=== PATIENT | male | born 1945 | race Hispanic/Latino ===

== ENCOUNTER 2017-01-27 13:12 | Inpatient (IN) | payer MEDICARE ==
[2017-01-27] MEDS ORDERED: Sodium Chloride 0.9% 1,000 ML IV ONE (14:36)
[2017-01-27 14:50] LABS: BASO # 0.1 K/uL (0.0-0.2); BASO % 0.5 % (0.0-2.0); EOS % 0.4 % (0.0-4.0); HEMOGLOBIN 16.6 g/dL (12.0-18.0); LYMPH # 1.3 K/uL (1.0-4.3); LYMPH % 12.5 % (20.0-40.0); MEAN CELL VOLUME 93.5 fl (80.0-94.0); MEAN CORPUSCULAR HGB CONC 34.3 g/dL (33.0-37.0); MONO # 0.7 K/uL (0.0-0.8); NEUT # 8.2 K/uL (1.8-7.0); NEUT % 79.6 % (50.0-75.0); NRBC % 0.1 % (0.0-0.0); RBC 5.18 Mil/uL (4.40-5.90); RED CELL DISTRIBUTION WIDTH 14.6 % (11.5-14.5); WHITE BLOOD COUNT 10.3 K/uL (4.8-10.8)
[2017-01-27 15:05] LABS: ALB/GLOB RATIO 1.5 (1.0-2.1); ALBUMIN 4.4 g/dL (3.5-5.0); ALT/SGPT 32 U/L (21-72); AMYLASE 69 U/L (30-110); AST/SGOT 31 U/L (17-59); BLOOD UREA NITROGEN 27 mg/dl (9-20); CALCIUM 9.8 mg/dL (8.4-10.2); GFR AFRICAN-AMERICAN > 60; GFR NON-AFRICAN AMERICAN 59; LIPASE 32 U/L (23-300)
--- NOTE | 2017-01-27 15:08 | ED PDOC ---
HPI: Abdomen Time Seen by Provider: 01/27/17 13:43 Chief Complaint (Nursing): GI Problem History Per: Patient History/Exam Limitations: no limitations Onset/Duration Of Symptoms: Gradual (7 days) Current Symptoms Are (Timing): Still Present Severity: Moderate Location Of Pain/Discomfort: Diffuse Quality Of Discomfort: Dull, Cramping Associated Symptoms: Nausea, Vomiting, Constipation. denies: Fever, Chills, Diarrhea, Loss Of Appetite, Back Pain, Chest Pain, Urinary Symptoms Exacerbating Factors: None Alleviating Factors: None Last Bowel Movement: Days Ago (7) Additional History Per: Patient Additional Complaint(s): c/o generalized abd pain and constipation x 1 week. no prev sx Past Medical History Reviewed: Historical Data, Nursing Documentation, Vital Signs Vital Signs: Last Vital Signs Temp 97.8 F 02/02/17 00:18 Pulse 77 02/02/17 00:18 Resp 20 02/02/17 00:18 BP 110/68 02/02/17 00:18 Pulse Ox 99 02/02/17 00:18 - Medical History PMH: No Chronic Diseases, COPD - Family History Family History: States: Unknown Family Hx - Living Arrangements Living Arrangements: With Family - Social History Current smoker - smoking cessation education provided: No - Home Medications Home Medications: Ambulatory Orders Medication Instructions Recorded No Known Home Med 01/27/17 - Allergies Allergies/Adverse Reactions: Allergies Allergy/AdvReac Type Severity Reaction Status Date / Time No Known Allergies Allergy Verified 01/27/17 13:16 Review of Systems ROS Statement: Except As Marked, All Systems Reviewed And Found Negative Constitutional: Negative for: Fever, Chills Cardiovascular: Negative for: Chest Pain, Palpitations Respiratory: Negative for: Cough, Shortness of Breath Gastrointestinal: Positive for: Nausea, Vomiting, Abdominal Pain, Constipation Genitourinary Male: Negative for: Dysuria Musculoskeletal: Negative for: Neck Pain Neurological: Negative for: Weakness, Numbness Physical Exam - Reviewed Nursing Documentation Reviewed: Yes Vital Signs Reviewed: Yes - Physical Exam Appears: Positive for: Well, No Acute Distress Head Exam: Positive for: ATRAUMATIC, NORMAL INSPECTION, NORMOCEPHALIC Eye Exam: Positive for: Normal appearance Neck: Positive for: Normal, Painless ROM, Supple Cardiovascular/Chest: Positive for: Tachycardia. Negative for: Edema, Murmur, Bradycardia Respiratory: Positive for: Normal Breath Sounds. Negative for: Decreased Breath Sounds, Accessory Muscle Use, Crackles Pulses-Radial (L): 2+ Pulses-Radial (R): 2+ Gastrointestinal/Abdominal: Positive for: Bowel Sounds, Soft, Distended (mild). Negative for: Guarding, Rebound, Hernia Male Genital Exam: Positive for: normal genitalia. Negative for: scrotum tenderness (R), scrotum tenderness (L), testicular tenderness (R), testicular tenderness (L) Back: Positive for: Normal Inspection. Negative for: L CVA Tenderness, R CVA Tenderness Extremity: Positive for: Normal ROM. Negative for: Tenderness, Pedal Edema Neurologic/Psych: Positive for: Alert, waste removalist II-XII, Oriented. Negative for: Motor/Sensory Deficits - Laboratory Results Result Diagrams: 02/01/17 07:30 02/01/17 07:30 - ECG O2 Sat by Pulse Oximetry: 99 Pulse Ox Interpretation: Normal - Radiology X-Ray: Interpreted by Me X-Ray Interpretation: No Acute Disease Disposition - Clinical Impression Clinical Impression: Colitis - Patient ED Disposition Is Patient to be Admitted: Transfer of Care Counseled Patient/Family Regarding: Studies Performed, Diagnosis - Disposition Disposition: Transfer of Care Disposition Time: 15:00 Condition: FAIR
[2017-01-27 15:21] LABS: SQUAMOUS EPITHIAL 1 /hpf (0-5); URINE BACTERIA RARE (<OCC); URINE BILIRUBIN SMALL (NEGATIVE); URINE BLOOD NEGATIVE (NEGATIVE); URINE CLARITY CLOUDY (Clear); URINE COLOR AMBER (YELLOW); URINE GLUCOSE (UA) 50 mg/dL (Normal); URINE LEUKOCYTE ESTERASE NEG Leu/uL (Negative); URINE NITRATE NEGATIVE (NEGATIVE); URINE PROTEIN 100 mg/dL (NEGATIVE)
--- NOTE | 2017-01-27 15:32 | RAD ---
PROCEDURE: CHEST RADIOGRAPH, 1 VIEW HISTORY: abd pain COMPARISON: None available. FINDINGS: LUNGS: Clear. PLEURA: No pneumothorax or pleural fluid seen. CARDIOVASCULAR: Normal. OSSEOUS STRUCTURES: No significant abnormalities. VISUALIZED UPPER ABDOMEN: Normal. OTHER FINDINGS: None. IMPRESSION: No active disease.
[2017-01-27] MEDS ORDERED: Iohexol 300 100 ML IJ ONE (15:36)
[2017-01-27] MEDS ORDERED: Sodium Chloride 0.9% 50 ML IV ONE (15:37)
--- NOTE | 2017-01-27 16:51 | CT ---
PROCEDURE: CT Abdomen and Pelvis with contrast HISTORY: diffuse abd pain r/o sbo COMPARISON: None. TECHNIQUE: Contrast dose: 90 mL Omnipaque 300 Radiation dose: Total exam DLP = 501.87 mGy-cm. This CT exam was performed using one or more of the following dose reduction techniques: Automated exposure control, adjustment of the mA and/or kV according to patient size, and/or use of iterative reconstruction technique. FINDINGS: LOWER THORAX: No infiltrate. Nonspecific circumferential mural thickening of the distal esophagus. Consider correlation with endoscopy. Trace right pleural effusion. LIVER: Normal size and contour. No mass. Minimal intrahepatic biliary dilatation in the left hepatic lobe. Nonspecific. Dilated common bile duct up to 11 mm. Correlate with laboratory evaluation. GALLBLADDER AND BILE DUCTS: Gallbladder contracted. No calcified gallstones identified. High attenuation content of gallbladder, nonspecific. Mild thickening of gallbladder wall. Consider correlation with ultrasound examination. PANCREAS: Unremarkable. No gross lesion or ductal dilatation. SPLEEN: Unremarkable. ADRENALS: Unremarkable. No mass. KIDNEYS AND URETERS: Unremarkable. No hydronephrosis. No solid mass. VASCULATURE: Unremarkable. No aortic aneurysm. BOWEL: No evidence of small-bowel obstruction. Dilated colon with extensive liquified fecal content. Mural thickening of the transverse colon suspicious for a nonspecific colitis. APPENDIX: Normal appendix. PERITONEUM: Mild nonspecific ascites in pelvis. LYMPH NODES: Shotty retroperitoneal lymph nodes common nonspecific. BLADDER: Poorly distended REPRODUCTIVE: Unremarkable prostate BONES: No acute fracture. OTHER FINDINGS: None. IMPRESSION: Distended colon filled with liquified fecal content. Circumferential mural thickening of transverse colon consistent with nonspecific colitis. No evidence of small bowel obstruction. Mild ascites in pelvis. Contracted gallbladder with high attenuation content and thickened wall. Consider correlation with ultrasound. Mildly dilated common bile duct as well as minimal intrahepatic biliary dilatation. Please correlate with clinical and laboratory evaluation.
--- NOTE | 2017-01-27 17:48 | ED PDOC ---
- Laboratory Results Result Diagrams: 01/27/17 14:40 01/27/17 14:40 - ECG O2 Sat by Pulse Oximetry: 98 Medical Decision Making Medical Decision Making: Receiving sign out: Patient signed out to me by Dr. Baker at 1710 pending imaging studies, re- evaluation. Scribe Attestation: Documented by Zoraida Amos acting as a scribe for Reza Conti MD. Provider Attestation: All medical record entries made by the Scribe were at my direction and personally dictated by me. I have reviewed the chart and agree that the record accurately reflects my personal performance of the history, physical exam, medical decision making, and the department course for this patient. I have also personally directed, reviewed, and agree with the discharge instructions and disposition. Disposition Discussed With : Ray Danielson - Clinical Impression Clinical Impression: Colitis - POA Present On Arrival: None - Disposition Disposition: Hospitalized as Observation Patient Disposition Time: 19:24 Condition: FAIR Progress Note - Review of Symptoms Events since last encounter: Time: 1800 US Abdomen Impression: Contracted galbladder state precludes adequate evaluation. Negative sonographic Barclay's sign as assessed by the electronic masking system operator.
--- NOTE | 2017-01-27 18:00 | US ---
HISTORY: pain COMPARISON: CT of the abdomen and pelvis with IV contrast performed 01/27/17 TECHNIQUE: Sonographic evaluation of the right upper quadrant of the abdomen. FINDINGS: LIVER: Measures 11.4 cm in length and appears unremarkable No focal hepatic mass identified. The main portal vein appears patent with normal directional flow. No intrahepatic bile duct dilatation. GALLBLADDER: Contracted gallbladder state precludes adequate evaluation. Negative sonographic Barclay's sign as assessed by the heading pinner. COMMON BILE DUCT: Measures 3 mm. PANCREAS: Not well-visualized. RIGHT KIDNEY: Measures 9.6 x 4.2 x 3.9 cm. No obstructing calculus or hydronephrosis identified. AORTA: Limited visualization appears grossly unremarkable. IVC: Limited visualization appears grossly unremarkable. OTHER FINDINGS: None . IMPRESSION: Contracted gallbladder state precludes adequate evaluation. Negative sonographic Barclay's sign as assessed by the heading pinner.
[2017-01-27] MEDS ORDERED: Ciprofloxacin 400mg/200ml D5W 400 MG/200 ML BAG IVPB STA (19:22)
--- NOTE | 2017-01-27 19:41 | CP.PCM.HP ---
History of Present Illness - History of Present Illness History of Present Illness: CC: abd pain, n/v, decreased PO HPI: This is a 71 y/o male with MHx significant for COPD who comes in with 7 days of constipation, n/v, abd pain, and decreased PO intake. States that he has had no BM for 7 days, and along with that has had worsening n/v to the point where he can hardly keep any food or liquid down. Denies any f/c. Denies any diarrhea at any point. Denies any prior bowel issues, denies any narcotics or any antibiotics. Nothing has particularly made symptoms better or worse. Had enema in ER with some defecation, but still having some abdominal discomfort PCP: Erum MHx: COPD SHx: Hernia surgery (R) Allergies: NKDA Medications: per med rec (only an inhaler) Family Hx: No family history of cancer or GI problems Social Hx: Lives with family, 1 ppd generally of tobacco, no significant EtOH Surrogate: , Sandra; info in chart Present on Admission - Present on Admission Any Indicators Present on Admission: No Past Patient History - Past Social History Smoking Status: Heavy Smoker > 10 Cigarettes Daily - PULMONARY Hx Chronic Obstructive Pulmonary Disease (COPD): Yes - PSYCHIATRIC Hx Substance Use: No - ANESTHESIA Hx Anesthesia: No Meds Allergies/Adverse Reactions: Allergies Allergy/AdvReac Type Severity Reaction Status Date / Time No Known Allergies Allergy Verified 01/27/17 13:16 Physical Exam - Constitutional Appears: No Acute Distress - Head Exam Head Exam: ATRAUMATIC, NORMOCEPHALIC - Eye Exam Eye Exam: EOMI, PERRL - ENT Exam ENT Exam: Mucous Membranes Moist - Neck Exam Neck exam: Positive for: Full Rom - Respiratory Exam Respiratory Exam: Rhonchi, Wheezes - Cardiovascular Exam Cardiovascular Exam: REGULAR RHYTHM, +S1, +S2 - GI/Abdominal Exam GI & Abdominal Exam: Normal Bowel Sounds, Soft, Tenderness Additional comments: no rebound or guarding - Extremities Exam Extremities exam: Positive for: full ROM, normal inspection - Neurological Exam Neurological exam: Alert, CN II-XII Intact, Oriented x3 - Psychiatric Exam Psychiatric exam: Normal Affect, Normal Mood - Skin Skin Exam: Dry, Warm Results - Vital Signs Recent Vital Signs: Last Vital Signs Temp 97 F L 01/27/17 13:17 Pulse 80 01/27/17 16:04 Resp 19 01/27/17 16:04 BP 139/63 01/27/17 16:04 Pulse Ox 98 01/27/17 19:24 - Labs Result Diagrams: 01/27/17 14:40 01/27/17 14:40 Labs: Laboratory Results - last 24 hr 01/27/17 01/27/17 01/27/17 14:40 14:40 14:59 WBC 10.3 RBC 5.18 Hgb 16.6 Hct 48.4 MCV 93.5 MCH 32.0 H MCHC 34.3 RDW 14.6 H Plt Count 279 MPV 8.0 Neut % (Auto) 79.6 H Lymph % (Auto) 12.5 L Winston % (Auto) 7.0 Eos % (Auto) 0.4 Baso % (Auto) 0.5 Neut # 8.2 H Lymph # 1.3 Winston # 0.7 Eos # 0.0 Baso # 0.1 Sodium 144 Potassium 3.7 Chloride 101 Carbon Dioxide 26 Anion Gap 20 BUN 27 H Creatinine 1.2 Est GFR ( Amer) > 60 Est GFR (Non-Af Amer) 59 Random Glucose 143 H Calcium 9.8 Total Bilirubin 1.1 AST 31 ALT 32 Alkaline Phosphatase 107 Troponin I < 0.0120 Total Protein 7.4 Albumin 4.4 Globulin 3.0 Albumin/Globulin Ratio 1.5 Amylase 69 Lipase 32 Urine Color Jil Urine Clarity Cloudy Urine pH 5.0 Ur Specific Mcalpin 1.032 H Urine Protein 100 Urine Glucose (UA) 50 Urine Ketones 80 Urine Blood Negative Urine Nitrate Negative Urine Bilirubin Small Urine Urobilinogen 2.0 Ur Leukocyte Esterase Neg Urine RBC (Auto) 3 Urine Microscopic WBC 9 H Ur Squamous Epith Cells 1 Urine Bacteria Rare - Imaging and Cardiology Chest x-ray Status: Image reviewed by me (unremarkable) CT scan - abdomen Status: Image reviewed by me (Per report distal colon with liq feces, transverse with thickening, possible colitis; u/s with no cholecystitis), Report reviewed by me Assessment & Plan (1) Abdominal pain Assessment and Plan: 71 y/o male with constipation and possible colitis and decreased PO. -Continue IV Cipro and Flagyl for now; appears unlikely to necessarily be colitis however -Advance to clear liq and cont IVF -Tylenol for pain, Zofran IV for nausea -Consult GI (Luiz) in AM for possible colonoscopy -SCDs for DVT PPx Status: Acute (2) Colitis Status: Acute (3) DVT prophylaxis Status: Acute
[2017-01-27] MEDS ORDERED: Sodium Chloride 0.9% 1,000 ML IV SCH (19:45)
[2017-01-27 20:09] LABS: VENOUS BLOOD GAS BASE EXCESS -0.2 mmol/L (0.0-2.0); VENOUS BLOOD GAS PCO2 41 mmHg (40-60); VENOUS BLOOD GAS PO2 51 mm/Hg (30-55); VENOUS BLOOD PH 7.39 (7.32-7.43)
[2017-01-27] MEDS ORDERED: Albuterol-Ipratrop 3 mg / 0.5 (3 ml) UD INH PRN (20:28)
[2017-01-27] MEDS ORDERED: Albuterol-Ipratrop 3 mg / 0.5 (3 ml) UD INH STA (20:28)
[2017-01-27] MEDS ORDERED: metroNIDAZOLE 500mg/100ml NS 1,000 MG in Premixed IV 1 EA IVPB SCH (20:30)
[2017-01-28] MEDS: metroNIDAZOLE 500mg/100ml NS 100 ML IVPB SCH ×3 (01:02→17:28)
[2017-01-28 07:46] LABS: HEMOGLOBIN 15.4 g/dL (12.0-18.0); MEAN CORPUSCULAR HEMOGLOBIN 31.7 pg (27.0-31.0); MEAN CORPUSCULAR HGB CONC 33.8 g/dL (33.0-37.0); RBC 4.84 Mil/uL (4.40-5.90); RED CELL DISTRIBUTION WIDTH 14.6 % (11.5-14.5); WHITE BLOOD COUNT 12.8 K/uL (4.8-10.8)
[2017-01-28 08:10] LABS: BLOOD UREA NITROGEN 26 mg/dl (9-20); CALCIUM 9.5 mg/dL (8.4-10.2)
[2017-01-28 09:01] LABS: GFR AFRICAN-AMERICAN > 60; GFR NON-AFRICAN AMERICAN > 60
--- NOTE | 2017-01-28 09:27 | CP.PCM.PN ---
Subjective - Date & Time of Evaluation Date of Evaluation: 01/28/17 Time of Evaluation: 09:19 - Subjective Subjective: pt continues to vomit when eating will give only clears with small sips, which is what he is able to tolerate at this time small BM yesterday after enema encourage ambulation if able HD stable NAD no other complaints at this time Objective - Vital Signs/Intake and Output Vital Signs (last 24 hours): Temp Pulse Resp BP Pulse Ox 97.8 F 76 20 117/67 94 L 01/28/17 08:02 01/28/17 08:02 01/28/17 08:02 01/28/17 08:02 01/28/17 08:02 Intake and Output: 01/28/17 01/28/17 06:59 18:59 Intake Total 1000 Balance 1000 - Medications Medications: Current Medications Acetaminophen (Tylenol 325mg Tab) 650 mg PO Q6 PRN PRN Reason: Pain, Mild (1-3) Acetaminophen (Tylenol 325mg Tab) 650 mg PO Q6 PRN PRN Reason: Fever >100.4 F Albuterol/Ipratropium (Duoneb 3 Mg/0.5 Mg (3 Ml) Ud) 3 ml INH RQ6 PRN PRN Reason: Shortness of Breath Metronidazole 1,000 mg/ (Miscellaneous) 200 mls @ 200 mls/hr IVPB ONCE TORRES Last Admin: 01/27/17 23:07 Dose: 200 mls/hr Ciprofloxacin (Cipro 400mg/200ml Dsw) 400 mg in 200 mls @ 200 mls/hr IVPB Q12 TORRES Metronidazole (Flagyl 500mg/100ml Ns) 100 mls @ 100 mls/hr IVPB Q8 TORRES Last Admin: 01/28/17 01:02 Dose: Not Given Ondansetron HCl (Zofran Inj) 4 mg IVP Q6 PRN PRN Reason: Nausea/Vomiting Last Admin: 01/27/17 20:07 Dose: 4 mg - Labs Labs: 01/28/17 05:15 01/28/17 05:15 - Constitutional Appears: Non-toxic, No Acute Distress - Head Exam Head Exam: ATRAUMATIC, NORMOCEPHALIC - Eye Exam Eye Exam: EOMI, Normal appearance, PERRL Pupil Exam: NORMAL ACCOMODATION - ENT Exam ENT Exam: Mucous Membranes Moist, Normal Oropharynx - Neck Exam Neck Exam: Full ROM, Normal Inspection - Respiratory Exam Respiratory Exam: Clear to Ausculation Bilateral, NORMAL BREATHING PATTERN - Cardiovascular Exam Cardiovascular Exam: RRR, +S1, +S2 - GI/Abdominal Exam GI & Abdominal Exam: Soft, Normal Bowel Sounds. absent: Tenderness - Extremities Exam Extremities Exam: Normal Capillary Refill. absent: Joint Swelling - Back Exam Back Exam: absent: CVA tenderness (L), CVA tenderness (R) - Neurological Exam Neurological Exam: Alert, Oriented x3 - Psychiatric Exam Psychiatric exam: Normal Affect, Normal Mood - Skin Skin Exam: Dry, Normal Color, Warm Assessment and Plan - Assessment and Plan (Free Text) Plan: 71 y/o male with MHx significant for COPD who comes in with 7 days of constipation, n/v, abd pain, and decreased PO intake. States that he has had no BM for 7 days, and along with that has had worsening n/v to the point where he can hardly keep any food or liquid down. Denies any f/c. Denies any diarrhea at any point. Denies any prior bowel issues, denies any narcotics or any antibiotics. Nothing has particularly made symptoms better or worse. Had enema in ER with some defecation, but still having some abdominal discomfort Chest x-ray: unremarkable CT scan - abdomen: distal colon with liq feces, transverse with thickening, possible colitis; u/s with no cholecystitis Abdominal pain 2/2 Colitis? -Continue IV Cipro and Flagyl for now; clinically unlikely colitis -Advance to clear liq and cont IVF -Tylenol for pain, Zofran IV for nausea -Consult GI (Luiz) in AM Azotemia -additional liter of NS @250 one bag today and reassess -repeat chem in AM Hypokalemia -replete K this morning -check Mg -repeat chem and Mg in AM COPD stable DuoNebs as needed DVT prophylaxis -SCDs for DVT PPx
[2017-01-28] MEDS ORDERED: Sodium Chloride 0.9% 1,000 ML IV SCH (09:30)
--- NOTE | 2017-01-28 10:21 | CARD ---
APPROVED REPORT EKG Measurement Heart [id number] <Conclusion> Sinus rhythm with frequent premature atrial contractions Nonspecific ST abnormality Abnormal ECG
[2017-01-28] MEDS: Ciprofloxacin 400mg/200ml D5W 400 MG/200 ML BAG IVPB SCH ×2 (11:17→21:12)
[2017-01-28] MEDS: Potassium CL 10mEq/100ml 100 ML IVPB SCH ×4 (16:08→17:27)
[2017-01-28] MEDS ORDERED: Trimethobenzamide 200 mg/2 mL Inj IM ONE (21:40)
[2017-01-29] MEDS: metroNIDAZOLE 500mg/100ml NS 100 ML IVPB SCH ×3 (00:44→17:56)
[2017-01-29 07:53] LABS: BASO % 0.4 % (0.0-2.0); EOS % 0.1 % (0.0-4.0); HEMOGLOBIN 14.9 g/dL (12.0-18.0); LYMPH # 1.2 K/uL (1.0-4.3); MEAN CELL VOLUME 95.1 fl (80.0-94.0); MEAN CORPUSCULAR HEMOGLOBIN 31.6 pg (27.0-31.0); MEAN CORPUSCULAR HGB CONC 33.2 g/dL (33.0-37.0); MEAN PLATELET VOLUME 8.1 fl (7.2-11.7); MONO # 1.2 K/uL (0.0-0.8); MONO % 9.6 % (0.0-10.0); NEUT # 9.9 K/uL (1.8-7.0); NEUT % 79.9 % (50.0-75.0); RBC 4.72 Mil/uL (4.40-5.90); RED CELL DISTRIBUTION WIDTH 14.8 % (11.5-14.5); WHITE BLOOD COUNT 12.4 K/uL (4.8-10.8)
[2017-01-29 08:14] LABS: BLOOD UREA NITROGEN 22 mg/dl (9-20); CALCIUM 9.2 mg/dL (8.4-10.2); GFR AFRICAN-AMERICAN > 60; GFR NON-AFRICAN AMERICAN > 60
[2017-01-29 08:15] LABS: MAGNESIUM 1.9 MG/DL (1.6-2.3)
--- NOTE | 2017-01-29 10:25 | CP.PCM.PN ---
Subjective - Date & Time of Evaluation Date of Evaluation: 01/29/17 Time of Evaluation: 10:30 - Subjective Subjective: some nauseam but no BM Objective - Vital Signs/Intake and Output Vital Signs (last 24 hours): Temp Pulse Resp BP Pulse Ox 98.1 F 87 20 145/76 96 01/29/17 07:46 01/29/17 07:46 01/29/17 07:46 01/29/17 07:46 01/29/17 07:46 - Medications Medications: Current Medications Acetaminophen (Tylenol 325mg Tab) 650 mg PO Q6 PRN PRN Reason: Pain, Mild (1-3) Acetaminophen (Tylenol 325mg Tab) 650 mg PO Q6 PRN PRN Reason: Fever >100.4 F Albuterol/Ipratropium (Duoneb 3 Mg/0.5 Mg (3 Ml) Ud) 3 ml INH RQ6 PRN PRN Reason: Shortness of Breath Bisacodyl (Dulcolax) 10 mg [place] DAILY PRN PRN Reason: Constipation Metronidazole 1,000 mg/ (Miscellaneous) 200 mls @ 200 mls/hr IVPB ONCE TORRES Last Admin: 01/27/17 23:07 Dose: 200 mls/hr Ciprofloxacin (Cipro 400mg/200ml Dsw) 400 mg in 200 mls @ 200 mls/hr IVPB Q12 TORRES Last Admin: 01/28/17 21:12 Dose: 200 mls/hr Metronidazole (Flagyl 500mg/100ml Ns) 100 mls @ 100 mls/hr IVPB Q8 TORRES Last Admin: 01/29/17 10:04 Dose: 100 mls/hr Ondansetron HCl (Zofran Inj) 4 mg IVP Q4H PRN PRN Reason: Nausea/Vomiting Last Admin: 01/29/17 03:00 Dose: 4 mg Sodium Phosphate (Fleet Enema) 135 ml TX ONCE ONE Stop: 01/29/17 10:00 - GI/Abdominal Exam GI & Abdominal Exam: Soft, Normal Bowel Sounds Assessment and Plan - Assessment and Plan (Free Text) Assessment: 71 yo male with colitis will review films with radiology kub now laxatives H2 tawana
--- NOTE | 2017-01-29 10:49 | CP.PCM.PN ---
Subjective - Date & Time of Evaluation Date of Evaluation: 01/29/17 Time of Evaluation: 10:49 - Subjective Subjective: continues to have nausea improved from yesterday less emesis HD STABLE NAD unable to tolerate PO hold IVF 2/2 heaviness in breathing Objective - Vital Signs/Intake and Output Vital Signs (last 24 hours): Temp Pulse Resp BP Pulse Ox 98.1 F 87 20 145/76 96 01/29/17 07:46 01/29/17 07:46 01/29/17 07:46 01/29/17 07:46 01/29/17 07:46 - Medications Medications: Current Medications Acetaminophen (Tylenol 325mg Tab) 650 mg PO Q6 PRN PRN Reason: Pain, Mild (1-3) Acetaminophen (Tylenol 325mg Tab) 650 mg PO Q6 PRN PRN Reason: Fever >100.4 F Albuterol/Ipratropium (Duoneb 3 Mg/0.5 Mg (3 Ml) Ud) 3 ml INH RQ6 PRN PRN Reason: Shortness of Breath Bisacodyl (Dulcolax) 10 mg MS DAILY PRN PRN Reason: Constipation Famotidine (Pepcid) 20 mg PO BID [facility] Metronidazole 1,000 mg/ (Miscellaneous) 200 mls @ 200 mls/hr IVPB ONCE [facility] Last Admin: 01/27/17 23:07 Dose: 200 mls/hr Ciprofloxacin (Cipro 400mg/200ml Dsw) 400 mg in 200 mls @ 200 mls/hr IVPB Q12 [facility] Last Admin: 01/28/17 21:12 Dose: 200 mls/hr Metronidazole (Flagyl 500mg/100ml Ns) 100 mls @ 100 mls/hr IVPB Q8 [facility] Last Admin: 01/29/17 10:04 Dose: 100 mls/hr Ondansetron HCl (Zofran Inj) 4 mg IVP Q4H PRN PRN Reason: Nausea/Vomiting Last Admin: 01/29/17 03:00 Dose: 4 mg - Constitutional Appears: Non-toxic, No Acute Distress - Head Exam Head Exam: ATRAUMATIC, NORMOCEPHALIC - Eye Exam Eye Exam: EOMI, Normal appearance, PERRL Pupil Exam: NORMAL ACCOMODATION - ENT Exam ENT Exam: Mucous Membranes Moist, Normal Oropharynx - Respiratory Exam Respiratory Exam: Clear to Ausculation Bilateral, NORMAL BREATHING PATTERN - Cardiovascular Exam Cardiovascular Exam: RRR, +S1, +S2 - GI/Abdominal Exam GI & Abdominal Exam: Soft, Normal Bowel Sounds. absent: Tenderness, Mass, Organomegaly - Extremities Exam Extremities Exam: Normal Capillary Refill. absent: Joint Swelling - Back Exam Back Exam: absent: CVA tenderness (L), CVA tenderness (R) - Neurological Exam Neurological Exam: Alert, Awake - Psychiatric Exam Psychiatric exam: Normal Affect, Normal Mood - Skin Skin Exam: Dry, Warm Assessment and Plan - Assessment and Plan (Free Text) Plan: 71 y/o male with MHx significant for COPD who comes in with 7 days of constipation, n/v, abd pain, and decreased PO intake. States that he has had no BM for 7 days, and along with that has had worsening n/v to the point where he can hardly keep any food or liquid down. Denies any f/c. Denies any diarrhea at any point. Denies any prior bowel issues, denies any narcotics or any antibiotics. Nothing has particularly made symptoms better or worse. Had enema in ER with some defecation, but still having some abdominal discomfort Chest x-ray: unremarkable CT scan - abdomen: distal colon with liq feces, transverse with thickening, possible colitis; u/s with no cholecystitis Abdominal pain 2/2 ILEUS . Colitis? Constipation, not tolerating PO -Continue IV Cipro and Flagyl for now; clinically unlikely colitis -pt continues to not tolerate PO, requires IV hydration, however currently holding 2/2 "heaviness of breathing" -NPO for now, KUB completed. +ileus -Tylenol for pain, Zofran IV for nausea -Consult GI (Sotiriadis) in AM - Fleet Enema, Dulcolax suppository added - if worsens, will NGT. likely ileus. Hypokalemia - repleted K - Mg repleted as well - monitor Azotemia -additional liter of ns completed -repeat chem in AM Hypokalemia -replete K this morning -check Mg -repeat chem and Mg in AM COPD stable DuoNebs as needed DVT prophylaxis -SCDs for DVT PPx
[2017-01-29 11:05] LABS: ALB/GLOB RATIO 1.5 (1.0-2.1); ALBUMIN 3.6 g/dL (3.5-5.0); BILIRUBIN,DIRECT 0.4 mg/ml (0.0-0.4)
[2017-01-29] MEDS: Ciprofloxacin 400mg/200ml D5W 400 MG/200 ML BAG IVPB SCH ×2 (11:08→21:39)
[2017-01-29] MEDS ORDERED: Magnesium Sulfate 2 gm/50 ml 2 GM/50 ML BAG IVPB ONE (11:08)
--- NOTE | 2017-01-29 15:12 | RAD ---
HISTORY: abd pain COMPARISON: Comparison made with CT scan abdomen and pelvis dated 01/27/2017 FINDINGS: BOWEL: Re- demonstrated is distended cecum and at ascending colon which was noted to contain a large amount of liquefied content on prior CT scan. . Previously noted wall thickening of the transverse colon consistent with a colitis not appreciated on this study. BONES: Normal. OTHER FINDINGS: None. IMPRESSION: Re- demonstrated is distended cecum and at ascending colon which was noted to contain a large amount of liquefied content on prior CT scan. . Previously noted wall thickening of the transverse colon consistent with a colitis not appreciated on this study.
[2017-01-29] MEDS: Potassium CL 10mEq/100ml 100 ML IVPB SCH ×5 (15:17→20:12)
--- NOTE | 2017-01-29 17:14 | US ---
HISTORY: Intractable n/v, rec from CT COMPARISON: Ultrasound performed 01/29/17 TECHNIQUE: Sonographic evaluation of the abdomen. FINDINGS: LIVER: Measures 12.2 cm in sagittal dimension and appears within normal limits of size, shape, and echotexture. No focal hepatic mass identified. The main portal vein appears patent with normal directional flow. No intrahepatic bile duct dilatation. GALLBLADDER: Contracted state of the gallbladder precludes adequate evaluation. No definite gallstones. Gallbladder wall appears thickened measuring approximately 5 mm. Negative sonographic Barclay's sign as assessed by the sheltered workshop worker. COMMON BILE DUCT: Measures 4 mm. PANCREAS: Not well visualized. RIGHT KIDNEY: Measures 9.9 x 3.3 x 3.4cm. No obstructing calculus or hydronephrosis identified. Trace perinephric fluid. LEFT KIDNEY: Measures 10.6 x 4.2 x 4.5cm. No obstructing calculus or hydronephrosis identified. Trace perinephric fluid. SPLEEN: Measures approximately 7.0 cm. AORTA: Limited views appear unremarkable. IVC: Limited views appear unremarkable. OTHER FINDINGS: Incidental note is made of right-sided pleural effusion. IMPRESSION: Trace bilateral perinephric fluid. Trace right-sided pleural effusion. Contracted gallbladder limits evaluation. Gallbladder wall appears thickened measuring approximately 5 mm. Negative sonographic Barclay's sign as assessed by the sheltered workshop worker.
[2017-01-30] MEDS: metroNIDAZOLE 500mg/100ml NS 100 ML IVPB SCH ×3 (01:42→17:03)
[2017-01-30 05:25] LABS: BASO # 0.1 K/uL (0.0-0.2); BASO % 0.7 % (0.0-2.0); EOS % 0.2 % (0.0-4.0); HEMOGLOBIN 15.6 g/dL (12.0-18.0); LYMPH # 1.4 K/uL (1.0-4.3); LYMPH % 13.2 % (20.0-40.0); MEAN CELL VOLUME 94.9 fl (80.0-94.0); MEAN CORPUSCULAR HEMOGLOBIN 31.8 pg (27.0-31.0); MEAN CORPUSCULAR HGB CONC 33.5 g/dL (33.0-37.0); MEAN PLATELET VOLUME 8.1 fl (7.2-11.7); MONO % 9.4 % (0.0-10.0); NEUT # 8.4 K/uL (1.8-7.0); NEUT % 76.5 % (50.0-75.0); RBC 4.9 Mil/uL (4.40-5.90); RED CELL DISTRIBUTION WIDTH 14.9 % (11.5-14.5)
[2017-01-30 05:26] LABS: ALB/GLOB RATIO 1.5 (1.0-2.1); ALBUMIN 3.5 g/dL (3.5-5.0); ALT/SGPT 31 U/L (21-72); AST/SGOT 43 U/L (17-59); BLOOD UREA NITROGEN 21 mg/dl (9-20); CALCIUM 8.6 mg/dL (8.4-10.2); GFR AFRICAN-AMERICAN > 60; GFR NON-AFRICAN AMERICAN > 60
--- NOTE | 2017-01-30 08:41 | CON ---
DATE: 01/28/2017 REFERRING DOCTOR: Raysa Palmer MD REASON FOR CONSULTATION: Abdominal pain, nausea, and vomiting. HISTORY OF PRESENT ILLNESS: This is a 71-year-old male with history of COPD. He complains for 7 days of nausea, vomiting, and abdominal discomfort. [place] Feels better at this point. He has had some bowel movements, some fevers and no chills, no weight loss, currently lying, in no apparent distress. PAST MEDICAL HISTORY: As above. PAST SURGICAL HISTORY: As above. MEDICATIONS: Reviewed. REVIEW OF SYSTEMS: All other systems have been reviewed, negative apart from the HPI. PHYSICAL EXAMINATION GENERAL: Pleasant elderly appearing male, lying in bed comfortably, in no apparent distress. HEENT: Head is normocephalic and atraumatic. Eyes, pupils equal and reactive to light. No conjunctivae or scleral icterus. NECK: Supple. Normal range of motion. No lymphadenopathy appreciated. LUNGS: Coarse breath sounds bilaterally. HEART: S1, S2, regular rate and rhythm. ABDOMEN: Soft, nontender, bowel sounds present. Some discomfort in the upper quadrant. No rebound. No guarding. RECTAL: Exam deferred. EXTREMITIES: Peripheral pulses felt bilaterally. SKIN: Warm, dry, and intact x3. LABORATORY DATA: WBC went up to 12.8, hemoglobin 15.4, hematocrit stable, platelet count is 302. CAT scan of the abdomen and pelvis demonstrates descending colon with leukocytes, fecal contents, document again of the transverse colon significant with nonspecific colitis. Abdominal ultrasound contracted gallbladder, ASSESSMENT AND PLAN: This is a 71-year-old man with colitis and chronic obstructive pulmonary disease. Antibiotics for now. Administer as tolerated. Outpatient colonoscopy when able. Thank you for the consult. Roel Dee MD/ PhD cc: Raysa Palmer MD MTDD
[2017-01-30] MEDS: Ciprofloxacin 400mg/200ml D5W 400 MG/200 ML BAG IVPB SCH ×2 (09:11→21:48)
--- NOTE | 2017-01-30 13:07 | CP.PCM.PN ---
Subjective - Date & Time of Evaluation Date of Evaluation: 01/30/17 Time of Evaluation: 13:05 - Subjective Subjective: pt continues to feel nauseated and unable to take food by mouth without emesis hd stable no other complaints at this time Objective - Vital Signs/Intake and Output Vital Signs (last 24 hours): Temp Pulse Resp BP Pulse Ox 98.5 F 74 20 161/94 H 95 01/30/17 08:31 01/30/17 08:31 01/30/17 08:31 01/30/17 08:31 01/30/17 08:31 Intake and Output: 01/30/17 01/30/17 06:59 18:59 Intake Total 300 Balance 300 - Medications Medications: Current Medications Acetaminophen (Tylenol 325mg Tab) 650 mg PO Q6 PRN PRN Reason: Pain, Mild (1-3) Acetaminophen (Tylenol 325mg Tab) 650 mg PO Q6 PRN PRN Reason: Fever >100.4 F Albuterol/Ipratropium (Duoneb 3 Mg/0.5 Mg (3 Ml) Ud) 3 ml INH RQ6 PRN PRN Reason: Shortness of Breath Bisacodyl (Dulcolax) 10 mg [place] DAILY PRN PRN Reason: Constipation Last Admin: 01/30/17 10:26 Dose: 10 mg Famotidine (Pepcid) 20 mg PO BID [facility] Last Admin: 01/30/17 09:10 Dose: 20 mg Ciprofloxacin (Cipro 400mg/200ml Dsw) 400 mg in 200 mls @ 200 mls/hr IVPB Q12 [facility] Last Admin: 01/30/17 09:11 Dose: 200 mls/hr Metronidazole (Flagyl 500mg/100ml Ns) 100 mls @ 100 mls/hr IVPB Q8 [facility] Last Admin: 01/30/17 08:57 Dose: 100 mls/hr Potassium Chloride/Dextrose/Sod Cl (Potassium Chl 20 Meq In D5-1/2ns) 1,000 mls @ 100 mls/hr IV .Q10H [facility] Stop: 01/31/17 12:02 Ondansetron HCl (Zofran Inj) 4 mg IVP Q4H PRN PRN Reason: Nausea/Vomiting Last Admin: 01/30/17 01:43 Dose: 4 mg - Labs Labs: 01/30/17 04:20 01/30/17 04:20 - Constitutional Appears: Non-toxic, No Acute Distress - Head Exam Head Exam: ATRAUMATIC, NORMOCEPHALIC - Eye Exam Eye Exam: EOMI, Normal appearance, PERRL Pupil Exam: NORMAL ACCOMODATION - ENT Exam ENT Exam: Mucous Membranes Moist, Normal Oropharynx - Neck Exam Neck Exam: Full ROM, Normal Inspection. absent: Lymphadenopathy - Respiratory Exam Respiratory Exam: Clear to Ausculation Bilateral, NORMAL BREATHING PATTERN - Cardiovascular Exam Cardiovascular Exam: REGULAR RHYTHM, +S1, +S2. absent: Murmur - GI/Abdominal Exam GI & Abdominal Exam: Soft, Hypoactive Bowel Sounds. absent: Tenderness - Extremities Exam Extremities Exam: Full ROM, Normal Capillary Refill, Normal Inspection. absent : Joint Swelling, Pedal Edema - Back Exam Back Exam: absent: CVA tenderness (L), CVA tenderness (R) - Neurological Exam Neurological Exam: Alert, Awake, CN II-XII Intact, Normal Gait, Oriented x3 - Psychiatric Exam Psychiatric exam: Normal Affect, Normal Mood - Skin Skin Exam: Dry, Intact, Normal Color, Warm Assessment and Plan - Assessment and Plan (Free Text) Plan: 71 y/o male with MHx significant for COPD who comes in with 7 days of constipation, n/v, abd pain, and decreased PO intake. States that he has had no BM for 7 days, and along with that has had worsening n/v to the point where he can hardly keep any food or liquid down. Denies any f/c. Denies any diarrhea at any point. Denies any prior bowel issues, denies any narcotics or any antibiotics. Nothing has particularly made symptoms better or worse. Had enema in ER with some defecation, but still having some abdominal discomfort Chest x-ray: unremarkable CT scan - abdomen: distal colon with liq feces, transverse with thickening, possible colitis; u/s with no cholecystitis Abdominal pain 2/2 ILEUS . Colitis? Constipation, not tolerating PO -Continue IV Cipro and Flagyl for now; clinically unlikely colitis -pt continues to not tolerate PO, requires IV hydration, however currently holding 2/2 "heaviness of breathing" -NPO for now, KUB completed. +ileus -Tylenol for pain, Zofran IV for nausea -Consult GI (Luiz) in AM - Fleet Enema, Dulcolax suppository added - if worsens, will NGT. likely ileus. - 01/30/17 pt continues to have nausea, less emesis, however unable to tolerate PO, on maintenance fluids will order tap and suds enema and dulcolax [place] and continue to monitor Hypokalemia - repleted K - Mg repleted as well - monitor Azotemia -additional liter of ns completed -repeat chem in AM Hypokalemia -replete K this morning -check Mg -repeat chem and Mg in AM COPD stable DuoNebs as needed DVT prophylaxis -SCDs for DVT PPx
[2017-01-30] MEDS: Potassium Ch 20mEq in D5-1/2NS 1,000 ML IV SCH ×2 (14:24→21:49)
[2017-01-30] MEDS: Tiotropium 18 mcg Cap For Inhalation INH SCH (18:21)
[2017-01-31] MEDS: metroNIDAZOLE 500mg/100ml NS 100 ML IVPB SCH ×3 (01:24→18:15)
[2017-01-31] MEDS: Tiotropium 18 mcg Cap For Inhalation INH SCH (10:48)
[2017-01-31] MEDS: Ciprofloxacin 400mg/200ml D5W 400 MG/200 ML BAG IVPB SCH ×2 (11:00→22:00)
[2017-01-31] MEDS ORDERED: Albuterol 0.083% Inhal Sol (2.5 mg/3 mL) UD INH PRN (12:13)
--- NOTE | 2017-01-31 12:17 | CP.PCM.PN ---
Subjective - Date & Time of Evaluation Date of Evaluation: 01/31/17 Time of Evaluation: 12:15 - Subjective Subjective: Unusual, but Spiriva can have some effect on the bowel because of it's anticholinergic properties. Have discontinued this for now and substituted QID albuterol nebs. Thanks. Objective - Vital Signs/Intake and Output Vital Signs (last 24 hours): Temp Pulse Resp BP Pulse Ox 98.5 F 86 20 101/65 96 01/31/17 08:45 01/31/17 08:45 01/31/17 08:45 01/31/17 08:45 01/31/17 08:45 Intake and Output: 01/31/17 01/31/17 11:59 23:59 Intake Total 1320 Balance 1320 - Medications Medications: Current Medications Acetaminophen (Tylenol 325mg Tab) 650 mg PO Q6 PRN PRN Reason: Pain, Mild (1-3) Acetaminophen (Tylenol 325mg Tab) 650 mg PO Q6 PRN PRN Reason: Fever >100.4 F Albuterol Sulfate (Albuterol 0.083% Inhal Barbara (2.5 Mg/3 Ml) Ud) 2.5 mg INH RQID [facility] Albuterol Sulfate (Albuterol 0.083% Inhal Barbara (2.5 Mg/3 Ml) Ud) 2.5 mg INH RQ4 PRN PRN Reason: Shortness of Breath Bisacodyl (Dulcolax) 10 mg [place] DAILY PRN PRN Reason: Constipation Last Admin: 01/30/17 10:26 Dose: 10 mg Famotidine (Pepcid) 20 mg PO BID [facility] Last Admin: 01/31/17 08:45 Dose: 20 mg Ciprofloxacin (Cipro 400mg/200ml Dsw) 400 mg in 200 mls @ 200 mls/hr IVPB Q12 [facility] Last Admin: 01/30/17 21:48 Dose: 200 mls/hr Metronidazole (Flagyl 500mg/100ml Ns) 100 mls @ 100 mls/hr IVPB Q8 [facility] Last Admin: 01/31/17 08:45 Dose: 100 mls/hr Ondansetron HCl (Zofran Inj) 4 mg IVP Q4H PRN PRN Reason: Nausea/Vomiting Last Admin: 01/30/17 01:43 Dose: 4 mg - Labs Labs: 01/30/17 04:20 07/27/17 04:20
--- NOTE | 2017-01-31 12:25 | CP.PCM.PN ---
Subjective - Date & Time of Evaluation Date of Evaluation: 01/30/17 Time of Evaluation: 11:00 - Subjective Subjective: asking for food Objective - Vital Signs/Intake and Output Vital Signs (last 24 hours): Temp Pulse Resp BP Pulse Ox 98.5 F 86 20 101/65 96 01/31/17 08:45 01/31/17 08:45 01/31/17 08:45 01/31/17 08:45 01/31/17 08:45 Intake and Output: 01/31/17 01/31/17 06:59 18:59 Intake Total 1320 Balance 1320 - Medications Medications: Current Medications Acetaminophen (Tylenol 325mg Tab) 650 mg PO Q6 PRN PRN Reason: Pain, Mild (1-3) Acetaminophen (Tylenol 325mg Tab) 650 mg PO Q6 PRN PRN Reason: Fever >100.4 F Albuterol Sulfate (Albuterol 0.083% Inhal Barbara (2.5 Mg/3 Ml) Ud) 2.5 mg INH RQID [facility] Albuterol Sulfate (Albuterol 0.083% Inhal Barbara (2.5 Mg/3 Ml) Ud) 2.5 mg INH RQ4 PRN PRN Reason: Shortness of Breath Bisacodyl (Dulcolax) 10 mg [place] DAILY PRN PRN Reason: Constipation Last Admin: 01/30/17 10:26 Dose: 10 mg Famotidine (Pepcid) 20 mg PO BID [facility] Last Admin: 01/31/17 08:45 Dose: 20 mg Ciprofloxacin (Cipro 400mg/200ml Dsw) 400 mg in 200 mls @ 200 mls/hr IVPB Q12 [facility] Last Admin: 01/30/17 21:48 Dose: 200 mls/hr Metronidazole (Flagyl 500mg/100ml Ns) 100 mls @ 100 mls/hr IVPB Q8 [facility] Last Admin: 01/31/17 08:45 Dose: 100 mls/hr Ondansetron HCl (Zofran Inj) 4 mg IVP Q4H PRN PRN Reason: Nausea/Vomiting Last Admin: 01/30/17 01:43 Dose: 4 mg - Labs Labs: 01/30/17 04:20 01/30/17 04:20 - GI/Abdominal Exam GI & Abdominal Exam: Soft, Normal Bowel Sounds Assessment and Plan - Assessment and Plan (Free Text) Assessment: 71 yo male with ileus dose of reglan trial of diet plan for CT chest/abd/pelvis with po and iv contrast if not improving
[2017-01-31] MEDS ORDERED: Iohexol 240 (50 ml) PO ONE (13:00)
--- NOTE | 2017-01-31 14:04 | CP.PCM.PN ---
Subjective - Date & Time of Evaluation Date of Evaluation: 01/31/17 Time of Evaluation: 14:04 - Subjective Subjective: PT CONTINUES TO NOT TOLERATE PO EMESIS AFTER BREAKFAST THIS MORNING NO BM HD STABLE Objective - Vital Signs/Intake and Output Vital Signs (last 24 hours): Temp Pulse Resp BP Pulse Ox 98.5 F 86 20 101/65 96 01/31/17 08:45 01/31/17 08:45 01/31/17 08:45 01/31/17 08:45 01/31/17 08:45 Intake and Output: 01/31/17 01/31/17 06:59 18:59 Intake Total 1320 Balance 1320 - Medications Medications: Current Medications Acetaminophen (Tylenol 325mg Tab) 650 mg PO Q6 PRN PRN Reason: Pain, Mild (1-3) Acetaminophen (Tylenol 325mg Tab) 650 mg PO Q6 PRN PRN Reason: Fever >100.4 F Albuterol Sulfate (Albuterol 0.083% Inhal Barbara (2.5 Mg/3 Ml) Ud) 2.5 mg INH RQID [facility] Albuterol Sulfate (Albuterol 0.083% Inhal Barbara (2.5 Mg/3 Ml) Ud) 2.5 mg INH RQ4 PRN PRN Reason: Shortness of Breath Bisacodyl (Dulcolax) 10 mg [place] DAILY PRN PRN Reason: Constipation Last Admin: 01/30/17 10:26 Dose: 10 mg Famotidine (Pepcid) 20 mg PO BID [facility] Last Admin: 01/31/17 08:45 Dose: 20 mg Ciprofloxacin (Cipro 400mg/200ml Dsw) 400 mg in 200 mls @ 200 mls/hr IVPB Q12 [facility] Last Admin: 01/31/17 11:00 Dose: 200 mls/hr Metronidazole (Flagyl 500mg/100ml Ns) 100 mls @ 100 mls/hr IVPB Q8 [facility] Last Admin: 01/31/17 08:45 Dose: 100 mls/hr Ondansetron HCl (Zofran Inj) 4 mg IVP Q4H PRN PRN Reason: Nausea/Vomiting Last Admin: 01/30/17 01:43 Dose: 4 mg - Labs Labs: 01/30/17 04:20 01/30/17 04:20 - Constitutional Appears: Non-toxic - Head Exam Head Exam: ATRAUMATIC, NORMOCEPHALIC - ENT Exam ENT Exam: Mucous Membranes Moist - Neck Exam Neck Exam: Full ROM, Normal Inspection - Respiratory Exam Respiratory Exam: Clear to Ausculation Bilateral, NORMAL BREATHING PATTERN - Cardiovascular Exam Cardiovascular Exam: REGULAR RHYTHM, +S1, +S2. absent: Murmur - GI/Abdominal Exam GI & Abdominal Exam: Soft, Diminished Bowel Sounds - Extremities Exam Extremities Exam: Calf Tenderness, Normal Capillary Refill - Neurological Exam Neurological Exam: Abnormal Gait - Psychiatric Exam Psychiatric exam: Agitated - Skin Skin Exam: Abrasion Assessment and Plan - Assessment and Plan (Free Text) Plan: Assessment and Plan - Assessment and Plan (Free Text) Plan: 71 y/o male with MHx significant for COPD who comes in with 7 days of constipation, n/v, abd pain, and decreased PO intake. States that he has had no BM for 7 days, and along with that has had worsening n/v to the point where he can hardly keep any food or liquid down. Denies any f/c. Denies any diarrhea at any point. Denies any prior bowel issues, denies any narcotics or any antibiotics. Nothing has particularly made symptoms better or worse. Had enema in ER with some defecation, but still having some abdominal discomfort Chest x-ray: unremarkable CT scan - abdomen: distal colon with liq feces, transverse with thickening, possible colitis; u/s with no cholecystitis Abdominal pain 2/2 ILEUS . Colitis? Constipation, not tolerating PO -Continue IV Cipro and Flagyl for now; clinically unlikely colitis -pt continues to not tolerate PO, requires IV hydration -NPO for now, KUB completed. +ileus -Tylenol for pain, Zofran IV for nausea -Consult GI (Luiz) in AM - Fleet Enema, Dulcolax suppository added - if worsens, will NGT. likely ileus. - 01/30/17 pt continues to have nausea, less emesis, however unable to tolerate PO, on maintenance fluids will order tap and suds enema and dulcolax [place] and continue to monitor -01/31/17 pt not tolerating PO. discussed with GI, will order CT CHEST ABD PEL to evaluate for possible mass/obstruction. Hypokalemia - repleted K - Mg repleted as well - monitor Azotemia -additional liter of ns completed -repeat chem in AM Hypokalemia -replete K this morning -check Mg -repeat chem and Mg in AM COPD stable DuoNebs as needed DVT prophylaxis -SCDs for DVT PPx
[2017-01-31] MEDS: Albuterol 0.083% Inhal Sol (2.5 mg/3 mL) UD INH SCH ×2 (15:22→19:17)
[2017-01-31] MEDS: Potassium Ch 20mEq in D5-1/2NS 1,000 ML IV SCH ×2 (16:02→19:15)
[2017-01-31] MEDS ORDERED: Sodium Chloride 0.9% 50 ML IV ONE (17:11)
[2017-01-31] MEDS ORDERED: Iohexol 300 100 ML IJ ONE (17:11)
--- NOTE | 2017-01-31 18:52 | CT ---
PROCEDURE: CT Chest, Abdomen and Pelvis with intravenous contrast HISTORY: unable to tolerate PO COMPARISON: Comparison is made to the previous CT of the abdomen and pelvis dated 01/27/2017 previous ultrasound of the abdomen dated 01/29/2017 TECHNIQUE: IV dose administered: 90 mL Omnipaque 300 Radiation dose: Total exam DLP = 738.07 mGy-cm. This CT exam was performed using one or more of the following dose reduction techniques: Automated exposure control, adjustment of the mA and/or kV according to patient size, and/or use of iterative reconstruction technique. FINDINGS: CT CHEST WITH CONTRAST: LUNGS: Opacities are seen at both lung apices may represent scar tissue and sequela of prior infection or inflammatory process. The possibility of neoplasm is less likely. Partial atelectasis of the right lower lobe due to pleural effusion. There is also focal opacity at the inferior aspect of the right lower lobe may represent aspiration pneumonia. MEDIASTINUM: Unremarkable. Normal caliber aorta and pulmonary arterial trunk. No aortic dissection. Normal size heart. Mildly dilated esophagus demonstrate mild diffuse wall thickening. Correlate clinically for esophagitis. LYMPH NODES: Unremarkable. PLEURA: Moderate right and small to moderate left pleural effusions are noted. BONES: Unremarkable. OTHER FINDINGS: None. CT ABDOMEN AND PELVIS: LIVER: Unremarkable. No gross lesion or ductal dilatation. GALLBLADDER AND BILE DUCTS: The gallbladder is contracted. No CT evidence of acute cholecystitis. PANCREAS: Unremarkable. No gross lesion or ductal dilatation. SPLEEN: Unremarkable. ADRENALS: Unremarkable. No mass. KIDNEYS AND URETERS: Unremarkable. No hydronephrosis. No solid mass. VASCULATURE: Unremarkable. No aortic aneurysm. BOWEL: Again seen is moderately dilated large bowel up to the mid to proximal rectum. The possibility of rectal mass or focal stricture should be highly considered. Mild diffuse large bowel wall thickening is again noted suggestive of mild colitis. APPENDIX: No evidence of appendicitis. The appendix is not clearly visualized. PERITONEUM: Again seen is trace free fluid in the abdomen and small amount of free fluid in the pelvis. . LYMPH NODES: Unremarkable. No enlarged lymph nodes. BLADDER: Unremarkable. REPRODUCTIVE: The prostate is mildly to moderately enlarged. BONES: No acute fracture. OTHER FINDINGS: None. IMPRESSION: Re- demonstration of moderately dilated large bowel loops up to the proximal rectum. Suspicious for obstructing circumferential rectal mass versus less likely focal stricture at the proximal rectum as underlying etiology for the dilated large bowel. Re- demonstration of diffuse mild large bowel wall thickening consistents with mild colitis. Moderate to large right and small to moderate left pleural effusions. Mildly dilated esophagus contains air-fluid levels and demonstrates diffuse wall thickening suspicious for esophagitis. Focal airspace consolidation at the right lower lobe may represent a pneumonia or aspiration.
[2017-02-01] MEDS: metroNIDAZOLE 500mg/100ml NS 100 ML IVPB SCH ×3 (01:12→16:49)
[2017-02-01] MEDS: Potassium Ch 20mEq in D5-1/2NS 1,000 ML IV SCH ×3 (06:14→16:51)
[2017-02-01] MEDS: Albuterol 0.083% Inhal Sol (2.5 mg/3 mL) UD INH SCH ×4 (07:08→19:34)
[2017-02-01] MEDS: Ciprofloxacin 400mg/200ml D5W 400 MG/200 ML BAG IVPB SCH (08:45)
[2017-02-01 08:48] LABS: HEMOGLOBIN 15.6 g/dL (12.0-18.0); MEAN CELL VOLUME 93.6 fl (80.0-94.0); MEAN CORPUSCULAR HGB CONC 34.1 g/dL (33.0-37.0); RBC 4.89 Mil/uL (4.40-5.90); RED CELL DISTRIBUTION WIDTH 14.5 % (11.5-14.5); WHITE BLOOD COUNT 9.5 K/uL (4.8-10.8)
[2017-02-01 09:09] LABS: BLOOD UREA NITROGEN 24 mg/dl (9-20); GFR AFRICAN-AMERICAN > 60; GFR NON-AFRICAN AMERICAN > 60
--- NOTE | 2017-02-01 10:19 | CP.PCM.PN ---
Subjective - Date & Time of Evaluation Date of Evaluation: 02/01/17 Time of Evaluation: 09:00 - Subjective Subjective: No fever no cough no SOB no CP Abd distention NGT in place with bilious draiange - approx 500 ml in the canister Rectal tube in place - no stool constipated for about 2 wks vomited last night none this am denies weight loss Objective - Vital Signs/Intake and Output Vital Signs (last 24 hours): Temp Pulse Resp BP Pulse Ox 97.8 F 93 H 20 121/87 95 02/01/17 08:06 02/01/17 08:06 02/01/17 08:06 02/01/17 08:06 02/01/17 08:06 Intake and Output: 02/01/17 02/01/17 06:59 18:59 Intake Total 600 Balance 600 - Medications Medications: Current Medications Acetaminophen (Tylenol 325mg Tab) 650 mg PO Q6 PRN PRN Reason: Pain, Mild (1-3) Acetaminophen (Tylenol 325mg Tab) 650 mg PO Q6 PRN PRN Reason: Fever >100.4 F Albuterol Sulfate (Albuterol 0.083% Inhal Barbara (2.5 Mg/3 Ml) Ud) 2.5 mg INH RQID [facility] Last Admin: 02/01/17 07:08 Dose: Not Given Albuterol Sulfate (Albuterol 0.083% Inhal Barbara (2.5 Mg/3 Ml) Ud) 2.5 mg INH RQ4 PRN PRN Reason: Shortness of Breath Last Admin: 01/31/17 14:53 Dose: 2.5 mg Bisacodyl (Dulcolax) 10 mg [place] DAILY PRN PRN Reason: Constipation Last Admin: 01/30/17 10:26 Dose: 10 mg Famotidine (Pepcid) 20 mg PO BID [facility] Last Admin: 02/01/17 08:38 Dose: Not Given Ciprofloxacin (Cipro 400mg/200ml Dsw) 400 mg in 200 mls @ 200 mls/hr IVPB Q12 [facility] Last Admin: 02/01/17 08:45 Dose: 200 mls/hr Metronidazole (Flagyl 500mg/100ml Ns) 100 mls @ 100 mls/hr IVPB Q8 [facility] Last Admin: 02/01/17 08:43 Dose: 100 mls/hr Potassium Chloride/Dextrose/Sod Cl (Potassium Chl 20 Meq In D5-1/2ns) 1,000 mls @ 100 mls/hr IV .Q10H [facility] Stop: 02/01/17 19:04 Last Admin: 02/01/17 08:44 Dose: 100 mls/hr Ondansetron HCl (Zofran Inj) 4 mg IVP Q4H PRN PRN Reason: Nausea/Vomiting Last Admin: 02/01/17 08:44 Dose: 4 mg - Labs Labs: 02/01/17 07:30 02/01/17 07:30 - Constitutional Appears: No Acute Distress - Head Exam Head Exam: NORMAL INSPECTION, NORMOCEPHALIC - Eye Exam Eye Exam: EOMI, Normal appearance Pupil Exam: NORMAL ACCOMODATION - ENT Exam ENT Exam: Mucous Membranes Dry, Normal External Ear Exam - Neck Exam Neck Exam: Full ROM. absent: Meningismus - Respiratory Exam Respiratory Exam: Rales, NORMAL BREATHING PATTERN. absent: Wheezes, Respiratory Distress - Cardiovascular Exam Cardiovascular Exam: REGULAR RHYTHM, +S1, +S2 - GI/Abdominal Exam GI & Abdominal Exam: Distended, Tenderness, Hyperactive Bowel Sounds - Extremities Exam Extremities Exam: Full ROM, Normal Capillary Refill. absent: Calf Tenderness - Back Exam Back Exam: Full ROM. absent: CVA tenderness (L), CVA tenderness (R) - Neurological Exam Neurological Exam: Alert, Awake, CN II-XII Intact, Oriented x3 Neuro motor strength exam: Left Upper Extremity: 5, Right Upper Extremity: 5, Left Lower Extremity: 5, Right Lower Extremity: 5 - Psychiatric Exam Psychiatric exam: Normal Affect, Normal Mood - Skin Skin Exam: Dry, Normal Color, Warm Assessment and Plan (1) SBO (small bowel obstruction) Status: Acute (2) Rectal mass Status: Acute (3) COPD (chronic obstructive pulmonary disease) Status: Chronic (4) Aspiration pneumonia Status: Acute (5) DVT prophylaxis Status: Acute - Assessment and Plan (Free Text) Assessment: 71 y/o gent with Hx of COPD, came in bec of 1-2 wk hx of constipation, abdominal discomfort and vomiting. CT of chest and Abd: Re- demonstration of moderately dilated large bowel loops up to the proximal rectum. Suspicious for obstructing circumferential rectal mass versus less likely focal stricture at the proximal rectum as underlying etiology for the dilated large bowel. Re- demonstration of diffuse mild large bowel wall thickening consistent with mild colitis. Moderate to large right and small to moderate left pleural effusions. Mildly dilated esophagus contains air-fluid levels and demonstrates diffuse wall thickening suspicious for esophagitis. Focal airspace consolidation at the right lower lobe may represent a pneumonia or aspiration. GI consulted. NGT and rectal tune inserted. (1) SBO (small bowel obstruction) Status: Acute Pt has been constipated ofr the past 1-2 wks, + vomiting, + abdominal distention , no flatus + bowel sound CT of abd : showed air fluid levels, distended bowel and esophagus NGT inserted - more than 500ml of bilious drainage noted Rectal tube inserted - no drainage GI consulted change abx to IV zosyn, cont Flagyl m (2) Rectal mass Status: Acute Plan for EGD and Colonoscopy on Friday Rectal mass obstructing (3) COPD (chronic obstructive pulmonary disease) Status: Chronic stable Duoneb prn (4) Aspiration pneumonia Status: Acute RLL focal airspace consolidation noted seen on CT of chest start IV zosyn (5) DVT prophylaxis Status: Acute start Lovenox
--- NOTE | 2017-02-01 13:11 | RAD ---
HISTORY: NGT placement COMPARISON: 01/29/2017 FINDINGS: BOWEL: Improvement in bowel distention. NG tube in place below the diaphragm. BONES: Normal. OTHER FINDINGS: None. IMPRESSION: Improvement in bowel distention. NG tube in place below the diaphragm.
--- NOTE | 2017-02-01 13:21 | CP.PCM.PN ---
Subjective - Date & Time of Evaluation Date of Evaluation: 02/01/17 Time of Evaluation: 13:18 - Subjective Subjective: less distended and more confortable with NGT insertion to suction 650cc of bilious material over the last 17 hours or so rectal tube in place without drainage PE: vss afebrile abd - less distended and softer NT paucity of BS labs - noted CT - noted and now states possible rectal lesion as opposed to transverse colon stated on CT a few days ago imp/plan: d/c rectal tube continue with NGT for now repeat x-ray in am colonoscopy when able to prep or perhaps flex-sig to r/o rectal lesion Objective - Vital Signs/Intake and Output Vital Signs (last 24 hours): Temp Pulse Resp BP Pulse Ox 97.8 F 93 H 20 121/87 95 02/01/17 08:06 02/01/17 08:06 02/01/17 08:06 02/01/17 08:06 02/01/17 08:06 Intake and Output: 02/01/17 02/01/17 06:59 18:59 Intake Total 600 Balance 600 - Medications Medications: Current Medications Acetaminophen (Tylenol 325mg Tab) 650 mg PO Q6 PRN PRN Reason: Pain, Mild (1-3) Acetaminophen (Tylenol 325mg Tab) 650 mg PO Q6 PRN PRN Reason: Fever >100.4 F Albuterol Sulfate (Albuterol 0.083% Inhal Barbara (2.5 Mg/3 Ml) Ud) 2.5 mg INH RQID [facility] Last Admin: 02/01/17 11:05 Dose: Not Given Albuterol Sulfate (Albuterol 0.083% Inhal Barbara (2.5 Mg/3 Ml) Ud) 2.5 mg INH RQ4 PRN PRN Reason: Shortness of Breath Last Admin: 01/31/17 14:53 Dose: 2.5 mg Bisacodyl (Dulcolax) 10 mg [place] DAILY PRN PRN Reason: Constipation Last Admin: 01/30/17 10:26 Dose: 10 mg Famotidine (Pepcid) 20 mg PO BID [facility] Last Admin: 02/01/17 08:38 Dose: Not Given Ciprofloxacin (Cipro 400mg/200ml Dsw) 400 mg in 200 mls @ 200 mls/hr IVPB Q12 [facility] Last Admin: 02/01/17 08:45 Dose: 200 mls/hr Metronidazole (Flagyl 500mg/100ml Ns) 100 mls @ 100 mls/hr IVPB Q8 [facility] Last Admin: 02/01/17 08:43 Dose: 100 mls/hr Potassium Chloride/Dextrose/Sod Cl (Potassium Chl 20 Meq In D5-1/2ns) 1,000 mls @ 100 mls/hr IV .Q10H [facility] Stop: 02/01/17 19:04 Last Admin: 02/01/17 08:44 Dose: 100 mls/hr Ondansetron HCl (Zofran Inj) 4 mg IVP Q4H PRN PRN Reason: Nausea/Vomiting Last Admin: 02/01/17 08:44 Dose: 4 mg - Labs Labs: 02/01/17 07:30 02/01/17 07:30
[2017-02-01] MEDS: Piperacillin/Tazobact 3.375 GM in Sodium Chloride 0.9% 100 ML IVPB SCH ×2 (16:45→21:12)
[2017-02-02] MEDS: metroNIDAZOLE 500mg/100ml NS 100 ML IVPB SCH ×3 (00:05→18:11)
[2017-02-02] MEDS: Piperacillin/Tazobact 3.375 GM in Sodium Chloride 0.9% 100 ML IVPB SCH ×4 (03:57→21:37)
[2017-02-02] MEDS ORDERED: Dextrose 5%/0.45% NS 1,000 ML IV SCH (04:00)
[2017-02-02] MEDS: Albuterol 0.083% Inhal Sol (2.5 mg/3 mL) UD INH SCH ×4 (07:18→19:33)
[2017-02-02] MEDS: Enoxaparin 40 mg Syringe SC SCH (09:11)
--- NOTE | 2017-02-02 09:51 | RAD ---
HISTORY: abd distention COMPARISON: 01/31/2017 FINDINGS: BOWEL: NG tube in place. Persistent small and large bowel distension. BONES: Normal. OTHER FINDINGS: None. IMPRESSION: NG tube in place. Persistent small and large bowel distension.
--- NOTE | 2017-02-02 11:12 | CP.PCM.PN ---
Subjective - Date & Time of Evaluation Date of Evaluation: 02/02/17 Time of Evaluation: 11:00 - Subjective Subjective: no fever Feels weak abd distended some abd discomfort + hiccups Bilious Drainage from NGT =850 yesterday, 750 ml overnight no CP no SOB Objective - Vital Signs/Intake and Output Vital Signs (last 24 hours): Temp Pulse Resp BP Pulse Ox 97.6 F 112 H 20 130/88 94 L 02/02/17 09:20 02/02/17 09:20 02/02/17 09:20 02/02/17 09:20 02/02/17 09:20 Intake and Output: 02/02/17 02/02/17 06:59 18:59 Intake Total 600 Output Total 100 Balance 500 - Medications Medications: Current Medications Acetaminophen (Tylenol 325mg Tab) 650 mg PO Q6 PRN PRN Reason: Pain, Mild (1-3) Acetaminophen (Tylenol 325mg Tab) 650 mg PO Q6 PRN PRN Reason: Fever >100.4 F Albuterol Sulfate (Albuterol 0.083% Inhal Barbara (2.5 Mg/3 Ml) Ud) 2.5 mg INH RQID [facility] Last Admin: 02/02/17 11:05 Dose: Not Given Albuterol Sulfate (Albuterol 0.083% Inhal Barbara (2.5 Mg/3 Ml) Ud) 2.5 mg INH RQ4 PRN PRN Reason: Shortness of Breath Last Admin: 01/31/17 14:53 Dose: 2.5 mg Bisacodyl (Dulcolax) 10 mg [place] DAILY PRN PRN Reason: Constipation Last Admin: 01/30/17 10:26 Dose: 10 mg Enoxaparin Sodium (Lovenox) 40 mg SC DAILY [facility] PRN Reason: Protocol Last Admin: 02/02/17 09:11 Dose: 40 mg Famotidine (Pepcid) 20 mg PO BID [facility] Last Admin: 02/02/17 09:13 Dose: Not Given Metronidazole (Flagyl 500mg/100ml Ns) 100 mls @ 100 mls/hr IVPB Q8 [facility] Last Admin: 02/02/17 09:10 Dose: 100 mls/hr Piperacillin Sod/Tazobactam (Sod 3.375 gm/ Sodium Chloride) 100 mls @ 100 mls/ hr IVPB Q6 [facility] Last Admin: 02/02/17 10:32 Dose: 100 mls/hr Dextrose/Sodium Chloride (Dextrose 5%/0.45% Ns 1000 Ml) 1,000 mls @ 100 mls/hr IV .Q10H [facility] Stop: 02/03/17 03:49 Last Admin: 02/02/17 03:58 Dose: 100 mls/hr Ondansetron HCl (Zofran Inj) 4 mg IVP Q4H PRN PRN Reason: Nausea/Vomiting Last Admin: 02/01/17 14:21 Dose: 4 mg - Labs Labs: 02/01/17 07:30 02/01/17 07:30 - Constitutional Appears: No Acute Distress - Head Exam Head Exam: NORMAL INSPECTION, NORMOCEPHALIC - Eye Exam Eye Exam: EOMI, Normal appearance Pupil Exam: NORMAL ACCOMODATION - ENT Exam ENT Exam: Mucous Membranes Dry, Normal External Ear Exam - Neck Exam Neck Exam: Full ROM. absent: Meningismus - Respiratory Exam Respiratory Exam: Rales, NORMAL BREATHING PATTERN. absent: Wheezes, Respiratory Distress - Cardiovascular Exam Cardiovascular Exam: REGULAR RHYTHM, +S1, +S2 - GI/Abdominal Exam GI & Abdominal Exam: Distended, Tenderness, Hypoactive Bowel Sounds - Extremities Exam Extremities Exam: Full ROM, Normal Capillary Refill. absent: Calf Tenderness - Back Exam Back Exam: Full ROM. absent: CVA tenderness (L), CVA tenderness (R) - Neurological Exam Neurological Exam: Alert, Awake, CN II-XII Intact, Oriented x3 Neuro motor strength exam: Left Upper Extremity: 5, Right Upper Extremity: 5, Left Lower Extremity: 5, Right Lower Extremity: 5 - Psychiatric Exam Psychiatric exam: Normal Affect, Normal Mood - Skin Skin Exam: Dry, Normal Color, Warm Assessment and Plan (1) SBO (small bowel obstruction) Status: Acute (2) Rectal mass Status: Acute (3) COPD (chronic obstructive pulmonary disease) Status: Chronic (4) Aspiration pneumonia Status: Acute (5) DVT prophylaxis Status: Acute - Assessment and Plan (Free Text) Assessment: 71 y/o gent with Hx of COPD, came in bec of 1-2 wk hx of constipation, abdominal discomfort and vomiting. CT of chest and Abd: Re- demonstration of moderately dilated large bowel loops up to the proximal rectum. Suspicious for obstructing circumferential rectal mass versus less likely focal stricture at the proximal rectum as underlying etiology for the dilated large bowel. Re- demonstration of diffuse mild large bowel wall thickening consistent with mild colitis. Moderate to large right and small to moderate left pleural effusions. Mildly dilated esophagus contains air-fluid levels and demonstrates diffuse wall thickening suspicious for esophagitis. Focal airspace consolidation at the right lower lobe may represent a pneumonia or aspiration. GI consulted. NGT in place inserted. (1) SBO (small bowel obstruction) Status: Acute Pt has been constipated for the past 1-2 wks, + vomiting, + abdominal distention , no flatus hypoactive bowel sound CT of abd : showed air fluid levels, distended bowel and esophagus NGT inserted - 850 yesterday and 750 ml overnight of bilious drainage obtained Rectal tube inserted - no drainage- was d/c GI consulted- Dr Au- plan fo EGD and DFlex Sig in am changed abx to IV zosyn, cont Flagyl IVF hydration with KCl Surgery consulted- Dr Erwin Gross (2) Rectal mass Status: Acute Plan for EGD and Colonoscopyin am Rectal mass obstructing (3) COPD (chronic obstructive pulmonary disease) Status: Chronic stable Duoneb prn (4) Aspiration pneumonia Status: Acute RLL focal airspace consolidation noted seen on CT of chest started IV zosyn (5) DVT prophylaxis Status: Acute Lovenox
[2017-02-02] MEDS ORDERED: Potassium Ch 20mEq in D5-1/2NS 1,000 ML IV SCH (11:38)
--- NOTE | 2017-02-02 15:01 | CP.PCM.PN ---
Subjective - Date & Time of Evaluation Date of Evaluation: 02/02/17 Time of Evaluation: 15:00 - Subjective Subjective: resting comfortably but still without flatus or BM's NGT output overnight reported at 750cc but much less thus far today PE; vss afebrile abd - distended with little if any BS NT x-ray - persistent dilatation of SB and colon imp/plan: persistent dilation of bowel of ? etiology clinical condition improved with NGT drainage will discuss possibility of Egd and at least flex-sig to further evaluate repeat labs in am Objective - Vital Signs/Intake and Output Vital Signs (last 24 hours): Temp Pulse Resp BP Pulse Ox 97.6 F 112 H 20 130/88 94 L 02/02/17 09:20 02/02/17 09:20 02/02/17 09:20 02/02/17 09:20 02/02/17 09:20 Intake and Output: 02/02/17 02/02/17 06:59 18:59 Intake Total 600 Output Total 100 Balance 500 - Medications Medications: Current Medications Acetaminophen (Tylenol 325mg Tab) 650 mg PO Q6 PRN PRN Reason: Pain, Mild (1-3) Acetaminophen (Tylenol 325mg Tab) 650 mg PO Q6 PRN PRN Reason: Fever >100.4 F Albuterol Sulfate (Albuterol 0.083% Inhal Barbara (2.5 Mg/3 Ml) Ud) 2.5 mg INH RQID [facility] Last Admin: 02/02/17 11:05 Dose: Not Given Albuterol Sulfate (Albuterol 0.083% Inhal Barbara (2.5 Mg/3 Ml) Ud) 2.5 mg INH RQ4 PRN PRN Reason: Shortness of Breath Last Admin: 01/31/17 14:53 Dose: 2.5 mg Bisacodyl (Dulcolax) 10 mg PA DAILY PRN PRN Reason: Constipation Last Admin: 01/30/17 10:26 Dose: 10 mg Enoxaparin Sodium (Lovenox) 40 mg SC DAILY [facility] PRN Reason: Protocol Last Admin: 02/02/17 09:11 Dose: 40 mg Famotidine (Pepcid) 20 mg PO BID [facility] Last Admin: 02/02/17 09:13 Dose: Not Given Metronidazole (Flagyl 500mg/100ml Ns) 100 mls @ 100 mls/hr IVPB Q8 [facility] Last Admin: 02/02/17 09:10 Dose: 100 mls/hr Piperacillin Sod/Tazobactam (Sod 3.375 gm/ Sodium Chloride) 100 mls @ 100 mls/ hr IVPB Q6 [facility] Last Admin: 02/02/17 10:32 Dose: 100 mls/hr Potassium Chloride/Dextrose/Sod Cl (Potassium Chl 20 Meq In D5-1/2ns) 1,000 mls @ 100 mls/hr IV .Q10H [facility] Last Admin: 02/02/17 12:51 Dose: 100 mls/hr Ondansetron HCl (Zofran Inj) 4 mg IVP Q4H PRN PRN Reason: Nausea/Vomiting Last Admin: 02/01/17 14:21 Dose: 4 mg Pantoprazole Sodium (Protonix Inj) 40 mg IVP DAILY [facility] - Labs Labs: 02/01/17 07:30 02/01/17 07:30
[2017-02-02 15:20] LABS: SPERM URINE OCC /hpf; URINE BACTERIA RARE (<OCC); URINE BILIRUBIN NEGATIVE (NEGATIVE); URINE BLOOD NEGATIVE (NEGATIVE); URINE CLARITY TURBID (Clear); URINE COLOR AMBER (YELLOW); URINE GLUCOSE (UA) 50 mg/dL (Normal); URINE LEUKOCYTE ESTERASE TRACE Leu/uL (Negative); URINE NITRATE NEGATIVE (NEGATIVE); URINE PROTEIN 30 mg/dL (NEGATIVE); URINE UROBILINOGEN 0.2-1.0 mg/dL (0.2-1.0)
[2017-02-02] MEDS ORDERED: Sodium Chloride 0.9% 1,000 ML IV SCH (15:45)
[2017-02-02 16:12] LABS: HEMOGLOBIN 15.5 g/dL (12.0-18.0); MEAN CELL VOLUME 95.6 fl (80.0-94.0); MEAN CORPUSCULAR HEMOGLOBIN 31.1 pg (27.0-31.0); MEAN CORPUSCULAR HGB CONC 32.6 g/dL (33.0-37.0); RBC 4.99 Mil/uL (4.40-5.90); RED CELL DISTRIBUTION WIDTH 14.8 % (11.5-14.5); WHITE BLOOD COUNT 8.6 K/uL (4.8-10.8)
[2017-02-02 16:18] LABS: BLOOD UREA NITROGEN 27 mg/dl (9-20); CALCIUM 8.6 mg/dL (8.4-10.2); GFR AFRICAN-AMERICAN > 60; GFR NON-AFRICAN AMERICAN > 60
[2017-02-02] MEDS: Potassium Ch 20mEq in D5-1/2NS 1,000 ML IV SCH (16:58)
--- NOTE | 2017-02-02 19:52 | CP.PCM.CON ---
History of Present Illness - History of Present Illness History of Present Illness: 71M w/ Pmhx of COPD initially reported to ED on 01/27/17 with complaints of abdominal pain. [place] and had multiples bouts of vomiting, non-bloody. Patient reports following these events he stayed at home with the hopes of improving but he kept having bouts of emesis as well as worsening lower abdominal pain and couldn't tolerate PO intake. Patient states he has not had a bowel movement for about two weeks. During this admission a rectal tube was placed which had no output and since removed. General surgery consulted for possible rectal mass. Currently patient has NGT placed which is putting out ~500cc/24hr of bilious content. As per patient his abdominal distension has improved drastically since admission . Currently patient denies passing any flatus or BM and at the time rates his abdominal pain as a 3/10. PMHx: as stated above All:NKDA PSurgHx: Right inguinal hernia repair Review of Systems - Review of Systems Review of Systems: 12 pt ROS carried out, unremarkable, except as statedin HPI Past Patient History - Past Medical History & Family History Past Medical History?: Yes - Past Social History Smoking Status: Heavy Smoker > 10 Cigarettes Daily - CARDIAC Hx Cardiac Disorders: No - PULMONARY Hx Chronic Obstructive Pulmonary Disease (COPD): Yes - NEUROLOGICAL Hx Neurological Disorder: No - HEENT Hx HEENT Problems: No - RENAL Hx Chronic Kidney Disease: No - ENDOCRINE/METABOLIC Hx Endocrine Disorders: No - HEMATOLOGICAL/ONCOLOGICAL Hx Blood Disorders: No Hx AIDS: No Hx Human Immunodeficiency Virus (HIV): No - INTEGUMENTARY Hx Dermatological Problems: No - MUSCULOSKELETAL/RHEUMATOLOGICAL Hx Musculoskeletal Disorders: No Hx Falls: No - GASTROINTESTINAL Hx Gastrointestinal Disorders: No - GENITOURINARY/GYNECOLOGICAL Hx Genitourinary Disorders: No - PSYCHIATRIC Hx Psychophysiologic Disorder: No Hx Substance Use: No - SURGICAL HISTORY Other/Comment: rt hernia repair 20 yrs ago - ANESTHESIA Hx Anesthesia: Yes Hx Anesthesia Reactions: No Hx Malignant Hyperthermia: No Has any member of the family had a problem w/ anesthesia?: No Meds Allergies/Adverse Reactions: Allergies Allergy/AdvReac Type Severity Reaction Status Date / Time No Known Allergies Allergy Verified 01/27/17 13:16 - Medications Medications: Current Medications Acetaminophen (Tylenol 325mg Tab) 650 mg PO Q6 PRN PRN Reason: Pain, Mild (1-3) Acetaminophen (Tylenol 325mg Tab) 650 mg PO Q6 PRN PRN Reason: Fever >100.4 F Albuterol Sulfate (Albuterol 0.083% Inhal Barbara (2.5 Mg/3 Ml) Ud) 2.5 mg INH RQID [facility] Last Admin: 02/02/17 19:33 Dose: Not Given Albuterol Sulfate (Albuterol 0.083% Inhal Barbara (2.5 Mg/3 Ml) Ud) 2.5 mg INH RQ4 PRN PRN Reason: Shortness of Breath Last Admin: 01/31/17 14:53 Dose: 2.5 mg Bisacodyl (Dulcolax) 10 mg [place] DAILY PRN PRN Reason: Constipation Last Admin: 01/30/17 10:26 Dose: 10 mg Enoxaparin Sodium (Lovenox) 40 mg SC DAILY [facility] PRN Reason: Protocol Last Admin: 02/02/17 09:11 Dose: 40 mg Famotidine (Pepcid) 20 mg PO BID [facility] Last Admin: 02/02/17 18:57 Dose: Not Given Metronidazole (Flagyl 500mg/100ml Ns) 100 mls @ 100 mls/hr IVPB Q8 [facility] Last Admin: 02/02/17 18:11 Dose: 100 mls/hr Piperacillin Sod/Tazobactam (Sod 3.375 gm/ Sodium Chloride) 100 mls @ 100 mls/ hr IVPB Q6 [facility] Last Admin: 02/02/17 16:55 Dose: 100 mls/hr Sodium Chloride (Sodium Chloride 0.9%) 1,000 mls @ 1,000 mls/hr IV .Q1H [facility] Stop: 02/03/17 15:40 Last Admin: 02/02/17 15:30 Dose: 1,000 mls/hr Potassium Chloride/Dextrose/Sod Cl (Potassium Chl 20 Meq In D5-1/2ns) 1,000 mls @ 125 mls/hr IV .Q8H [facility] Last Admin: 02/02/17 16:58 Dose: 125 mls/hr Ondansetron HCl (Zofran Inj) 4 mg IVP Q4H PRN PRN Reason: Nausea/Vomiting Last Admin: 02/01/17 14:21 Dose: 4 mg Pantoprazole Sodium (Protonix Inj) 40 mg IVP DAILY [facility] Physical Exam - Constitutional Appears: No Acute Distress - Head Exam Head Exam: NORMOCEPHALIC - Eye Exam Eye Exam: Normal appearance - ENT Exam ENT Exam: Mucous Membranes Moist - Respiratory Exam Respiratory Exam: NORMAL BREATHING PATTERN - Cardiovascular Exam Cardiovascular Exam: +S1, +S2 - GI/Abdominal Exam GI & Abdominal Exam: Distended, Soft, Tenderness. absent: Firm, Guarding, Rigid - Neurological Exam Neurological exam: Alert, Oriented x3 - Psychiatric Exam Psychiatric exam: Normal Mood - Skin Skin Exam: Dry, Warm Results - Vital Signs Recent Vital Signs: Last Vital Signs Temp 97.2 F L 02/02/17 17:00 Pulse 123 H 02/02/17 17:00 Resp 20 02/02/17 17:00 BP 92/70 L 02/02/17 17:00 Pulse Ox 97 02/02/17 17:00 - Labs Result Diagrams: 02/02/17 15:55 02/02/17 15:55 Labs: Laboratory Results - last 24 hr 02/02/17 02/02/17 02/02/17 14:55 15:55 15:55 WBC 8.6 RBC 4.99 Hgb 15.5 Hct 47.7 MCV 95.6 H D MCH 31.1 H MCHC 32.6 L RDW 14.8 H Plt Count 270 Sodium 141 Potassium 4.5 Chloride 104 Carbon Dioxide 32 H Anion Gap 10 BUN 27 H Creatinine 1.1 Est GFR ( Amer) > 60 Est GFR (Non-Af Amer) > 60 Random Glucose 170 H Calcium 8.6 Phosphorus 3.1 Magnesium 2.0 Urine Color Jil Urine Clarity Turbid Urine pH 5.[address] 1.050 H Urine Protein 30 Urine Glucose (UA) 50 Urine Ketones Negative Urine Blood Negative Urine Nitrate Negative Urine Bilirubin Negative Urine Urobilinogen 0.2-1.0 Ur Leukocyte Esterase Trace Urine RBC (Auto) 3 Urine Microscopic WBC 2 Urine Bacteria Rare Urine Sperm (Auto) Occ Assessment & Plan - Assessment and Plan (Free Text) Assessment: 71M w/ complaints of lower abdominal pain with abdominal CT findings of moderately dilated large bowel up to the mid proximal rectum, s/p insertion of rectal tube with failure to decompress patient, raising concerns for possible rectal mass. -NPO -IVF -C/w abx -F/u colonoscopy results -GI recs appreciated -Further recommendations following results of colonoscopy -Further recs per Dr. Gross
[2017-02-03] MEDS: metroNIDAZOLE 500mg/100ml NS 100 ML IVPB SCH ×3 (01:31→16:51)
[2017-02-03] MEDS: Potassium Ch 20mEq in D5-1/2NS 1,000 ML IV SCH ×3 (01:31→17:12)
[2017-02-03] MEDS: Piperacillin/Tazobact 3.375 GM in Sodium Chloride 0.9% 100 ML IVPB SCH ×4 (05:07→21:52)
[2017-02-03 07:14] LABS: BASO % 0.3 % (0.0-2.0); EOS # 0.3 K/uL (0.0-0.7); EOS % 3.2 % (0.0-4.0); HEMOGLOBIN 15.4 g/dL (12.0-18.0); LYMPH # 1.4 K/uL (1.0-4.3); LYMPH % 15.7 % (20.0-40.0); MEAN CELL VOLUME 94.3 fl (80.0-94.0); MEAN CORPUSCULAR HEMOGLOBIN 31.6 pg (27.0-31.0); MEAN CORPUSCULAR HGB CONC 33.5 g/dL (33.0-37.0); MEAN PLATELET VOLUME 8.1 fl (7.2-11.7); MONO # 0.9 K/uL (0.0-0.8); MONO % 10.5 % (0.0-10.0); NEUT # 6.3 K/uL (1.8-7.0); NEUT % 70.3 % (50.0-75.0); NRBC % 0.1 % (0.0-0.0); RBC 4.86 Mil/uL (4.40-5.90); RED CELL DISTRIBUTION WIDTH 14.5 % (11.5-14.5); WHITE BLOOD COUNT 8.9 K/uL (4.8-10.8)
[2017-02-03 07:19] LABS: ALB/GLOB RATIO 1.3 (1.0-2.1); ALBUMIN 2.8 g/dL (3.5-5.0); ALT/SGPT 44 U/L (21-72); AMYLASE 44 U/L (30-110); AST/SGOT 41 U/L (17-59); BLOOD UREA NITROGEN 24 mg/dl (9-20); CALCIUM 8.4 mg/dL (8.4-10.2); GFR AFRICAN-AMERICAN > 60; GFR NON-AFRICAN AMERICAN > 60; LIPASE 47 U/L (23-300)
--- NOTE | 2017-02-03 07:39 | CP.PCM.PN ---
Subjective - Date & Time of Evaluation Date of Evaluation: 02/03/17 Time of Evaluation: 11:00 - Subjective Subjective: Patient was seen and examined bedside. Still with abdominal distention and discomfort . NGT in place with bilious output 400 ml last 12 hours. Unable to pass any flatus.Complains of pain to upper part of abdomen For Flex sigmoidoscopy and upper EGD today Bp 127/72 HR ranging from 95---123 WBC 8.9 Hgb 15 Objective - Vital Signs/Intake and Output Vital Signs (last 24 hours): Temp Pulse Resp BP Pulse Ox 98.4 F 95 H 20 127/72 98 02/03/17 00:46 02/03/17 00:46 02/03/17 00:46 02/03/17 00:46 02/03/17 00:46 Intake and Output: 02/03/17 02/03/17 06:59 18:59 Output Total 1000 Balance -1000 - Medications Medications: Current Medications Acetaminophen (Tylenol 325mg Tab) 650 mg PO Q6 PRN PRN Reason: Pain, Mild (1-3) Acetaminophen (Tylenol 325mg Tab) 650 mg PO Q6 PRN PRN Reason: Fever >100.4 F Albuterol Sulfate (Albuterol 0.083% Inhal Barbara (2.5 Mg/3 Ml) Ud) 2.5 mg INH RQID [facility] Last Admin: 02/02/17 19:33 Dose: Not Given Albuterol Sulfate (Albuterol 0.083% Inhal Barbara (2.5 Mg/3 Ml) Ud) 2.5 mg INH RQ4 PRN PRN Reason: Shortness of Breath Last Admin: 01/31/17 14:53 Dose: 2.5 mg Bisacodyl (Dulcolax) 10 mg [place] DAILY PRN PRN Reason: Constipation Last Admin: 01/30/17 10:26 Dose: 10 mg Enoxaparin Sodium (Lovenox) 40 mg SC DAILY [facility] PRN Reason: Protocol Last Admin: 02/02/17 09:11 Dose: 40 mg Famotidine (Pepcid) 20 mg PO BID [facility] Last Admin: 02/02/17 18:57 Dose: Not Given Metronidazole (Flagyl 500mg/100ml Ns) 100 mls @ 100 mls/hr IVPB Q8 [facility] Last Admin: 02/03/17 01:31 Dose: 100 mls/hr Piperacillin Sod/Tazobactam (Sod 3.375 gm/ Sodium Chloride) 100 mls @ 100 mls/ hr IVPB Q6 [facility] Last Admin: 02/03/17 05:07 Dose: 100 mls/hr Sodium Chloride (Sodium Chloride 0.9%) 1,000 mls @ 1,000 mls/hr IV .Q1H [facility] Stop: 02/03/17 15:40 Last Admin: 02/02/17 15:30 Dose: 1,000 mls/hr Potassium Chloride/Dextrose/Sod Cl (Potassium Chl 20 Meq In D5-1/2ns) 1,000 mls @ 125 mls/hr IV .Q8H [facility] Last Admin: 02/03/17 01:31 Dose: 125 mls/hr Ondansetron HCl (Zofran Inj) 4 mg IVP Q4H PRN PRN Reason: Nausea/Vomiting Last Admin: 02/01/17 14:21 Dose: 4 mg Pantoprazole Sodium (Protonix Inj) 40 mg IVP DAILY [facility] - Labs Labs: 02/03/17 06:10 02/03/17 06:10 - Constitutional Appears: Other (with NGT in place with bilious output and abdominal distention ) - Head Exam Head Exam: ATRAUMATIC, NORMAL INSPECTION, NORMOCEPHALIC - Eye Exam Eye Exam: EOMI, Normal appearance, PERRL Pupil Exam: NORMAL ACCOMODATION - ENT Exam ENT Exam: Mucous Membranes Dry, Normal Exam - Neck Exam Neck Exam: Full ROM, Normal Inspection - Respiratory Exam Respiratory Exam: Clear to Ausculation Bilateral, NORMAL BREATHING PATTERN. absent: Rales, Rhonchi, Wheezes - Cardiovascular Exam Cardiovascular Exam: Tachycardia, REGULAR RHYTHM, RRR, +S1, +S2. absent: JVD - GI/Abdominal Exam GI & Abdominal Exam: Distended, Rigid, Tenderness. absent: Guarding, Mass, Rebound - Rectal Exam Rectal Exam: Deferred - Extremities Exam Extremities Exam: Full ROM, Normal Capillary Refill, Normal Inspection. absent : Pedal Edema - Back Exam Back Exam: NORMAL INSPECTION - Neurological Exam Neurological Exam: Alert, Awake, CN II-XII Intact, Oriented x3 - Psychiatric Exam Psychiatric exam: Normal Affect - Skin Skin Exam: Dry, Intact, Warm Assessment and Plan - Assessment and Plan (Free Text) Assessment: 71 y/o gent with Hx of COPD, came in bec of 2 weeks of constipation with no bowel movement ,abdominal discomfort and vomiting. CT of chest and Abd showed dilated large bowel loops up to the proximal rectum. Suspicious for obstructing circumferential rectal mass versus less likely focal stricture at the proximal rectum as underlying etiology for the dilated large bowel. Re- demonstration of diffuse mild large bowel wall thickening consistent with mild colitis. Moderate to large right and small to moderate left pleural effusions. Mildly dilated esophagus contains air-fluid levels and demonstrates diffuse wall thickening suspicious for esophagitis. Focal airspace consolidation at the right lower lobe may represent a pneumonia or aspiration. GI consulted. Patient kept NPO , started IVF ,NGT placed. patient still with abdominal distention,abdominal discomfort, bilious poutput and unable to pass flatus. 1. 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 Biopsy sent EGD showed esophagitis Continue Zosyn and Flagyl IV Will place PICC line and start TPN 2. Suspected Rectal mass vs stricture s/p flex sigmoidoscopy follow up biopsy Surgery on consult 3. COPD (chronic obstructive pulmonary disease) Chronic stable Duoneb prn 4. Aspiration pneumonia Acute RLL focal airspace consolidation noted seen on CT of chest started IV zosyn 5 DVT prophylaxis Acute Lovenox
[2017-02-03] MEDS: Albuterol 0.083% Inhal Sol (2.5 mg/3 mL) UD INH SCH ×4 (07:41→19:21)
--- NOTE | 2017-02-03 07:42 | CP.PCM.PN ---
Subjective - Date & Time of Evaluation Date of Evaluation: 02/03/17 Time of Evaluation: 07:40 - Subjective Subjective: Surgery for. Dr. Gross Pt s&e. Pt has nausea. -flatus, -BM for 10 days. c/o low abd pain. NPO for c- scope. Objective - Vital Signs/Intake and Output Vital Signs (last 24 hours): Temp Pulse Resp BP Pulse Ox 98.4 F 95 H 20 127/72 98 02/03/17 00:46 02/03/17 00:46 02/03/17 00:46 02/03/17 00:46 02/03/17 00:46 Intake and Output: 02/03/17 02/03/17 06:59 18:59 Output Total 1000 Balance -1000 - Medications Medications: Current Medications Acetaminophen (Tylenol 325mg Tab) 650 mg PO Q6 PRN PRN Reason: Pain, Mild (1-3) Acetaminophen (Tylenol 325mg Tab) 650 mg PO Q6 PRN PRN Reason: Fever >100.4 F Albuterol Sulfate (Albuterol 0.083% Inhal Barbara (2.5 Mg/3 Ml) Ud) 2.5 mg INH RQID [facility] Last Admin: 02/02/17 19:33 Dose: Not Given Albuterol Sulfate (Albuterol 0.083% Inhal Barbara (2.5 Mg/3 Ml) Ud) 2.5 mg INH RQ4 PRN PRN Reason: Shortness of Breath Last Admin: 01/31/17 14:53 Dose: 2.5 mg Bisacodyl (Dulcolax) 10 mg PA DAILY PRN PRN Reason: Constipation Last Admin: 01/30/17 10:26 Dose: 10 mg Enoxaparin Sodium (Lovenox) 40 mg SC DAILY [facility]ORRES PRN Reason: Protocol Last Admin: 02/02/17 09:11 Dose: 40 mg Famotidine (Pepcid) 20 mg PO BID [facility] Last Admin: 02/02/17 18:57 Dose: Not Given Metronidazole (Flagyl 500mg/100ml Ns) 100 mls @ 100 mls/hr IVPB Q8 [facility] Last Admin: 02/03/17 01:31 Dose: 100 mls/hr Piperacillin Sod/Tazobactam (Sod 3.375 gm/ Sodium Chloride) 100 mls @ 100 mls/ hr IVPB Q6 [facility] Last Admin: 02/03/17 05:07 Dose: 100 mls/hr Sodium Chloride (Sodium Chloride 0.9%) 1,000 mls @ 1,000 mls/hr IV .Q1H [facility] Stop: 02/03/17 15:40 Last Admin: 02/02/17 15:30 Dose: 1,000 mls/hr Potassium Chloride/Dextrose/Sod Cl (Potassium Chl 20 Meq In D5-1/2ns) 1,000 mls @ 125 mls/hr IV .Q8H [facility] Last Admin: 02/03/17 01:31 Dose: 125 mls/hr Ondansetron HCl (Zofran Inj) 4 mg IVP Q4H PRN PRN Reason: Nausea/Vomiting Last Admin: 02/01/17 14:21 Dose: 4 mg Pantoprazole Sodium (Protonix Inj) 40 mg IVP DAILY [facility] - Labs Labs: 02/03/17 06:10 02/03/17 06:10 - Constitutional Appears: No Acute Distress - Head Exam Head Exam: ATRAUMATIC, NORMAL INSPECTION, NORMOCEPHALIC - Eye Exam Eye Exam: EOMI, Normal appearance, PERRL Pupil Exam: NORMAL ACCOMODATION, PERRL - ENT Exam ENT Exam: Mucous Membranes Moist, Normal Exam - Neck Exam Neck Exam: Full ROM - Respiratory Exam Respiratory Exam: Clear to Ausculation Bilateral, NORMAL BREATHING PATTERN - Cardiovascular Exam Cardiovascular Exam: REGULAR RHYTHM - GI/Abdominal Exam GI & Abdominal Exam: Distended, Firm, Soft, Tenderness, Normal Bowel Sounds. absent: Guarding, Rigid, Rebound Additional comments: Low bad TTP. - Extremities Exam Extremities Exam: Full ROM, Normal Capillary Refill, Normal Inspection. absent : Joint Swelling, Pedal Edema - Back Exam Back Exam: NORMAL INSPECTION - Neurological Exam Neurological Exam: Alert, Awake, CN II-XII Intact, Normal Gait, Oriented x3 - Psychiatric Exam Psychiatric exam: Normal Affect, Normal Mood - Skin Skin Exam: Dry, Intact, Normal Color, Warm Assessment and Plan - Assessment and Plan (Free Text) Assessment: 71M w/ complaints of lower abdominal pain with abdominal CT findings of moderately dilated large bowel up to the mid proximal rectum, s/p insertion of rectal tube with failure to decompress patient, raising concerns for possible rectal mass. -NPO -IVF -C/w abx -F/u colonoscopy results -GI recs appreciated -Further recommendations following results of colonoscopy -Further recs per Dr. Gross
[2017-02-03] MEDS ORDERED: Propofol 10 mg/ml Inj (20 ML) ONE (13:27)
[2017-02-03] MEDS ORDERED: Lactated Ringer's 500 ML IV ONE (13:40)
--- NOTE | 2017-02-03 20:00 | CARD ---
APPROVED REPORT EXAM: Two-dimensional and M-mode echocardiogram with Doppler and color Doppler. Other Information Quality : GoodRhythm : Tachycardia INDICATION Pre-Op 2D DIMENSIONS IVSd0.98 (0.7-1.1cm)LVDd3.53 (3.9-5.9cm) LVOT Diameter2.28 (1.8-2.4cm)PWd0.96 (0.7-1.1cm) IVSs1.61 (0.8-1.2cm)LVDs1.90 (2.5-4.0cm) FS (%) 46.3 %PWs1.45 (0.8-1.2cm) M-Mode DIMENSIONS Left Atrium (MM)3.47 (2.5-4.0cm)IVSd1.10 (0.7-1.1cm) Aortic Root3.42 (2.2-3.7cm)LVDd3.97 (4.0-5.6cm) Aortic Cusp Exc.1.99 (1.5-2.0cm)PWd1.16 (0.7-1.1cm) IVSs1.54 cmFS (%) 41 % LVDs2.34 (2.0-3.8cm)PWs1.71 cm Mitral Valve E/A ratio0.0 TDI E/Lateral E'0.0E/Medial E'0.0 Tricuspid Valve TR Peak [id number] [id number] Peak Gr.27mmHg [id number] LEFT VENTRICLE The left ventricle is normal size. There is normal left ventricular wall thickness. The left ventricular function is normal. The left ventricular ejection fraction is 65% There is normal LV segmental wall motion. The left ventricular diastolic function is normal. No left ventricle thrombus noted on this study. There is no ventricular septal defect visualized. There is no left ventricular aneurysm. There is no mass noted in the left ventricle. RIGHT VENTRICLE The right ventricle is normal size. There is normal right ventricular wall thickness. The right ventricular systolic function is normal. ATRIA The left atrium size is normal. The right atrium size is normal. The interatrial septum is intact with no evidence for an atrial septal defect. AORTIC VALVE The aortic valve is mildly to moderately sclerotic. No aortic regurgitation is present. There is no aortic valvular stenosis. There is no aortic valvular vegetation. MITRAL VALVE The mitral valve is normal in structure and function. There is no evidence of mitral valve prolapse. There is no mitral valve stenosis. There is no mitral valve regurgitation noted. TRICUSPID VALVE The tricuspid valve is normal in structure and function. There is no tricuspid valve regurgitation noted. There is no tricuspid valve prolapse or vegetation. There is no tricuspid valve stenosis. PULMONIC VALVE The pulmonary valve is normal in structure and function. There is no pulmonic valvular regurgitation. There is no pulmonic valvular stenosis. GREAT VESSELS The aortic root is normal in size. The ascending aorta is normal in size. The IVC is normal in size and collapses >50% with inspiration. PERICARDIAL EFFUSION The pericardium appears normal. There is no pleural effusion. <Conclusion> Normal LV systolic function Aortic Valve Sclerosis
[2017-02-04] MEDS: metroNIDAZOLE 500mg/100ml NS 100 ML IVPB SCH ×3 (00:51→16:44)
[2017-02-04] MEDS: Piperacillin/Tazobact 3.375 GM in Sodium Chloride 0.9% 100 ML IVPB SCH ×4 (04:16→21:06)
[2017-02-04] MEDS ORDERED: Potassium Ch 20mEq in D5-1/2NS 1,000 ML IV SCH (07:00)
[2017-02-04 07:10] LABS: HEMOGLOBIN 15.3 g/dL (12.0-18.0); MEAN CELL VOLUME 95.8 fl (80.0-94.0); MEAN CORPUSCULAR HEMOGLOBIN 31.3 pg (27.0-31.0); MEAN CORPUSCULAR HGB CONC 32.7 g/dL (33.0-37.0); RBC 4.88 Mil/uL (4.40-5.90); RED CELL DISTRIBUTION WIDTH 15.1 % (11.5-14.5); WHITE BLOOD COUNT 11.3 K/uL (4.8-10.8)
[2017-02-04 07:13] LABS: BLOOD UREA NITROGEN 23 mg/dl (9-20); CALCIUM 8.7 mg/dL (8.4-10.2); GFR AFRICAN-AMERICAN > 60; GFR NON-AFRICAN AMERICAN 59
[2017-02-04 07:27] LABS: INR 1.2 (0.9-1.2); PROTHROMBIN TIME 13.9 Seconds (9.8-13.1)
[2017-02-04] MEDS: Albuterol 0.083% Inhal Sol (2.5 mg/3 mL) UD INH SCH (07:36)
[2017-02-04] MEDS ORDERED: Midazolam 2 MG/2 ML VIAL ONE (09:56)
[2017-02-04] MEDS ORDERED: Rocuronium 10 mg/ml (5 ml) ONE (09:56)
[2017-02-04] MEDS ORDERED: Propofol 10 mg/ml Inj (20 ML) ONE (09:56)
[2017-02-04] MEDS ORDERED: Etomidate 20 mg/10ml Inj IV ONE ×2 (10:10→13:51)
[2017-02-04] MEDS ORDERED: Dextrose 5%/0.45% NS 1,000 ML IV ONE (10:35)
[2017-02-04] MEDS ORDERED: Lactated Ringer's 1,000 ML IV ONE ×4 (10:40→12:54)
[2017-02-04] MEDS ORDERED: metroNIDAZOLE 500mg/100ml NS IVPB ONE (10:50)
[2017-02-04] MEDS ORDERED: Lidocaine 4% (Laryng-O-Jet) Kit MM ONE (10:50)
[2017-02-04] MEDS ORDERED: Piperacillin/Tazobact 3.375 gm Inj IVPB ONE (11:00)
[2017-02-04] MEDS ORDERED: Sodium Chloride 0.9% 1,000 ML IV ONE (11:20)
[2017-02-04] MEDS: Albuterol-Ipratrop 3 mg / 0.5 (3 ml) UD INH SCH ×3 (11:47→20:34)
[2017-02-04] MEDS ORDERED: Neostigmine Methylsulfate 3mg/3ml Syringe IV ONE (12:14)
[2017-02-04] MEDS ORDERED: Neostigmine Methylsulfate 2 MG/2 ML ML IV ONE (12:14)
[2017-02-04] MEDS ORDERED: Liquid Adhesive TOP ONE (12:25)
[2017-02-04] MEDS ORDERED: Esmolol 100 mg/10ml Inj IV ONE (12:38)
--- NOTE | 2017-02-04 12:45 | PCM.SURG1 ---
Surgeon's Initial Post Op Note - Surgeon's Notes Surgeon: Renato Digital Media Director: George PGY3, Anthony PGY2 Type of Anesthesia: General Endo Pre-Operative Diagnosis: Rectal stricture Operative Findings: rectal stricture, carcinomatosis Post-Operative Diagnosis: same Operation Performed: Hartmans w. decompressive enterotomy Specimen/Specimens Removed: sigmoid Estimated Blood Loss: EBL {In ML}: 25 Blood Products Given: N/A Drains Used: Ostomy Device Post-Op Condition: Good Date of Surgery/Procedure: 02/04/17 Time of Surgery/Procedure: 12:52
[2017-02-04] MEDS ORDERED: Succinylcholine 200 mg/10 ml Inj IV ONE (12:51)
[2017-02-04] MEDS ORDERED: Lactated Ringer's 1,000 ML IV SCH ×2 (13:00→17:00)
[2017-02-04] MEDS ORDERED: Propofol 10 mg/ml 1,000 MG/100 ML VIAL IV ONE (13:50)
[2017-02-04] MEDS ORDERED: Lactated Ringer's 500 ML IV SCH ×2 (14:00→15:00)
--- NOTE | 2017-02-04 15:22 | CP.CCUPN ---
CCU Subjective - Physician Review Subjective (Free Text): Consultation for Post op ICU admission and mgmt.: Case discussed with Anesthesiologist and Surgeon. 71 M admitted 8 days ago for abdominal pain and constipation, found to have obstructing colonic lesion and underwent EX-Lap and sigmoid resection. EBL was minimal and pronounced dehydration noted during intra-period. Approx. 2 liters of free peritoneal fluid noted, recd approx. 3.5 L crystalloid.. Presently orally intubated, failed wean and extubation attempts by Anesthesiologist, breathing 16 on AC 12, TV 500ml, 50 % and PEEP 5, SPo2 100%, HR 137, BP 110 systolic, urine output 50 ml in PAR, had 300ml output intra-op. PAR nurses noted mottling of the extremities and 500ml NSS ordered. Small dose of morphine given for analgesia. HR tachycardic up to 150s, PAR nurses gave Diltiazem 5mg IVP and slowed HR to 130s, remaining in AFib now. Allergies: NKDA Home Meds: None Inpatient Meds: Albuterol inh, Dulcolax, Lovenox, Pepcid, Zosyn, Flagyl. ROS: as above, no other pertinent negs or positives on 10+ system review obtainable. Other PMSFH: All recent nursing and physician documentation reviewed and no new information noted relevant to current problems. CXR: (my interp) MAJOR IMPRESSIONS: 1. s/p EXLAP, with Sigmoid CA and resection 2. 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 Azotemia / Dehydration 4. Acute resp insuff post-op 5. Bilateral Effusions, RLL pneumonitis and now bilateral involvement. 6. COPD PLAN: 1. Await full emergence from Anesthesia, but has been sedated now on Propofol. Check ABG, wean fiO2 further down of tolerated. Will discuss with Anesthesia and Pulm regarding keeping MV support overnight till AM re- assessment for readiness to wean and extubate, as attempts to stabilize hemodynamics are ongoing. 2. Serial Lactates, check VBG. Also, rep[eat all bloodwork now post-op. 3. More IVFs, give colloids now with 5% albumin. May need vasopressors soon, but trans-abdominal shifts of fluid expected. No reported fecal contamination reported. 4. BP may jenna too low for further Cardizem IV boluses/drip nor betablocker therapy. Will control HR with Digoxin and or Amiodarone. 5. Cautious sedation, and narcotic analgesics preferred over just Propofol. 6. Duoneb Q6H Nebs 7. Echo from 02/03/17 shows normal LV EF. 8. Sputum C&S while intubated in order to obtain a better sputum sample. 9. Empiric abx coverage with Zosyn and Flagyl. Would consider broadening coverage further and stop Zosyn and switch to Maxipime, add Vanco. Or consider ID eval. 10. Await Pathology results. CCU Objective - Vital Signs / Intake & Output Vital Signs (Last 4 hours): Afebrile, HR 130 in A Fib, RR 16 on AC 12, TV 500ml, 50% and PEEP 5, SPO2 100% Intake and Output (Last 8hrs): Intake & Output 02/04/17 02/04/17 02/04/17 06:59 14:59 22:59 Intake Total 3200 Balance 3200 Intake: IV 3200 - Physical Exam Head: Positive for: Normocephalic Pupils: Positive for: PERRL Extroacular Muscles: Positive for: EOMI Mouth: Positive for: Moist Mucous Membranes Neck: Positive for: Normal Range of Motion. Negative for: JVD, Lymphadenopathy Respiratory/Chest: Positive for: Decreased Breath Sounds. Negative for: Accessory Muscle Use, Wheezes Cardiovascular: Positive for: Irregular Rhythm, Tachycardic. Negative for: Murmurs, Rub Abdomen: Positive for: Distention, Ostomy Tubes Lower Extremity: Positive for: NORMAL PULSES, Other (diffuse mottling bilaterally, extending from thighs and distally.). Negative for: Edema, CALF TENDERNESS Neurological: Positive for: Motor Func Grossly Intact, Norm Deep Tendon Reflexes Skin: Positive for: Warm. Negative for: Rashes - Medications Active Medications: Active Medications Generic Name Dose Route Start Last Admin Trade Name Freq PRN Reason Stop Dose Admin Acetaminophen 650 mg 01/27/17 19:38 Tylenol 325mg Tab PO Q6 PRN Pain, Mild (1-3) Acetaminophen 650 mg 01/27/17 19:38 Tylenol 325mg Tab PO Q6 PRN Fever >100.4 F Albumin Human 25 gm 02/04/17 15:12 Albumin Human 5% (12.5 Gm/250 Ml) IV 02/04/17 15:13 ONCE ONE Albuterol Sulfate 2.5 mg 01/31/17 12:13 01/31/17 14:53 Albuterol 0.083% Inhal Barbara (2.5 Mg/3 Ml) Ud INH 2.5 mg RQ4 PRN Administration Shortness of Breath Albuterol/Ipratropium 3 ml 02/04/17 12:00 02/04/17 11:47 Duoneb 3 Mg/0.5 Mg (3 Ml) Ud INH Not Given RQID TORRES Bisacodyl 10 mg 01/29/17 10:00 01/30/17 10:26 Dulcolax VA 10 mg DAILY PRN Administration Constipation Enoxaparin Sodium 40 mg 02/02/17 09:00 02/02/17 09:11 Lovenox SC 40 mg DAILY TORRES Administration Protocol Famotidine 20 mg 01/29/17 10:30 02/04/17 09:20 Pepcid PO Not Given BID TORRES Hydromorphone HCl 0.5 mg 02/04/17 13:02 Dilaudid IVP 02/06/17 13:02 Q4 PRN Pain, moderate (4-7) Metronidazole 100 mls @ 100 mls/hr 01/28/17 01:00 02/04/17 09:18 Flagyl 500mg/100ml Ns IVPB 100 mls/hr Q8 TORRES Administration Piperacillin Sod/Tazobactam 100 mls @ 100 mls/hr 02/01/17 16:00 02/04/17 09: 19 Sod 3.375 gm/ Sodium Chloride IVPB 100 mls/hr Q6 [facility]ORRES Administration Potassium Chloride/Dextrose/Sod Cl 1,000 mls @ 123.762 mls/hr 02/04/17 07:00 Potassium Chl 20 Meq In D5-1/2ns IV 02/05/17 06:53 .Q8H5M TORRES Lactated Ringer's 1,000 mls @ 150 mls/hr 02/04/17 13:00 Lactated Ringer's IV .Q6H40M TORRES Propofol 1,000 mg in 100 mls @ 7.62 mls/hr 02/04/17 13:50 Diprivan IV 02/05/17 02:57 .Q13H8M ONE Protocol 20 MCG/KG/MIN Lactated Ringer's 500 mls @ 999 mls/hr 02/04/17 15:00 Lactated Ringer's IV 02/04/17 15:30 .Q31M TORRES Morphine Sulfate 1 mg 02/04/17 13:47 Morphine IVP 02/04/17 15:48 Q10M PRN Pain, severe (8-10) Ondansetron HCl 4 mg 01/28/17 21:01 02/03/17 18:11 Zofran Inj IVP 4 mg Q4H PRN Administration Nausea/Vomiting Pantoprazole Sodium 40 mg 02/03/17 09:00 02/04/17 09:20 Protonix Inj IVP 40 mg DAILY TORRES Administration - Patient Studies Lab Studies: Lab Studies 02/04/17 02/04/17 02/04/17 Range/Units 11:54 10:15 06:30 WBC (4.8-10.8) K/uL RBC (4.40-5.90) Mil/uL Hgb (12.0-18.0) g/dL Hct (35.0-51.0) % MCV (80.0-94.0) fl MCH (27.0-31.0) pg MCHC (33.0-37.0) g/dL RDW (11.5-14.5) % Plt Count (130-400) K/uL PT (9.8-13.1) Seconds INR (0.9-1.2) Sodium 145 (132-148) mmol/l Potassium 4.6 (3.6-5.0) MMOL/L Chloride 106 (98-107) mmol/L Carbon Dioxide 31 H (22-30) mmol/L Anion Gap 13 (10-20) BUN 23 H (9-20) mg/dl Creatinine 1.2 (0.8-1.5) mg/dL Est GFR ( Amer) > 60 Est GFR (Non-Af Amer) 59 Random Glucose 133 H (75-110) mg/dL Calcium 8.7 (8.4-10.2) mg/dL Blood Type O NEGATIVE Blood Type Confirm O NEGATIVE Antibody Screen Negative BBK History Checked No verified bt 02/04/17 02/04/17 Range/Units 06:30 06:30 WBC 11.3 H (4.8-10.8) K/uL RBC 4.88 (4.40-5.90) Mil/uL Hgb 15.3 (12.0-18.0) g/dL Hct 46.7 (35.0-51.0) % MCV 95.8 H (80.0-94.0) fl MCH 31.3 H (27.0-31.0) pg MCHC 32.7 L (33.0-37.0) g/dL RDW 15.1 H (11.5-14.5) % Plt Count 321 (130-400) K/uL PT 13.9 H (9.8-13.1) Seconds INR 1.2 (0.9-1.2) Sodium (132-148) mmol/l Potassium (3.6-5.0) MMOL/L Chloride (98-107) mmol/L Carbon Dioxide (22-30) mmol/L Anion Gap (10-20) BUN (9-20) mg/dl Creatinine (0.8-1.5) mg/dL Est GFR ( Amer) Est GFR (Non-Af Amer) Random Glucose (75-110) mg/dL Calcium (8.4-10.2) mg/dL Blood Type Blood Type Confirm Antibody Screen BBK History Checked Laboratory Results - last 24 hr 02/04/17 02/04/17 02/04/17 06:30 06:30 06:30 WBC 11.3 H RBC 4.88 Hgb 15.3 Hct 46.7 MCV 95.8 H MCH 31.3 H MCHC 32.7 L RDW 15.1 H Plt Count 321 PT 13.9 H INR 1.2 Sodium 145 Potassium 4.6 Chloride 106 Carbon Dioxide 31 H Anion Gap 13 BUN 23 H Creatinine 1.2 Est GFR ( Amer) > 60 Est GFR (Non-Af Amer) 59 Random Glucose 133 H Calcium 8.7 Blood Type Blood Type Confirm Antibody Screen BBK History Checked 02/04/17 02/04/17 10:15 11:54 WBC RBC Hgb Hct MCV MCH MCHC RDW Plt Count PT INR Sodium Potassium Chloride Carbon Dioxide Anion Gap BUN Creatinine Est GFR ( Amer) Est GFR (Non-Af Amer) Random Glucose Calcium Blood Type O NEGATIVE Blood Type Confirm O NEGATIVE Antibody Screen Negative BBK History Checked No verified bt Radiology Interpretations (Free Text): (my interp) ETT position high up from prince, bilateral effusions and probable underlying consolidation. Critical Care Progress Note - Ventilator Checklist Head of Bed 30 Degrees: Yes Daily Sedation Vacation: No Daily Assessment of Readiness to Wean: No Daily Spontaneous Breathing Trial: No PUD Prophalyxis: Yes DVT Prophylaxis: Yes Oral Care with Chlorhexidine Gluconate {CHG}: Yes - Vent Settings MODE:: ASSIST CONTROL TIDAL VOLUME:: 500 RESP RATE:: 12 FIO2:: 50 PEEP:: 5 - Extremities/Vascular Does the Patient have a Central Venous Catheter?: Yes (if vasopressors required. ) Does the Patient need a Central Venous Catheter?: No Does the Patient have a Villanueva Catheter?: Yes Does the Patient need a Villanueva Catheter?: Yes Catheter Insertion Criteria: Need for accurate measurement of output in critically ill patient - Restraints Justification for Restraints: High risk for self extubation, High risk for removing IV access, High risk for harming self - Prophylaxis GI Prophylaxis GI: PPI - Prophylaxis DVT Prophylaxis DVT: SCDs - Nutrition Nutrition: Nutrition Category Date Time Status NPO Diet [DIET] Diets 02/01/17 Breakfast Active
[2017-02-04] MEDS: HYDROmorphone 0.5 mg/0.5 ml ISec IVP PRN ×2 (15:54→23:00)
--- NOTE | 2017-02-04 15:56 | RAD ---
HISTORY: s/p hartmans procedure COMPARISON: On 01/27/2017 FINDINGS: LUNGS: Opacity at both lung bases most likely due to pleural effusion. PLEURA: Bilateral small pleural effusion. No pneumothorax. CARDIOVASCULAR: Normal heart size. ET tube appropriately positioned 4.9 cm above tracheal prince. Nasogastric tube extends to left upper quadrant of abdomen. OSSEOUS STRUCTURES: No significant abnormalities. VISUALIZED UPPER ABDOMEN: Normal. OTHER FINDINGS: None. IMPRESSION: Bilateral pleural effusion. ET tube and NG tube noted. No pulmonary infiltrate.
[2017-02-04] MEDS ORDERED: Digoxin 500 mcg/2ml (0.5 mg/2ml) Inj IVP ONE (16:00)
[2017-02-04 16:32] LABS: ABG ALLEN TEST YES; ARTERIAL BLOOD GAS HCO3 24.2 mmol/L (21-28); ARTERIAL BLOOD GAS O2 SAT 47.6 % (95-98); ARTERIAL BLOOD GAS PCO2 55 mm/Hg (35-45); ARTERIAL BLOOD GAS PH 7.32 (7.35-7.45); ARTERIAL BLOOD GAS PO2 25 mm/Hg (80-100)
[2017-02-04] MEDS: Albumin Human 5% (12.5 gm/250 ml) IV ONE ×2 (16:32→17:06)
--- NOTE | 2017-02-04 16:52 | PCM.PROC ---
Procedures Attestation:: I certify that I have explained the specified Operation(s) or Procedure(s), risks, benefits and reasonable alternatives to the Patient and/or other person responsible. The opportunity was given to ask questions and all questions answered - Central Line Placement Right Femoral Aseptic technique was employed throughout the procedure: Full sterile barriers ( mask, hair cover, sterile gown, sterile gloves), Full body sterile drape, Chloraprep Antiseptic: 2 minute prep for Femoral CVP Time Out Performed: Yes Pt. Placed on Pulse Ox Monitor: Yes Central Line Prep: Chlorhexidine-Alcohol Combination Local Anesthesia Used: Lidocaine 1% Amount of Anesthesia Used (mls): 5 Ultrasound Used for Placement: No Central Line Lumen Inserted: triple Central Line Length: 20 cm Post Procedure: Sutured in Place, Good Blood Return, All Ports Aspirated, Flushed, Capped, Sterile Dressing Applied Secured by: Suture Post procedure dressing: Chlorhexidine disc (Biopatch) Post Procedure X-Ray: No Patient Tolerated Procedure: Well Immediate Complications: None (Femoral site chosen due to coagulopathy post-op.)
[2017-02-04 18:54] LABS: ALB/GLOB RATIO 1.4 (1.0-2.1); ALBUMIN 2.4 g/dL (3.5-5.0); ALT/SGPT 40 U/L (21-72); AST/SGOT 24 U/L (17-59); BLOOD UREA NITROGEN 18 mg/dl (9-20); CALCIUM 7.5 mg/dL (8.4-10.2); GFR AFRICAN-AMERICAN > 60; GFR NON-AFRICAN AMERICAN 59
--- NOTE | 2017-02-04 19:05 | CP.PCM.PN ---
Subjective - Date & Time of Evaluation Date of Evaluation: 02/04/17 Time of Evaluation: 17:00 - Subjective Subjective: Patient seen and evaluated bedside. s/p exploratory laparatomy with sigmoid resection and colostomy to [facility]. Patient currently intubated on MV PRVC Ac mode 12/450/5/50 % failing extubation post op , transferred to ICU for monitoring On diprivan drip for sedation but responds to name calling , awake, follows commands , complains of abdominal pain . Afib on monitor HR 110 , afebrile , BP on the lower side Will 2 l free peritoneal fluid removal during the surgery and minimal bleed Episode of afib with RVR noted on PACU requiring cardizem IV and IVF Mottling of lower extremities noted in PACU but present pulses Minimal urine output noticed post op Objective - Vital Signs/Intake and Output Vital Signs (last 24 hours): Temp Pulse Resp BP Pulse Ox 97.6 F 104 H 19 104/61 99 02/04/17 16:16 02/04/17 16:16 02/04/17 16:16 02/04/17 16:16 02/04/17 16:16 Intake and Output: 02/04/17 02/05/17 18:59 06:59 Intake Total 5350 Output Total 1625 Balance 3725 - Medications Medications: Current Medications Acetaminophen (Tylenol 325mg Tab) 650 mg PO Q6 PRN PRN Reason: Pain, Mild (1-3) Acetaminophen (Tylenol 325mg Tab) 650 mg PO Q6 PRN PRN Reason: Fever >100.4 F Albuterol Sulfate (Albuterol 0.083% Inhal Barbara (2.5 Mg/3 Ml) Ud) 2.5 mg INH RQ4 PRN PRN Reason: Shortness of Breath Last Admin: 01/31/17 14:53 Dose: 2.5 mg Albuterol/Ipratropium (Duoneb 3 Mg/0.5 Mg (3 Ml) Ud) 3 ml INH RQID TORRES Last Admin: 02/04/17 11:47 Dose: Not Given Bisacodyl (Dulcolax) 10 mg LA DAILY PRN PRN Reason: Constipation Last Admin: 01/30/17 10:26 Dose: 10 mg Enoxaparin Sodium (Lovenox) 40 mg SC DAILY TORRES PRN Reason: Protocol Last Admin: 02/02/17 09:11 Dose: 40 mg Famotidine (Pepcid) 20 mg PO BID [facility] Last Admin: 02/04/17 09:20 Dose: Not Given Hydromorphone HCl (Dilaudid) 0.5 mg IVP Q4 PRN PRN Reason: Pain, moderate (4-7) Stop: 02/06/17 13:02 Last Admin: 02/04/17 15:54 Dose: 0.5 mg Metronidazole (Flagyl 500mg/100ml Ns) 100 mls @ 100 mls/hr IVPB Q8 [facility] Last Admin: 02/04/17 16:44 Dose: 100 mls/hr Piperacillin Sod/Tazobactam (Sod 3.375 gm/ Sodium Chloride) 100 mls @ 100 mls/ hr IVPB Q6 [facility] Last Admin: 02/04/17 16:47 Dose: 100 mls/hr Propofol (Diprivan) 1,000 mg in 100 mls @ 7.62 mls/hr IV .Q13H8M ONE; 20 MCG/KG /MIN PRN Reason: Protocol Stop: 02/05/17 02:57 Lactated Ringer's (Lactated Ringer's) 1,000 mls @ 200 mls/hr IV .Q5H TORRES Norepinephrine Bitartrate 4 mg (/ Dextrose) 254 mls @ 9.52 mls/hr IV .Q24H TORRES ; 2.5 MCG/MIN PRN Reason: Protocol Ondansetron HCl (Zofran Inj) 4 mg IVP Q4H PRN PRN Reason: Nausea/Vomiting Last Admin: 02/03/17 18:11 Dose: 4 mg Pantoprazole Sodium (Protonix Inj) 40 mg IVP DAILY [facility] Last Admin: 02/04/17 09:20 Dose: 40 mg - Labs Labs: 02/04/17 06:30 02/04/17 18:30 PT 13.9 Seconds (9.8-13.1) H 02/04/17 06:30 INR 1.2 (0.9-1.2) 02/04/17 06:30 - Constitutional Appears: Chronically Ill, Other (intubated on MV , sedated on diprivan drip ) - Head Exam Head Exam: ATRAUMATIC, NORMOCEPHALIC - Eye Exam Eye Exam: EOMI, PERRL - ENT Exam ENT Exam: Mucous Membranes Dry, Normal Exam - Neck Exam Neck Exam: Full ROM, Normal Inspection - Respiratory Exam Respiratory Exam: Decreased Breath Sounds (bibasilar ). absent: Rhonchi, Wheezes Additional comments: intubated - Cardiovascular Exam Cardiovascular Exam: Irregular Rhythm. absent: JVD - GI/Abdominal Exam GI & Abdominal Exam: Distended, Tenderness, Hypoactive Bowel Sounds Additional comments: midlin esurgical incision with dressing in place clean LLQ colostomy output with brownish stool output - Extremities Exam Extremities Exam: absent: Pedal Edema Additional comments: mottling to lower extremities noted pulses present - Neurological Exam Additional comments: responds to name calling, wake, follows commands - Psychiatric Exam Psychiatric exam: Normal Affect - Skin Skin Exam: Dry, Pallor (mottling to lower extremities), Warm Assessment and Plan - Assessment and Plan (Free Text) Assessment: 71 y/o gent with Hx of COPD, came in bec of 2 weeks of constipation with no bowel movement ,abdominal discomfort and vomiting. CT of chest and Abd showed dilated large bowel loops up to the proximal rectum. Suspicious for obstructing circumferential rectal mass versus less likely focal stricture at the proximal rectum as underlying etiology for the dilated large bowel. Re- demonstration of diffuse mild large bowel wall thickening consistent with mild colitis. Moderate to large right and small to moderate left pleural effusions. Mildly dilated esophagus contains air-fluid levels and demonstrates diffuse wall thickening suspicious for esophagitis. Focal airspace consolidation at the right lower lobe may represent a pneumonia or aspiration. GI and surgery consulted. Patient kept NPO , started IVF ,NGT placed unable to have any bowel movements after multiple laxatives . S/p flex sigmoidoscopy showing rectal stricture Today underwent s/p exploratory laparatomy with sigmoid resection and colostomy to LLQ. P Will 2 l free peritoneal fluid removal during the surgery and minimal bleed Episode of afib with RVR noted on PACU requiring cardizem IV and IVF Mottling of lower extremities noted in PACU but present pulses Minimal urine output noticed post op 1. Intestinal obstruction most likely secondary to rectal stricture s/p exp laparatomy with rectal resection and colostomy Acute No BM for 1-2 wks, + vomiting, + abdominal distention, no flatus CT of abd : showed air fluid levels, distended large bowel loops up to the proximal rectum with suspicious obstructing rectal mass or stricture Surgery and GI consulted Given stool softeners, laxatives with no success Rectal tube placed but no BM or flatus observed , NGT placed s/p flex sigmoidoscopy showing long stricture. Biopsy sent EGD showed esophagitis on Zosyn and Flagyl empirically s/p exp laparatoymy today with sigmoid resection and LLQ colostomy with 2 L free peritoneal fluid removal Continue monitoring in ICU Continue IVF resuscitation since patient is volume depleted with low BP and almost no urine output post op Will place PICC line and start TPN 2. Acute respiratory failure currently intubated on MV 12/450/5 50 % failing extubation post op Continue vent management and weaning as per protocol 3.Afib with RVR given cardizem IV with HR 110 on monitor Continue IVF Hold cardizem for now since Bp is in th elow side 4. Suspected Rectal mass vs stricture follow up biopsy 5. COPD (chronic obstructive pulmonary disease) Chronic stable Duoneb prn 6. Aspiration pneumonia Acute RLL focal airspace consolidation noted seen on CT of chest CXR today showed bilateral infiltrates on IV zosyn and Flagyl Consider ID eval 7 DVT prophylaxis Acute Lovenox on hold
[2017-02-04] MEDS: Lactated Ringer's 1,000 ML IV SCH (21:05)
[2017-02-04] MEDS ORDERED: Chlorhexidine Gluconate 1 APPL/PKT TP ONE (23:37)
[2017-02-05] MEDS: Lactated Ringer's 1,000 ML IV SCH ×5 (00:01→21:49)
[2017-02-05 00:21] LABS: ABG ALLEN TEST YES; ARTERIAL BLOOD GAS HCO3 24.2 mmol/L (21-28); ARTERIAL BLOOD GAS HEMOGLOBIN 15.3 g/dL (11.7-17.4); ARTERIAL BLOOD GAS O2 CAPACITY 20.9 mL/dL (16-24); ARTERIAL BLOOD GAS O2 CONTENT 20.3 ML/dL (15-23); ARTERIAL BLOOD GAS O2 SAT 96.9 % (95-98); ARTERIAL BLOOD GAS PCO2 37 mm/Hg (35-45); ARTERIAL BLOOD GAS PH 7.41 (7.35-7.45); ARTERIAL BLOOD GAS PO2 76 mm/Hg (80-100); ARTERIAL BLOOD GAS TCO2 24.6 mmol/L (22-28)
[2017-02-05] MEDS: Piperacillin/Tazobact 3.375 GM in Sodium Chloride 0.9% 100 ML IVPB SCH (03:20)
[2017-02-05 05:04] LABS: ABG ALLEN TEST YES; ARTERIAL BLOOD GAS HCO3 24.2 mmol/L (21-28); ARTERIAL BLOOD GAS O2 SAT 96.3 % (95-98); ARTERIAL BLOOD GAS PCO2 37 mm/Hg (35-45); ARTERIAL BLOOD GAS PH 7.41 (7.35-7.45); ARTERIAL BLOOD GAS PO2 72 mm/Hg (80-100); ARTERIAL BLOOD GAS TCO2 24.6 mmol/L (22-28)
[2017-02-05 05:07] LABS: VENOUS BLOOD GAS BASE EXCESS -0.2 mmol/L (0.0-2.0); VENOUS BLOOD GAS PCO2 44 mmHg (40-60); VENOUS BLOOD GAS PO2 31 mm/Hg (30-55); VENOUS BLOOD PH 7.37 (7.32-7.43)
[2017-02-05 05:30] LABS: BASO % 0.1 % (0.0-2.0); EOS % 0.3 % (0.0-4.0); HEMOGLOBIN 14.7 g/dL (12.0-18.0); LYMPH # 1.2 K/uL (1.0-4.3); LYMPH % 9.9 % (20.0-40.0); MEAN CELL VOLUME 96.4 fl (80.0-94.0); MEAN CORPUSCULAR HEMOGLOBIN 31.2 pg (27.0-31.0); MEAN CORPUSCULAR HGB CONC 32.4 g/dL (33.0-37.0); MEAN PLATELET VOLUME 8.2 fl (7.2-11.7); MONO # 1.2 K/uL (0.0-0.8); MONO % 9.4 % (0.0-10.0); NEUT # 9.9 K/uL (1.8-7.0); NEUT % 80.3 % (50.0-75.0); PLATELET COUNT 265 K/uL (130-400); RED CELL DISTRIBUTION WIDTH 15.6 % (11.5-14.5); WHITE BLOOD COUNT 12.3 K/uL (4.8-10.8)
[2017-02-05 05:38] LABS: ALB/GLOB RATIO 1.3 (1.0-2.1); ALBUMIN 2.3 g/dL (3.5-5.0); CALCIUM 7.8 mg/dL (8.4-10.2)
--- NOTE | 2017-02-05 06:50 | CP.CCUPN ---
CCU Subjective - Physician Review Subjective (Free Text): Awake and calm on low dose Propofol ( 5 mcg), breathing 23 on AC 12, 450 ml TV, 50% oxygen and PEEP 5, SPO2 down to 95%, was 100% yesterday, now over 6 L + fluid balance last 12hours, started on Levophed overnight, now at 5 mcg/min, oliguric with U/O = 285 ml last 12H. Overall, extremities no longer mottled, latest Lactate = 2.1 (serum value). Temp spike to 101F overnight, now 99.4F. Still in A Fib at 111/min. ROS: as above, no other pertinent negs or positives on system review obtainable. Other PMSFH: All recent nursing and physician documentation reviewed and no new information noted relevant to current problems. CXR: (my interp) bilateral basilar haziness, ETT tip near R mainstem bronchus. MAJOR IMPRESSIONS: 1. s/p EXLAP, with Sigmoid CA and resection 2. 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 Azotemia / Dehydration with Hypotension Post -op 4. Acute resp insuff post-op 5. Bilateral Effusions, RLL pneumonitis and now bilateral involvement. 6. COPD PLAN: 1. Try decreasing FiO2 to 40% and initiate weans / SBT. Propofol stopped now. 2. Slight increase in BUN with marked + fluid balance, but still on low dose vasopressors. Mild ATN may be manifest, check spot lytes, if urine Na above 20, trial Lasix prn. Remains on LR at 200ml/hr, lactates near normal, SVo2 low at 60 %. Consider Dobutamine, aware the Echo done several days ago showed normal LVEF. However, overall perfusion has improved from yesterday. 3. Febrile on current abx coverage, would consider broadening coverage to Maxipime and stop Zosyn. 4. Tachycardia may be partially related to hypovolemia, fevers, and post op status/events. More digoxin prn if HR above 120 in A Fib. 5[address] Chest CT on 01/31/17 did already show bilat effusions R>L; will assess for ability to wean from MV. May need to mobilize effusion fluid, trial Lasix, if not effective, will get IR eval for thoracentesis. CCU Objective - Vital Signs / Intake & Output Vital Signs (Last 4 hours): Vital Signs Temp Pulse Resp BP Pulse Ox 02/05/17 05:00 108 H 95 H 123/79 95 02/05/17 04:00 99.4 F 107 H 21 91/52 L 97 02/05/17 03:00 118 H 19 88/56 L 95 Intake and Output (Last 8hrs): Intake & Output 02/04/17 02/04/17 02/05/17 14:59 22:59 06:59 Intake Total 3400 4171 943 Output Total 135 1955 205 Balance 3265 2216 738 Intake: IV 3400 3621 743 Intake, Piggyback 550 200 Output: Gastric Drainage 75 Gastric Amount 1500 Left Nares 100 Right 1400 Urine 60 205 80 Urethral (Villanue[place]) 205 80 Stool 250 125 - Physical Exam Head: Positive for: Normocephalic Pupils: Positive for: PERRL Extroacular Muscles: Positive for: EOMI Mouth: Positive for: Moist Mucous Membranes Neck: Positive for: Normal Range of Motion. Negative for: JVD, Lymphadenopathy Respiratory/Chest: Positive for: Decreased Breath Sounds. Negative for: Accessory Muscle Use, Wheezes Cardiovascular: Positive for: Irregular Rhythm, Tachycardic. Negative for: Murmurs, Rub Abdomen: Positive for: Distention, Ostomy Tubes Lower Extremity: Positive for: NORMAL PULSES, Other (diffuse mottling bilaterally, extending from thighs and distally has resolved from yesterday.). Negative for: Edema, CALF TENDERNESS Neurological: Positive for: Motor Func Grossly Intact, Norm Deep Tendon Reflexes Skin: Positive for: Warm. Negative for: Rashes - Medications Active Medications: Active Medications Generic Name Dose Route Start Last Admin Trade Name Freq PRN Reason Stop Dose Admin Acetaminophen 650 mg 01/27/17 19:38 Tylenol 325mg Tab PO Q6 PRN Pain, Mild (1-3) Acetaminophen 650 mg 01/27/17 19:38 Tylenol 325mg Tab PO Q6 PRN Fever >100.4 F Acetaminophen 650 mg 02/04/17 23:35 02/04/17 23:58 Tylenol 650 Mg Supp AL 650 mg Q4 PRN Administration Fever >100.4 F Albuterol Sulfate 2.5 mg 01/31/17 12:13 01/31/17 14:53 Albuterol 0.083% Inhal Barbara (2.5 Mg/3 Ml) Ud INH 2.5 mg RQ4 PRN Administration Shortness of Breath Albuterol/Ipratropium 3 ml 02/04/17 12:00 02/04/17 20:34 Duoneb 3 Mg/0.5 Mg (3 Ml) Ud INH 3 ml RQID TORRES Administration Bisacodyl 10 mg 01/29/17 10:00 01/30/17 10:26 Dulcolax AL 10 mg DAILY PRN Administration Constipation Enoxaparin Sodium 40 mg 02/02/17 09:00 02/02/17 09:11 Lovenox SC 40 mg DAILY TORRES Administration Protocol Famotidine 20 mg 01/29/17 10:30 02/04/17 09:20 Pepcid PO Not Given BID TORRES Hydromorphone HCl 0.5 mg 02/04/17 13:02 02/04/17 23:00 Dilaudid IVP 02/06/17 13:02 0.5 mg Q4 PRN Administration Pain, moderate (4-7) Metronidazole 100 mls @ 100 mls/hr 01/28/17 01:00 02/05/17 00:00 Flagyl 500mg/100ml Ns IVPB 100 mls/hr Q8 TORRES Administration Piperacillin Sod/Tazobactam 100 mls @ 100 mls/hr 02/01/17 16:00 02/05/17 03: 20 Sod 3.375 gm/ Sodium Chloride IVPB 100 mls/hr Q6 TORRES Administration Lactated Ringer's 1,000 mls @ 200 mls/hr 02/04/17 19:01 02/05/17 00:01 Lactated Ringer's IV 200 mls/hr .Q5H TORRES Administration Norepinephrine Bitartrate 4 mg 254 mls @ 9.52 mls/hr 02/04/17 19:15 02/04/17 23:15 / Dextrose IV 5 mcg/min .Q24H TORRES 19.05 mls/hr Protocol Titration 2.5 MCG/MIN Ondansetron HCl 4 mg 01/28/17 21:01 02/03/17 18:11 Zofran Inj IVP 4 mg Q4H PRN Administration Nausea/Vomiting Pantoprazole Sodium 40 mg 02/03/17 09:00 02/04/17 09:20 Protonix Inj IVP 40 mg DAILY TORRES Administration - Patient Studies Lab Studies: Lab Studies 02/05/17 02/05/17 02/05/17 Range/Units 05:02 05:00 04:54 WBC (4.8-10.8) K/uL RBC (4.40-5.90) Mil/uL Hgb (12.0-18.0) g/dL Hct (35.0-51.0) % MCV (80.0-94.0) fl MCH (27.0-31.0) pg MCHC (33.0-37.0) g/dL RDW (11.5-14.5) % Plt Count (130-400) K/uL MPV (7.2-11.7) fl Neut % (Auto) (50.0-75.0) % Lymph % (Auto) (20.0-40.0) % [place] % (Auto) (0.0-10.0) % Eos % (Auto) (0.0-4.0) % Baso % (Auto) (0.0-2.0) % Neut # (1.8-7.0) K/uL Lymph # (1.0-4.3) K/uL [place] # (0.0-0.8) K/uL Eos # (0.0-0.7) K/uL Baso # (0.0-0.2) K/uL PT (9.8-13.1) Seconds INR (0.9-1.2) pCO2 37 (35-45) mm/Hg pO2 31 72 L (80-100) mm/Hg HCO3 24.2 (21-28) mmol/L ABG pH 7.41 (7.35-7.45) ABG Total CO2 24.6 (22-28) mmol/L ABG O2 Saturation 96.3 (95-98) % ABG O2 Content (15-23) ML/dL ABG Base Excess -0.8 (-2.0-3.0) mmol/L ABG Hemoglobin (11.7-17.4) g/dL ABG Carboxyhemoglobin (0.5-1.5) % POC ABG HHb (Measured) (0.0-5.0) % ABG Methemoglobin (0.0-3.0) % ABG O2 Capacity (16-24) mL/dL Rhett Test Yes ABG Potassium 4.0 (3.6-5.2) mmol/L VBG pH 7.37 (7.32-7.43) VBG pCO2 44 (40-60) mmHg VBG HCO3 23.7 mmol/L VBG Total CO2 26.8 (22-28) mmol/L VBG O2 Sat (Calc) 60.1 (40-65) % VBG Base Excess -0.2 L (0.0-2.0) mmol/L VBG Potassium 4.2 (3.6-5.2) mmol/L A-a O2 Difference 238.0 mm/Hg Hgb O2 Saturation (95.0-98.0) % Glucose 111 H 119 H (75-110) mg/dL Lactate 2.7 H 1.7 (0.7-2.1) mmol/L Vent Mode A/c Mechanical Rate 12 FiO2 50.0 50.0 % Tidal Volume 450 PEEP 5 5 Pressure Support Blood Gas Comments Crit Value Called To Crit Value Called By Crit Value Read Back Blood Gas Notified Time Sodium 138.0 135.0 (132-148) mmol/l Potassium (3.6-5.0) MMOL/L Chloride 106.0 108.0 H (98-107) mmol/L Carbon Dioxide (22-30) mmol/L Anion Gap (10-20) BUN (9-20) mg/dl Creatinine (0.8-1.5) mg/dL Est GFR ( Amer) Est GFR (Non-Af Amer) Random Glucose (75-110) mg/dL Lactic Acid 2.1 (0.7-2.1) MMOL/L Calcium (8.4-10.2) mg/dL Total Bilirubin (0.2-1.3) mg/dl AST (17-59) U/L ALT (21-72) U/L Alkaline Phosphatase (38-126) U/L Total Protein (6.3-8.2) G/DL Albumin (3.5-5.0) g/dL Globulin (2.2-3.9) gm/dL Albumin/Globulin Ratio (1.0-2.1) Arterial Blood Potassium 4.0 (3.6-5.2) mmol/L Venous Blood Potassium 4.2 (3.6-5.2) mmol/L Blood Type Blood Type Confirm Antibody Screen BBK History Checked 02/05/17 02/05/17 02/04/17 Range/Units 04:20 04:20 23:50 WBC 12.3 H (4.8-10.8) K/uL RBC 4.70 (4.40-5.90) Mil/uL Hgb 14.7 (12.0-18.0) g/dL Hct 45.3 (35.0-51.0) % MCV 96.4 H (80.0-94.0) fl MCH 31.2 H (27.0-31.0) pg MCHC 32.4 L (33.0-37.0) g/dL RDW 15.6 H (11.5-14.5) % Plt Count 265 (130-400) K/uL MPV 8.2 (7.2-11.7) fl Neut % (Auto) 80.3 H (50.0-75.0) % Lymph % (Auto) 9.9 L (20.0-40.0) % [place] % (Auto) 9.4 (0.0-10.0) % Eos % (Auto) 0.3 (0.0-4.0) % Baso % (Auto) 0.1 (0.0-2.0) % Neut # 9.9 H (1.8-7.0) K/uL Lymph # 1.2 (1.0-4.3) K/uL [place] # 1.2 H (0.0-0.8) K/uL Eos # 0.0 (0.0-0.7) K/uL Baso # 0.0 (0.0-0.2) K/uL PT (9.8-13.1) Seconds INR (0.9-1.2) pCO2 37 (35-45) mm/Hg pO2 76 L (80-100) mm/Hg HCO3 24.2 (21-28) mmol/L ABG pH 7.41 (7.35-7.45) ABG Total CO2 24.6 (22-28) mmol/L ABG O2 Saturation 96.9 (95-98) % ABG O2 Content 20.3 (15-23) ML/dL ABG Base Excess -0.8 (-2.0-3.0) mmol/L ABG Hemoglobin 15.3 (11.7-17.4) g/dL ABG Carboxyhemoglobin 1.3 (0.5-1.5) % POC ABG HHb (Measured) 3.0 (0.0-5.0) % ABG Methemoglobin 1.5 (0.0-3.0) % ABG O2 Capacity 20.9 (16-24) mL/dL Rhett Test Yes ABG Potassium (3.6-5.2) mmol/L VBG pH (7.32-7.43) VBG pCO2 (40-60) mmHg VBG HCO3 mmol/L VBG Total CO2 (22-28) mmol/L VBG O2 Sat (Calc) (40-65) % VBG Base Excess (0.0-2.0) mmol/L VBG Potassium (3.6-5.2) mmol/L A-a O2 Difference 234.0 mm/Hg Hgb O2 Saturation 94.3 L (95.0-98.0) % Glucose (75-110) mg/dL Lactate (0.7-2.1) mmol/L Vent Mode A/c Mechanical Rate 12 FiO2 50.0 % Tidal Volume 450 PEEP 5 Pressure Support Blood Gas Comments Crit Value Called To Crit Value Called By Crit Value Read Back Blood Gas Notified Time Sodium 141 (132-148) mmol/l Potassium 4.0 (3.6-5.0) MMOL/L Chloride 108 H (98-107) mmol/L Carbon Dioxide 24 (22-30) mmol/L Anion Gap 13 (10-20) BUN 21 H (9-20) mg/dl Creatinine 1.5 (0.8-1.5) mg/dL Est GFR ( Amer) 56 Est GFR (Non-Af Amer) 46 Random Glucose 109 (75-110) mg/dL Lactic Acid (0.7-2.1) MMOL/L Calcium 7.8 L (8.4-10.2) mg/dL Total Bilirubin 1.2 (0.2-1.3) mg/dl AST 40 (17-59) U/L ALT 41 (21-72) U/L Alkaline Phosphatase 29 L (38-126) U/L Total Protein 4.1 L (6.3-8.2) G/DL Albumin 2.3 L (3.5-5.0) g/dL Globulin 1.8 L (2.2-3.9) gm/dL Albumin/Globulin Ratio 1.3 (1.0-2.1) Arterial Blood Potassium (3.6-5.2) mmol/L Venous Blood Potassium (3.6-5.2) mmol/L Blood Type Blood Type Confirm Antibody Screen BBK History Checked 02/04/17 02/04/17 02/04/17 Range/Units 18:30 16:27 11:54 WBC (4.8-10.8) K/uL RBC (4.40-5.90) Mil/uL Hgb (12.0-18.0) g/dL Hct (35.0-51.0) % MCV (80.0-94.0) fl MCH (27.0-31.0) pg MCHC (33.0-37.0) g/dL RDW (11.5-14.5) % Plt Count (130-400) K/uL MPV (7.2-11.7) fl Neut % (Auto) (50.0-75.0) % Lymph % (Auto) (20.0-40.0) % [place] % (Auto) (0.0-10.0) % Eos % (Auto) (0.0-4.0) % Baso % (Auto) (0.0-2.0) % Neut # (1.8-7.0) K/uL Lymph # (1.0-4.3) K/uL [place] # (0.0-0.8) K/uL Eos # (0.0-0.7) K/uL Baso # (0.0-0.2) K/uL PT (9.8-13.1) Seconds INR (0.9-1.2) pCO2 55 H (35-45) mm/Hg pO2 25 L* (80-100) mm/Hg HCO3 24.2 (21-28) mmol/L ABG pH 7.32 L (7.35-7.45) ABG Total CO2 30.0 H (22-28) mmol/L ABG O2 Saturation 47.6 L (95-98) % ABG O2 Content (15-23) ML/dL ABG Base Excess 1.1 (-2.0-3.0) mmol/L ABG Hemoglobin (11.7-17.4) g/dL ABG Carboxyhemoglobin (0.5-1.5) % POC ABG HHb (Measured) (0.0-5.0) % ABG Methemoglobin (0.0-3.0) % ABG O2 Capacity (16-24) mL/dL Rhett Test Yes ABG Potassium 4.6 (3.6-5.2) mmol/L VBG pH (7.32-7.43) VBG pCO2 (40-60) mmHg VBG HCO3 mmol/L VBG Total CO2 (22-28) mmol/L VBG O2 Sat (Calc) (40-65) % VBG Base Excess (0.0-2.0) mmol/L VBG Potassium (3.6-5.2) mmol/L A-a O2 Difference 263.0 mm/Hg Hgb O2 Saturation (95.0-98.0) % Glucose 137 H (75-110) mg/dL Lactate 2.0 (0.7-2.1) mmol/L Vent Mode Prvc/ac Mechanical Rate FiO2 50.0 % Tidal Volume 450 PEEP 5 Pressure Support 0 Blood Gas Comments Vt 450 prvc ac 12 fio2 50% peep 5 Crit Value Called To Dr miles howard Crit Value Called By 162 Crit Value Read Back Y Blood Gas Notified Time 1631 Sodium 141 139.0 (132-148) mmol/l Potassium 4.1 (3.6-5.0) MMOL/L Chloride 109 H 104.0 (98-107) mmol/L Carbon Dioxide 26 (22-30) mmol/L Anion Gap 10 (10-20) BUN 18 (9-20) mg/dl Creatinine 1.2 (0.8-1.5) mg/dL Est GFR ( Amer) > 60 Est GFR (Non-Af Amer) 59 Random Glucose 114 H (75-110) mg/dL Lactic Acid (0.7-2.1) MMOL/L Calcium 7.5 L (8.4-10.2) mg/dL Total Bilirubin 1.3 (0.2-1.3) mg/dl AST 24 (17-59) U/L ALT 40 (21-72) U/L Alkaline Phosphatase 29 L D (38-126) U/L Total Protein 4.1 L (6.3-8.2) G/DL Albumin 2.4 L (3.5-5.0) g/dL Globulin 1.7 L (2.2-3.9) gm/dL Albumin/Globulin Ratio 1.4 (1.0-2.1) Arterial Blood Potassium 4.6 (3.6-5.2) mmol/L Venous Blood Potassium (3.6-5.2) mmol/L Blood Type Blood Type Confirm O NEGATIVE Antibody Screen BBK History Checked 02/04/17 02/04/17 02/04/17 Range/Units 10:15 06:30 06:30 WBC (4.8-10.8) K/uL RBC (4.40-5.90) Mil/uL Hgb (12.0-18.0) g/dL Hct (35.0-51.0) % MCV (80.0-94.0) fl MCH (27.0-31.0) pg MCHC (33.0-37.0) g/dL RDW (11.5-14.5) % Plt Count (130-400) K/uL MPV (7.2-11.7) fl Neut % (Auto) (50.0-75.0) % Lymph % (Auto) (20.0-40.0) % [place] % (Auto) (0.0-10.0) % Eos % (Auto) (0.0-4.0) % Baso % (Auto) (0.0-2.0) % Neut # (1.8-7.0) K/uL Lymph # (1.0-4.3) K/uL [place] # (0.0-0.8) K/uL Eos # (0.0-0.7) K/uL Baso # (0.0-0.2) K/uL PT 13.9 H (9.8-13.1) Seconds INR 1.2 (0.9-1.2) pCO2 (35-45) mm/Hg pO2 (80-100) mm/Hg HCO3 (21-28) mmol/L ABG pH (7.35-7.45) ABG Total CO2 (22-28) mmol/L ABG O2 Saturation (95-98) % ABG O2 Content (15-23) ML/dL ABG Base Excess (-2.0-3.0) mmol/L ABG Hemoglobin (11.7-17.4) g/dL ABG Carboxyhemoglobin (0.5-1.5) % POC ABG HHb (Measured) (0.0-5.0) % ABG Methemoglobin (0.0-3.0) % ABG O2 Capacity (16-24) mL/dL Rhett Test ABG Potassium (3.6-5.2) mmol/L VBG pH (7.32-7.43) VBG pCO2 (40-60) mmHg VBG HCO3 mmol/L VBG Total CO2 (22-28) mmol/L VBG O2 Sat (Calc) (40-65) % VBG Base Excess (0.0-2.0) mmol/L VBG Potassium (3.6-5.2) mmol/L A-a O2 Difference mm/Hg Hgb O2 Saturation (95.0-98.0) % Glucose (75-110) mg/dL Lactate (0.7-2.1) mmol/L Vent Mode Mechanical Rate FiO2 % Tidal Volume PEEP Pressure Support Blood Gas Comments Crit Value Called To Crit Value Called By Crit Value Read Back Blood Gas Notified Time Sodium 145 (132-148) mmol/l Potassium 4.6 (3.6-5.0) MMOL/L Chloride 106 (98-107) mmol/L Carbon Dioxide 31 H (22-30) mmol/L Anion Gap 13 (10-20) BUN 23 H (9-20) mg/dl Creatinine 1.2 (0.8-1.5) mg/dL Est GFR ( Amer) > 60 Est GFR (Non-Af Amer) 59 Random Glucose 133 H (75-110) mg/dL Lactic Acid (0.7-2.1) MMOL/L Calcium 8.7 (8.4-10.2) mg/dL Total Bilirubin (0.2-1.3) mg/dl AST (17-59) U/L ALT (21-72) U/L Alkaline Phosphatase (38-126) U/L Total Protein (6.3-8.2) G/DL Albumin (3.5-5.0) g/dL Globulin (2.2-3.9) gm/dL Albumin/Globulin Ratio (1.0-2.1) Arterial Blood Potassium (3.6-5.2) mmol/L Venous Blood Potassium (3.6-5.2) mmol/L Blood Type O NEGATIVE Blood Type Confirm Antibody Screen Negative BBK History Checked No verified bt 02/04/17 Range/Units 06:30 WBC 11.3 H (4.8-10.8) K/uL RBC 4.88 (4.40-5.90) Mil/uL Hgb 15.3 (12.0-18.0) g/dL Hct 46.7 (35.0-51.0) % MCV 95.8 H (80.0-94.0) fl MCH 31.3 H (27.0-31.0) pg MCHC 32.7 L (33.0-37.0) g/dL RDW 15.1 H (11.5-14.5) % Plt Count 321 (130-400) K/uL MPV (7.2-11.7) fl Neut % (Auto) (50.0-75.0) % Lymph % (Auto) (20.0-40.0) % [place] % (Auto) (0.0-10.0) % Eos % (Auto) (0.0-4.0) % Baso % (Auto) (0.0-2.0) % Neut # (1.8-7.0) K/uL Lymph # (1.0-4.3) K/uL [place] # (0.0-0.8) K/uL Eos # (0.0-0.7) K/uL Baso # (0.0-0.2) K/uL PT (9.8-13.1) Seconds INR (0.9-1.2) pCO2 (35-45) mm/Hg pO2 (80-100) mm/Hg HCO3 (21-28) mmol/L ABG pH (7.35-7.45) ABG Total CO2 (22-28) mmol/L ABG O2 Saturation (95-98) % ABG O2 Content (15-23) ML/dL ABG Base Excess (-2.0-3.0) mmol/L ABG Hemoglobin (11.7-17.4) g/dL ABG Carboxyhemoglobin (0.5-1.5) % POC ABG HHb (Measured) (0.0-5.0) % ABG Methemoglobin (0.0-3.0) % ABG O2 Capacity (16-24) mL/dL Rhett Test ABG Potassium (3.6-5.2) mmol/L VBG pH (7.32-7.43) VBG pCO2 (40-60) mmHg VBG HCO3 mmol/L VBG Total CO2 (22-28) mmol/L VBG O2 Sat (Calc) (40-65) % VBG Base Excess (0.0-2.0) mmol/L VBG Potassium (3.6-5.2) mmol/L A-a O2 Difference mm/Hg Hgb O2 Saturation (95.0-98.0) % Glucose (75-110) mg/dL Lactate (0.7-2.1) mmol/L Vent Mode Mechanical Rate FiO2 % Tidal Volume PEEP Pressure Support Blood Gas Comments Crit Value Called To Crit Value Called By Crit Value Read Back Blood Gas Notified Time Sodium (132-148) mmol/l Potassium (3.6-5.0) MMOL/L Chloride (98-107) mmol/L Carbon Dioxide (22-30) mmol/L Anion Gap (10-20) BUN (9-20) mg/dl Creatinine (0.8-1.5) mg/dL Est GFR ( Amer) Est GFR (Non-Af Amer) Random Glucose (75-110) mg/dL Lactic Acid (0.7-2.1) MMOL/L Calcium (8.4-10.2) mg/dL Total Bilirubin (0.2-1.3) mg/dl AST (17-59) U/L ALT (21-72) U/L Alkaline Phosphatase (38-126) U/L Total Protein (6.3-8.2) G/DL Albumin (3.5-5.0) g/dL Globulin (2.2-3.9) gm/dL Albumin/Globulin Ratio (1.0-2.1) Arterial Blood Potassium (3.6-5.2) mmol/L Venous Blood Potassium (3.6-5.2) mmol/L Blood Type Blood Type Confirm Antibody Screen BBK History Checked Laboratory Results - last 24 hr 02/04/17 02/04/17 02/04/17 06:30 06:30 06:30 WBC 11.3 H RBC 4.88 Hgb 15.3 Hct 46.7 MCV 95.8 H MCH 31.3 H MCHC 32.7 L RDW 15.1 H Plt Count 321 MPV Neut % (Auto) Lymph % (Auto) [place] % (Auto) Eos % (Auto) Baso % (Auto) Neut # Lymph # [place] # Eos # Baso # PT 13.9 H INR 1.2 pCO2 pO2 HCO3 ABG pH ABG Total CO2 ABG O2 Saturation ABG O2 Content ABG Base Excess ABG Hemoglobin ABG Carboxyhemoglobin POC ABG HHb (Measured) ABG Methemoglobin ABG O2 Capacity Rhett Test ABG Potassium VBG pH VBG pCO2 VBG HCO3 VBG Total CO2 VBG O2 Sat (Calc) VBG Base Excess VBG Potassium A-a O2 Difference Hgb O2 Saturation Glucose Lactate Vent Mode Mechanical Rate FiO2 Tidal Volume PEEP Pressure Support Blood Gas Comments Crit Value Called To Crit Value Called By Crit Value Read Back Blood Gas Notified Time Sodium 145 Potassium 4.6 Chloride 106 Carbon Dioxide 31 H Anion Gap 13 BUN 23 H Creatinine 1.2 Est GFR ( Amer) > 60 Est GFR (Non-Af Amer) 59 Random Glucose 133 H Lactic Acid Calcium 8.7 Total Bilirubin AST ALT Alkaline Phosphatase Total Protein Albumin Globulin Albumin/Globulin Ratio Arterial Blood Potassium Venous Blood Potassium Blood Type Blood Type Confirm Antibody Screen BBK History Checked 02/04/17 02/04/17 02/04/17 10:15 11:54 16:27 WBC RBC Hgb Hct MCV MCH MCHC RDW Plt Count MPV Neut % (Auto) Lymph % (Auto) [place] % (Auto) Eos % (Auto) Baso % (Auto) Neut # Lymph # [place] # Eos # Baso # PT INR pCO2 55 H pO2 25 L* HCO3 24.2 ABG pH 7.32 L ABG Total CO2 30.0 H ABG O2 Saturation 47.6 L ABG O2 Content ABG Base Excess 1.1 ABG Hemoglobin ABG Carboxyhemoglobin POC ABG HHb (Measured) ABG Methemoglobin ABG O2 Capacity Rhett Test Yes ABG Potassium 4.6 VBG pH VBG pCO2 VBG HCO3 VBG Total CO2 VBG O2 Sat (Calc) VBG Base Excess VBG Potassium A-a O2 Difference 263.0 Hgb O2 Saturation Glucose 137 H Lactate 2.0 Vent Mode Prvc/ac Mechanical Rate FiO2 50.0 Tidal Volume 450 PEEP 5 Pressure Support 0 Blood Gas Comments Vt 450 prvc ac 12 fio2 50% peep 5 Crit Value Called To Dr miles howard Crit Value Called By 162 Crit Value Read Back Y Blood Gas Notified Time 1631 Sodium 139.0 Potassium Chloride 104.0 Carbon Dioxide Anion Gap BUN Creatinine Est GFR ( Amer) Est GFR (Non-Af Amer) Random Glucose Lactic Acid Calcium Total Bilirubin AST ALT Alkaline Phosphatase Total Protein Albumin Globulin Albumin/Globulin Ratio Arterial Blood Potassium 4.6 Venous Blood Potassium Blood Type O NEGATIVE Blood Type Confirm O NEGATIVE Antibody Screen Negative BBK History Checked No verified bt 02/04/17 02/04/17 02/05/17 18:30 23:50 04:20 WBC 12.3 H RBC 4.70 Hgb 14.7 Hct 45.3 MCV 96.4 H MCH 31.2 H MCHC 32.4 L RDW 15.6 H Plt Count 265 MPV 8.2 Neut % (Auto) 80.3 H Lymph % (Auto) 9.9 L [place] % (Auto) 9.4 Eos % (Auto) 0.3 Baso % (Auto) 0.1 Neut # 9.9 H Lymph # 1.2 [place] # 1.2 H Eos # 0.0 Baso # 0.0 PT INR pCO2 37 pO2 76 L HCO3 24.2 ABG pH 7.41 ABG Total CO2 24.6 ABG O2 Saturation 96.9 ABG O2 Content 20.3 ABG Base Excess -0.8 ABG Hemoglobin 15.3 ABG Carboxyhemoglobin 1.3 POC ABG HHb (Measured) 3.0 ABG Methemoglobin 1.5 ABG O2 Capacity 20.9 Rhett Test Yes ABG Potassium VBG pH VBG pCO2 VBG HCO3 VBG Total CO2 VBG O2 Sat (Calc) VBG Base Excess VBG Potassium A-a O2 Difference 234.0 Hgb O2 Saturation 94.3 L Glucose Lactate Vent Mode A/c Mechanical Rate 12 FiO2 50.0 Tidal Volume 450 PEEP 5 Pressure Support Blood Gas Comments Crit Value Called To Crit Value Called By Crit Value Read Back Blood Gas Notified Time Sodium 141 Potassium 4.1 Chloride 109 H Carbon Dioxide 26 Anion Gap 10 BUN 18 Creatinine 1.2 Est GFR ( Amer) > 60 Est GFR (Non-Af Amer) 59 Random Glucose 114 H Lactic Acid Calcium 7.5 L Total Bilirubin 1.3 AST 24 ALT 40 Alkaline Phosphatase 29 L D Total Protein 4.1 L Albumin 2.4 L Globulin 1.7 L Albumin/Globulin Ratio 1.4 Arterial Blood Potassium Venous Blood Potassium Blood Type Blood Type Confirm Antibody Screen BBK History Checked 02/05/17 02/05/17 02/05/17 04:20 04:54 05:00 WBC RBC Hgb Hct MCV MCH MCHC RDW Plt Count MPV Neut % (Auto) Lymph % (Auto) [place] % (Auto) Eos % (Auto) Baso % (Auto) Neut # Lymph # [place] # Eos # Baso # PT INR pCO2 37 pO2 72 L HCO3 24.2 ABG pH 7.41 ABG Total CO2 24.6 ABG O2 Saturation 96.3 ABG O2 Content ABG Base Excess -0.8 ABG Hemoglobin ABG Carboxyhemoglobin POC ABG HHb (Measured) ABG Methemoglobin ABG O2 Capacity Rhett Test Yes ABG Potassium 4.0 VBG pH VBG pCO2 VBG HCO3 VBG Total CO2 VBG O2 Sat (Calc) VBG Base Excess VBG Potassium A-a O2 Difference 238.0 Hgb O2 Saturation Glucose 119 H Lactate 1.7 Vent Mode A/c Mechanical Rate 12 FiO2 50.0 Tidal Volume 450 PEEP 5 Pressure Support Blood Gas Comments Crit Value Called To Crit Value Called By Crit Value Read Back Blood Gas Notified Time Sodium 141 135.0 Potassium 4.0 Chloride 108 H 108.0 H Carbon Dioxide 24 Anion Gap 13 BUN 21 H Creatinine 1.5 Est GFR ( Amer) 56 Est GFR (Non-Af Amer) 46 Random Glucose 109 Lactic Acid 2.1 Calcium 7.8 L Total Bilirubin 1.2 AST 40 ALT 41 Alkaline Phosphatase 29 L Total Protein 4.1 L Albumin 2.3 L Globulin 1.8 L Albumin/Globulin Ratio 1.3 Arterial Blood Potassium 4.0 Venous Blood Potassium Blood Type Blood Type Confirm Antibody Screen BBK History Checked 02/05/17 05:02 WBC RBC Hgb Hct MCV MCH MCHC RDW Plt Count MPV Neut % (Auto) Lymph % (Auto) [place] % (Auto) Eos % (Auto) Baso % (Auto) Neut # Lymph # [place] # Eos # Baso # PT INR pCO2 pO2 31 HCO3 ABG pH ABG Total CO2 ABG O2 Saturation ABG O2 Content ABG Base Excess ABG Hemoglobin ABG Carboxyhemoglobin POC ABG HHb (Measured) ABG Methemoglobin ABG O2 Capacity Rhett Test ABG Potassium VBG pH 7.37 VBG pCO2 44 VBG HCO3 23.7 VBG Total CO2 26.8 VBG O2 Sat (Calc) 60.1 VBG Base Excess -0.2 L VBG Potassium 4.2 A-a O2 Difference Hgb O2 Saturation Glucose 111 H Lactate 2.7 H Vent Mode Mechanical Rate FiO2 50.0 Tidal Volume PEEP 5 Pressure Support Blood Gas Comments Crit Value Called To Crit Value Called By Crit Value Read Back Blood Gas Notified Time Sodium 138.0 Potassium Chloride 106.0 Carbon Dioxide Anion Gap BUN Creatinine Est GFR ( Amer) Est GFR (Non-Af Amer) Random Glucose Lactic Acid Calcium Total Bilirubin AST ALT Alkaline Phosphatase Total Protein Albumin Globulin Albumin/Globulin Ratio Arterial Blood Potassium Venous Blood Potassium 4.2 Blood Type Blood Type Confirm Antibody Screen BBK History Checked EKG/Cardiology Studies: Cardiology / EKG Studies 02/05/17 09:00 EKG [ELECTROCARDIOGRAM] DAILY Comment: Mode Of Transportation: Reason For Exam: r/o PSVT Critical Care Progress Note - Ventilator Checklist Head of Bed 30 Degrees: Yes Daily Sedation Vacation: Yes Daily Assessment of Readiness to Wean: Yes Daily Spontaneous Breathing Trial: Yes PUD Prophalyxis: Yes DVT Prophylaxis: Yes Oral Care with Chlorhexidine Gluconate {CHG}: Yes - Vent Settings MODE:: ASSIST CONTROL TIDAL VOLUME:: 450 RESP RATE:: 12 FIO2:: 50 PEEP:: 5 - Extremities/Vascular Does the Patient have a Central Venous Catheter?: Yes Insertion Site: Femoral Vein Does the Patient need a Central Venous Catheter?: Yes Does the Patient have a Villanueva Catheter?: Yes Does the Patient need a Villanueva Catheter?: Yes Catheter Insertion Criteria: Need for accurate measurement of output in critically ill patient - Restraints Justification for Restraints: High risk for self extubation, High risk for removing IV access, High risk for harming self - Prophylaxis GI Prophylaxis GI: Pepsid - Prophylaxis DVT Prophylaxis DVT: SCDs - Nutrition Nutrition: Nutrition Category Date Time Status NPO Diet [DIET] Diets 02/01/17 Breakfast Active
[2017-02-05] MEDS ORDERED: Digoxin 500 mcg/2ml (0.5 mg/2ml) Inj IVP ONE ×2 (06:52→19:30)
[2017-02-05 07:30] LABS: BANDS 2 % (0-2); LYMPHOCYTE 5 % (20-50); MONOCYTE 5 % (0-10); NEUTROPHIL 88 % (42-75); PLATELET ESTIMATE NORMAL (NORMAL); TOTAL CELLS COUNTED 100
[2017-02-05 07:31] LABS: ANISOCYTOSIS SLIGHT
[2017-02-05] MEDS: HYDROmorphone 0.5 mg/0.5 ml ISec IVP PRN ×3 (07:57→18:31)
--- NOTE | 2017-02-05 08:02 | CP.PCM.PN ---
Subjective - Date & Time of Evaluation Date of Evaluation: 02/05/17 Time of Evaluation: 08:00 - Subjective Subjective: Surgery: Dr. Gross Pt seen and examined. Remains intubated, on pressors x 1. Pt is alert, follows commands. Does not appear to be in any distress. Objective - Vital Signs/Intake and Output Vital Signs (last 24 hours): Temp Pulse Resp BP Pulse Ox 99.4 F 118 H 23 110/68 96 02/05/17 04:00 02/05/17 06:00 02/05/17 06:00 02/05/17 06:00 02/05/17 06:00 Intake and Output: 02/05/17 02/05/17 06:59 18:59 Intake Total 2106 Output Total 970 Balance 1136 - Medications Medications: Current Medications Acetaminophen (Tylenol 650 Mg Supp) 650 mg SD Q4 PRN PRN Reason: Fever >100.4 F Last Admin: 02/04/17 23:58 Dose: 650 mg Albuterol Sulfate (Albuterol 0.083% Inhal Barbara (2.5 Mg/3 Ml) Ud) 2.5 mg INH RQ4 PRN PRN Reason: Shortness of Breath Last Admin: 01/31/17 14:53 Dose: 2.5 mg Albuterol/Ipratropium (Duoneb 3 Mg/0.5 Mg (3 Ml) Ud) 3 ml INH RQID [facility]ORRES Last Admin: 02/04/17 20:34 Dose: 3 ml Enoxaparin Sodium (Lovenox) 40 mg SC DAILY TORRES PRN Reason: Protocol Last Admin: 02/02/17 09:11 Dose: 40 mg Hydromorphone HCl (Dilaudid) 0.5 mg IVP Q4 PRN PRN Reason: Pain, moderate (4-7) Stop: 02/06/17 13:02 Last Admin: 02/05/17 07:57 Dose: 0.5 mg Metronidazole (Flagyl 500mg/100ml Ns) 100 mls @ 100 mls/hr IVPB Q8 [facility] Last Admin: 02/05/17 00:00 Dose: 100 mls/hr Lactated Ringer's (Lactated Ringer's) 1,000 mls @ 200 mls/hr IV .Q5H [facility] Last Admin: 02/05/17 00:01 Dose: 200 mls/hr Norepinephrine Bitartrate 4 mg (/ Dextrose) 254 mls @ 9.52 mls/hr IV .Q24H TORRES ; 2.5 MCG/MIN PRN Reason: Protocol Last Titration: 02/04/17 23:15 Dose: 5 mcg/min, 19.05 mls/hr Cefepime HCl 2 gm/ Sodium (Chloride) 100 mls @ 100 mls/hr IVPB Q12 [facility] Ondansetron HCl (Zofran Inj) 4 mg IVP Q4H PRN PRN Reason: Nausea/Vomiting Last Admin: 02/03/17 18:11 Dose: 4 mg Pantoprazole Sodium (Protonix Inj) 40 mg IVP DAILY [facility] Last Admin: 02/04/17 09:20 Dose: 40 mg - Labs Labs: 02/05/17 04:20 02/05/17 04:20 PT 13.9 Seconds (9.8-13.1) H 02/04/17 06:30 INR 1.2 (0.9-1.2) 02/04/17 06:30 - Constitutional Appears: Non-toxic, No Acute Distress - Head Exam Head Exam: ATRAUMATIC, NORMOCEPHALIC - Eye Exam Eye Exam: EOMI. absent: Scleral icterus - Neck Exam Neck Exam: Full ROM - Respiratory Exam Additional comments: intubated - GI/Abdominal Exam GI & Abdominal Exam: Distended, Firm, Tenderness. absent: Guarding, Rigid, Soft , Rebound Additional comments: stoma patent w. stool output - Extremities Exam Extremities Exam: absent: Calf Tenderness, Pedal Edema Additional comments: LE mottling resolved - Neurological Exam Neurological Exam: Alert, Awake Assessment and Plan - Assessment and Plan (Free Text) Assessment: 71M w. rectal stricture, s/p Champion's and decompressive enterotomy, POD#1 -attempt to wean off vent -monitor urine output, continue w. IVF -Stoma: 725cc/24 hr loose brown stool, continue to monitor -resume lovenox this afternoon -will d/w attending George PGY3
[2017-02-05] MEDS: Albuterol-Ipratrop 3 mg / 0.5 (3 ml) UD INH SCH ×4 (08:21→19:32)
[2017-02-05] MEDS: metroNIDAZOLE 500mg/100ml NS 100 ML IVPB SCH ×3 (08:40→16:38)
--- NOTE | 2017-02-05 08:41 | RAD ---
HISTORY: ETT adjustment COMPARISON: February 05, 2017. 04:42 FINDINGS: LUNGS: Stable lower lobe consolidative changes/ compressive atelectasis. PLEURA: Stable bilateral pleural effusions. CARDIOVASCULAR: Normal. OSSEOUS STRUCTURES: No significant abnormalities. VISUALIZED UPPER ABDOMEN: Normal. OTHER FINDINGS: Endotracheal tube reposition. The tip now 3 cm above the prince. IMPRESSION: Satisfactory position of recently repositioned endotracheal tube. Otherwise no interval change compared to prior studies.
--- NOTE | 2017-02-05 08:46 | RAD ---
HISTORY: intubated COMPARISON: February 04, 2017. 13:32. FINDINGS: LUNGS: Stable compressive atelectasis both lung bases PLEURA: Stable large bilateral pleural effusions. CARDIOVASCULAR: No radiographic findings to suggest acute or significant cardiovascular disease. OSSEOUS STRUCTURES: No significant abnormalities. VISUALIZED UPPER ABDOMEN: Normal. OTHER FINDINGS: Nasogastric tube in satisfactory position. Repositioned endotracheal tube tip now within the proximal right mainstem bronchus. IMPRESSION: Low lying endotracheal tube (subsequently repositioned). Otherwise no interval change.
[2017-02-05] MEDS ORDERED: Cefepime 2 GM in Sodium Chloride 0.9% 100 ML IVPB SCH (09:00)
[2017-02-05] MEDS ORDERED: Lactated Ringer's 1,000 ML IV SCH (09:15)
--- NOTE | 2017-02-05 09:15 | CP.PCM.CON ---
History of Present Illness - History of Present Illness History of Present Illness: This 71-year-old male who is known to me from the outpatient setting presented to Hospital approximately one week ago with constipation and vomiting and did not respond to conservative therapy. He was found to have a rectal stricture and underwent exploratory laparotomy yesterday revealed rectal carcinoma with peritoneal seeding. He remains intubated overnight in the intensive care unit and is mildly hypotensive. He has also developed new onset of atrial fibrillation postoperatively. He has remained intubated and mechanically ventilated overnight in intensive care unit. He did receive an initial dose of Cardizem postoperatively because of his rapid atrial fibrillation but has been given Lanoxin subsequently because of his hypotension. There has been an initial increase in his BUN/creatinine indicating acute kidney injury and his urine out but has remained at an oliguric level. He is a current cigarette smoker with a diagnosis of chronic obstructive pulmonary disease. He has no prior history of pneumonia although preoperatively his CT scan did show bilateral pleural effusions, right greater than left with right lower lobe atelectasis/pneumonitis. There is no prior history of asthma or tuberculosis. There is no prior history of coronary artery disease, PR, congestive cardiac failure, peptic ulcer disease, prior renal disease or liver disease or bleeding disorder. There is no history of hypertension, diabetes or seizure disorder. His past surgical history includes a right inguinal hernia repair. He has no known drug or seasonal allergies. Review of Systems - Review of Systems Systems not reviewed;Unavailable: Acuity of Condition Past Patient History - Past Medical History & Family History Past Medical History?: Yes Pertinent Family History: His maternal grandmother did have cancer, site unknown and he has a sister who had skin cancer. His mother passed from natural causes at an old age. - Past Social History Smoking Status: Heavy Smoker > 10 Cigarettes Daily Chewing Tobacco Use: No Cigar Use: No Alcohol: Social Drugs: Denies Home Situation {Lives}: With Family - CARDIAC Hx Cardiac Disorders: No - PULMONARY Hx Chronic Obstructive Pulmonary Disease (COPD): Yes - NEUROLOGICAL Hx Neurological Disorder: No - HEENT Hx HEENT Problems: No - RENAL Hx Chronic Kidney Disease: No - ENDOCRINE/METABOLIC Hx Endocrine Disorders: No - HEMATOLOGICAL/ONCOLOGICAL Hx Blood Disorders: No Hx Human Immunodeficiency Virus (HIV): No - INTEGUMENTARY Hx Dermatological Problems: No - MUSCULOSKELETAL/RHEUMATOLOGICAL Hx Musculoskeletal Disorders: No Hx Falls: No - GASTROINTESTINAL Hx Gastrointestinal Disorders: No - GENITOURINARY/GYNECOLOGICAL Hx Genitourinary Disorders: No - PSYCHIATRIC Hx Psychophysiologic Disorder: No Hx Substance Use: No - SURGICAL HISTORY Other/Comment: right inguinal hernia repair 20 yrs ago - ANESTHESIA Hx Anesthesia: Yes Hx Anesthesia Reactions: No Hx Malignant Hyperthermia: No Has any member of the family had a problem w/ anesthesia?: No Meds Allergies/Adverse Reactions: Allergies Allergy/AdvReac Type Severity Reaction Status Date / Time No Known Allergies Allergy Verified 01/27/17 13:16 - Medications Medications: Current Medications Acetaminophen (Tylenol 650 Mg Supp) 650 mg IN Q4 PRN PRN Reason: Fever >100.4 F Last Admin: 02/04/17 23:58 Dose: 650 mg Albuterol Sulfate (Albuterol 0.083% Inhal Barbara (2.5 Mg/3 Ml) Ud) 2.5 mg INH RQ4 PRN PRN Reason: Shortness of Breath Last Admin: 01/31/17 14:53 Dose: 2.5 mg Albuterol/Ipratropium (Duoneb 3 Mg/0.5 Mg (3 Ml) Ud) 3 ml INH RQID TORRES Last Admin: 02/05/17 08:21 Dose: 3 ml Enoxaparin Sodium (Lovenox) 40 mg SC DAILY TORRES PRN Reason: Protocol Last Admin: 02/02/17 09:11 Dose: 40 mg Hydromorphone HCl (Dilaudid) 0.5 mg IVP Q4 PRN PRN Reason: Pain, moderate (4-7) Stop: 02/06/17 13:02 Last Admin: 02/05/17 07:57 Dose: 0.5 mg Metronidazole (Flagyl 500mg/100ml Ns) 100 mls @ 100 mls/hr IVPB Q8 [facility] Last Admin: 02/05/17 08:40 Dose: 100 mls/hr Lactated Ringer's (Lactated Ringer's) 1,000 mls @ 200 mls/hr IV .Q5H [facility] Last Admin: 02/05/17 00:01 Dose: 200 mls/hr Norepinephrine Bitartrate 4 mg (/ Dextrose) 254 mls @ 9.52 mls/hr IV .Q24H [facility] ; 2.5 MCG/MIN PRN Reason: Protocol Last Titration: 02/04/17 23:15 Dose: 5 mcg/min, 19.05 mls/hr Cefepime HCl 2 gm/ Sodium (Chloride) 100 mls @ 100 mls/hr IVPB Q12 [facility] Ondansetron HCl (Zofran Inj) 4 mg IVP Q4H PRN PRN Reason: Nausea/Vomiting Last Admin: 02/03/17 18:11 Dose: 4 mg Pantoprazole Sodium (Protonix Inj) 40 mg IVP DAILY [facility] Last Admin: 02/05/17 08:41 Dose: 40 mg Physical Exam - Additional Findings Additional findings: Orally intubated and mechanically ventilated. Awake and follows simple commands. Cooperative with the examination. No dependent edema is noted, no cyanosis or mottling of the extremities. Both lower extremities are warm to touch. The neck is supple and trachea is midline. No neck vein distention is noted. No carotid bruit. Conjunctivae are pink and there is no scleral icterus. No palpable lymphadenopathy. No dullness on chest percussion anteriorly. No subcutaneous emphysema palpated. Breath sounds are present bilaterally on anterior exam. Posteriorly breath sounds are diminished in transmitted bronchial character as noted in the lower lobes. Normal wheezing is heard. Scattered rhonchi are heard more so right than left. Heart sounds are distant and the rhythm is irregular. No murmur appreciated. Abdomen has a surgical dressing which is dry and intact and a functioning colostomy in the left flank. Bowel sounds are present but hypoactive. Results - Vital Signs Recent Vital Signs: Last Vital Signs Temp 99.4 F 02/05/17 04:00 Pulse 118 H 02/05/17 06:00 Resp 23 02/05/17 06:00 BP 110/68 02/05/17 06:00 Pulse Ox 96 02/05/17 06:00 - Labs Result Diagrams: 02/05/17 04:20 02/05/17 04:20 Labs: Laboratory Results - last 24 hr 02/04/17 02/04/17 02/04/17 10:15 11:54 16:27 WBC RBC Hgb Hct MCV MCH MCHC RDW Plt Count MPV Neut % (Auto) Lymph % (Auto) [place] % (Auto) Eos % (Auto) Baso % (Auto) Neut # Lymph # [place] # Eos # Baso # Neutrophils % (Manual) Band Neutrophils % Lymphocytes % (Manual) Monocytes % (Manual) Platelet Estimate Anisocytosis (manual) pCO2 55 H pO2 25 L* HCO3 24.2 ABG pH 7.32 L ABG Total CO2 30.0 H ABG O2 Saturation 47.6 L ABG O2 Content ABG Base Excess 1.1 ABG Hemoglobin ABG Carboxyhemoglobin POC ABG HHb (Measured) ABG Methemoglobin ABG O2 Capacity Rhett Test Yes ABG Potassium 4.6 VBG pH VBG pCO2 VBG HCO3 VBG Total CO2 VBG O2 Sat (Calc) VBG Base Excess VBG Potassium A-a O2 Difference 263.0 Hgb O2 Saturation Sodium 139.0 Chloride 104.0 Glucose 137 H Lactate 2.0 Vent Mode Prvc/ac Mechanical Rate FiO2 50.0 Tidal Volume 450 PEEP 5 Pressure Support 0 Blood Gas Comments Vt 450 prvc ac 12 fio2 50% peep 5 Crit Value Called To Dr miles howard Crit Value Called By 162 Crit Value Read Back Y Blood Gas Notified Time 1631 Potassium Carbon Dioxide Anion Gap BUN Creatinine Est GFR ( Amer) Est GFR (Non-Af Amer) Random Glucose Lactic Acid Calcium Total Bilirubin AST ALT Alkaline Phosphatase Total Protein Albumin Globulin Albumin/Globulin Ratio Arterial Blood Potassium 4.6 Venous Blood Potassium Blood Type O NEGATIVE Blood Type Confirm O NEGATIVE Antibody Screen Negative BBK History Checked No verified bt 02/04/17 02/04/17 02/05/17 18:30 23:50 04:20 WBC 12.3 H RBC 4.70 Hgb 14.7 Hct 45.3 MCV 96.4 H MCH 31.2 H MCHC 32.4 L RDW 15.6 H Plt Count 265 MPV 8.2 Neut % (Auto) 80.3 H Lymph % (Auto) 9.9 L [place] % (Auto) 9.4 Eos % (Auto) 0.3 Baso % (Auto) 0.1 Neut # 9.9 H Lymph # 1.2 [place] # 1.2 H Eos # 0.0 Baso # 0.0 Neutrophils % (Manual) 88 H Band Neutrophils % 2 Lymphocytes % (Manual) 5 L Monocytes % (Manual) 5 Platelet Estimate Normal Anisocytosis (manual) Slight pCO2 37 pO2 76 L HCO3 24.2 ABG pH 7.41 ABG Total CO2 24.6 ABG O2 Saturation 96.9 ABG O2 Content 20.3 ABG Base Excess -0.8 ABG Hemoglobin 15.3 ABG Carboxyhemoglobin 1.3 POC ABG HHb (Measured) 3.0 ABG Methemoglobin 1.5 ABG O2 Capacity 20.9 Rhett Test Yes ABG Potassium VBG pH VBG pCO2 VBG HCO3 VBG Total CO2 VBG O2 Sat (Calc) VBG Base Excess VBG Potassium A-a O2 Difference 234.0 Hgb O2 Saturation 94.3 L Sodium 141 Chloride 109 H Glucose Lactate Vent Mode A/c Mechanical Rate 12 FiO2 50.0 Tidal Volume 450 PEEP 5 Pressure Support Blood Gas Comments Crit Value Called To Crit Value Called By Crit Value Read Back Blood Gas Notified Time Potassium 4.1 Carbon Dioxide 26 Anion Gap 10 BUN 18 Creatinine 1.2 Est GFR ( Amer) > 60 Est GFR (Non-Af Amer) 59 Random Glucose 114 H Lactic Acid Calcium 7.5 L Total Bilirubin 1.3 AST 24 ALT 40 Alkaline Phosphatase 29 L D Total Protein 4.1 L Albumin 2.4 L Globulin 1.7 L Albumin/Globulin Ratio 1.4 Arterial Blood Potassium Venous Blood Potassium Blood Type Blood Type Confirm Antibody Screen BBK History Checked 02/05/17 02/05/17 02/05/17 04:20 04:54 05:00 WBC RBC Hgb Hct MCV MCH MCHC RDW Plt Count MPV Neut % (Auto) Lymph % (Auto) [place] % (Auto) Eos % (Auto) Baso % (Auto) Neut # Lymph # [place] # Eos # Baso # Neutrophils % (Manual) Band Neutrophils % Lymphocytes % (Manual) Monocytes % (Manual) Platelet Estimate Anisocytosis (manual) pCO2 37 pO2 72 L HCO3 24.2 ABG pH 7.41 ABG Total CO2 24.6 ABG O2 Saturation 96.3 ABG O2 Content ABG Base Excess -0.8 ABG Hemoglobin ABG Carboxyhemoglobin POC ABG HHb (Measured) ABG Methemoglobin ABG O2 Capacity Hrett Test Yes ABG Potassium 4.0 VBG pH VBG pCO2 VBG HCO3 VBG Total CO2 VBG O2 Sat (Calc) VBG Base Excess VBG Potassium A-a O2 Difference 238.0 Hgb O2 Saturation Sodium 141 135.0 Chloride 108 H 108.0 H Glucose 119 H Lactate 1.7 Vent Mode A/c Mechanical Rate 12 FiO2 50.0 Tidal Volume 450 PEEP 5 Pressure Support Blood Gas Comments Crit Value Called To Crit Value Called By Crit Value Read Back Blood Gas Notified Time Potassium 4.0 Carbon Dioxide 24 Anion Gap 13 BUN 21 H Creatinine 1.5 Est GFR ( Amer) 56 Est GFR (Non-Af Amer) 46 Random Glucose 109 Lactic Acid 2.1 Calcium 7.8 L Total Bilirubin 1.2 AST 40 ALT 41 Alkaline Phosphatase 29 L Total Protein 4.1 L Albumin 2.3 L Globulin 1.8 L Albumin/Globulin Ratio 1.3 Arterial Blood Potassium 4.0 Venous Blood Potassium Blood Type Blood Type Confirm Antibody Screen BBK History Checked 02/05/17 05:02 WBC RBC Hgb Hct MCV MCH MCHC RDW Plt Count MPV Neut % (Auto) Lymph % (Auto) [place] % (Auto) Eos % (Auto) Baso % (Auto) Neut # Lymph # [place] # Eos # Baso # Neutrophils % (Manual) Band Neutrophils % Lymphocytes % (Manual) Monocytes % (Manual) Platelet Estimate Anisocytosis (manual) pCO2 pO2 31 HCO3 ABG pH ABG Total CO2 ABG O2 Saturation ABG O2 Content ABG Base Excess ABG Hemoglobin ABG Carboxyhemoglobin POC ABG HHb (Measured) ABG Methemoglobin ABG O2 Capacity Rhett Test ABG Potassium VBG pH 7.37 VBG pCO2 44 VBG HCO3 23.7 VBG Total CO2 26.8 VBG O2 Sat (Calc) 60.1 VBG Base Excess -0.2 L VBG Potassium 4.2 A-a O2 Difference Hgb O2 Saturation Sodium 138.0 Chloride 106.0 Glucose 111 H Lactate 2.7 H Vent Mode Mechanical Rate FiO2 50.0 Tidal Volume PEEP 5 Pressure Support Blood Gas Comments Crit Value Called To Crit Value Called By Crit Value Read Back Blood Gas Notified Time Potassium Carbon Dioxide Anion Gap BUN Creatinine Est GFR ( Amer) Est GFR (Non-Af Amer) Random Glucose Lactic Acid Calcium Total Bilirubin AST ALT Alkaline Phosphatase Total Protein Albumin Globulin Albumin/Globulin Ratio Arterial Blood Potassium Venous Blood Potassium 4.2 Blood Type Blood Type Confirm Antibody Screen BBK History Checked Assessment & Plan (1) Colon carcinoma Assessment and Plan: Status post Champion's procedure and colostomy. Awaiting pathology reports. Operative report of likely peritoneal seeding. Status: Acute Priority: High (2) Large bowel obstruction Assessment and Plan: Decompressing colostomy. Status: Acute Priority: High (3) Pleural effusion Assessment and Plan: Etiology to be determined; question possibility of aspiration in light of history of vomiting and subsequent pneumonia with parapneumonic effusion. Presence of bilateral fluid in the pleural spaces makes this etiologies seem less likely. No prior history of cardiomyopathy with recent echocardiogram showing good LVEF. Presence of abdominal distention with intra-abdominal fluid and unlikely cause of bilateral pleural effusion. Hypoalbuminemia may have been a contributing factor. Status: Acute Priority: High (4) Atelectasis Assessment and Plan: Mechanical ventilatory support and airway suctioning/hygiene. Sputum for culture has been obtained and sent to the lab. Status: Acute Priority: High (5) COPD (chronic obstructive pulmonary disease) Assessment and Plan: Maintain aerosol therapy and mechanical ventilatory support. Initiate weaning protocol when appropriate. Status: Chronic Priority: High (6) Acute kidney injury Assessment and Plan: Secondary to relative dehydration and fluid volume loss. Volume replacement with crystalloids and colloids as needed. May require Baldwin-Briana catheter placement. Status: Acute Priority: High (7) Hypoalbuminemia Assessment and Plan: Secondary to bowel obstruction and malnutrition. Status: Acute Priority: High
--- NOTE | 2017-02-05 09:23 | CP.PCM.PN ---
Subjective - Date & Time of Evaluation Date of Evaluation: 02/05/17 Time of Evaluation: 08:00 - Subjective Subjective: Patient was seen and examined bedside. On MV PRVC Ac mode 12/450/5/50 %, awake and alert following commands , complaining of abdominal pain. On diprivan drip @ 5 mcg, and levophed drip started overnight due to hypotension BP 110/68 afib on monitor with HR 118 , with Tmax 101.7 last 12 hours Received cardizem and Digopxin Iv for HR control and Albumin Iv was given ABG 37/72/24/7.4 on current vent settings Received total 8956 ml fluid last 24 hours with output 2725, 50 ml bilious output from NGT last 12 hours 1900 ml brownish stool output from colostomy last 12 hours oliguric with total urine output 325 ml post op with 20 ml/hr with BUN/ Cr 21/ 1.5 Mottling to lower extremities seen post op has resolved TLC to right groin Midline surgical incision with dressing , clean and intact CXr this Am showed increased bilateral pleural effusion Objective - Vital Signs/Intake and Output Vital Signs (last 24 hours): Temp Pulse Resp BP Pulse Ox 99.4 F 118 H 23 110/68 96 02/05/17 04:00 02/05/17 06:00 02/05/17 06:00 02/05/17 06:00 02/05/17 06:00 Intake and Output: 02/05/17 02/05/17 06:59 18:59 Intake Total 2106 Output Total 970 Balance 1136 - Medications Medications: Current Medications Acetaminophen (Tylenol 650 Mg Supp) 650 mg OK Q4 PRN PRN Reason: Fever >100.4 F Last Admin: 02/04/17 23:58 Dose: 650 mg Albuterol Sulfate (Albuterol 0.083% Inhal Barbara (2.5 Mg/3 Ml) Ud) 2.5 mg INH RQ4 PRN PRN Reason: Shortness of Breath Last Admin: 01/31/17 14:53 Dose: 2.5 mg Albuterol/Ipratropium (Duoneb 3 Mg/0.5 Mg (3 Ml) Ud) 3 ml INH RQID TORRES Last Admin: 02/05/17 08:21 Dose: 3 ml Enoxaparin Sodium (Lovenox) 40 mg SC DAILY TORRES PRN Reason: Protocol Last Admin: 02/02/17 09:11 Dose: 40 mg Hydromorphone HCl (Dilaudid) 0.5 mg IVP Q4 PRN PRN Reason: Pain, moderate (4-7) Stop: 02/06/17 13:02 Last Admin: 02/05/17 07:57 Dose: 0.5 mg Metronidazole (Flagyl 500mg/100ml Ns) 100 mls @ 100 mls/hr IVPB Q8 TORRES Last Admin: 02/05/17 08:40 Dose: 100 mls/hr Lactated Ringer's (Lactated Ringer's) 1,000 mls @ 200 mls/hr IV .Q5H TORRES Last Admin: 02/05/17 00:01 Dose: 200 mls/hr Norepinephrine Bitartrate 4 mg (/ Dextrose) 254 mls @ 9.52 mls/hr IV .Q24H TORRES ; 2.5 MCG/MIN PRN Reason: Protocol Last Titration: 02/04/17 23:15 Dose: 5 mcg/min, 19.05 mls/hr Cefepime HCl 2 gm/ Sodium (Chloride) 100 mls @ 100 mls/hr IVPB Q12 TORRES Lactated Ringer's (Lactated Ringer's) 1,000 mls @ 999 mls/hr IV .Q1H1M TORRES Stop: 02/05/17 10:15 Ondansetron HCl (Zofran Inj) 4 mg IVP Q4H PRN PRN Reason: Nausea/Vomiting Last Admin: 02/03/17 18:11 Dose: 4 mg Pantoprazole Sodium (Protonix Inj) 40 mg IVP DAILY TORRES Last Admin: 02/05/17 08:41 Dose: 40 mg - Labs Labs: 02/05/17 04:20 02/05/17 04:20 PT 13.9 Seconds (9.8-13.1) H 02/04/17 06:30 INR 1.2 (0.9-1.2) 02/04/17 06:30 - Constitutional Appears: Other (intubated on MV , alert and awake with abdominal pain) - Head Exam Head Exam: ATRAUMATIC, NORMOCEPHALIC - Eye Exam Eye Exam: EOMI, Normal appearance, PERRL Pupil Exam: NORMAL ACCOMODATION - ENT Exam ENT Exam: Mucous Membranes Moist, Normal Exam - Neck Exam Neck Exam: Full ROM, Normal Inspection - Respiratory Exam Respiratory Exam: Decreased Breath Sounds (bibasilar ), Clear to Ausculation Bilateral. absent: Rhonchi, Wheezes Additional comments: intubated - Cardiovascular Exam Cardiovascular Exam: Tachycardia, Irregular Rhythm. absent: JVD - GI/Abdominal Exam GI & Abdominal Exam: Distended, Tenderness, Normal Bowel Sounds. absent: Guarding, Rebound Additional comments: midline surgical incision with dressing clean and intact colostomy to [facility] - Rectal Exam Rectal Exam: Deferred - Exam Exam: NORMAL INSPECTION - Extremities Exam Extremities Exam: Normal Capillary Refill, Normal Inspection. absent: Calf Tenderness, Pedal Edema - Neurological Exam Neurological Exam: Alert, Awake Additional comments: intubated ,complains of abdominal pain - Psychiatric Exam Psychiatric exam: Normal Mood - Skin Skin Exam: Dry, Pallor, Warm Assessment and Plan - Assessment and Plan (Free Text) Assessment: 71 y/o gent with Hx of COPD, came in bec of 2 weeks of constipation with no bowel movement ,abdominal discomfort and vomiting. CT of chest and Abd showed dilated large bowel loops up to the proximal rectum and suspicious for obstructing circumferential rectal mass versus focal stricture GI and surgery consulted. Patient admitted to med/surg kept NPO , started on IVF ,NGT placed and stool softeners and laxatives given with no improvement He underwent flex sigmoidoscopy that showed rectal stricture Taken to OR 02/04 and underwent exploratory laparatomy with sigmoid resection and colostomy to [facility] Transferred to ICU post op for monitoring. He developed hypovolemixc shock, Afib with RVR and mottling of lower extremities postop.Failed extubation At present in ICU ,intubated on MV ,levophed and diprivan drip 1. Hypovolemic shock received 8 L fluid post op with minimal urinary output 20 ml/hr on levophed drip at present . Will try to job off now that BP is better controlled lactic acid trending down 2.1 and BP better controlled 110/68 . mottling to lower extremities resolved showing improved tissue perfusion continue LR @ 200 ml/hr and monitor renal function closely d/c diprivan drip and control pain with dilaudid or morphine received albumin IV Digoxin Iv given for better HR control CXR showed increased bilateral pleural effusion. Will continue vent management will repeat Echo this AM to evaluate IVC compression to better understand volume status 2. Acute Hypoxemic respiratory failure currently intubated on MV 12/450/5 50 % failing extubation post op Continue vent management Pulmonary on cosnult with Dr. Danielson following CXR today showing increased bilateral pleural effusion ABG showed PO2 72 on FIO2 50 % 3. Afib with RVR still afib on monitor with HR 110 received cardizem and digoxin yesterday extra dose on Digoxin given this AM Continue IVF Hold cardizem for now since BP is in the low side repeat echo today 4.Acute renal failure oliguric with 20 ml/hr output continue IVF Bun/cr 21/1.5 Close monitoring 5. Intestinal obstruction most likely secondary to rectal CA No BM for 1-2 wks, + vomiting, + abdominal distention, no flatus CT of abd showed air fluid levels, distended large bowel loops up to the proximal rectum with suspicious obstructing rectal mass or stricture Surgery and GI consulted stool softener, laxatives given ,Rectal tube and NGT placed with no improvement s/p flex sigmoidoscopy showing long stricture. Biopsy sent EGD showed esophagitis s/p exp laparatomy with sigmoid resection and colostomy to LLQ post op #1 As per surgery patient large rectal CA with intra abdominal seeding . waiting pathology report ( family and patient still not informed ) Good output from colostomy noted post op ,1900 ml brownish stool , bowel sounds present Surgical incision clean and intact, abdomen tender and slightly distended Continue pain management surgery following changed Zosyn to maxipime. Continue Flagyl empirically Continue IVF resuscitation since patient is volume depleted with low BP and almost no urine output post op ID consult with Dr. 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 COPD (chronic obstructive pulmonary disease) chronic , stable Duoneb prn 8.Bilateral pneumonia / suspected Aspiration pneumonia Acute RLL focal airspace consolidation noted seen on CT of chest CXR today showed increased bilateral infiltrates and pleural effusion Was on IV zosyn and Flagyl. Changed Zosyn to maxipime today ID consult 9 DVT prophylaxis Acute Start Lovenox
[2017-02-05] MEDS ORDERED: HYDROmorphone 0.5 mg/0.5 ml ISec IVP ONE (10:05)
--- NOTE | 2017-02-05 10:34 | PCM.PROC ---
Procedures Attestation:: I certify that I have explained the specified Operation(s) or Procedure(s), risks, benefits and reasonable alternatives to the Patient and/or other person responsible. The opportunity was given to ask questions and all questions answered - Arterial Line Right Femoral Aseptic technique was employed throughout the procedure: Hand Hygiene done prior to procedure, Full sterile barriers (mask, hair cover, sterile gown, sterile gloves), Full body sterile drape, Chloraprep Antiseptic: 2 minute prep for Femoral Time Out Performed: Yes Pt. placed on Pulse Ox Monitor: Yes Central Line Prep: Chlorhexidine-Alcohol Combination Local Anesthesia Used: Lidocaine 1% Amount of Anesthesia Used (mls): 3 Ultrasound Used for Placement: No Technique Used: Guide Wire Technique Secured by: Suture Post procedure dressing: Chlorhexidine disc (Biopatch) Patient Tolerated Procedure: well Immediate Complications: none Additional Comments: 20 gauge 6 inch angiocath inserted into R femoral artery.
[2017-02-05 12:00] LABS: ABG ALLEN TEST YES; ARTERIAL BLOOD GAS HCO3 24.1 mmol/L (21-28); ARTERIAL BLOOD GAS HEMOGLOBIN 13.5 g/dL (11.7-17.4); ARTERIAL BLOOD GAS O2 CAPACITY 18.7 mL/dL (16-24); ARTERIAL BLOOD GAS O2 CONTENT 18.5 ML/dL (15-23); ARTERIAL BLOOD GAS O2 SAT 98.8 % (95-98); ARTERIAL BLOOD GAS PCO2 42 mm/Hg (35-45); ARTERIAL BLOOD GAS PH 7.37 (7.35-7.45); ARTERIAL BLOOD GAS PO2 125 mm/Hg (80-100); ARTERIAL BLOOD GAS TCO2 25.6 mmol/L (22-28)
[2017-02-05 12:04] LABS: VENOUS BLOOD GAS BASE EXCESS -0.7 mmol/L (0.0-2.0); VENOUS BLOOD GAS PCO2 49 mmHg (40-60); VENOUS BLOOD GAS PO2 42 mm/Hg (30-55); VENOUS BLOOD PH 7.33 (7.32-7.43)
--- NOTE | 2017-02-05 17:42 | CARD ---
APPROVED REPORT EKG Measurement Heart [id number] <Conclusion> Atrial fibrillation with rapid ventricular response Low voltage QRS Nonspecific T wave abnormality Abnormal ECG
--- NOTE | 2017-02-05 18:01 | CARD ---
APPROVED REPORT EKG Measurement Heart [id number] <Conclusion> Atrial fibrillation with rapid ventricular response Low voltage QRS Nonspecific ST and T wave abnormality Abnormal ECG
[2017-02-05 19:59] VITALS: PULSE 130
[2017-02-06] MEDS: HYDROmorphone 0.5 mg/0.5 ml ISec IVP PRN ×2 (00:15→06:15)
[2017-02-06] MEDS: metroNIDAZOLE 500mg/100ml NS 100 ML IVPB SCH ×3 (00:30→17:12)
--- NOTE | 2017-02-06 03:07 | CON ---
INFECTIOUS DISEASE CONSULT DATE: 02/05/2017 HISTORY OF PRESENT ILLNESS: The patient is a 71-year-old male who had a history of COPD. He presented to the emergency room about a week ago, was unable to have a bowel movement, i.e., constipation, nausea and vomiting. He was admitted via emergency room and he did not improve and finally was found to have a rectal stricture and underwent an exploratory laparotomy, where he was found to have a rectal carcinoma with peritoneal seeding. He is presently in the ICU where he remains intubated and is presently mildly hypertensive. He responds to verbal stimuli, and obviously, he is uncomfortable on the ventilator. He has a history of cigarette smoking and has bilateral pleural effusion. Socially, no history of drug use. PHYSICAL EXAMINATION: GENERAL: The patient is intubated. HEENT: Has oral intubation. NECK: Basically supple. LUNGS: Breath sounds are noted on the respirator and had some scattered rhonchi. ABDOMEN: Has surgical dressing and functioning colostomy in the flank. He had a Marion's procedure done. PLAN: The patient is being seen by infectious disease postop for antibiotic coverage and possible aspiration pneumonia. For the present time, continue the Flagyl and discontinue Maxipime and added Zosyn for additional gram-positive coverage including enterococcus and also for the possibility of aspiration. Lenny Mahmood MD [facility]
[2017-02-06] MEDS: Lactated Ringer's 1,000 ML IV SCH ×4 (05:02→20:00)
[2017-02-06 05:14] LABS: ABG ALLEN TEST YES; ARTERIAL BLOOD GAS HCO3 25.1 mmol/L (21-28); ARTERIAL BLOOD GAS HEMOGLOBIN 13.2 g/dL (11.7-17.4); ARTERIAL BLOOD GAS O2 CAPACITY 19.1 mL/dL (16-24); ARTERIAL BLOOD GAS O2 CONTENT 18.9 ML/dL (15-23); ARTERIAL BLOOD GAS PCO2 33 mm/Hg (35-45); ARTERIAL BLOOD GAS PH 7.46 (7.35-7.45); ARTERIAL BLOOD GAS PO2 333 mm/Hg (80-100); ARTERIAL BLOOD GAS TCO2 24.5 mmol/L (22-28)
[2017-02-06 05:17] LABS: VENOUS BLOOD GAS BASE EXCESS -0.2 mmol/L (0.0-2.0); VENOUS BLOOD GAS PCO2 44 mmHg (40-60); VENOUS BLOOD GAS PO2 41 mm/Hg (30-55); VENOUS BLOOD PH 7.37 (7.32-7.43)
[2017-02-06 05:28] LABS: BASO % 0.2 % (0.0-2.0); EOS # 0.2 K/uL (0.0-0.7); EOS % 1.3 % (0.0-4.0); HEMOGLOBIN 13.1 g/dL (12.0-18.0); LYMPH # 0.8 K/uL (1.0-4.3); LYMPH % 6.7 % (20.0-40.0); MEAN CELL VOLUME 95.5 fl (80.0-94.0); MEAN CORPUSCULAR HEMOGLOBIN 31.8 pg (27.0-31.0); MEAN CORPUSCULAR HGB CONC 33.3 g/dL (33.0-37.0); MEAN PLATELET VOLUME 8.1 fl (7.2-11.7); MONO # 1.3 K/uL (0.0-0.8); MONO % 10.8 % (0.0-10.0); RBC 4.12 Mil/uL (4.40-5.90); WHITE BLOOD COUNT 12.4 K/uL (4.8-10.8)
[2017-02-06 05:39] LABS: ALB/GLOB RATIO 1.1 (1.0-2.1); ALBUMIN 2.2 g/dL (3.5-5.0); ALT/SGPT 44 U/L (21-72); AST/SGOT 33 U/L (17-59); BLOOD UREA NITROGEN 19 mg/dl (9-20); CALCIUM 7.9 mg/dL (8.4-10.2); GFR AFRICAN-AMERICAN > 60; GFR NON-AFRICAN AMERICAN 59
[2017-02-06 06:14] LABS: INR 1.7 (0.9-1.2); PARTIAL THROMBOPLASTIN TIME 35.4 Seconds (25.6-37.1); PROTHROMBIN TIME 18.1 Seconds (9.8-13.1)
--- NOTE | 2017-02-06 06:30 | CP.CCUPN ---
CCU Subjective - Physician Review Subjective (Free Text): Awake and appropriately responsive off Propofol sedation, weaned off Levophed since 3 AM, fiO2 decreased to 60% after episode of mucous plugging prompting saline lavage, increasing to 100% and changing HME to heated water cascade, now breathing 15 on AC 12, 500 ml TV, PEEP 5, SPO2 96% at best, now in mild neg fluid balance last 24hours, due to increased stool losses, improved U/O noted with 800 ml last 24H. Off Vigileo monitoring with consistent CO's averaging 5.5-6.0 and SV maintained at approx 60 ml and improved SvO2 up to 78% yesterday and maintained at this level throughout the night as seen on today's AM labs. No new Temp spikes overnight. Still in A Fib at 91/min. ROS: as above, no other pertinent negs or positives on system review obtainable. Other PMSFH: All recent nursing and physician documentation reviewed and no new information noted relevant to current problems. CXR: (my interp) improved bilateral basilar haziness,improved aeration R base , ETT tip OK above prince. MAJOR IMPRESSIONS: 1. s/p EXLAP, with Sigmoid CA and resection 2. 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 Azotemia / Dehydration with Hypotension Post -op 4. Acute resp insuff post-op 5. Bibasilar pneumonitis PLAN: 1. MV weans today as FiO2 is decreased as tolerated. Hopefully, try to extubate today as hemodynamics have improved. CXR shows improved changes especially R base, persistent L basal haziness, effusion. 2. Maintain IVF hydration, and fluid challenegs prn, accounting for increased stool losses and intra-abdominal sequestration. 3. No further need for Vigileo monotring. 4. Consider starting anticoagulation for DVT prx and A Fib, unless contraindicated by Surg team. 5. Abx changes noted as per ID. 6. Discuss nutritional support with Surg team. CCU Objective - Vital Signs / Intake & Output Vital Signs (Last 4 hours): Vital Signs Temp Pulse Resp BP Pulse Ox 02/06/17 06:00 89 18 118/63 99 02/06/17 05:00 85 22 103/52 L 99 02/06/17 04:00 98.7 F 85 17 110/54 L 99 02/06/17 03:00 87 14 112/50 L 99 Intake and Output (Last 8hrs): Intake & Output 02/05/17 02/05/17 02/06/17 14:59 22:59 06:59 Intake Total 490 1400 Output Total 1250 950 Balance -760 450 Intake: IV 490 1200 Intake, Piggyback 200 Output: Gastric Amount 100 Right 100 Urine 200 600 Urethral (Villanueva) 200 600 Stool 950 350 - Physical Exam Head: Positive for: Normocephalic Pupils: Positive for: PERRL Extroacular Muscles: Positive for: EOMI Mouth: Positive for: Moist Mucous Membranes Neck: Positive for: Normal Range of Motion. Negative for: JVD, Lymphadenopathy Respiratory/Chest: Positive for: Decreased Breath Sounds. Negative for: Accessory Muscle Use, Wheezes Cardiovascular: Positive for: Irregular Rhythm, Tachycardic. Negative for: Murmurs, Rub Abdomen: Positive for: Distention, Ostomy Tubes Lower Extremity: Positive for: NORMAL PULSES, Other (No further or recurrent mottling). Negative for: Edema, CALF TENDERNESS Neurological: Positive for: Motor Func Grossly Intact, Norm Deep Tendon Reflexes Skin: Positive for: Warm. Negative for: Rashes - Medications Active Medications: Active Medications Generic Name Dose Route Start Last Admin Trade Name Freq PRN Reason Stop Dose Admin Acetaminophen 650 mg 02/04/17 23:35 02/04/17 23:58 Tylenol 650 Mg Supp [place] 650 mg Q4 PRN Administration Fever >100.4 F Albuterol Sulfate 2.5 mg 01/31/17 12:13 01/31/17 14:53 Albuterol 0.083% Inhal Barbara (2.5 Mg/3 Ml) Ud INH 2.5 mg RQ4 PRN Administration Shortness of Breath Albuterol/Ipratropium 3 ml 02/04/17 12:00 02/05/17 19:32 Duoneb 3 Mg/0.5 Mg (3 Ml) Ud INH 3 ml RQID TORRES Administration Digoxin 0.25 mg 02/06/17 23:30 Lanoxin IVP 02/06/17 23:31 ONCE ONE Enoxaparin Sodium 40 mg 02/02/17 09:00 02/02/17 09:11 Lovenox SC 40 mg DAILY TORRES Administration Protocol Hydromorphone HCl 0.5 mg 02/04/17 13:02 02/06/17 06:15 Dilaudid IVP 02/06/17 13:02 0.5 mg Q4 PRN Administration Pain, moderate (4-7) Metronidazole 100 mls @ 100 mls/hr 01/28/17 01:00 02/06/17 00:30 Flagyl 500mg/100ml Ns IVPB 100 mls/hr Q8 TORRES Administration Lactated Ringer's 1,000 mls @ 200 mls/hr 02/04/17 19:01 02/06/17 05:02 Lactated Ringer's IV 200 mls/hr .Q5H TORRES Administration Norepinephrine Bitartrate 4 mg 254 mls @ 9.52 mls/hr 02/04/17 19:15 02/05/17 20:47 / Dextrose IV 2.5 mcg/min .Q24H TORRES 9.52 mls/hr Protocol Titration 2.5 MCG/MIN Piperacillin Sod/Tazobactam 100 mls @ 100 mls/hr 02/06/17 01:00 02/06/17 00: 44 Sod 2.25 gm/ Sodium Chloride IVPB 100 mls/hr Q8 TORRES Administration Ondansetron HCl 4 mg 01/28/17 21:01 02/03/17 18:11 Zofran Inj IVP 4 mg Q4H PRN Administration Nausea/Vomiting Pantoprazole Sodium 40 mg 02/03/17 09:00 02/05/17 08:41 Protonix Inj IVP 40 mg DAILY TORRES Administration - Patient Studies Lab Studies: Microbiology Studies 02/04/17 18:41 MRSA Culture (Admit) - Final Naris MRSA NOT DETECTED 02/05/17 08:21 Gram Stain - Preliminary Trachasp Lab Studies 02/06/17 02/06/17 02/06/17 Range/Units 05:11 05:11 04:30 WBC (4.8-10.8) K/uL RBC (4.40-5.90) Mil/uL Hgb (12.0-18.0) g/dL Hct (35.0-51.0) % MCV (80.0-94.0) fl MCH (27.0-31.0) pg MCHC (33.0-37.0) g/dL RDW (11.5-14.5) % Plt Count (130-400) K/uL MPV (7.2-11.7) fl Neut % (Auto) (50.0-75.0) % Lymph % (Auto) (20.0-40.0) % Saline % (Auto) (0.0-10.0) % Eos % (Auto) (0.0-4.0) % Baso % (Auto) (0.0-2.0) % Neut # (1.8-7.0) K/uL Lymph # (1.0-4.3) K/uL Saline # (0.0-0.8) K/uL Eos # (0.0-0.7) K/uL Baso # (0.0-0.2) K/uL Neutrophils % (Manual) (42-75) % Band Neutrophils % (0-2) % Lymphocytes % (Manual) (20-50) % Monocytes % (Manual) (0-10) % Platelet Estimate (NORMAL) Anisocytosis (manual) PT (9.8-13.1) Seconds INR (0.9-1.2) APTT (25.6-37.1) Seconds pCO2 33 L (35-45) mm/Hg pO2 41 333 H (80-100) mm/Hg HCO3 25.1 (21-28) mmol/L ABG pH 7.46 H (7.35-7.45) ABG Total CO2 24.5 (22-28) mmol/L ABG O2 Saturation 99.0 H (95-98) % ABG O2 Content 18.9 (15-23) ML/dL ABG Base Excess 0.2 (-2.0-3.0) mmol/L ABG Hemoglobin 13.2 (11.7-17.4) g/dL ABG Carboxyhemoglobin 0.5 (0.5-1.5) % POC ABG HHb (Measured) 1.0 (0.0-5.0) % ABG Methemoglobin 1.4 (0.0-3.0) % ABG O2 Capacity 19.1 (16-24) mL/dL Rhett Test Yes VBG pH 7.37 (7.32-7.43) VBG pCO2 44 (40-60) mmHg VBG HCO3 24.2 mmol/L VBG Total CO2 (22-28) mmol/L VBG O2 Sat (Calc) 78.1 H (40-65) % VBG Base Excess -0.2 L (0.0-2.0) mmol/L VBG Potassium (3.6-5.2) mmol/L A-a O2 Difference 339.0 mm/Hg Hgb O2 Saturation 97.1 (95.0-98.0) % Glucose (75-110) mg/dL Lactate (0.7-2.1) mmol/L Vent Mode Prvc ac Mechanical Rate 12 FiO2 100.0 % Tidal Volume 500 PEEP 5 Pressure Support Blood Gas Comments Crit Value Called To Crit Value Called By Crit Value Read Back Blood Gas Notified Time Sodium 140 (132-148) mmol/l Potassium 3.4 L (3.6-5.0) MMOL/L Chloride 109 H (98-107) mmol/L Carbon Dioxide 23 (22-30) mmol/L Anion Gap 11 (10-20) BUN 19 (9-20) mg/dl Creatinine 1.2 (0.8-1.5) mg/dL Est GFR ( Amer) > 60 Est GFR (Non-Af Amer) 59 Random Glucose 114 H (75-110) mg/dL Calcium 7.9 L (8.4-10.2) mg/dL Total Bilirubin 0.6 (0.2-1.3) mg/dl AST 33 (17-59) U/L ALT 44 (21-72) U/L Alkaline Phosphatase 35 L D (38-126) U/L Total Protein 4.2 L (6.3-8.2) G/DL Albumin 2.2 L (3.5-5.0) g/dL Globulin 2.0 L (2.2-3.9) gm/dL Albumin/Globulin Ratio 1.1 (1.0-2.1) Venous Blood Potassium (3.6-5.2) mmol/L Ur Random Sodium meq/L Ur Random Potassium mmol/L 02/06/17 02/06/17 02/05/17 Range/Units 04:30 04:30 17:06 WBC 12.4 H (4.8-10.8) K/uL RBC 4.12 L (4.40-5.90) Mil/uL Hgb 13.1 (12.0-18.0) g/dL Hct 39.4 (35.0-51.0) % MCV 95.5 H (80.0-94.0) fl MCH 31.8 H (27.0-31.0) pg MCHC 33.3 (33.0-37.0) g/dL RDW 15.0 H (11.5-14.5) % Plt Count 217 (130-400) K/uL MPV 8.1 (7.2-11.7) fl Neut % (Auto) 81.0 H (50.0-75.0) % Lymph % (Auto) 6.7 L (20.0-40.0) % Saline % (Auto) 10.8 H (0.0-10.0) % Eos % (Auto) 1.3 (0.0-4.0) % Baso % (Auto) 0.2 (0.0-2.0) % Neut # 10.0 H (1.8-7.0) K/uL Lymph # 0.8 L (1.0-4.3) K/uL Saline # 1.3 H (0.0-0.8) K/uL Eos # 0.2 (0.0-0.7) K/uL Baso # 0.0 (0.0-0.2) K/uL Neutrophils % (Manual) (42-75) % Band Neutrophils % (0-2) % Lymphocytes % (Manual) (20-50) % Monocytes % (Manual) (0-10) % Platelet Estimate (NORMAL) Anisocytosis (manual) PT 18.1 H (9.8-13.1) Seconds INR 1.7 H D (0.9-1.2) APTT 35.4 (25.6-37.1) Seconds pCO2 (35-45) mm/Hg pO2 (80-100) mm/Hg HCO3 (21-28) mmol/L ABG pH (7.35-7.45) ABG Total CO2 (22-28) mmol/L ABG O2 Saturation (95-98) % ABG O2 Content (15-23) ML/dL ABG Base Excess (-2.0-3.0) mmol/L ABG Hemoglobin (11.7-17.4) g/dL ABG Carboxyhemoglobin (0.5-1.5) % POC ABG HHb (Measured) (0.0-5.0) % ABG Methemoglobin (0.0-3.0) % ABG O2 Capacity (16-24) mL/dL Rhett Test VBG pH (7.32-7.43) VBG pCO2 (40-60) mmHg VBG HCO3 mmol/L VBG Total CO2 (22-28) mmol/L VBG O2 Sat (Calc) (40-65) % VBG Base Excess (0.0-2.0) mmol/L VBG Potassium (3.6-5.2) mmol/L A-a O2 Difference mm/Hg Hgb O2 Saturation (95.0-98.0) % Glucose (75-110) mg/dL Lactate (0.7-2.1) mmol/L Vent Mode Mechanical Rate FiO2 % Tidal Volume PEEP Pressure Support Blood Gas Comments Crit Value Called To Crit Value Called By Crit Value Read Back Blood Gas Notified Time Sodium (132-148) mmol/l Potassium (3.6-5.0) MMOL/L Chloride (98-107) mmol/L Carbon Dioxide (22-30) mmol/L Anion Gap (10-20) BUN (9-20) mg/dl Creatinine (0.8-1.5) mg/dL Est GFR ( Amer) Est GFR (Non-Af Amer) Random Glucose (75-110) mg/dL Calcium (8.4-10.2) mg/dL Total Bilirubin (0.2-1.3) mg/dl AST (17-59) U/L ALT (21-72) U/L Alkaline Phosphatase (38-126) U/L Total Protein (6.3-8.2) G/DL Albumin (3.5-5.0) g/dL Globulin (2.2-3.9) gm/dL Albumin/Globulin Ratio (1.0-2.1) Venous Blood Potassium (3.6-5.2) mmol/L Ur Random Sodium 57 meq/L Ur Random Potassium 77.6 mmol/L 02/05/17 02/05/17 02/05/17 Range/Units 11:53 11:38 04:20 WBC (4.8-10.8) K/uL RBC (4.40-5.90) Mil/uL Hgb (12.0-18.0) g/dL Hct (35.0-51.0) % MCV (80.0-94.0) fl MCH (27.0-31.0) pg MCHC (33.0-37.0) g/dL RDW (11.5-14.5) % Plt Count (130-400) K/uL MPV (7.2-11.7) fl Neut % (Auto) (50.0-75.0) % Lymph % (Auto) (20.0-40.0) % Saline % (Auto) (0.0-10.0) % Eos % (Auto) (0.0-4.0) % Baso % (Auto) (0.0-2.0) % Neut # (1.8-7.0) K/uL Lymph # (1.0-4.3) K/uL Saline # (0.0-0.8) K/uL Eos # (0.0-0.7) K/uL Baso # (0.0-0.2) K/uL Neutrophils % (Manual) (42-75) % Band Neutrophils % (0-2) % Lymphocytes % (Manual) (20-50) % Monocytes % (Manual) (0-10) % Platelet Estimate (NORMAL) Anisocytosis (manual) PT (9.8-13.1) Seconds INR (0.9-1.2) APTT (25.6-37.1) Seconds pCO2 42 (35-45) mm/Hg pO2 42 125 H (80-100) mm/Hg HCO3 24.1 (21-28) mmol/L ABG pH 7.37 (7.35-7.45) ABG Total CO2 25.6 (22-28) mmol/L ABG O2 Saturation 98.8 H (95-98) % ABG O2 Content 18.5 (15-23) ML/dL ABG Base Excess -1.1 (-2.0-3.0) mmol/L ABG Hemoglobin 13.5 (11.7-17.4) g/dL ABG Carboxyhemoglobin 1.0 (0.5-1.5) % POC ABG HHb (Measured) 1.2 (0.0-5.0) % ABG Methemoglobin 1.1 (0.0-3.0) % ABG O2 Capacity 18.7 (16-24) mL/dL Rhett Test Yes VBG pH 7.33 (7.32-7.43) VBG pCO2 49 (40-60) mmHg VBG HCO3 23.8 mmol/L VBG Total CO2 27.3 (22-28) mmol/L VBG O2 Sat (Calc) 78.7 H (40-65) % VBG Base Excess -0.7 L (0.0-2.0) mmol/L VBG Potassium 3.7 (3.6-5.2) mmol/L A-a O2 Difference 253.0 179.0 mm/Hg Hgb O2 Saturation 96.7 (95.0-98.0) % Glucose 112 H (75-110) mg/dL Lactate 1.7 (0.7-2.1) mmol/L Vent Mode Prvc/sim Mechanical Rate FiO2 50.0 50.0 % Tidal Volume 450 PEEP 5 Pressure Support 15 Blood Gas Comments Vbg Crit Value Called To Leatha romo Crit Value Called By 15 Crit Value Read Back Y Blood Gas Notified Time 1203 Sodium 138.0 141 (132-148) mmol/l Potassium 4.0 (3.6-5.0) MMOL/L Chloride 106.0 108 H (98-107) mmol/L Carbon Dioxide 24 (22-30) mmol/L Anion Gap 13 (10-20) BUN 21 H (9-20) mg/dl Creatinine 1.5 (0.8-1.5) mg/dL Est GFR ( Amer) 56 Est GFR (Non-Af Amer) 46 Random Glucose 109 (75-110) mg/dL Calcium 7.8 L (8.4-10.2) mg/dL Total Bilirubin 1.2 (0.2-1.3) mg/dl AST 40 (17-59) U/L ALT 41 (21-72) U/L Alkaline Phosphatase 29 L (38-126) U/L Total Protein 4.1 L (6.3-8.2) G/DL Albumin 2.3 L (3.5-5.0) g/dL Globulin 1.8 L (2.2-3.9) gm/dL Albumin/Globulin Ratio 1.3 (1.0-2.1) Venous Blood Potassium 3.7 (3.6-5.2) mmol/L Ur Random Sodium meq/L Ur Random Potassium mmol/L 02/05/17 Range/Units 04:20 WBC (4.8-10.8) K/uL RBC (4.40-5.90) Mil/uL Hgb (12.0-18.0) g/dL Hct (35.0-51.0) % MCV (80.0-94.0) fl MCH (27.0-31.0) pg MCHC (33.0-37.0) g/dL RDW (11.5-14.5) % Plt Count (130-400) K/uL MPV (7.2-11.7) fl Neut % (Auto) (50.0-75.0) % Lymph % (Auto) (20.0-40.0) % Saline % (Auto) (0.0-10.0) % Eos % (Auto) (0.0-4.0) % Baso % (Auto) (0.0-2.0) % Neut # (1.8-7.0) K/uL Lymph # (1.0-4.3) K/uL Saline # (0.0-0.8) K/uL Eos # (0.0-0.7) K/uL Baso # (0.0-0.2) K/uL Neutrophils % (Manual) 88 H (42-75) % Band Neutrophils % 2 (0-2) % Lymphocytes % (Manual) 5 L (20-50) % Monocytes % (Manual) 5 (0-10) % Platelet Estimate Normal (NORMAL) Anisocytosis (manual) Slight PT (9.8-13.1) Seconds INR (0.9-1.2) APTT (25.6-37.1) Seconds pCO2 (35-45) mm/Hg pO2 (80-100) mm/Hg HCO3 (21-28) mmol/L ABG pH (7.35-7.45) ABG Total CO2 (22-28) mmol/L ABG O2 Saturation (95-98) % ABG O2 Content (15-23) ML/dL ABG Base Excess (-2.0-3.0) mmol/L ABG Hemoglobin (11.7-17.4) g/dL ABG Carboxyhemoglobin (0.5-1.5) % POC ABG HHb (Measured) (0.0-5.0) % ABG Methemoglobin (0.0-3.0) % ABG O2 Capacity (16-24) mL/dL Rhett Test VBG pH (7.32-7.43) VBG pCO2 (40-60) mmHg VBG HCO3 mmol/L VBG Total CO2 (22-28) mmol/L VBG O2 Sat (Calc) (40-65) % VBG Base Excess (0.0-2.0) mmol/L VBG Potassium (3.6-5.2) mmol/L A-a O2 Difference mm/Hg Hgb O2 Saturation (95.0-98.0) % Glucose (75-110) mg/dL Lactate (0.7-2.1) mmol/L Vent Mode Mechanical Rate FiO2 % Tidal Volume PEEP Pressure Support Blood Gas Comments Crit Value Called To Crit Value Called By Crit Value Read Back Blood Gas Notified Time Sodium (132-148) mmol/l Potassium (3.6-5.0) MMOL/L Chloride (98-107) mmol/L Carbon Dioxide (22-30) mmol/L Anion Gap (10-20) BUN (9-20) mg/dl Creatinine (0.8-1.5) mg/dL Est GFR ( Amer) Est GFR (Non-Af Amer) Random Glucose (75-110) mg/dL Calcium (8.4-10.2) mg/dL Total Bilirubin (0.2-1.3) mg/dl AST (17-59) U/L ALT (21-72) U/L Alkaline Phosphatase (38-126) U/L Total Protein (6.3-8.2) G/DL Albumin (3.5-5.0) g/dL Globulin (2.2-3.9) gm/dL Albumin/Globulin Ratio (1.0-2.1) Venous Blood Potassium (3.6-5.2) mmol/L Ur Random Sodium meq/L Ur Random Potassium mmol/L Laboratory Results - last 24 hr 02/05/17 02/05/17 02/05/17 04:20 04:20 11:38 WBC RBC Hgb Hct MCV MCH MCHC RDW Plt Count MPV Neut % (Auto) Lymph % (Auto) Saline % (Auto) Eos % (Auto) Baso % (Auto) Neut # Lymph # Saline # Eos # Baso # Neutrophils % (Manual) 88 H Band Neutrophils % 2 Lymphocytes % (Manual) 5 L Monocytes % (Manual) 5 Platelet Estimate Normal Anisocytosis (manual) Slight PT INR APTT pCO2 42 pO2 125 H HCO3 24.1 ABG pH 7.37 ABG Total CO2 25.6 ABG O2 Saturation 98.8 H ABG O2 Content 18.5 ABG Base Excess -1.1 ABG Hemoglobin 13.5 ABG Carboxyhemoglobin 1.0 POC ABG HHb (Measured) 1.2 ABG Methemoglobin 1.1 ABG O2 Capacity 18.7 Rhett Test Yes VBG pH VBG pCO2 VBG HCO3 VBG Total CO2 VBG O2 Sat (Calc) VBG Base Excess VBG Potassium A-a O2 Difference 179.0 Hgb O2 Saturation 96.7 Glucose Lactate Vent Mode Prvc/sim Mechanical Rate FiO2 50.0 Tidal Volume 450 PEEP 5 Pressure Support 15 Blood Gas Comments Crit Value Called To Crit Value Called By Crit Value Read Back Blood Gas Notified Time Sodium 141 Potassium 4.0 Chloride 108 H Carbon Dioxide 24 Anion Gap 13 BUN 21 H Creatinine 1.5 Est GFR ( Amer) 56 Est GFR (Non-Af Amer) 46 Random Glucose 109 Calcium 7.8 L Total Bilirubin 1.2 AST 40 ALT 41 Alkaline Phosphatase 29 L Total Protein 4.1 L Albumin 2.3 L Globulin 1.8 L Albumin/Globulin Ratio 1.3 Venous Blood Potassium Ur Random Sodium Ur Random Potassium 02/05/17 02/05/17 02/06/17 11:53 17:06 04:30 WBC 12.4 H RBC 4.12 L Hgb 13.1 Hct 39.4 MCV 95.5 H MCH 31.8 H MCHC 33.3 RDW 15.0 H Plt Count 217 MPV 8.1 Neut % (Auto) 81.0 H Lymph % (Auto) 6.7 L Saline % (Auto) 10.8 H Eos % (Auto) 1.3 Baso % (Auto) 0.2 Neut # 10.0 H Lymph # 0.8 L Saline # 1.3 H Eos # 0.2 Baso # 0.0 Neutrophils % (Manual) Band Neutrophils % Lymphocytes % (Manual) Monocytes % (Manual) Platelet Estimate Anisocytosis (manual) PT INR APTT pCO2 pO2 42 HCO3 ABG pH ABG Total CO2 ABG O2 Saturation ABG O2 Content ABG Base Excess ABG Hemoglobin ABG Carboxyhemoglobin POC ABG HHb (Measured) ABG Methemoglobin ABG O2 Capacity Rhett Test VBG pH 7.33 VBG pCO2 49 VBG HCO3 23.8 VBG Total CO2 27.3 VBG O2 Sat (Calc) 78.7 H VBG Base Excess -0.7 L VBG Potassium 3.7 A-a O2 Difference 253.0 Hgb O2 Saturation Glucose 112 H Lactate 1.7 Vent Mode Mechanical Rate FiO2 50.0 Tidal Volume PEEP Pressure Support Blood Gas Comments Vbg Crit Value Called To Leatha romo Crit Value Called By 15 Crit Value Read Back Y Blood Gas Notified Time 1203 Sodium 138.0 Potassium Chloride 106.0 Carbon Dioxide Anion Gap BUN Creatinine Est GFR ( Amer) Est GFR (Non-Af Amer) Random Glucose Calcium Total Bilirubin AST ALT Alkaline Phosphatase Total Protein Albumin Globulin Albumin/Globulin Ratio Venous Blood Potassium 3.7 Ur Random Sodium 57 Ur Random Potassium 77.6 02/06/17 02/06/17 02/06/17 04:30 04:30 05:11 WBC RBC Hgb Hct MCV MCH MCHC RDW Plt Count MPV Neut % (Auto) Lymph % (Auto) Saline % (Auto) Eos % (Auto) Baso % (Auto) Neut # Lymph # Saline # Eos # Baso # Neutrophils % (Manual) Band Neutrophils % Lymphocytes % (Manual) Monocytes % (Manual) Platelet Estimate Anisocytosis (manual) PT 18.1 H INR 1.7 H D APTT 35.4 pCO2 33 L pO2 333 H HCO3 25.1 ABG pH 7.46 H ABG Total CO2 24.5 ABG O2 Saturation 99.0 H ABG O2 Content 18.9 ABG Base Excess 0.2 ABG Hemoglobin 13.2 ABG Carboxyhemoglobin 0.5 POC ABG HHb (Measured) 1.0 ABG Methemoglobin 1.4 ABG O2 Capacity 19.1 Rhett Test Yes VBG pH VBG pCO2 VBG HCO3 VBG Total CO2 VBG O2 Sat (Calc) VBG Base Excess VBG Potassium A-a O2 Difference 339.0 Hgb O2 Saturation 97.1 Glucose Lactate Vent Mode Prvc ac Mechanical Rate 12 FiO2 100.0 Tidal Volume 500 PEEP 5 Pressure Support Blood Gas Comments Crit Value Called To Crit Value Called By Crit Value Read Back Blood Gas Notified Time Sodium 140 Potassium 3.4 L Chloride 109 H Carbon Dioxide 23 Anion Gap 11 BUN 19 Creatinine 1.2 Est GFR ( Amer) > 60 Est GFR (Non-Af Amer) 59 Random Glucose 114 H Calcium 7.9 L Total Bilirubin 0.6 AST 33 ALT 44 Alkaline Phosphatase 35 L D Total Protein 4.2 L Albumin 2.2 L Globulin 2.0 L Albumin/Globulin Ratio 1.1 Venous Blood Potassium Ur Random Sodium Ur Random Potassium 02/06/17 05:11 WBC RBC Hgb Hct MCV MCH MCHC RDW Plt Count MPV Neut % (Auto) Lymph % (Auto) Saline % (Auto) Eos % (Auto) Baso % (Auto) Neut # Lymph # Saline # Eos # Baso # Neutrophils % (Manual) Band Neutrophils % Lymphocytes % (Manual) Monocytes % (Manual) Platelet Estimate Anisocytosis (manual) PT INR APTT pCO2 pO2 41 HCO3 ABG pH ABG Total CO2 ABG O2 Saturation ABG O2 Content ABG Base Excess ABG Hemoglobin ABG Carboxyhemoglobin POC ABG HHb (Measured) ABG Methemoglobin ABG O2 Capacity Rhett Test VBG pH 7.37 VBG pCO2 44 VBG HCO3 24.2 VBG Total CO2 VBG O2 Sat (Calc) 78.1 H VBG Base Excess -0.2 L VBG Potassium A-a O2 Difference Hgb O2 Saturation Glucose Lactate Vent Mode Mechanical Rate FiO2 Tidal Volume PEEP Pressure Support Blood Gas Comments Crit Value Called To Crit Value Called By Crit Value Read Back Blood Gas Notified Time Sodium Potassium Chloride Carbon Dioxide Anion Gap BUN Creatinine Est GFR ( Amer) Est GFR (Non-Af Amer) Random Glucose Calcium Total Bilirubin AST ALT Alkaline Phosphatase Total Protein Albumin Globulin Albumin/Globulin Ratio Venous Blood Potassium Ur Random Sodium Ur Random Potassium EKG/Cardiology Studies: Cardiology / EKG Studies 02/05/17 09:00 EKG [ELECTROCARDIOGRAM] DAILY Comment: Mode Of Transportation: Reason For Exam: r/o PSVT Critical Care Progress Note - Nutrition Nutrition: Nutrition Category Date Time Status NPO Diet [DIET] Diets 02/01/17 Breakfast Active
[2017-02-06] MEDS: Albuterol-Ipratrop 3 mg / 0.5 (3 ml) UD INH SCH ×4 (08:25→20:05)
[2017-02-06 08:47] LABS: ABG ALLEN TEST YES; ARTERIAL BLOOD GAS HCO3 24.8 mmol/L (21-28); ARTERIAL BLOOD GAS O2 SAT 98.2 % (95-98); ARTERIAL BLOOD GAS PCO2 36 mm/Hg (35-45); ARTERIAL BLOOD GAS PH 7.43 (7.35-7.45); ARTERIAL BLOOD GAS PO2 93 mm/Hg (80-100)
[2017-02-06] MEDS ORDERED: Potassium CL 10mEq/100ml 100 ML IVPB SCH (09:00)
--- NOTE | 2017-02-06 09:00 | CP.PCM.PN ---
Subjective - Date & Time of Evaluation Date of Evaluation: 02/06/17 Time of Evaluation: 08:58 - Subjective Subjective: Case discussed with [employer]. EMR entries reviewed. Has done quite well over the last 24hrs. Remains on mechanical ventilation at this time, but changed to CPAP/PS. BP has responded to volume replacement and all pressors are off. His urine output has improved from yesterday as well. CBC has remained stable, K is low, but other chemistries are good. ABG shows good oxygenation, normal pH, normal lactic acid level. Awake and cooperative with exam. Breathing comfortably w/o any recruitment or retractions. Neck is supple and trachea midline. No visible JVD. No cyanosis or jaundice. + dependant edema. A line and central venous access sites are clean. No dullness on percussion of the anterior chest wall. No subcut emphysema. Breath sounds are well heard anteriorly, diminished posteriorly in LL regions, but better than yesterday. No audible wheezes or bronchial breath sounds. Heart sounds well heard, not tachy, still in a fib on monitor. Abdomen is firm, functioning colostomy in place. 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 Colonoscopy results show hyperplastic polyp. Surgical path results are still pending. Today's CXR shows improvement in amount of pleural effusions bilaterally. Decision for extubation made. Follow ID input on antibiotic choices of Zosyn/Flagyl. Continue aerosol therapies. Resume prophylactic anticoagulation today if OK with surgery. 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 Fluid and electrolyte balance/replacement. Await final pathology reports. Objective - Vital Signs/Intake and Output Vital Signs (last 24 hours): Temp Pulse Resp BP Pulse Ox 98.9 F 89 29 H 116/52 L 98 02/06/17 08:22 02/06/17 08:22 02/06/17 08:22 02/06/17 08:22 02/06/17 08:22 Intake and Output: 02/05/17 02/06/17 23:59 11:59 Intake Total 490 1400 Output Total 1250 950 Balance -760 450 - Medications Medications: Current Medications Acetaminophen (Tylenol 650 Mg Supp) 650 mg AL Q4 PRN PRN Reason: Fever >100.4 F Last Admin: 02/04/17 23:58 Dose: 650 mg Albuterol Sulfate (Albuterol 0.083% Inhal Barbara (2.5 Mg/3 Ml) Ud) 2.5 mg INH RQ4 PRN PRN Reason: Shortness of Breath Last Admin: 01/31/17 14:53 Dose: 2.5 mg Albuterol/Ipratropium (Duoneb 3 Mg/0.5 Mg (3 Ml) Ud) 3 ml INH RQID [facility] Last Admin: 02/06/17 08:25 Dose: 3 ml Digoxin (Lanoxin) 0.25 mg IVP ONCE ONE Stop: 02/06/17 23:31 Enoxaparin Sodium (Lovenox) 40 mg SC DAILY [facility] PRN Reason: Protocol Last Admin: 02/02/17 09:11 Dose: 40 mg Hydromorphone HCl (Dilaudid) 0.5 mg IVP Q4 PRN PRN Reason: Pain, moderate (4-7) Stop: 02/06/17 13:02 Last Admin: 02/06/17 06:15 Dose: 0.5 mg Metronidazole (Flagyl 500mg/100ml Ns) 100 mls @ 100 mls/hr IVPB Q8 [facility] Last Admin: 02/06/17 00:30 Dose: 100 mls/hr Lactated Ringer's (Lactated Ringer's) 1,000 mls @ 200 mls/hr IV .Q5H [facility] Last Admin: 02/06/17 05:02 Dose: 200 mls/hr Piperacillin Sod/Tazobactam (Sod 2.25 gm/ Sodium Chloride) 100 mls @ 100 mls/ hr IVPB Q8 [facility] Last Admin: 02/06/17 00:44 Dose: 100 mls/hr Potassium Chloride (Potassium Cl 10meq/50ml Sterile Water) 50 mls @ 50 mls/hr IVPB Q1 [facility] Stop: 02/06/17 12:59 Ondansetron HCl (Zofran Inj) 4 mg IVP Q4H PRN PRN Reason: Nausea/Vomiting Last Admin: 02/03/17 18:11 Dose: 4 mg Pantoprazole Sodium (Protonix Inj) 40 mg IVP DAILY [facility] Last Admin: 02/05/17 08:41 Dose: 40 mg - Labs Labs: 02/06/17 04:30 02/06/17 04:30 PT 18.1 Seconds (9.8-13.1) H 02/06/17 04:30 INR 1.7 (0.9-1.2) H D 02/06/17 04:30 APTT 35.4 Seconds (25.6-37.1) 02/06/17 04:30 Assessment and Plan (1) Colon carcinoma Status: Acute (2) Large bowel obstruction Status: Resolved (3) Pleural effusion Status: Acute (4) Atelectasis Status: Acute (5) COPD (chronic obstructive pulmonary disease) Status: Chronic (6) Acute kidney injury Status: Resolved (7) Hypoalbuminemia Status: Acute
[2017-02-06] MEDS: Enoxaparin 40 mg Syringe SC SCH (09:20)
[2017-02-06] MEDS: Potassium CL 10 MEQ/50 ML 50 ML IVPB SCH ×4 (09:22→13:30)
--- NOTE | 2017-02-06 09:47 | CP.PCM.PN ---
Subjective - Date & Time of Evaluation Date of Evaluation: 02/06/17 Time of Evaluation: 09:30 - Subjective Subjective: Pt just got extubated Off pressors No fever Output from Colostomy : 600+700 =1300ml Urine output better today abd pain controlled denies CP Objective - Vital Signs/Intake and Output Vital Signs (last 24 hours): Temp Pulse Resp BP Pulse Ox 98.9 F 89 29 H 116/52 L 98 02/06/17 08:22 02/06/17 08:22 02/06/17 08:22 02/06/17 08:22 02/06/17 08:22 Intake and Output: 02/06/17 02/06/17 06:59 18:59 Intake Total 1890 Output Total 1200 Balance 690 - Medications Medications: Current Medications Acetaminophen (Tylenol 650 Mg Supp) 650 mg [place] Q4 PRN PRN Reason: Fever >100.4 F Last Admin: 02/04/17 23:58 Dose: 650 mg Albuterol Sulfate (Albuterol 0.083% Inhal Barbara (2.5 Mg/3 Ml) Ud) 2.5 mg INH RQ4 PRN PRN Reason: Shortness of Breath Last Admin: 01/31/17 14:53 Dose: 2.5 mg Albuterol/Ipratropium (Duoneb 3 Mg/0.5 Mg (3 Ml) Ud) 3 ml INH RQID [facility] Last Admin: 02/06/17 08:25 Dose: 3 ml Digoxin (Lanoxin) 0.25 mg IVP ONCE ONE Stop: 02/06/17 23:31 Enoxaparin Sodium (Lovenox) 40 mg SC DAILY [facility] PRN Reason: Protocol Last Admin: 02/06/17 09:20 Dose: 40 mg Hydromorphone HCl (Dilaudid) 0.5 mg IVP Q4 PRN PRN Reason: Pain, moderate (4-7) Stop: 02/06/17 13:02 Last Admin: 02/06/17 06:15 Dose: 0.5 mg Metronidazole (Flagyl 500mg/100ml Ns) 100 mls @ 100 mls/hr IVPB Q8 [facility] Last Admin: 02/06/17 09:17 Dose: 100 mls/hr Lactated Ringer's (Lactated Ringer's) 1,000 mls @ 200 mls/hr IV .Q5H [facility] Last Admin: 02/06/17 05:02 Dose: 200 mls/hr Piperacillin Sod/Tazobactam (Sod 2.25 gm/ Sodium Chloride) 100 mls @ 100 mls/ hr IVPB Q8 [facility] Last Admin: 02/06/17 09:23 Dose: 100 mls/hr Potassium Chloride (Potassium Cl 10meq/50ml Sterile Water) 50 mls @ 50 mls/hr IVPB Q1 [facility] Stop: 02/06/17 12:59 Last Admin: 02/06/17 09:22 Dose: 50 mls/hr Ondansetron HCl (Zofran Inj) 4 mg IVP Q4H PRN PRN Reason: Nausea/Vomiting Last Admin: 02/03/17 18:11 Dose: 4 mg Pantoprazole Sodium (Protonix Inj) 40 mg IVP DAILY [facility] Last Admin: 02/06/17 09:22 Dose: 40 mg - Labs Labs: 02/06/17 04:30 02/06/17 04:30 PT 18.1 Seconds (9.8-13.1) H 02/06/17 04:30 INR 1.7 (0.9-1.2) H D 02/06/17 04:30 APTT 35.4 Seconds (25.6-37.1) 02/06/17 04:30 - Constitutional Appears: No Acute Distress - Head Exam Head Exam: NORMAL INSPECTION, NORMOCEPHALIC - Eye Exam Eye Exam: EOMI, Normal appearance Pupil Exam: NORMAL ACCOMODATION - ENT Exam ENT Exam: Mucous Membranes Dry, Normal External Ear Exam - Neck Exam Neck Exam: Full ROM. absent: Meningismus - Respiratory Exam Respiratory Exam: Rales, Rhonchi Additional comments: on ventimask - GI/Abdominal Exam GI & Abdominal Exam: Soft, Tenderness, Normal Bowel Sounds Additional comments: Colostomy vida intact , wound looks clean - Extremities Exam Extremities Exam: Full ROM, Normal Capillary Refill, Pedal Edema. absent: Calf Tenderness Additional comments: hand edema right groin central line - Back Exam Back Exam: absent: CVA tenderness (L) - Neurological Exam Neurological Exam: Alert, Awake, CN II-XII Intact, Oriented x3 Neuro motor strength exam: Left Upper Extremity: 5, Right Upper Extremity: 5, Left Lower Extremity: 5, Right Lower Extremity: 5 - Psychiatric Exam Psychiatric exam: Normal Affect, Normal Mood - Skin Skin Exam: Dry, Normal Color, Warm Assessment and Plan (1) Rectal mass Status: Acute (2) SBO (small bowel obstruction) Status: Acute (3) COPD (chronic obstructive pulmonary disease) Status: Chronic (4) Aspiration pneumonia Status: Acute (5) DVT prophylaxis Status: Acute (6) Pleural effusion Status: Acute - Assessment and Plan (Free Text) Assessment: 71 y/o gent with Hx of COPD, came in bec of 2 weeks of constipation with no bowel movement ,abdominal discomfort and vomiting. CT of chest and Abd showed dilated large bowel loops up to the proximal rectum and suspicious for obstructing circumferential rectal mass versus focal stricture GI and surgery consulted. Patient admitted to med/surg kept NPO , started on IVF ,NGT placed and stool softeners and laxatives given with no improvement He underwent flex sigmoidoscopy that showed rectal stricture. Taken to OR 02/04 and underwent exploratory laparatomy with sigmoid resection and colostomy to [facility] Transferred to ICU post op for monitoring. He developed hypovolemixc shock, Afib with RVR and mottling of lower extremities postop. Failed extubation At present, extubated this am, off pressors. 1. Hypovolemic shock, resolved received 8 L fluid post op with minimal urinary output 20 ml/hr Pt was started on levophed drip- now off lactic acid trended down and BP improved. Mottling to lower extremities resolved showing improved tissue perfusion received albumin IV 2. Acute Hypoxemic respiratory failure Pt remained intubated post op - extubated thids am Pulmonary on consult with Dr. Danielson following 3. Afib with RVR episode received cardizem and digoxin 4.Acute renal failure, improving oliguric with 20 ml/hr output continue IVF Close monitoring 5. Intestinal obstruction most likely secondary to Sigmoid CA No BM for 1-2 wks, + vomiting, + abdominal distention, no flatus CT of abd showed air fluid levels, distended large bowel loops up to the proximal rectum with suspicious obstructing rectal mass or stricture Surgery and GI consulted stool softener, laxatives given ,Rectal tube and NGT placed with no improvement s/p flex sigmoidoscopy showing long stricture. 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 waiting pathology report Good output from colostomy noted , bowel sounds present Surgical incision clean and intact, abdomen tender and slightly distended Continue pain management surgery following On Zosyn and Flagyl empirically Continue IVF resuscitation since patient is volume depleted with low BP ID consult with Dr. 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 COPD (chronic obstructive pulmonary disease) chronic , stable Duoneb prn 8.Bilateral pneumonia / suspected Aspiration pneumonia Acute RLL focal airspace consolidation noted seen on CT of chest CXR today showed increased bilateral infiltrates and pleural effusion on IV zosyn and Flagyl. ID consult 9 DVT prophylaxis Acute Lovenox
--- NOTE | 2017-02-06 10:33 | CP.PCM.PN ---
Subjective - Date & Time of Evaluation Date of Evaluation: 02/06/17 Time of Evaluation: 10:30 - Subjective Subjective: recently extubated Objective - Vital Signs/Intake and Output Vital Signs (last 24 hours): Temp Pulse Resp BP Pulse Ox 98.9 F 89 29 H 116/52 L 98 02/06/17 08:22 02/06/17 08:22 02/06/17 08:22 02/06/17 08:22 02/06/17 08:22 Intake and Output: 02/06/17 02/06/17 06:59 18:59 Intake Total 1890 Output Total 1200 Balance 690 - Medications Medications: Current Medications Acetaminophen (Tylenol 650 Mg Supp) 650 mg [place] Q4 PRN PRN Reason: Fever >100.4 F Last Admin: 02/04/17 23:58 Dose: 650 mg Albuterol Sulfate (Albuterol 0.083% Inhal Barbara (2.5 Mg/3 Ml) Ud) 2.5 mg INH RQ4 PRN PRN Reason: Shortness of Breath Last Admin: 01/31/17 14:53 Dose: 2.5 mg Albuterol/Ipratropium (Duoneb 3 Mg/0.5 Mg (3 Ml) Ud) 3 ml INH RQID [facility] Last Admin: 02/06/17 08:25 Dose: 3 ml Digoxin (Lanoxin) 0.25 mg IVP ONCE ONE Stop: 02/06/17 23:31 Enoxaparin Sodium (Lovenox) 40 mg SC DAILY [facility] PRN Reason: Protocol Last Admin: 02/06/17 09:20 Dose: 40 mg Hydromorphone HCl (Dilaudid) 0.5 mg IVP Q4 PRN PRN Reason: Pain, moderate (4-7) Stop: 02/06/17 13:02 Last Admin: 02/06/17 06:15 Dose: 0.5 mg Metronidazole (Flagyl 500mg/100ml Ns) 100 mls @ 100 mls/hr IVPB Q8 [facility] Last Admin: 02/06/17 09:17 Dose: 100 mls/hr Lactated Ringer's (Lactated Ringer's) 1,000 mls @ 200 mls/hr IV .Q5H [facility] Last Admin: 02/06/17 05:02 Dose: 200 mls/hr Piperacillin Sod/Tazobactam (Sod 2.25 gm/ Sodium Chloride) 100 mls @ 100 mls/ hr IVPB Q8 [facility] Last Admin: 02/06/17 09:23 Dose: 100 mls/hr Potassium Chloride (Potassium Cl 10meq/50ml Sterile Water) 50 mls @ 50 mls/hr IVPB Q1 [facility] Stop: 02/06/17 12:59 Last Admin: 02/06/17 09:22 Dose: 50 mls/hr Ondansetron HCl (Zofran Inj) 4 mg IVP Q4H PRN PRN Reason: Nausea/Vomiting Last Admin: 02/03/17 18:11 Dose: 4 mg Pantoprazole Sodium (Protonix Inj) 40 mg IVP DAILY [facility] Last Admin: 02/06/17 09:22 Dose: 40 mg - Labs Labs: 02/06/17 04:30 02/06/17 04:30 PT 18.1 Seconds (9.8-13.1) H 02/06/17 04:30 INR 1.7 (0.9-1.2) H D 02/06/17 04:30 APTT 35.4 Seconds (25.6-37.1) 02/06/17 04:30 - GI/Abdominal Exam GI & Abdominal Exam: Soft, Tenderness, Diminished Bowel Sounds Assessment and Plan - Assessment and Plan (Free Text) Assessment: 71 yo male with colon resection path pending post op management needs full colonoscopy in 6 months
--- NOTE | 2017-02-06 12:22 | CP.PCM.PN ---
<Jarvis Vazquez - Last Filed: 02/06/17 12:17> Subjective - Date & Time of Evaluation Date of Evaluation: 02/06/17 Time of Evaluation: 12:18 - Subjective Subjective: Surgery: Dr. Castillo Pt seen and examined. Resting comfortably in bed. Was extubated this morning. Alert, following commands. Has abd pain. Objective - Vital Signs/Intake and Output Vital Signs (last 24 hours): Temp Pulse Resp BP Pulse Ox 99.2 F 106 H 29 H 126/58 L 94 L 02/06/17 12:11 02/06/17 12:11 02/06/17 08:22 02/06/17 12:11 02/06/17 12:11 Intake and Output: 02/06/17 02/06/17 06:59 18:59 Intake Total 1890 Output Total 1200 Balance 690 - Medications Medications: Current Medications Acetaminophen (Tylenol 650 Mg Supp) 650 mg ND Q4 PRN PRN Reason: Fever >100.4 F Last Admin: 02/04/17 23:58 Dose: 650 mg Albuterol Sulfate (Albuterol 0.083% Inhal Barbara (2.5 Mg/3 Ml) Ud) 2.5 mg INH RQ4 PRN PRN Reason: Shortness of Breath Last Admin: 01/31/17 14:53 Dose: 2.5 mg Albuterol/Ipratropium (Duoneb 3 Mg/0.5 Mg (3 Ml) Ud) 3 ml INH RQID [facility] Last Admin: 02/06/17 11:13 Dose: 3 ml Digoxin (Lanoxin) 0.25 mg IVP ONCE ONE Stop: 02/06/17 23:31 Enoxaparin Sodium (Lovenox) 40 mg SC DAILY [facility] PRN Reason: Protocol Last Admin: 02/06/17 09:20 Dose: 40 mg Hydromorphone HCl (Dilaudid) 0.5 mg IVP Q4 PRN PRN Reason: Pain, moderate (4-7) Stop: 02/06/17 13:02 Last Admin: 02/06/17 06:15 Dose: 0.5 mg Metronidazole (Flagyl 500mg/100ml Ns) 100 mls @ 100 mls/hr IVPB Q8 [facility] Last Admin: 02/06/17 09:17 Dose: 100 mls/hr Lactated Ringer's (Lactated Ringer's) 1,000 mls @ 200 mls/hr IV .Q5H [facility] Last Admin: 02/06/17 05:02 Dose: 200 mls/hr Piperacillin Sod/Tazobactam (Sod 2.25 gm/ Sodium Chloride) 100 mls @ 100 mls/ hr IVPB Q8 [facility] Last Admin: 02/06/17 09:23 Dose: 100 mls/hr Potassium Chloride (Potassium Cl 10meq/50ml Sterile Water) 50 mls @ 50 mls/hr IVPB Q1 [facility] Stop: 02/06/17 12:59 Last Admin: 02/06/17 10:34 Dose: 50 mls/hr Ondansetron HCl (Zofran Inj) 4 mg IVP Q4H PRN PRN Reason: Nausea/Vomiting Last Admin: 02/03/17 18:11 Dose: 4 mg Pantoprazole Sodium (Protonix Inj) 40 mg IVP DAILY [facility] Last Admin: 02/06/17 09:22 Dose: 40 mg - Labs Labs: 02/06/17 04:30 02/06/17 04:30 PT 18.1 Seconds (9.8-13.1) H 02/06/17 04:30 INR 1.7 (0.9-1.2) H D 02/06/17 04:30 APTT 35.4 Seconds (25.6-37.1) 02/06/17 04:30 - Constitutional Appears: Non-toxic, No Acute Distress - Head Exam Head Exam: ATRAUMATIC, NORMOCEPHALIC - Eye Exam Eye Exam: EOMI. absent: Scleral icterus - ENT Exam ENT Exam: Mucous Membranes Moist, Normal External Ear Exam - Neck Exam Neck Exam: Full ROM - Respiratory Exam Respiratory Exam: NORMAL BREATHING PATTERN. absent: Accessory Muscle Use, Respiratory Distress - GI/Abdominal Exam GI & Abdominal Exam: Distended (mild), Soft, Tenderness. absent: Firm, Guarding , Rigid, Rebound Additional comments: midline incision, C/D/I w. vida in place L side stoma pink and patent - Extremities Exam Extremities Exam: absent: Calf Tenderness, Pedal Edema - Neurological Exam Neurological Exam: Alert, Awake Assessment and Plan - Assessment and Plan (Free Text) Assessment: 71M w. recto/sigmoid mass, s/p Hartmans, POD#2 -Stoma: 1300cc/24 hr liquid brown stool, continue to monitor -Villanueva: 600cc/12 hr, continue to monitor, c/w IVF -NGT:100cc/24hr -Afib: ok to start therapeutic anticoagulation from surgical standpoint <Scot Castillo - Last Filed: 02/06/17 13:21> Subjective - Date & Time of Evaluation Time of Evaluation: 13:00 - Subjective Subjective: Patient was seen and examined at the bedside. Agree with resident's note above. Objective - Vital Signs/Intake and Output Vital Signs (last 24 hours): Temp Pulse Resp BP Pulse Ox 99.2 F 106 H 29 H 126/58 L 94 L 02/06/17 12:11 02/06/17 12:11 02/06/17 08:22 02/06/17 12:11 02/06/17 12:11 Intake and Output: 02/06/17 02/06/17 06:59 18:59 Intake Total 1890 Output Total 1200 Balance 690 - Medications Medications: Current Medications Acetaminophen (Tylenol 650 Mg Supp) 650 mg ND Q4 PRN PRN Reason: Fever >100.4 F Last Admin: 02/04/17 23:58 Dose: 650 mg Albuterol Sulfate (Albuterol 0.083% Inhal Barbara (2.5 Mg/3 Ml) Ud) 2.5 mg INH RQ4 PRN PRN Reason: Shortness of Breath Last Admin: 01/31/17 14:53 Dose: 2.5 mg Albuterol/Ipratropium (Duoneb 3 Mg/0.5 Mg (3 Ml) Ud) 3 ml INH RQID [facility] Last Admin: 02/06/17 11:13 Dose: 3 ml Digoxin (Lanoxin) 0.25 mg IVP ONCE ONE Stop: 02/06/17 23:31 Enoxaparin Sodium (Lovenox) 40 mg SC DAILY [facility] PRN Reason: Protocol Last Admin: 02/06/17 09:20 Dose: 40 mg Metronidazole (Flagyl 500mg/100ml Ns) 100 mls @ 100 mls/hr IVPB Q8 [facility] Last Admin: 02/06/17 09:17 Dose: 100 mls/hr Lactated Ringer's (Lactated Ringer's) 1,000 mls @ 200 mls/hr IV .Q5H [facility] Last Admin: 02/06/17 05:02 Dose: 200 mls/hr Piperacillin Sod/Tazobactam (Sod 2.25 gm/ Sodium Chloride) 100 mls @ 100 mls/ hr IVPB Q8 [facility] Last Admin: 02/06/17 09:23 Dose: 100 mls/hr Ondansetron HCl (Zofran Inj) 4 mg IVP Q4H PRN PRN Reason: Nausea/Vomiting Last Admin: 02/03/17 18:11 Dose: 4 mg Pantoprazole Sodium (Protonix Inj) 40 mg IVP DAILY [facility] Last Admin: 02/06/17 09:22 Dose: 40 mg - Labs Labs: 02/06/17 04:30 02/06/17 04:30 PT 18.1 Seconds (9.8-13.1) H 02/06/17 04:30 INR 1.7 (0.9-1.2) H D 02/06/17 04:30 APTT 35.4 Seconds (25.6-37.1) 02/06/17 04:30 Assessment and Plan - Assessment and Plan (Free Text) Plan: - Swallow evaluation - pain control - Insentive spirometry - Continue care as per ICU and medical teams - Will follow
--- NOTE | 2017-02-06 13:34 | RAD ---
HISTORY: Sudden Hypoxemia COMPARISON: February 05, 2017. FINDINGS: LUNGS: Improved aeration of the lungs. PLEURA: Decrease in bilateral pleural effusions. CARDIOVASCULAR: Normal. OSSEOUS STRUCTURES: No significant abnormalities. VISUALIZED UPPER ABDOMEN: Normal. OTHER FINDINGS: Stable and satisfactory position of endotracheal tube. IMPRESSION: Decreased effusions, improved aeration of the lungs.
--- NOTE | 2017-02-06 13:52 | RAD ---
HISTORY: Intubated. COMPARISON: February 05, 2017. 19:35. FINDINGS: LUNGS: Lower lobe infiltrates are stable PLEURA: Decrease in pleural effusions. CARDIOVASCULAR: Normal. OSSEOUS STRUCTURES: No significant abnormalities. VISUALIZED UPPER ABDOMEN: Normal. OTHER FINDINGS: Stable position of support apparatus including endotracheal tube and nasogastric tube. IMPRESSION: Persistent infiltrates, decrease in bilateral pleural effusions. Stable position of support apparatus.
[2017-02-06] MEDS: Enoxaparin 60 mg Syringe SC SCH (21:47)
[2017-02-06] MEDS ORDERED: Digoxin 500 mcg/2ml (0.5 mg/2ml) Inj IVP ONE (23:30)
[2017-02-06] MEDS ORDERED: Chlorhexidine Gluconate 1 APPL/PKT TP ONE (23:33)
[2017-02-07] MEDS: metroNIDAZOLE 500mg/100ml NS 100 ML IVPB SCH ×3 (00:42→16:21)
[2017-02-07 05:28] LABS: BASO % 0.2 % (0.0-2.0); EOS # 0.1 K/uL (0.0-0.7); EOS % 0.6 % (0.0-4.0); HEMOGLOBIN 12.6 g/dL (12.0-18.0); LYMPH # 0.7 K/uL (1.0-4.3); LYMPH % 5.4 % (20.0-40.0); MEAN CELL VOLUME 95.4 fl (80.0-94.0); MEAN CORPUSCULAR HEMOGLOBIN 31.1 pg (27.0-31.0); MEAN CORPUSCULAR HGB CONC 32.6 g/dL (33.0-37.0); MEAN PLATELET VOLUME 7.9 fl (7.2-11.7); MONO # 1.2 K/uL (0.0-0.8); MONO % 8.8 % (0.0-10.0); NEUT # 11.6 K/uL (1.8-7.0); RBC 4.06 Mil/uL (4.40-5.90); RED CELL DISTRIBUTION WIDTH 14.9 % (11.5-14.5); WHITE BLOOD COUNT 13.7 K/uL (4.8-10.8)
[2017-02-07 05:49] LABS: ALBUMIN 2.3 g/dL (3.5-5.0); ALT/SGPT 42 U/L (21-72); AST/SGOT 35 U/L (17-59); BLOOD UREA NITROGEN 16 mg/dl (9-20); CALCIUM 8.2 mg/dL (8.4-10.2); GFR AFRICAN-AMERICAN > 60; GFR NON-AFRICAN AMERICAN > 60
--- NOTE | 2017-02-07 06:34 | CP.CCUPN ---
CCU Subjective - Physician Review Subjective (Free Text): Sleeping but easily arousable and non-distressed, still has some abdominal discomfort, afebrile without any further fever spikes, +nausea and vomited twice , NGT removed during extubation yesterday AM and re-inserted overnight, drained 500ml bilious fluid. Still in A Fib at 101/min. ROS: as above, no other pertinent negs or positives on 10+ system review obtainable. Other PMSFH: All recent nursing and physician documentation reviewed and no new information noted relevant to current problems. MAJOR IMPRESSIONS: 1. s/p EXLAP, with Sigmoid CA and resection 2. 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 Azotemia / Dehydration with Hypotension Post -op 4. Acute resp insuff post-op 5. Bibasilar pneumonitis PLAN: 1. NGT for gastric decompression. 2. BP improved, Lovenox started for persistent A fib and stroke prevention, rate control with prn Digoxin, will consider cardioselective Beta tawana therapy. 3. IVF hydration, I/Os reflect only 0.8L positive balance, remains on LR 200ml/hr. 4. Will need more K supplementation, check Mag/Phos. 5. Discuss with Surg team: type and timing of nutritional support. 6. Abx coverage as per ID. CCU Objective - Vital Signs / Intake & Output Vital Signs (Last 4 hours): Vital Signs Temp Pulse Resp BP Pulse Ox 02/07/17 06:00 97 H 32 H 113/70 97 02/07/17 04:00 99.0 F 98 H 28 H 121/65 91 L Intake and Output (Last 8hrs): Intake & Output 02/06/17 02/06/17 02/07/17 14:59 22:59 06:59 Intake Total 800 1800 Output Total 1000 800 Balance -200 1000 Intake: IV 800 1600 Intake, Piggyback 200 Output: Gastric Amount 150 500 Left Nares 500 Right 150 Urine 300 Urethral (Villanueva) 300 Stool 550 300 - Physical Exam Head: Positive for: Normocephalic Pupils: Positive for: PERRL Extroacular Muscles: Positive for: EOMI Mouth: Positive for: Moist Mucous Membranes Neck: Positive for: Normal Range of Motion. Negative for: JVD, Lymphadenopathy Respiratory/Chest: Positive for: Decreased Breath Sounds. Negative for: Accessory Muscle Use, Wheezes Cardiovascular: Positive for: Irregular Rhythm, Tachycardic. Negative for: Murmurs, Rub Abdomen: Positive for: Distention, Ostomy Tubes Lower Extremity: Positive for: NORMAL PULSES, Other (No further or recurrent mottling). Negative for: Edema, CALF TENDERNESS Neurological: Positive for: Motor Func Grossly Intact, Norm Deep Tendon Reflexes Skin: Positive for: Warm. Negative for: Rashes - Medications Active Medications: Active Medications Generic Name Dose Route Start Last Admin Trade Name Freq PRN Reason Stop Dose Admin Acetaminophen 650 mg 02/04/17 23:35 02/04/17 23:58 Tylenol 650 Mg Supp SD 650 mg Q4 PRN Administration Fever >100.4 F Albuterol Sulfate 2.5 mg 01/31/17 12:13 01/31/17 14:53 Albuterol 0.083% Inhal Barbara (2.5 Mg/3 Ml) Ud INH 2.5 mg RQ4 PRN Administration Shortness of Breath Albuterol/Ipratropium 3 ml 02/04/17 12:00 02/06/17 20:05 Duoneb 3 Mg/0.5 Mg (3 Ml) Ud INH 3 ml RQID TORRES Administration Enoxaparin Sodium 60 mg 02/06/17 21:00 02/06/17 21:47 Lovenox SC 60 mg Q12 TORRES Administration Protocol Metronidazole 100 mls @ 100 mls/hr 01/28/17 01:00 02/07/17 00:42 Flagyl 500mg/100ml Ns IVPB 100 mls/hr Q8 TORRES Administration Lactated Ringer's 1,000 mls @ 200 mls/hr 02/04/17 19:01 02/06/17 20:00 Lactated Ringer's IV 200 mls/hr .Q5H TORRES Administration Piperacillin Sod/Tazobactam 100 mls @ 100 mls/hr 02/06/17 01:00 02/07/17 00: 42 Sod 2.25 gm/ Sodium Chloride IVPB 100 mls/hr Q8 TORRES Administration Potassium Chloride 50 mls @ 50 mls/hr 02/07/17 07:00 Potassium Cl 10meq/50ml Sterile Water IVPB 02/07/17 10:59 Q1 TORRES Metoclopramide HCl 10 mg 02/06/17 21:00 02/07/17 00:49 Reglan IVP Not Given Q8 TORRES Ondansetron HCl 4 mg 01/28/17 21:01 02/06/17 17:09 Zofran Inj IVP 4 mg Q4H PRN Administration Nausea/Vomiting Pantoprazole Sodium 40 mg 02/03/17 09:00 02/06/17 09:22 Protonix Inj IVP 40 mg DAILY TORRES Administration - Patient Studies Lab Studies: Microbiology Studies 02/05/17 08:21 Gram Stain - Preliminary Trachasp Sputum Culture - Preliminary Gram Negative Tho Lab Studies 02/07/17 02/07/17 02/06/17 Range/Units 04:20 04:20 08:45 WBC 13.7 H (4.8-10.8) K/uL RBC 4.06 L (4.40-5.90) Mil/uL Hgb 12.6 (12.0-18.0) g/dL Hct 38.7 (35.0-51.0) % MCV 95.4 H (80.0-94.0) fl MCH 31.1 H (27.0-31.0) pg MCHC 32.6 L (33.0-37.0) g/dL RDW 14.9 H (11.5-14.5) % Plt Count 250 (130-400) K/uL MPV 7.9 (7.2-11.7) fl Neut % (Auto) 85.0 H (50.0-75.0) % Lymph % (Auto) 5.4 L (20.0-40.0) % Trinity % (Auto) 8.8 (0.0-10.0) % Eos % (Auto) 0.6 (0.0-4.0) % Baso % (Auto) 0.2 (0.0-2.0) % Neut # 11.6 H (1.8-7.0) K/uL Lymph # 0.7 L (1.0-4.3) K/uL Trinity # 1.2 H (0.0-0.8) K/uL Eos # 0.1 (0.0-0.7) K/uL Baso # 0.0 (0.0-0.2) K/uL pCO2 36 (35-45) mm/Hg pO2 93 (80-100) mm/Hg HCO3 24.8 (21-28) mmol/L ABG pH 7.43 (7.35-7.45) ABG Total CO2 25.0 (22-28) mmol/L ABG O2 Saturation 98.2 H (95-98) % ABG Base Excess -0.1 (-2.0-3.0) mmol/L Rhett Test Yes ABG Potassium 3.0 L (3.6-5.2) mmol/L A-a O2 Difference 219.0 mm/Hg Sodium 141 139.0 (132-148) mmol/L Chloride 110 H 107.0 (98-107) mmol/L Glucose 119 H (75-110) mg/dL Lactate 1.4 (0.7-2.1) mmol/L Vent Mode Cpap FiO2 50.0 % Pressure Support 8 CPAP 5 Potassium 2.8 L (3.6-5.0) MMOL/L Carbon Dioxide 22 (22-30) mmol/L Anion Gap 12 (10-20) BUN 16 (9-20) mg/dl Creatinine 1.0 (0.8-1.5) mg/dL Est GFR ( Amer) > 60 Est GFR (Non-Af Amer) > 60 Random Glucose 104 (75-110) mg/dL Lactic Acid (0.7-2.1) MMOL/L Calcium 8.2 L (8.4-10.2) mg/dL Total Bilirubin 0.7 (0.2-1.3) mg/dl AST 35 (17-59) U/L ALT 42 (21-72) U/L Alkaline Phosphatase 40 (38-126) U/L Total Protein 4.6 L (6.3-8.2) G/DL Albumin 2.3 L (3.5-5.0) g/dL Globulin 2.2 (2.2-3.9) gm/dL Albumin/Globulin Ratio 1.0 (1.0-2.1) Arterial Blood Potassium 3.0 L (3.6-5.2) mmol/L 02/06/17 Range/Units 05:30 WBC (4.8-10.8) K/uL RBC (4.40-5.90) Mil/uL Hgb (12.0-18.0) g/dL Hct (35.0-51.0) % MCV (80.0-94.0) fl MCH (27.0-31.0) pg MCHC (33.0-37.0) g/dL RDW (11.5-14.5) % Plt Count (130-400) K/uL MPV (7.2-11.7) fl Neut % (Auto) (50.0-75.0) % Lymph % (Auto) (20.0-40.0) % Trinity % (Auto) (0.0-10.0) % Eos % (Auto) (0.0-4.0) % Baso % (Auto) (0.0-2.0) % Neut # (1.8-7.0) K/uL Lymph # (1.0-4.3) K/uL Trinity # (0.0-0.8) K/uL Eos # (0.0-0.7) K/uL Baso # (0.0-0.2) K/uL pCO2 (35-45) mm/Hg pO2 (80-100) mm/Hg HCO3 (21-28) mmol/L ABG pH (7.35-7.45) ABG Total CO2 (22-28) mmol/L ABG O2 Saturation (95-98) % ABG Base Excess (-2.0-3.0) mmol/L Rhett Test ABG Potassium (3.6-5.2) mmol/L A-a O2 Difference mm/Hg Sodium (132-148) mmol/L Chloride (98-107) mmol/L Glucose (75-110) mg/dL Lactate (0.7-2.1) mmol/L Vent Mode FiO2 % Pressure Support CPAP Potassium (3.6-5.0) MMOL/L Carbon Dioxide (22-30) mmol/L Anion Gap (10-20) BUN (9-20) mg/dl Creatinine (0.8-1.5) mg/dL Est GFR ( Amer) Est GFR (Non-Af Amer) Random Glucose (75-110) mg/dL Lactic Acid 1.9 (0.7-2.1) MMOL/L Calcium (8.4-10.2) mg/dL Total Bilirubin (0.2-1.3) mg/dl AST (17-59) U/L ALT (21-72) U/L Alkaline Phosphatase (38-126) U/L Total Protein (6.3-8.2) G/DL Albumin (3.5-5.0) g/dL Globulin (2.2-3.9) gm/dL Albumin/Globulin Ratio (1.0-2.1) Arterial Blood Potassium (3.6-5.2) mmol/L Laboratory Results - last 24 hr 02/06/17 02/06/17 02/07/17 05:30 08:45 04:20 WBC 13.7 H RBC 4.06 L Hgb 12.6 Hct 38.7 MCV 95.4 H MCH 31.1 H MCHC 32.6 L RDW 14.9 H Plt Count 250 MPV 7.9 Neut % (Auto) 85.0 H Lymph % (Auto) 5.4 L Trinity % (Auto) 8.8 Eos % (Auto) 0.6 Baso % (Auto) 0.2 Neut # 11.6 H Lymph # 0.7 L Trinity # 1.2 H Eos # 0.1 Baso # 0.0 pCO2 36 pO2 93 HCO3 24.8 ABG pH 7.43 ABG Total CO2 25.0 ABG O2 Saturation 98.2 H ABG Base Excess -0.1 Rhett Test Yes ABG Potassium 3.0 L A-a O2 Difference 219.0 Sodium 139.0 Chloride 107.0 Glucose 119 H Lactate 1.4 Vent Mode Cpap FiO2 50.0 Pressure Support 8 CPAP 5 Potassium Carbon Dioxide Anion Gap BUN Creatinine Est GFR ( Amer) Est GFR (Non-Af Amer) Random Glucose Lactic Acid 1.9 Calcium Total Bilirubin AST ALT Alkaline Phosphatase Total Protein Albumin Globulin Albumin/Globulin Ratio Arterial Blood Potassium 3.0 L 02/07/17 04:20 WBC RBC Hgb Hct MCV MCH MCHC RDW Plt Count MPV Neut % (Auto) Lymph % (Auto) Trinity % (Auto) Eos % (Auto) Baso % (Auto) Neut # Lymph # Trinity # Eos # Baso # pCO2 pO2 HCO3 ABG pH ABG Total CO2 ABG O2 Saturation ABG Base Excess Rhett Test ABG Potassium A-a O2 Difference Sodium 141 Chloride 110 H Glucose Lactate Vent Mode FiO2 Pressure Support CPAP Potassium 2.8 L Carbon Dioxide 22 Anion Gap 12 BUN 16 Creatinine 1.0 Est GFR ( Amer) > 60 Est GFR (Non-Af Amer) > 60 Random Glucose 104 Lactic Acid Calcium 8.2 L Total Bilirubin 0.7 AST 35 ALT 42 Alkaline Phosphatase 40 Total Protein 4.6 L Albumin 2.3 L Globulin 2.2 Albumin/Globulin Ratio 1.0 Arterial Blood Potassium Review of Systems - Review of Systems Review of Systems: As above. Critical Care Progress Note - Nutrition Nutrition: Nutrition Category Date Time Status NPO Diet [DIET] Diets 02/01/17 Breakfast Active
[2017-02-07] MEDS: Albuterol-Ipratrop 3 mg / 0.5 (3 ml) UD INH SCH ×4 (07:09→19:27)
--- NOTE | 2017-02-07 07:30 | CP.PCM.PN ---
<Jarvis Vazquez - Last Filed: 02/07/17 10:35> Subjective - Date & Time of Evaluation Date of Evaluation: 02/07/17 Time of Evaluation: 07:27 - Subjective Subjective: Surgery: Dr. Castillo Pt seen and examined. Overnight pt became nauseous w. bilious emesis. NGT was placed. This morning pt is resting comfortably in bed. He states that he is thirsty and would like to drink. Pain at incision site is controlled. Objective - Vital Signs/Intake and Output Vital Signs (last 24 hours): Temp Pulse Resp BP Pulse Ox 99.0 F 97 H 32 H 113/70 97 02/07/17 04:00 02/07/17 06:00 02/07/17 06:00 02/07/17 06:00 02/07/17 06:00 Intake and Output: 02/07/17 02/07/17 06:59 18:59 Intake Total 2600 Output Total 850 Balance 1750 - Medications Medications: Current Medications Acetaminophen (Tylenol 650 Mg Supp) 650 mg AR Q4 PRN PRN Reason: Fever >100.4 F Last Admin: 02/04/17 23:58 Dose: 650 mg Albuterol Sulfate (Albuterol 0.083% Inhal Barbara (2.5 Mg/3 Ml) Ud) 2.5 mg INH RQ4 PRN PRN Reason: Shortness of Breath Last Admin: 01/31/17 14:53 Dose: 2.5 mg Albuterol/Ipratropium (Duoneb 3 Mg/0.5 Mg (3 Ml) Ud) 3 ml INH RQID TORRES Last Admin: 02/07/17 07:09 Dose: 3 ml Enoxaparin Sodium (Lovenox) 60 mg SC Q12 TORRES PRN Reason: Protocol Last Admin: 02/06/17 21:47 Dose: 60 mg Metronidazole (Flagyl 500mg/100ml Ns) 100 mls @ 100 mls/hr IVPB Q8 [facility] Last Admin: 02/07/17 00:42 Dose: 100 mls/hr Lactated Ringer's (Lactated Ringer's) 1,000 mls @ 200 mls/hr IV .Q5H [facility] Last Admin: 02/06/17 20:00 Dose: 200 mls/hr Piperacillin Sod/Tazobactam (Sod 2.25 gm/ Sodium Chloride) 100 mls @ 100 mls/ hr IVPB Q8 [facility] Last Admin: 02/07/17 00:42 Dose: 100 mls/hr Potassium Chloride (Potassium Cl 10meq/50ml Sterile Water) 50 mls @ 50 mls/hr IVPB Q1 [facility] Stop: 02/07/17 10:59 Metoclopramide HCl (Reglan) 10 mg IVP Q8 [facility] Last Admin: 02/07/17 00:49 Dose: Not Given Ondansetron HCl (Zofran Inj) 4 mg IVP Q4H PRN PRN Reason: Nausea/Vomiting Last Admin: 02/06/17 17:09 Dose: 4 mg Pantoprazole Sodium (Protonix Inj) 40 mg IVP DAILY [facility] Last Admin: 02/06/17 09:22 Dose: 40 mg - Labs Labs: 02/07/17 04:20 02/07/17 04:20 PT 18.1 Seconds (9.8-13.1) H 02/06/17 04:30 INR 1.7 (0.9-1.2) H D 02/06/17 04:30 APTT 35.4 Seconds (25.6-37.1) 02/06/17 04:30 - Constitutional Appears: Non-toxic, No Acute Distress - Head Exam Head Exam: ATRAUMATIC, NORMOCEPHALIC - Eye Exam Eye Exam: EOMI. absent: Scleral icterus - ENT Exam ENT Exam: Mucous Membranes Moist - Neck Exam Neck Exam: Full ROM - Respiratory Exam Respiratory Exam: NORMAL BREATHING PATTERN. absent: Accessory Muscle Use, Respiratory Distress - GI/Abdominal Exam GI & Abdominal Exam: Soft, Tenderness (Sue-incisional ). absent: Distended, Firm, Guarding, Rigid, Rebound Additional comments: Stoma R side: pink and patent - Extremities Exam Extremities Exam: absent: Calf Tenderness, Pedal Edema - Neurological Exam Neurological Exam: Alert, Awake, Oriented x3 Assessment and Plan - Assessment and Plan (Free Text) Assessment: 71M w. recto-sigmoid mass, s/p Champion's, POD#3 -If pt passes swallow eval, will consider starting CLD if nausea is resolved, keep NGT in place in meantime -Stoma: 400cc/12hr, loose brown stool, continue to monitor -hypokalemia: replete PRN -pain management -OOB to chair w. assistance -PT -encourage IS use -will d/w attending George PGY3 <Scot Castillo - Last Filed: 02/07/17 10:40> Subjective - Date & Time of Evaluation Time of Evaluation: 09:35 - Subjective Subjective: Patient was seen and examined at the bedside. Agree with resident's note above. Objective - Vital Signs/Intake and Output Vital Signs (last 24 hours): Temp Pulse Resp BP Pulse Ox 98.3 F 96 H 32 H 111/54 L 99 02/07/17 08:00 02/07/17 08:00 02/07/17 06:00 02/07/17 08:00 02/07/17 08:00 Intake and Output: 02/07/17 02/07/17 06:59 18:59 Intake Total 2600 Output Total 850 Balance 1750 - Medications Medications: Current Medications Acetaminophen (Tylenol 650 Mg Supp) 650 mg AR Q4 PRN PRN Reason: Fever >100.4 F Last Admin: 02/04/17 23:58 Dose: 650 mg Albuterol Sulfate (Albuterol 0.083% Inhal Barbara (2.5 Mg/3 Ml) Ud) 2.5 mg INH RQ4 PRN PRN Reason: Shortness of Breath Last Admin: 01/31/17 14:53 Dose: 2.5 mg Albuterol/Ipratropium (Duoneb 3 Mg/0.5 Mg (3 Ml) Ud) 3 ml INH RQID TORRES Last Admin: 02/07/17 07:09 Dose: 3 ml Enoxaparin Sodium (Lovenox) 60 mg SC Q12 [facility]ORRES PRN Reason: Protocol Last Admin: 02/07/17 08:27 Dose: 60 mg Metronidazole (Flagyl 500mg/100ml Ns) 100 mls @ 100 mls/hr IVPB Q8 [facility] Last Admin: 02/07/17 10:09 Dose: 100 mls/hr Lactated Ringer's (Lactated Ringer's) 1,000 mls @ 200 mls/hr IV .Q5H [facility] Last Admin: 02/06/17 20:00 Dose: 200 mls/hr Piperacillin Sod/Tazobactam (Sod 2.25 gm/ Sodium Chloride) 100 mls @ 100 mls/ hr IVPB Q8 [facility] Last Admin: 02/07/17 00:42 Dose: 100 mls/hr Potassium Chloride (Potassium Cl 10meq/50ml Sterile Water) 50 mls @ 50 mls/hr IVPB Q1 [facility] Stop: 02/07/17 10:59 Last Admin: 02/07/17 09:26 Dose: 50 mls/hr Potassium Chloride (Potassium Cl 10meq/50ml Sterile Water) 50 mls @ 50 mls/hr IVPB Q1 [facility] Stop: 02/07/17 11:59 Metoclopramide HCl (Reglan) 10 mg IVP Q8 [facility] Last Admin: 02/07/17 08:37 Dose: 10 mg Ondansetron HCl (Zofran Inj) 4 mg IVP Q4H PRN PRN Reason: Nausea/Vomiting Last Admin: 02/06/17 17:09 Dose: 4 mg Pantoprazole Sodium (Protonix Inj) 40 mg IVP DAILY [facility] Last Admin: 02/07/17 08:25 Dose: 40 mg - Labs Labs: 02/07/17 04:20 02/07/17 04:20 PT 18.1 Seconds (9.8-13.1) H 02/06/17 04:30 INR 1.7 (0.9-1.2) H D 02/06/17 04:30 APTT 35.4 Seconds (25.6-37.1) 02/06/17 04:30 Assessment and Plan - Assessment and Plan (Free Text) Plan: - IV fluids - pain control - DVT ppx - Repeat labs in am - Will follow
[2017-02-07] MEDS ORDERED: Magnesium Sulfate 1 gm in D5W 1 GM/100 ML BAG IVPB ONE (07:57)
[2017-02-07] MEDS: Potassium CL 10 MEQ/50 ML 50 ML IVPB SCH ×8 (08:24→17:01)
[2017-02-07 08:26] LABS: MAGNESIUM 1.9 MG/DL (1.6-2.3)
[2017-02-07] MEDS: Enoxaparin 60 mg Syringe SC SCH ×2 (08:27→21:55)
[2017-02-07] MEDS ORDERED: Sodium Chloride 3% for Inhalation 4 ML VIAL.NEB IH PRN ×2 (08:48→19:50)
--- NOTE | 2017-02-07 08:59 | CP.PCM.PN ---
Subjective - Date & Time of Evaluation Date of Evaluation: 02/07/17 Time of Evaluation: 08:56 - Subjective Subjective: Seen on morning rounds in ICU. Interim entries in EMR reviewed. Awake and alert, in no acute distress. Vital signs have been stable, remains afebrile. Had NGT re-inserted overnight because of vomiting. Loose, watery dark stool in colostomy bag. Hypokalemic, supplements ordered. No CXR yet this morning. Talkative, follows commands. Purulent sputum present in bedside basin. Gram stain of initial specimen has heavy growth of Gm negative rods. No dullness on percussion of the anterior chest wall. Dependant edema ++, no cyanosis. ++ rhonchi in LLL, no audibel wheeze or bronchial breathing. Abdomen is sl tense, krystal-incisional tenderness +, hypo BS. A line presently being removed; BP stable w/o need for pressors. PCXR awaited this AM. Follow up on sputum culture. A repeat has been requested. WBC has increased; will discuss with ID. K supplements ongoing. Incentive spirometry. Maybe we can start low volume feedings through the NGT initially? Objective - Vital Signs/Intake and Output Vital Signs (last 24 hours): Temp Pulse Resp BP Pulse Ox 98.3 F 96 H 32 H 111/54 L 99 02/07/17 08:00 02/07/17 08:00 02/07/17 06:00 02/07/17 08:00 02/07/17 08:00 Intake and Output: 02/06/17 02/07/17 23:59 11:59 Intake Total 800 1800 Output Total 1000 800 Balance -200 1000 - Medications Medications: Current Medications Acetaminophen (Tylenol 650 Mg Supp) 650 mg CA Q4 PRN PRN Reason: Fever >100.4 F Last Admin: 02/04/17 23:58 Dose: 650 mg Albuterol Sulfate (Albuterol 0.083% Inhal Barbara (2.5 Mg/3 Ml) Ud) 2.5 mg INH RQ4 PRN PRN Reason: Shortness of Breath Last Admin: 01/31/17 14:53 Dose: 2.5 mg Albuterol/Ipratropium (Duoneb 3 Mg/0.5 Mg (3 Ml) Ud) 3 ml INH RQID TORRES Last Admin: 02/07/17 07:09 Dose: 3 ml Enoxaparin Sodium (Lovenox) 60 mg SC Q12 TORRES PRN Reason: Protocol Last Admin: 02/07/17 08:27 Dose: 60 mg Metronidazole (Flagyl 500mg/100ml Ns) 100 mls @ 100 mls/hr IVPB Q8 [facility] Last Admin: 02/07/17 00:42 Dose: 100 mls/hr Lactated Ringer's (Lactated Ringer's) 1,000 mls @ 200 mls/hr IV .Q5H [facility] Last Admin: 02/06/17 20:00 Dose: 200 mls/hr Piperacillin Sod/Tazobactam (Sod 2.25 gm/ Sodium Chloride) 100 mls @ 100 mls/ hr IVPB Q8 [facility] Last Admin: 02/07/17 00:42 Dose: 100 mls/hr Potassium Chloride (Potassium Cl 10meq/50ml Sterile Water) 50 mls @ 50 mls/hr IVPB Q1 [facility] Stop: 02/07/17 10:59 Last Admin: 02/07/17 08:24 Dose: 50 mls/hr Potassium Chloride (Potassium Cl 10meq/50ml Sterile Water) 50 mls @ 50 mls/hr IVPB Q1 [facility] Stop: 02/07/17 11:59 Metoclopramide HCl (Reglan) 10 mg IVP Q8 [facility] Last Admin: 02/07/17 08:37 Dose: 10 mg Ondansetron HCl (Zofran Inj) 4 mg IVP Q4H PRN PRN Reason: Nausea/Vomiting Last Admin: 02/06/17 17:09 Dose: 4 mg Pantoprazole Sodium (Protonix Inj) 40 mg IVP DAILY [facility] Last Admin: 02/07/17 08:25 Dose: 40 mg - Labs Labs: 02/07/17 04:20 02/07/17 04:20 PT 18.1 Seconds (9.8-13.1) H 02/06/17 04:30 INR 1.7 (0.9-1.2) H D 02/06/17 04:30 APTT 35.4 Seconds (25.6-37.1) 02/06/17 04:30 Assessment and Plan (1) Colon carcinoma Status: Acute (2) Large bowel obstruction Status: Resolved (3) Pleural effusion Status: Acute (4) Atelectasis Status: Acute (5) COPD (chronic obstructive pulmonary disease) Status: Chronic (6) Acute kidney injury Status: Resolved (7) Hypoalbuminemia Status: Acute
[2017-02-07] MEDS ORDERED: Potassium Chl 40 mEq in D5-1/2 1,000 ML IV SCH ×2 (11:15→19:50)
--- NOTE | 2017-02-07 11:41 | CP.PCM.PN ---
Subjective - Date & Time of Evaluation Date of Evaluation: 02/07/17 Time of Evaluation: 10:30 - Subjective Subjective: No fever + NGT with bilious drainage Colostomy bag with dark green liquid output abd pain controlled no CP no SOB Objective - Vital Signs/Intake and Output Vital Signs (last 24 hours): Temp Pulse Resp BP Pulse Ox 98.3 F 96 H 32 H 111/54 L 99 02/07/17 08:00 02/07/17 08:00 02/07/17 06:00 02/07/17 08:00 02/07/17 08:00 Intake and Output: 02/07/17 02/07/17 06:59 18:59 Intake Total 2600 Output Total 850 Balance 1750 - Medications Medications: Current Medications Acetaminophen (Tylenol 650 Mg Supp) 650 mg TN Q4 PRN PRN Reason: Fever >100.4 F Last Admin: 02/04/17 23:58 Dose: 650 mg Albuterol Sulfate (Albuterol 0.083% Inhal Barbara (2.5 Mg/3 Ml) Ud) 2.5 mg INH RQ4 PRN PRN Reason: Shortness of Breath Last Admin: 01/31/17 14:53 Dose: 2.5 mg Albuterol/Ipratropium (Duoneb 3 Mg/0.5 Mg (3 Ml) Ud) 3 ml INH RQID [facility] Last Admin: 02/07/17 11:11 Dose: 3 ml Enoxaparin Sodium (Lovenox) 60 mg SC Q12 [facility] PRN Reason: Protocol Last Admin: 02/07/17 08:27 Dose: 60 mg Metronidazole (Flagyl 500mg/100ml Ns) 100 mls @ 100 mls/hr IVPB Q8 [facility] Last Admin: 02/07/17 10:09 Dose: 100 mls/hr Piperacillin Sod/Tazobactam (Sod 2.25 gm/ Sodium Chloride) 100 mls @ 100 mls/ hr IVPB Q8 [facility] Last Admin: 02/07/17 11:07 Dose: 100 mls/hr Potassium Chloride (Potassium Cl 10meq/50ml Sterile Water) 50 mls @ 50 mls/hr IVPB Q1 [facility] Stop: 02/07/17 11:59 Potassium Chloride/Dextrose/Sod Cl (Potassium Chl 40 Meq In D5-1/2ns) 1,000 mls @ 50 mls/hr IV .Q20H [facility] Stop: 02/08/17 11:15 Levofloxacin/Dextrose (Levaquin 750mg) 750 mg in 150 mls @ 150 mls/hr IVPB DAILY [facility] Metoclopramide HCl (Reglan) 10 mg IVP Q8 [facility] Last Admin: 02/07/17 08:37 Dose: 10 mg Ondansetron HCl (Zofran Inj) 4 mg IVP Q4H PRN PRN Reason: Nausea/Vomiting Last Admin: 02/06/17 17:09 Dose: 4 mg Pantoprazole Sodium (Protonix Inj) 40 mg IVP DAILY [facility] Last Admin: 02/07/17 08:25 Dose: 40 mg - Labs Labs: 02/07/17 04:20 02/07/17 04:20 PT 18.1 Seconds (9.8-13.1) H 02/06/17 04:30 INR 1.7 (0.9-1.2) H D 02/06/17 04:30 APTT 35.4 Seconds (25.6-37.1) 02/06/17 04:30 - Constitutional Appears: No Acute Distress - Head Exam Head Exam: NORMAL INSPECTION, NORMOCEPHALIC - Eye Exam Eye Exam: EOMI, Normal appearance Pupil Exam: NORMAL ACCOMODATION - ENT Exam ENT Exam: Mucous Membranes Dry, Normal External Ear Exam - Neck Exam Neck Exam: Full ROM. absent: Meningismus - Respiratory Exam Respiratory Exam: Rales, Rhonchi Additional comments: on ventimask - GI/Abdominal Exam GI & Abdominal Exam: Soft, Tenderness, Normal Bowel Sounds Additional comments: Colostomy vida intact , wound looks clean greenish , liquid drainage + NGT - Extremities Exam Extremities Exam: Full ROM, Normal Capillary Refill, Pedal Edema. absent: Calf Tenderness Additional comments: hand edema right groin central line - Back Exam Back Exam: absent: CVA tenderness (L) - Neurological Exam Neurological Exam: Alert, Awake, CN II-XII Intact, Oriented x3 Neuro motor strength exam: Left Upper Extremity: 5, Right Upper Extremity: 5, Left Lower Extremity: 5, Right Lower Extremity: 5 - Psychiatric Exam Psychiatric exam: Normal Affect, Normal Mood - Skin Skin Exam: Dry, Normal Color, Warm Assessment and Plan (1) Rectal mass Status: Acute (2) SBO (small bowel obstruction) Status: Acute (3) COPD (chronic obstructive pulmonary disease) Status: Chronic (4) Aspiration pneumonia Status: Acute (5) DVT prophylaxis Status: Acute (6) Pleural effusion Status: Acute - Assessment and Plan (Free Text) Assessment: 71 y/o gent with Hx of COPD, came in bec of 2 weeks of constipation with no bowel movement ,abdominal discomfort and vomiting. CT of chest and Abd showed dilated large bowel loops up to the proximal rectum and suspicious for obstructing circumferential rectal mass versus focal stricture GI and surgery consulted. Patient admitted to med/surg kept NPO , started on IVF ,NGT placed and stool softeners and laxatives given with no improvement He underwent flex sigmoidoscopy that showed rectal stricture. Taken to OR 02/04 and underwent exploratory laparatomy with sigmoid resection and colostomy to [facility] Transferred to ICU post op for monitoring. He developed hypovolemixc shock, Afib with RVR and mottling of lower extremities postop. At present, extubated this am, off pressors. 1. Hypovolemic shock, resolved received 8 L fluid post op with minimal urinary output 20 ml/hr Pt was started on levophed drip- now off lactic acid trended down and BP improved. Mottling to lower extremities resolved showing improved tissue perfusion received albumin IV 2. Acute Hypoxemic respiratory failure, resolved Pt remained intubated post op - extubated 02/06 Pulmonary on consult with Dr. Danielson following 3. Afib with RVR episode received cardizem and digoxin 4.Acute renal failure, improving oliguric with 20 ml/hr output continue IVF Close monitoring 5. Intestinal obstruction most likely secondary to Sigmoid CA Presented with No BM for 1-2 wks, + vomiting, + abdominal distention, no flatus CT of abd showed air fluid levels, distended large bowel loops up to the proximal rectum with suspicious obstructing rectal mass or stricture Surgery and GI consulted stool softener, laxatives given ,Rectal tube and NGT placed with no improvement s/p flex sigmoidoscopy showing long stricture. 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 waiting pathology report Good output from colostomy noted , bowel sounds present Surgical incision clean and intact, abdomen tender and slightly distended Continue pain management surgery following On Zosyn and Flagyl empirically Continue IVF 6. Hypokalemia sec to NPO status and loss from drainage of large amount of liquid into Colostomy replace with KCl runs and Kphos, Magnesium IV also given 7. COPD (chronic obstructive pulmonary disease) chronic , stable Duoneb prn 8.Bilateral pneumonia / suspected Aspiration pneumonia Acute RLL focal airspace consolidation noted seen on CT of chest CXR today showed increased bilateral infiltrates and pleural effusion on IV zosyn and Flagyl. Sputum c/s Stenophomonas maltophila - IV Levaquin added ID consulted [id number] DVT prophylaxis Acute Lovenox
[2017-02-07] MEDS ORDERED: levoFLOXacin 750 mg in D5W 150 ML BAG IVPB SCH (11:45)
[2017-02-07] MEDS ORDERED: levoFLOXacin 750 mg in D5W 750 MG/150 ML BAG IVPB SCH (11:45)
--- NOTE | 2017-02-07 12:07 | RAD ---
HISTORY: Follow-up pleural effusions COMPARISON: Multiple serial examinations preceding the most recent study: February 06, 2017. FINDINGS: LUNGS: Worsening bilateral infiltrates. PLEURA: Increasing bilateral pleural effusions CARDIOVASCULAR: Normal. OSSEOUS STRUCTURES: No significant abnormalities. VISUALIZED UPPER ABDOMEN: Normal. OTHER FINDINGS: Removal of support apparatus since the prior study: The patient has been extubated. Stable position of nasogastric tube. IMPRESSION: Perception of increasing infiltrates and pleural effusions. In part, this may be positional. Otherwise no interval change.
--- NOTE | 2017-02-07 13:09 | CP.PCM.PN ---
Subjective - Date & Time of Evaluation Date of Evaluation: 02/07/17 Time of Evaluation: 13:10 - Subjective Subjective: no overnight events Objective - Vital Signs/Intake and Output Vital Signs (last 24 hours): Temp Pulse Resp BP Pulse Ox 98.3 F 103 H 32 H 133/62 99 02/07/17 12:00 02/07/17 12:00 02/07/17 06:00 02/07/17 12:00 02/07/17 12:00 Intake and Output: 02/07/17 02/07/17 06:59 18:59 Intake Total 2600 350 Output Total 850 Balance 1750 350 - Medications Medications: Current Medications Acetaminophen (Tylenol 650 Mg Supp) 650 mg NE Q4 PRN PRN Reason: Fever >100.4 F Last Admin: 02/04/17 23:58 Dose: 650 mg Albuterol Sulfate (Albuterol 0.083% Inhal Barbara (2.5 Mg/3 Ml) Ud) 2.5 mg INH RQ4 PRN PRN Reason: Shortness of Breath Last Admin: 01/31/17 14:53 Dose: 2.5 mg Albuterol/Ipratropium (Duoneb 3 Mg/0.5 Mg (3 Ml) Ud) 3 ml INH RQID [facility] Last Admin: 02/07/17 11:11 Dose: 3 ml Enoxaparin Sodium (Lovenox) 60 mg SC Q12 [facility] PRN Reason: Protocol Last Admin: 02/07/17 08:27 Dose: 60 mg Metronidazole (Flagyl 500mg/100ml Ns) 100 mls @ 100 mls/hr IVPB Q8 [facility] Last Admin: 02/07/17 10:09 Dose: 100 mls/hr Piperacillin Sod/Tazobactam (Sod 2.25 gm/ Sodium Chloride) 100 mls @ 100 mls/ hr IVPB Q8 [facility] Last Admin: 02/07/17 11:07 Dose: 100 mls/hr Potassium Chloride/Dextrose/Sod Cl (Potassium Chl 40 Meq In D5-1/2ns) 1,000 mls @ 50 mls/hr IV .Q20H [facility] Stop: 02/08/17 11:15 Levofloxacin/Dextrose (Levaquin 750mg) 750 mg in 150 mls @ 150 mls/hr IVPB DAILY [facility] Metoclopramide HCl (Reglan) 10 mg IVP Q8 [facility] Last Admin: 02/07/17 08:37 Dose: 10 mg Ondansetron HCl (Zofran Inj) 4 mg IVP Q4H PRN PRN Reason: Nausea/Vomiting Last Admin: 02/06/17 17:09 Dose: 4 mg Pantoprazole Sodium (Protonix Inj) 40 mg IVP DAILY [facility] Last Admin: 02/07/17 08:25 Dose: 40 mg - Labs Labs: 02/07/17 04:20 02/07/17 04:20 PT 18.1 Seconds (9.8-13.1) H 02/06/17 04:30 INR 1.7 (0.9-1.2) H D 02/06/17 04:30 APTT 35.4 Seconds (25.6-37.1) 02/06/17 04:30 - GI/Abdominal Exam GI & Abdominal Exam: Soft, Normal Bowel Sounds Assessment and Plan - Assessment and Plan (Free Text) Assessment: 71 yo male with colon mass await path post op care
[2017-02-07 14:59] LABS: BLOOD UREA NITROGEN 17 mg/dl (9-20); GFR AFRICAN-AMERICAN > 60; GFR NON-AFRICAN AMERICAN > 60
[2017-02-07] MEDS ORDERED: Potassium Phosphate 15 MMOLE in Dextrose 5% In Water 250 ML IV ONE (16:07)
[2017-02-07] MEDS ORDERED: Albuterol 0.083% Inhal Sol (2.5 mg/3 mL) UD INH PRN (19:50)
[2017-02-07] MEDS ORDERED: Digoxin 500 mcg/2ml (0.5 mg/2ml) Inj IVP ONE (19:50)
[2017-02-08] MEDS: metroNIDAZOLE 500mg/100ml NS 100 ML IVPB SCH ×3 (00:02→17:00)
[2017-02-08 06:28] LABS: BASO % 0.4 % (0.0-2.0); EOS # 0.2 K/uL (0.0-0.7); HEMOGLOBIN 11.9 g/dL (12.0-18.0); LYMPH # 0.8 K/uL (1.0-4.3); LYMPH % 8.1 % (20.0-40.0); MEAN CELL VOLUME 95.1 fl (80.0-94.0); MEAN CORPUSCULAR HEMOGLOBIN 30.8 pg (27.0-31.0); MEAN CORPUSCULAR HGB CONC 32.4 g/dL (33.0-37.0); MEAN PLATELET VOLUME 7.6 fl (7.2-11.7); MONO # 1.1 K/uL (0.0-0.8); MONO % 10.9 % (0.0-10.0); NEUT # 8.1 K/uL (1.8-7.0); NEUT % 78.6 % (50.0-75.0); NRBC % 0.1 % (0.0-0.0); PLATELET COUNT 256 K/uL (130-400); RBC 3.87 Mil/uL (4.40-5.90); RED CELL DISTRIBUTION WIDTH 14.6 % (11.5-14.5); WHITE BLOOD COUNT 10.4 K/uL (4.8-10.8)
[2017-02-08 06:33] LABS: ALBUMIN 2.3 g/dL (3.5-5.0); ALT/SGPT 36 U/L (21-72); AST/SGOT 25 U/L (17-59); BLOOD UREA NITROGEN 15 mg/dl (9-20); CALCIUM 7.8 mg/dL (8.4-10.2); GFR AFRICAN-AMERICAN > 60; GFR NON-AFRICAN AMERICAN > 60; MAGNESIUM 1.9 MG/DL (1.6-2.3)
[2017-02-08] MEDS: Albuterol-Ipratrop 3 mg / 0.5 (3 ml) UD INH SCH ×4 (08:30→19:20)
[2017-02-08] MEDS ORDERED: levoFLOXacin 750 mg in D5W 750 MG/150 ML BAG IVPB SCH (09:00)
[2017-02-08] MEDS: Enoxaparin 60 mg Syringe SC SCH ×2 (10:02→20:42)
[2017-02-08] MEDS: Potassium CL 10 MEQ/50 ML 50 ML IVPB SCH ×12 (10:05→16:30)
--- NOTE | 2017-02-08 10:34 | CP.CCUPN ---
CCU Subjective - Physician Review Subjective (Free Text): Sleeping, easily arousable, remains non-distressed, still states he feels hungry , afebrile without any further fever spikes, NGT drained 750ml bilious fluid. Still in A Fib at 103/min. Feels weak, but no focal motor deficits. Liquid brown stool output from ostomy decreasing. ROS: as above, no other pertinent negs or positives on 10+ system review obtainable. Other PMSFH: All recent nursing and physician documentation reviewed and no new information noted relevant to current problems. MAJOR IMPRESSIONS: 1. s/p EXLAP, with Sigmoid CA and resection 2. 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 Azotemia / Dehydration with Hypotension Post -op 4. Acute resp insuff post-op 5. Bibasilar pneumonitis PLAN: 1. NGT for ongoing gastric decompression. 2. Lovenox started for persistent A fib and stroke prevention, rate control with prn Digoxin, will consider cardioselective Beta tawana therapy. 3. Generalized anasarca noted, IF rate decrease and prn Lasix ( so far only 1 dose given yesterday) if he does not start mobilizing 3rd space fluids himself. 4. Will need more K supplementation, as well as Mag/Phos. Total K to be given today will amount to at least 120 MEQ. 5. Discuss with Surg team: type and timing of nutritional support. 6. Abx coverage as per ID. CCU Objective - Vital Signs / Intake & Output Vital Signs (Last 4 hours): Vital Signs Temp Pulse Resp BP Pulse Ox 02/08/17 08:00 98.8 F 97 H 19 111/64 95 Intake and Output (Last 8hrs): Intake & Output 02/07/17 02/08/17 02/08/17 22:59 06:59 14:59 Intake Total 1436 550 Output Total 4075 1275 Balance -2639 -725 Intake: IV 616 350 Intake, Piggyback 820 200 Output: Gastric Amount 600 450 Left Nares 300 450 Right 300 Urine 2800 425 Urethral (Villanueva) 2800 425 Stool 675 400 - Physical Exam Head: Positive for: Normocephalic Pupils: Positive for: PERRL Extroacular Muscles: Positive for: EOMI Mouth: Positive for: Moist Mucous Membranes Neck: Positive for: Normal Range of Motion. Negative for: JVD, Lymphadenopathy Respiratory/Chest: Positive for: Decreased Breath Sounds. Negative for: Accessory Muscle Use, Wheezes Cardiovascular: Positive for: Irregular Rhythm, Tachycardic. Negative for: Murmurs, Rub Abdomen: Positive for: Distention, Ostomy Tubes Lower Extremity: Positive for: NORMAL PULSES, Other (No further or recurrent mottling). Negative for: Edema, CALF TENDERNESS Neurological: Positive for: Motor Func Grossly Intact, Norm Deep Tendon Reflexes Skin: Positive for: Warm. Negative for: Rashes - Medications Active Medications: Active Medications Generic Name Dose Route Start Last Admin Trade Name Freq PRN Reason Stop Dose Admin Acetaminophen 650 mg 02/07/17 19:50 Tylenol 650 Mg Supp OK Q4 PRN Fever >100.4 F Albuterol Sulfate 2.5 mg 02/07/17 19:50 Albuterol 0.083% Inhal Barbara (2.5 Mg/3 Ml) Ud INH RQ4 PRN Shortness of Breath Albuterol/Ipratropium 3 ml 02/07/17 20:00 02/08/17 08:30 Duoneb 3 Mg/0.5 Mg (3 Ml) Ud INH 3 ml RQID [facility] Administration Enoxaparin Sodium 60 mg 02/07/17 21:00 02/08/17 10:02 Lovenox SC 60 mg Q12 [facility] Administration Protocol Metronidazole 100 mls @ 100 mls/hr 02/08/17 01:00 02/08/17 10:01 Flagyl 500mg/100ml Ns IVPB 100 mls/hr Q8 [facility] Administration Potassium Chloride/Dextrose/Sod Cl 1,000 mls @ 50 mls/hr 02/07/17 19:50 02/07 21:39 Potassium Chl 40 Meq In D5-1/2ns IV 02/08/17 11:15 Not Given .Q20H [facility] Levofloxacin/Dextrose 750 mg in 150 mls @ 150 mls/hr 02/08/17 09:00 Levaquin 750mg IVPB DAILY [facility] Piperacillin Sod/Tazobactam 100 mls @ 100 mls/hr 02/08/17 01:00 02/08/17 10: 01 Sod 2.25 gm/ Sodium Chloride IVPB 100 mls/hr Q8 [facility] Administration Potassium Chloride 50 mls @ 50 mls/hr 02/08/17 08:00 02/08/17 10:05 Potassium Cl 10meq/50ml Sterile Water IVPB 02/08/17 11:59 50 mls/hr Q1 [facility] Administration Metoclopramide HCl 10 mg 02/08/17 01:00 02/08/17 10:06 Reglan IVP 10 mg Q8 [facility] Administration Ondansetron HCl 4 mg 02/07/17 19:50 02/08/17 01:00 Zofran Inj IVP 4 mg Q4H PRN Administration Nausea/Vomiting Pantoprazole Sodium 40 mg 02/08/17 09:00 02/08/17 10:05 Protonix Inj IVP 40 mg DAILY [facility] Administration - Patient Studies Lab Studies: Microbiology Studies 02/05/17 08:21 Gram Stain - Final Trachasp Sputum Culture - Preliminary Stenotrophomonas Maltophilia 02/07/17 11:00 Gram Stain - Final Sputum Induced Sputum Culture - Preliminary Gram Negative Tho Lab Studies 02/08/17 02/08/17 02/07/17 Range/Units 05:30 05:30 14:37 WBC 10.4 (4.8-10.8) K/uL RBC 3.87 L (4.40-5.90) Mil/uL Hgb 11.9 L (12.0-18.0) g/dL Hct 36.9 (35.0-51.0) % MCV 95.1 H (80.0-94.0) fl MCH 30.8 (27.0-31.0) pg MCHC 32.4 L (33.0-37.0) g/dL RDW 14.6 H (11.5-14.5) % Plt Count 256 (130-400) K/uL MPV 7.6 (7.2-11.7) fl Neut % (Auto) 78.6 H (50.0-75.0) % Lymph % (Auto) 8.1 L (20.0-40.0) % Geary % (Auto) 10.9 H (0.0-10.0) % Eos % (Auto) 2.0 (0.0-4.0) % Baso % (Auto) 0.4 (0.0-2.0) % Neut # 8.1 H (1.8-7.0) K/uL Lymph # 0.8 L (1.0-4.3) K/uL Geary # 1.1 H (0.0-0.8) K/uL Eos # 0.2 (0.0-0.7) K/uL Baso # 0.0 (0.0-0.2) K/uL Sodium 143 141 (132-148) mmol/l Potassium 2.6 L 3.2 L (3.6-5.0) MMOL/L Chloride 110 H 111 H (98-107) mmol/L Carbon Dioxide 29 25 (22-30) mmol/L Anion Gap 7 L 8 L (10-20) BUN 15 17 (9-20) mg/dl Creatinine 1.0 0.9 (0.8-1.5) mg/dL Est GFR ( Amer) > 60 > 60 Est GFR (Non-Af Amer) > 60 > 60 Random Glucose 122 H 105 (75-110) mg/dL Calcium 7.8 L 8.0 L (8.4-10.2) mg/dL Phosphorus 1.7 L (2.5-4.5) mg/dl Magnesium 1.9 (1.6-2.3) MG/DL Total Bilirubin 0.8 (0.2-1.3) mg/dl AST 25 (17-59) U/L ALT 36 (21-72) U/L Alkaline Phosphatase 40 (38-126) U/L Total Protein 4.6 L (6.3-8.2) G/DL Albumin 2.3 L (3.5-5.0) g/dL Globulin 2.2 (2.2-3.9) gm/dL Albumin/Globulin Ratio 1.0 (1.0-2.1) Laboratory Results - last 24 hr 02/07/17 02/08/17 02/08/17 14:37 05:30 05:30 WBC 10.4 RBC 3.87 L Hgb 11.9 L Hct 36.9 MCV 95.1 H MCH 30.8 MCHC 32.4 L RDW 14.6 H Plt Count 256 MPV 7.6 Neut % (Auto) 78.6 H Lymph % (Auto) 8.1 L Geary % (Auto) 10.9 H Eos % (Auto) 2.0 Baso % (Auto) 0.4 Neut # 8.1 H Lymph # 0.8 L Geary # 1.1 H Eos # 0.2 Baso # 0.0 Sodium 141 143 Potassium 3.2 L 2.6 L Chloride 111 H 110 H Carbon Dioxide 25 29 Anion Gap 8 L 7 L BUN 17 15 Creatinine 0.9 1.0 Est GFR ( Amer) > 60 > 60 Est GFR (Non-Af Amer) > 60 > 60 Random Glucose 105 122 H Calcium 8.0 L 7.8 L Phosphorus 1.7 L Magnesium 1.9 Total Bilirubin 0.8 AST 25 ALT 36 Alkaline Phosphatase 40 Total Protein 4.6 L Albumin 2.3 L Globulin 2.2 Albumin/Globulin Ratio 1.0 Critical Care Progress Note - Nutrition Nutrition: Nutrition Category Date Time Status NPO Diet [DIET] Diets 02/01/17 Breakfast Active
[2017-02-08] MEDS ORDERED: Magnesium Sulfate 2 gm/50 ml 2 GM/50 ML BAG IVPB ONE (10:36)
[2017-02-08] MEDS ORDERED: DEXTROSE IV ONE (10:37)
[2017-02-08] MEDS ORDERED: WATER IV ONE (10:37)
[2017-02-08] MEDS ORDERED: POTASSIUM PHOSPHATE IV ONE (10:37)
[2017-02-08 10:44] LABS: BASOPHIL 1 % (0-2); LYMPHOCYTE 5 % (20-50); MONOCYTE 10 % (0-10); NEUTROPHIL 84 % (42-75); PLATELET ESTIMATE NORMAL (NORMAL); TOTAL CELLS COUNTED 100
[2017-02-08 10:45] LABS: ANISOCYTOSIS SLIGHT; HYPOCHROMIC SLIGHT
[2017-02-08 10:46] LABS: BURR CELLS MODERATE; PLATELET CLUMPS PRESENT
--- NOTE | 2017-02-08 10:55 | CP.PCM.PN ---
Subjective - Date & Time of Evaluation Date of Evaluation: 02/08/17 Time of Evaluation: 10:30 - Subjective Subjective: Feels weak no fever denies CP no SOB sl abd pain noted more NGT drainage overnight than previous days ( 1050ml) Colostomy drainage 1075ml Good urine output Potassium and Phosphate levels lower today despite replacement yesterday Objective - Vital Signs/Intake and Output Vital Signs (last 24 hours): Temp Pulse Resp BP Pulse Ox 98.8 F 97 H 19 111/64 95 02/08/17 08:00 02/08/17 08:00 02/08/17 08:00 02/08/17 08:00 02/08/17 08:00 Intake and Output: 02/08/17 02/08/17 06:59 18:59 Intake Total 1066 Output Total 3200 Balance -2134 - Medications Medications: Current Medications Acetaminophen (Tylenol 650 Mg Supp) 650 mg GA Q4 PRN PRN Reason: Fever >100.4 F Albuterol Sulfate (Albuterol 0.083% Inhal Barbraa (2.5 Mg/3 Ml) Ud) 2.5 mg INH RQ4 PRN PRN Reason: Shortness of Breath Albuterol/Ipratropium (Duoneb 3 Mg/0.5 Mg (3 Ml) Ud) 3 ml INH RQID [facility] Last Admin: 02/08/17 08:30 Dose: 3 ml Enoxaparin Sodium (Lovenox) 60 mg SC Q12 [facility] PRN Reason: Protocol Last Admin: 02/08/17 10:02 Dose: 60 mg Metronidazole (Flagyl 500mg/100ml Ns) 100 mls @ 100 mls/hr IVPB Q8 [facility] Last Admin: 02/08/17 10:01 Dose: 100 mls/hr Potassium Chloride/Dextrose/Sod Cl (Potassium Chl 40 Meq In D5-1/2ns) 1,000 mls @ 50 mls/hr IV .Q20H [facility] Stop: 02/08/17 11:15 Last Admin: 02/07/17 21:39 Dose: Not Given Levofloxacin/Dextrose (Levaquin 750mg) 750 mg in 150 mls @ 150 mls/hr IVPB DAILY [facility] Piperacillin Sod/Tazobactam (Sod 2.25 gm/ Sodium Chloride) 100 mls @ 100 mls/ hr IVPB Q8 [facility] Last Admin: 02/08/17 10:01 Dose: 100 mls/hr Potassium Chloride (Potassium Cl 10meq/50ml Sterile Water) 50 mls @ 50 mls/hr IVPB Q1 [facility] Stop: 02/08/17 11:59 Last Admin: 02/08/17 10:05 Dose: 50 mls/hr Potassium Chloride (Potassium Cl 10meq/50ml Sterile Water) 50 mls @ 50 mls/hr IVPB Q1 [facility] Stop: 02/08/17 18:59 Magnesium Sulfate (Magnesium Sulfate 2 Gm/50 Ml Water) 2 gm in 50 mls @ 50 mls/ hr IVPB ONCE ONE PRN Reason: 2 GM/HR Stop: 02/08/17 11:35 Potassium Phosphate 36 mmole/ (Dextrose) 262 mls @ 84 mls/hr IV .Q3H8M ONE Stop: 02/08/17 13:44 Metoclopramide HCl (Reglan) 10 mg IVP Q8 [facility] Last Admin: 02/08/17 10:06 Dose: 10 mg Ondansetron HCl (Zofran Inj) 4 mg IVP Q4H PRN PRN Reason: Nausea/Vomiting Last Admin: 02/08/17 01:00 Dose: 4 mg Pantoprazole Sodium (Protonix Inj) 40 mg IVP DAILY [facility] Last Admin: 02/08/17 10:05 Dose: 40 mg - Labs Labs: 02/08/17 05:30 02/08/17 05:30 PT 18.1 Seconds (9.8-13.1) H 02/06/17 04:30 INR 1.7 (0.9-1.2) H D 02/06/17 04:30 APTT 35.4 Seconds (25.6-37.1) 02/06/17 04:30 - Constitutional Appears: No Acute Distress - Head Exam Head Exam: NORMAL INSPECTION, NORMOCEPHALIC - Eye Exam Eye Exam: EOMI, Normal appearance Pupil Exam: normal accommodation - ENT Exam ENT Exam: Mucous Membranes Dry, Normal External Ear Exam - Neck Exam Neck Exam: Full ROM. absent: Meningismus - Respiratory Exam Respiratory Exam: Rales, Rhonchi Additional comments: on ventimask - GI/Abdominal Exam GI & Abdominal Exam: Soft, Tenderness, Normal Bowel Sounds Additional comments: Colostomy vida intact , wound looks clean greenish , liquid drainage + NGT - Extremities Exam Extremities Exam: Full ROM, Normal Capillary Refill, Pedal Edema. absent: Calf Tenderness Additional comments: hand edema right groin central line - Back Exam Back Exam: absent: CVA tenderness (L) - Neurological Exam Neurological Exam: Alert, Awake, CN II-XII Intact, Oriented x3 Neuro motor strength exam: Left Upper Extremity: 5, Right Upper Extremity: 5, Left Lower Extremity: 5, Right Lower Extremity: 5 - Psychiatric Exam Psychiatric exam: Normal Affect, Normal Mood - Skin Skin Exam: Dry, Normal Color, Warm Assessment and Plan (1) Rectal mass Status: Acute (2) SBO (small bowel obstruction) Status: Acute (3) COPD (chronic obstructive pulmonary disease) Status: Chronic (4) Aspiration pneumonia Status: Acute (5) DVT prophylaxis Status: Acute (6) Pleural effusion Status: Acute - Assessment and Plan (Free Text) Assessment: 71 y/o gent with Hx of COPD, came in bec of 2 weeks of constipation , abdominal discomfort and vomiting. CT of chest and Abd showed dilated large bowel loops up to the proximal rectum and suspicious for obstructing circumferential rectal mass versus focal stricture GI and surgery consulted. Patient admitted to med/surg kept NPO , started on IVF ,NGT placed and stool softeners and laxatives given with no improvement He underwent flex sigmoidoscopy that showed rectal stricture. Taken to OR 02/04 and underwent exploratory laparatomy with sigmoid resection and colostomy to [facility] Transferred to ICU post op for monitoring. He developed hypovolemixc shock, Afib with RVR and mottling of lower extremities postop. Was not extubated post op . Now extubated , off pressors. 1. Hypovolemic shock, resolved received 8 L fluid post op with minimal urinary output 20 ml/hr Pt was started on levophed drip- now off lactic acid trended down and BP improved. Mottling to lower extremities resolved showing improved tissue perfusion received albumin IV 2. Acute Hypoxemic respiratory failure, resolved Pt remained intubated post op - extubated 02/06 Pulmonary on consult with Dr. Danielson following 3. Afib with RVR episode received cardizem and digoxin now rate controlled on Lovenox 60mg q 12 4.Acute renal failure, improved oliguric with 20 ml/hr output, now with good urine output continue IVF Close monitoring 5. Intestinal obstruction most likely secondary to Sigmoid CA Presented with No BM for 1-2 wks, + vomiting, + abdominal distention, no flatus CT of abd showed air fluid levels, distended large bowel loops up to the proximal rectum with suspicious obstructing rectal mass or stricture Surgery and GI consulted stool softener, laxatives given ,Rectal tube and NGT placed with no improvement s/p flex sigmoidoscopy showing long stricture. 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 waiting pathology report Good output from colostomy noted , bowel sounds present Surgical incision clean and intact, abdomen tender and slightly distended Continue pain management surgery following On Zosyn and Flagyl empirically Continue IVF 6. Hypokalemia K=2.6 sec to NPO status and loss from drainage of large amount of liquid into Colostomy replaced with KCl runs and Kphos, Magnesium IV also given 7. COPD (chronic obstructive pulmonary disease) chronic , stable Duoneb prn 8.Bilateral pneumonia / suspected Aspiration pneumonia Acute RLL focal airspace consolidation noted seen on CT of chest CXR showed increased bilateral infiltrates and pleural effusion on IV zosyn and Flagyl. Sputum c/s Stenophomonas maltophila - IV Levaquin added ID consulted 9 DVT prophylaxis Acute Lovenox
[2017-02-08] MEDS ORDERED: Potassium CL 10 MEQ/50 ML 50 ML IVPB SCH (11:00)
[2017-02-08 18:29] LABS: BLOOD UREA NITROGEN 15 mg/dl (9-20); CALCIUM 7.7 mg/dL (8.4-10.2); GFR AFRICAN-AMERICAN > 60; GFR NON-AFRICAN AMERICAN > 60
--- NOTE | 2017-02-08 18:49 | CP.PCM.PN ---
Subjective - Date & Time of Evaluation Date of Evaluation: 02/08/17 Time of Evaluation: 18:47 - Subjective Subjective: ID NOTE HAVE REVIEWED CULTURES QUINOLONE DISCONTINUED FORTAZ STARTED Objective - Vital Signs/Intake and Output Vital Signs (last 24 hours): Temp Pulse Resp BP Pulse Ox 98.8 F 97 H 19 111/64 95 02/08/17 08:00 02/08/17 08:00 02/08/17 08:00 02/08/17 08:00 02/08/17 08:00 Intake and Output: 02/08/17 02/08/17 06:59 18:59 Intake Total 1066 Output Total 3200 Balance -2134 - Medications Medications: Current Medications Acetaminophen (Tylenol 650 Mg Supp) 650 mg OR Q4 PRN PRN Reason: Fever >100.4 F Albuterol Sulfate (Albuterol 0.083% Inhal Barbara (2.5 Mg/3 Ml) Ud) 2.5 mg INH RQ4 PRN PRN Reason: Shortness of Breath Albuterol/Ipratropium (Duoneb 3 Mg/0.5 Mg (3 Ml) Ud) 3 ml INH RQID [facility] Last Admin: 02/08/17 15:36 Dose: 3 ml Enoxaparin Sodium (Lovenox) 60 mg SC Q12 [facility] PRN Reason: Protocol Last Admin: 02/08/17 10:02 Dose: 60 mg Hydromorphone HCl (Dilaudid) 0.5 mg IVP Q6 PRN PRN Reason: Pain, moderate (4-7) Last Admin: 02/08/17 17:35 Dose: 0.5 mg Metronidazole (Flagyl 500mg/100ml Ns) 100 mls @ 100 mls/hr IVPB Q8 [facility] Last Admin: 02/08/17 17:00 Dose: 100 mls/hr Piperacillin Sod/Tazobactam (Sod 2.25 gm/ Sodium Chloride) 100 mls @ 100 mls/ hr IVPB Q8 [facility] Last Admin: 02/08/17 17:00 Dose: 100 mls/hr Ceftazidime 2 gm/ Sodium (Chloride) 100 mls @ 100 mls/hr IVPB Q12 [facility] Metoclopramide HCl (Reglan) 10 mg IVP Q8 [facility] Last Admin: 02/08/17 17:00 Dose: 10 mg Ondansetron HCl (Zofran Inj) 4 mg IVP Q4H PRN PRN Reason: Nausea/Vomiting Last Admin: 02/08/17 01:00 Dose: 4 mg Pantoprazole Sodium (Protonix Inj) 40 mg IVP DAILY [facility] Last Admin: 02/08/17 10:05 Dose: 40 mg - Labs Labs: 02/08/17 05:30 02/08/17 18:13 PT 18.1 Seconds (9.8-13.1) H 02/06/17 04:30 INR 1.7 (0.9-1.2) H D 02/06/17 04:30 APTT 35.4 Seconds (25.6-37.1) 02/06/17 04:30
[2017-02-08] MEDS ORDERED: Potassium Phosphate 15 MMOLE in Dextrose 5% In Water 250 ML IV ONE (18:51)
[2017-02-08] MEDS ORDERED: [UNRECOGNIZED DRUG - OTHER] IV SCH (21:45)
[2017-02-08] MEDS ORDERED: POTASSIUM CHLORIDE IV SCH (21:45)
[2017-02-08] MEDS ORDERED: DEXTROSE IV SCH (21:45)
--- NOTE | 2017-02-08 22:35 | CP.PCM.PN ---
Subjective - Date & Time of Evaluation Date of Evaluation: 02/08/17 Time of Evaluation: 07:00 - Subjective Subjective: GENERAL SURGERY PROGRESS NOTE FOR DR. BLACKMON Patient seen and examined today at bedside in the ICU. He reports nausea but no vomiting. NG tube in place with 650cc output over 7p-7a shift. He states that he is very thirsty and wants something to drink. He denies abdominal pain. Villanueva in place with 1750cc overnight. Objective - Vital Signs/Intake and Output Vital Signs (last 24 hours): Temp Pulse Resp BP Pulse Ox 98.5 F 96 H 17 112/68 97 02/08/17 20:00 02/08/17 21:56 02/08/17 21:56 02/08/17 21:56 02/08/17 21:56 Intake and Output: 02/08/17 02/09/17 18:59 06:59 Intake Total 1400 420 Output Total 1520 325 Balance -120 95 - Medications Medications: Current Medications Acetaminophen (Tylenol 650 Mg Supp) 650 mg [place] Q4 PRN PRN Reason: Fever >100.4 F Albuterol Sulfate (Albuterol 0.083% Inhal Barbara (2.5 Mg/3 Ml) Ud) 2.5 mg INH RQ4 PRN PRN Reason: Shortness of Breath Albuterol/Ipratropium (Duoneb 3 Mg/0.5 Mg (3 Ml) Ud) 3 ml INH RQID [facility] Last Admin: 02/08/17 19:20 Dose: 3 ml Enoxaparin Sodium (Lovenox) 60 mg SC Q12 [facility] PRN Reason: Protocol Last Admin: 02/08/17 20:42 Dose: 60 mg Hydromorphone HCl (Dilaudid) 0.5 mg IVP Q6 PRN PRN Reason: Pain, moderate (4-7) Last Admin: 02/08/17 17:35 Dose: 0.5 mg Metronidazole (Flagyl 500mg/100ml Ns) 100 mls @ 100 mls/hr IVPB Q8 [facility] Last Admin: 02/08/17 17:00 Dose: 100 mls/hr Piperacillin Sod/Tazobactam (Sod 2.25 gm/ Sodium Chloride) 100 mls @ 100 mls/ hr IVPB Q8 [facility] Last Admin: 02/08/17 17:00 Dose: 100 mls/hr Ceftazidime 2 gm/ Sodium (Chloride) 100 mls @ 100 mls/hr IVPB Q12 [facility] Last Admin: 02/08/17 20:02 Dose: 100 mls/hr Potassium Phosphate 15 mmole/ (Dextrose) 255 mls @ 63.75 mls/hr IV .Q4H [facility] Stop: 02/08/17 22:50 Last Admin: 02/08/17 19:50 Dose: 63.75 mls/hr Potassium Chloride 50 meq/ (Dextrose/Sodium Chloride) 1,025 mls @ 50 mls/hr IV .[id number] [facility] Stop: 02/09/17 21:36 Metoclopramide HCl (Reglan) 10 mg IVP Q8 [facility] Last Admin: 02/08/17 17:00 Dose: 10 mg Ondansetron HCl (Zofran Inj) 4 mg IVP Q4H PRN PRN Reason: Nausea/Vomiting Last Admin: 02/08/17 01:00 Dose: 4 mg Pantoprazole Sodium (Protonix Inj) 40 mg IVP DAILY [facility] Last Admin: 02/08/17 10:05 Dose: 40 mg - Labs Labs: 02/08/17 05:30 02/08/17 18:13 PT 18.1 Seconds (9.8-13.1) H 02/06/17 04:30 INR 1.7 (0.9-1.2) H D 02/06/17 04:30 APTT 35.4 Seconds (25.6-37.1) 02/06/17 04:30 - Constitutional Appears: Non-toxic, No Acute Distress - Respiratory Exam Respiratory Exam: NORMAL BREATHING PATTERN. absent: Respiratory Distress - Cardiovascular Exam Cardiovascular Exam: Tachycardia, +S1, +S2 - GI/Abdominal Exam GI & Abdominal Exam: absent: Distended, Firm, Guarding, Rigid, Soft, Tenderness , Rebound Additional comments: vida in place over midline incision Colostomy in place with dark green liquid stool - Neurological Exam Neurological Exam: Alert, Awake, Oriented x3 - Psychiatric Exam Psychiatric exam: Normal Affect, Normal Mood - Skin Skin Exam: Dry, Normal Color, Warm Assessment and Plan - Assessment and Plan (Free Text) Assessment: 71yo M with recto-sigmoid mass, s/p Marion's POD#4 - Afebrile, A fib - No leukocytosis - Hypokalemia, being replaced - Good urine output, will keep Villanueva for now - High NG tube output (650cc overnight) - Will keep NG tube until output decreases - Colostomy functioning well - Discussed plan with Dr. Jean Marie Kendall PGY-3
[2017-02-09] MEDS: metroNIDAZOLE 500mg/100ml NS 100 ML IVPB SCH ×3 (00:08→16:15)
[2017-02-09] MEDS: Potassium Chl 40 mEq in D5-1/2 1,000 ML IV SCH ×2 (00:19→20:55)
--- NOTE | 2017-02-09 07:39 | RAD ---
HISTORY: f/u effusions COMPARISON: 02/07/2017 FINDINGS: LUNGS: No significant interval change in bilateral interstitial infiltrates and effusions consistent with CHF. PLEURA: As above. CARDIOVASCULAR: Normal. OSSEOUS STRUCTURES: No significant abnormalities. VISUALIZED UPPER ABDOMEN: Normal. OTHER FINDINGS: None. IMPRESSION: No significant interval change in bilateral interstitial infiltrates and effusions consistent with CHF.
[2017-02-09 07:43] LABS: BASO % 0.4 % (0.0-2.0); EOS # 0.3 K/uL (0.0-0.7); EOS % 3.7 % (0.0-4.0); LYMPH # 0.8 K/uL (1.0-4.3); LYMPH % 9.2 % (20.0-40.0); MEAN CELL VOLUME 95.3 fl (80.0-94.0); MEAN CORPUSCULAR HGB CONC 32.6 g/dL (33.0-37.0); MEAN PLATELET VOLUME 7.8 fl (7.2-11.7); MONO # 1.1 K/uL (0.0-0.8); MONO % 12.1 % (0.0-10.0); NEUT # 6.6 K/uL (1.8-7.0); NEUT % 74.6 % (50.0-75.0); RBC 3.87 Mil/uL (4.40-5.90); RED CELL DISTRIBUTION WIDTH 15.2 % (11.5-14.5); WHITE BLOOD COUNT 8.9 K/uL (4.8-10.8)
[2017-02-09 07:46] LABS: ALBUMIN 2.3 g/dL (3.5-5.0); ALT/SGPT 35 U/L (21-72); AST/SGOT 24 U/L (17-59); BLOOD UREA NITROGEN 15 mg/dl (9-20); CALCIUM 7.8 mg/dL (8.4-10.2); GFR AFRICAN-AMERICAN > 60; GFR NON-AFRICAN AMERICAN > 60; MAGNESIUM 2.2 MG/DL (1.6-2.3)
[2017-02-09] MEDS: Albuterol-Ipratrop 3 mg / 0.5 (3 ml) UD INH SCH ×4 (07:49→19:26)
--- NOTE | 2017-02-09 07:56 | CP.PCM.PN ---
Subjective - Date & Time of Evaluation Date of Evaluation: 02/09/17 Time of Evaluation: 07:53 - Subjective Subjective: General Surgery - Dr. Aj pt S&E. JAIRO. Pt states he had some pain overnight but it was well controlled after receiving the pain medication. He complains of thirst. Pt remains with NGT in place to LIS w/ bilious drainage, 350cc/past 12hrs, 1050cc/past 24hrs. Villanueva in place with dark yellow urine, 350cc/12hrs. He has been OOB to chair. Colostomy functioning well with brown stool output. No N/V, F/C, SOb/Cp. Objective - Vital Signs/Intake and Output Vital Signs (last 24 hours): Temp Pulse Resp BP Pulse Ox 98.0 F 97 H 24 108/65 98 02/09/17 04:00 02/09/17 06:00 02/09/17 06:00 02/09/17 06:00 02/09/17 06:00 Intake and Output: 02/09/17 02/09/17 06:59 18:59 Intake Total 1110 Output Total 1300 Balance -190 - Medications Medications: Current Medications Acetaminophen (Tylenol 650 Mg Supp) 650 mg [place] Q4 PRN PRN Reason: Fever >100.4 F Albuterol Sulfate (Albuterol 0.083% Inhal Barbara (2.5 Mg/3 Ml) Ud) 2.5 mg INH RQ4 PRN PRN Reason: Shortness of Breath Albuterol/Ipratropium (Duoneb 3 Mg/0.5 Mg (3 Ml) Ud) 3 ml INH RQID [facility] Last Admin: 02/09/17 07:49 Dose: 3 ml Enoxaparin Sodium (Lovenox) 60 mg SC Q12 [facility] PRN Reason: Protocol Last Admin: 02/08/17 20:42 Dose: 60 mg Hydromorphone HCl (Dilaudid) 0.5 mg IVP Q6 PRN PRN Reason: Pain, moderate (4-7) Last Admin: 02/09/17 03:13 Dose: 0.5 mg Metronidazole (Flagyl 500mg/100ml Ns) 100 mls @ 100 mls/hr IVPB Q8 [facility] Last Admin: 02/09/17 00:08 Dose: 100 mls/hr Piperacillin Sod/Tazobactam (Sod 2.25 gm/ Sodium Chloride) 100 mls @ 100 mls/ hr IVPB Q8 [facility] Last Admin: 02/09/17 00:09 Dose: 100 mls/hr Ceftazidime 2 gm/ Sodium (Chloride) 100 mls @ 100 mls/hr IVPB Q12 [facility] Last Admin: 02/08/17 20:02 Dose: 100 mls/hr Potassium Chloride/Dextrose/Sod Cl (Potassium Chl 40 Meq In D5-1/2ns) 1,000 mls @ 50 mls/hr IV .Q20H [facility] Stop: 02/10/17 00:07 Last Admin: 02/09/17 00:19 Dose: 50 mls/hr Metoclopramide HCl (Reglan) 10 mg IVP Q8 [facility] Last Admin: 02/09/17 00:21 Dose: 10 mg Ondansetron HCl (Zofran Inj) 4 mg IVP Q4H PRN PRN Reason: Nausea/Vomiting Last Admin: 02/08/17 01:00 Dose: 4 mg Pantoprazole Sodium (Protonix Inj) 40 mg IVP DAILY [facility] Last Admin: 02/08/17 10:05 Dose: 40 mg - Labs Labs: 02/09/17 05:30 02/08/17 18:13 PT 18.1 Seconds (9.8-13.1) H 02/06/17 04:30 INR 1.7 (0.9-1.2) H D 02/06/17 04:30 APTT 35.4 Seconds (25.6-37.1) 02/06/17 04:30 - Constitutional Appears: No Acute Distress - Head Exam Head Exam: ATRAUMATIC, NORMAL INSPECTION, NORMOCEPHALIC - Eye Exam Eye Exam: Normal appearance - Respiratory Exam Respiratory Exam: NORMAL BREATHING PATTERN. absent: Respiratory Distress - GI/Abdominal Exam GI & Abdominal Exam: Soft. absent: Distended, Guarding, Rigid, Tenderness, Rebound Additional comments: colostomy in place w/ soft stool in bag, midline incison C/D/i - Neurological Exam Neurological Exam: Alert, Oriented x3 - Psychiatric Exam Psychiatric exam: Normal Affect, Normal Mood - Skin Skin Exam: Dry, Intact Assessment and Plan - Assessment and Plan (Free Text) Assessment: 71yo M with recto-sigmoid mass, s/p Marion's POD#5 - Continue IVF, Villanueva, I/O - NGT to remain in place until output is less - Pt may have sips of liquids, record intake - Cont care as per ICU/Medical teams - OOB to chair and incentive spirometer Will DW DR Jean Marie Cancino PGY3
[2017-02-09] MEDS: Enoxaparin 60 mg Syringe SC SCH ×2 (08:14→20:37)
--- NOTE | 2017-02-09 08:19 | CP.CCUPN ---
CCU Subjective - Physician Review Subjective (Free Text): Eyes closed, easily arousable, remains non-distressed after being medicated for abdominal pain. Still states he feels hungry. Afebrile without any further fever spikes, NGT drained approx. 1000ml bilious fluid. Still in A Fib at 103/ min. also approx. 1000ml Liquid brown stool output from ostomy. He is still in A Fib albeit at a slower rate in 90s. ROS: as above, no other pertinent negs or positives on 10+ system review obtainable. Other PMSFH: All recent nursing and physician documentation reviewed and no new information noted relevant to current problems. MAJOR IMPRESSIONS: 1. s/p Ex-Lap, for Sigmoid CA and resection 2. PSVT with A Fib, was in RVR, less tachy today. 3. s/p Azotemia / Dehydration with Hypotension Post -op 4. Acute resp insuff post-op: extubated 02/05/17. 5. Bibasilar pneumonitis / effusion PLAN: 1. NGT for ongoing gastric decompression. On Reglan ATC. 2. Lovenox started for persistent AFib, rate control with prn Digoxin, consider cardioselective Beta tawana therapy. Consider repeat ECHO to check for thrombus. 3. Generalized anasarca noted, IVF rate decreased, prn Lasix if he does not start mobilizing 3rd space fluids himself. 4. Will need more K supplementation ( given 120 meq yesterday), as well as Phos. 5. Discuss with Surg team: type and timing of nutritional support. 6. Abx coverage as per ID. 7. If pleural effusions not effectively mobilized with Lasix, consider CT Chest and IR eval for thoracentesis. CCU Objective - Vital Signs / Intake & Output Vital Signs (Last 4 hours): Vital Signs Temp Pulse Resp BP Pulse Ox 02/09/17 08:00 98.1 F 106 H 23 116/71 98 02/09/17 06:00 97 H 24 108/65 98 Intake and Output (Last 8hrs): Intake & Output 02/08/17 02/09/17 02/09/17 22:59 06:59 14:59 Intake Total 1820 690 Output Total 1970 850 Balance -150 -160 Intake: IV 200 350 Intake, Piggyback 1620 320 Oral 20 Output: Gastric Amount 800 250 Left Nares 800 250 Urine 420 250 Urethral (Villanueva) 420 250 Stool 750 350 - Physical Exam Head: Positive for: Normocephalic Pupils: Positive for: PERRL Extroacular Muscles: Positive for: EOMI Mouth: Positive for: Moist Mucous Membranes Neck: Positive for: Normal Range of Motion. Negative for: JVD, Lymphadenopathy Respiratory/Chest: Positive for: Decreased Breath Sounds. Negative for: Accessory Muscle Use, Wheezes Cardiovascular: Positive for: Irregular Rhythm, Tachycardic. Negative for: Murmurs, Rub Abdomen: Positive for: Distention, Ostomy Tubes Lower Extremity: Positive for: Edema, NORMAL PULSES, Other (No further or recurrent mottling). Negative for: CALF TENDERNESS, Cyanosis Neurological: Positive for: Motor Func Grossly Intact, Norm Deep Tendon Reflexes Skin: Positive for: Warm. Negative for: Rashes - Medications Active Medications: Active Medications Generic Name Dose Route Start Last Admin Trade Name Freq PRN Reason Stop Dose Admin Acetaminophen 650 mg 02/07/17 19:50 Tylenol 650 Mg Supp [place] Q4 PRN Fever >100.4 F Albuterol Sulfate 2.5 mg 02/07/17 19:50 Albuterol 0.083% Inhal Barbara (2.5 Mg/3 Ml) Ud INH RQ4 PRN Shortness of Breath Albuterol/Ipratropium 3 ml 02/07/17 20:00 02/09/17 07:49 Duoneb 3 Mg/0.5 Mg (3 Ml) Ud INH 3 ml RQID [facility] Administration Enoxaparin Sodium 60 mg 02/07/17 21:00 02/08/17 20:42 Lovenox SC 60 mg Q12 [facility] Administration Protocol Hydromorphone HCl 0.5 mg 02/08/17 17:24 02/09/17 03:13 Dilaudid IVP 0.5 mg Q6 PRN Administration Pain, moderate (4-7) Metronidazole 100 mls @ 100 mls/hr 02/08/17 01:00 02/09/17 00:08 Flagyl 500mg/100ml Ns IVPB 100 mls/hr Q8 [facility] Administration Piperacillin Sod/Tazobactam 100 mls @ 100 mls/hr 02/08/17 01:00 02/09/17 00: 09 Sod 2.25 gm/ Sodium Chloride IVPB 100 mls/hr Q8 [facility] Administration Ceftazidime 2 gm/ Sodium 100 mls @ 100 mls/hr 02/08/17 21:00 02/08/17 20:02 Chloride IVPB 100 mls/hr Q12 [facility] Administration Potassium Chloride/Dextrose/Sod Cl 1,000 mls @ 50 mls/hr 02/09/17 00:15 02/09 00:19 Potassium Chl 40 Meq In D5-1/2ns IV 02/10/17 00:07 50 mls/hr .Q20H [facility] Administration Metoclopramide HCl 10 mg 02/08/17 01:00 02/09/17 00:21 Reglan IVP 10 mg Q8 [facility] Administration Ondansetron HCl 4 mg 02/07/17 19:50 02/08/17 01:00 Zofran Inj IVP 4 mg Q4H PRN Administration Nausea/Vomiting Pantoprazole Sodium 40 mg 02/08/17 09:00 02/08/17 10:05 Protonix Inj IVP 40 mg DAILY [facility] Administration - Patient Studies Lab Studies: Microbiology Studies 02/05/17 08:21 Gram Stain - Final Trachasp Sputum Culture - Final Stenotrophomonas Maltophilia 02/07/17 11:00 Gram Stain - Final Sputum Induced Sputum Culture - Preliminary Gram Negative Tho Lab Studies 02/09/17 02/09/17 02/08/17 Range/Units 05:30 05:30 18:13 WBC 8.9 (4.8-10.8) K/uL RBC 3.87 L (4.40-5.90) Mil/uL Hgb 12.0 (12.0-18.0) g/dL Hct 36.9 (35.0-51.0) % MCV 95.3 H (80.0-94.0) fl MCH 31.0 (27.0-31.0) pg MCHC 32.6 L (33.0-37.0) g/dL RDW 15.2 H (11.5-14.5) % Plt Count 257 (130-400) K/uL MPV 7.8 (7.2-11.7) fl Neut % (Auto) 74.6 (50.0-75.0) % Lymph % (Auto) 9.2 L (20.0-40.0) % [place] % (Auto) 12.1 H (0.0-10.0) % Eos % (Auto) 3.7 (0.0-4.0) % Baso % (Auto) 0.4 (0.0-2.0) % Neut # 6.6 (1.8-7.0) K/uL Lymph # 0.8 L (1.0-4.3) K/uL [place] # 1.1 H (0.0-0.8) K/uL Eos # 0.3 (0.0-0.7) K/uL Baso # 0.0 (0.0-0.2) K/uL Neutrophils % (Manual) (42-75) % Lymphocytes % (Manual) (20-50) % Monocytes % (Manual) (0-10) % Basophils % (Manual) (0-2) % Platelet Estimate (NORMAL) Plt Clumps, EDTA Hypochromasia (manual) Anisocytosis (manual) Macrocytosis (manual) [place] Cells Sodium 144 (132-148) mmol/l Potassium 3.3 L (3.6-5.0) MMOL/L Chloride 111 H (98-107) mmol/L Carbon Dioxide 28 (22-30) mmol/L Anion Gap 8 L (10-20) BUN 15 (9-20) mg/dl Creatinine 0.9 (0.8-1.5) mg/dL Est GFR ( Amer) > 60 Est GFR (Non-Af Amer) > 60 Random Glucose 123 H (75-110) mg/dL Calcium 7.8 L (8.4-10.2) mg/dL Phosphorus 2.4 L 2.2 L (2.5-4.5) mg/dl Magnesium 2.2 (1.6-2.3) MG/DL Total Bilirubin 0.6 (0.2-1.3) mg/dl AST 24 (17-59) U/L ALT 35 (21-72) U/L Alkaline Phosphatase 42 (38-126) U/L Total Protein 4.7 L (6.3-8.2) G/DL Albumin 2.3 L (3.5-5.0) g/dL Globulin 2.4 (2.2-3.9) gm/dL Albumin/Globulin Ratio 1.0 (1.0-2.1) 02/08/17 02/08/17 Range/Units 18:13 05:30 WBC (4.8-10.8) K/uL RBC (4.40-5.90) Mil/uL Hgb (12.0-18.0) g/dL Hct (35.0-51.0) % MCV (80.0-94.0) fl MCH (27.0-31.0) pg MCHC (33.0-37.0) g/dL RDW (11.5-14.5) % Plt Count (130-400) K/uL MPV (7.2-11.7) fl Neut % (Auto) (50.0-75.0) % Lymph % (Auto) (20.0-40.0) % [place] % (Auto) (0.0-10.0) % Eos % (Auto) (0.0-4.0) % Baso % (Auto) (0.0-2.0) % Neut # (1.8-7.0) K/uL Lymph # (1.0-4.3) K/uL [place] # (0.0-0.8) K/uL Eos # (0.0-0.7) K/uL Baso # (0.0-0.2) K/uL Neutrophils % (Manual) 84 H (42-75) % Lymphocytes % (Manual) 5 L (20-50) % Monocytes % (Manual) 10 (0-10) % Basophils % (Manual) 1 (0-2) % Platelet Estimate Normal (NORMAL) Plt Clumps, EDTA Present Hypochromasia (manual) Slight Anisocytosis (manual) Slight Macrocytosis (manual) Slight [place] Cells Moderate Sodium 143 (132-148) mmol/l Potassium 3.6 (3.6-5.0) MMOL/L Chloride 112 H (98-107) mmol/L Carbon Dioxide 28 (22-30) mmol/L Anion Gap 7 L (10-20) BUN 15 (9-20) mg/dl Creatinine 0.9 (0.8-1.5) mg/dL Est GFR ( Amer) > 60 Est GFR (Non-Af Amer) > 60 Random Glucose 116 H (75-110) mg/dL Calcium 7.7 L (8.4-10.2) mg/dL Phosphorus (2.5-4.5) mg/dl Magnesium (1.6-2.3) MG/DL Total Bilirubin (0.2-1.3) mg/dl AST (17-59) U/L ALT (21-72) U/L Alkaline Phosphatase (38-126) U/L Total Protein (6.3-8.2) G/DL Albumin (3.5-5.0) g/dL Globulin (2.2-3.9) gm/dL Albumin/Globulin Ratio (1.0-2.1) Laboratory Results - last 24 hr 02/08/17 02/08/17 02/08/17 05:30 18:13 18:13 WBC RBC Hgb Hct MCV MCH MCHC RDW Plt Count MPV Neut % (Auto) Lymph % (Auto) [place] % (Auto) Eos % (Auto) Baso % (Auto) Neut # Lymph # [place] # Eos # Baso # Neutrophils % (Manual) 84 H Lymphocytes % (Manual) 5 L Monocytes % (Manual) 10 Basophils % (Manual) 1 Platelet Estimate Normal Plt Clumps, EDTA Present Hypochromasia (manual) Slight Anisocytosis (manual) Slight Macrocytosis (manual) Slight [place] Cells Moderate Sodium 143 Potassium 3.6 Chloride 112 H Carbon Dioxide 28 Anion Gap 7 L BUN 15 Creatinine 0.9 Est GFR ( Amer) > 60 Est GFR (Non-Af Amer) > 60 Random Glucose 116 H Calcium 7.7 L Phosphorus 2.2 L Magnesium Total Bilirubin AST ALT Alkaline Phosphatase Total Protein Albumin Globulin Albumin/Globulin Ratio 02/09/17 02/09/17 05:30 05:30 WBC 8.9 RBC 3.87 L Hgb 12.0 Hct 36.9 MCV 95.3 H MCH 31.0 MCHC 32.6 L RDW 15.2 H Plt Count 257 MPV 7.8 Neut % (Auto) 74.6 Lymph % (Auto) 9.2 L [place] % (Auto) 12.1 H Eos % (Auto) 3.7 Baso % (Auto) 0.4 Neut # 6.6 Lymph # 0.8 L [place] # 1.1 H Eos # 0.3 Baso # 0.0 Neutrophils % (Manual) Lymphocytes % (Manual) Monocytes % (Manual) Basophils % (Manual) Platelet Estimate Plt Clumps, EDTA Hypochromasia (manual) Anisocytosis (manual) Macrocytosis (manual) [place] Cells Sodium 144 Potassium 3.3 L Chloride 111 H Carbon Dioxide 28 Anion Gap 8 L BUN 15 Creatinine 0.9 Est GFR ( Amer) > 60 Est GFR (Non-Af Amer) > 60 Random Glucose 123 H Calcium 7.8 L Phosphorus 2.4 L Magnesium 2.2 Total Bilirubin 0.6 AST 24 ALT 35 Alkaline Phosphatase 42 Total Protein 4.7 L Albumin 2.3 L Globulin 2.4 Albumin/Globulin Ratio 1.0 Review of Systems - Review of Systems Review of Systems: As Above. Critical Care Progress Note - Extremities/Vascular Does the Patient have a Central Venous Catheter?: Yes Does the Patient need a Central Venous Catheter?: Yes Does the Patient have a Villanueva Catheter?: Yes Does the Patient need a Villanueva Catheter?: Yes Catheter Insertion Criteria: Need for accurate measurement of output in critically ill patient - Prophylaxis GI Prophylaxis GI: PPI - Prophylaxis DVT Prophylaxis DVT: Lovenox - Nutrition Nutrition: Nutrition Category Date Time Status NPO Diet [DIET] Diets 02/01/17 Breakfast Active
[2017-02-09] MEDS ORDERED: Potassium Phosphate 30 MMOLE in Sodium Chloride 0.9% 250 ML IV ONE (08:30)
[2017-02-09] MEDS: Potassium CL 10 MEQ/50 ML 50 ML IVPB SCH ×6 (09:10→17:22)
--- NOTE | 2017-02-09 11:27 | CP.PCM.PN ---
Subjective - Date & Time of Evaluation Date of Evaluation: 02/09/17 Time of Evaluation: 11:25 - Subjective Subjective: Seen on morning rounds in the ICU. Case discussed with the radiology scheduler. Labs and CXR as well as EMR entries reviewed. NGT continues to drain a significant amount. Colostomy functioning well, liquid yellow output this morning. Total output last 24hrs, negative 3164. Remains afebrile, well oxygenated. Dependant edema still notable, gradually decreasing. No cyanosis or jaundice. Awake and cooperative, appears comfortable. Neck is supple, trachea is midline. No dullness on percussion of anterior chest wall. No subcutaneous emphysema. Breath sounds well heard anteriorly with sonorous rhonchi in lower lobes. Breath sounds are diminished posteriorly in both lower lobes. No bronchial breath sounds or egophony posteriorly. No audible wheezes in either lung. Heart sounds are mildly diminished, irregular. Abdomen is mildly tense with hypo (but better) bowel sounds. Dark yellow urine in fay bag. Path reports still pending. Post-op day #5, doing well. Await surgery opinion on starting feeds. 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 Mobilize patient, OOB to chair when able. Continue aerosol therapy, incentive spirometry. Monitor pleural effusions, may need thoracentesis. Electrolyte supplements. Objective - Vital Signs/Intake and Output Vital Signs (last 24 hours): Temp Pulse Resp BP Pulse Ox 98.1 F 106 H 23 116/71 98 02/09/17 08:00 02/09/17 08:00 02/09/17 08:00 02/09/17 08:00 02/09/17 08:00 Intake and Output: 02/08/17 02/09/17 23:59 11:59 Intake Total 1820 790 Output Total 8125 850 Balance -150 -60 - Medications Medications: Current Medications Acetaminophen (Tylenol 650 Mg Supp) 650 mg [place] Q4 PRN PRN Reason: Fever >100.4 F Albuterol Sulfate (Albuterol 0.083% Inhal Barbara (2.5 Mg/3 Ml) Ud) 2.5 mg INH RQ4 PRN PRN Reason: Shortness of Breath Albuterol/Ipratropium (Duoneb 3 Mg/0.5 Mg (3 Ml) Ud) 3 ml INH RQID [facility] Last Admin: 02/09/17 07:49 Dose: 3 ml Enoxaparin Sodium (Lovenox) 60 mg SC Q12 [facility] PRN Reason: Protocol Last Admin: 02/09/17 08:14 Dose: 60 mg Hydromorphone HCl (Dilaudid) 0.5 mg IVP Q6 PRN PRN Reason: Pain, moderate (4-7) Last Admin: 02/09/17 03:13 Dose: 0.5 mg Metronidazole (Flagyl 500mg/100ml Ns) 100 mls @ 100 mls/hr IVPB Q8 [facility] Last Admin: 02/09/17 08:16 Dose: 100 mls/hr Piperacillin Sod/Tazobactam (Sod 2.25 gm/ Sodium Chloride) 100 mls @ 100 mls/ hr IVPB Q8 [facility] Last Admin: 02/09/17 09:29 Dose: 100 mls/hr Ceftazidime 2 gm/ Sodium (Chloride) 100 mls @ 100 mls/hr IVPB Q12 [facility] Last Admin: 02/09/17 10:33 Dose: 100 mls/hr Potassium Chloride/Dextrose/Sod Cl (Potassium Chl 40 Meq In D5-1/2ns) 1,000 mls @ 50 mls/hr IV .Q20H [facility] Stop: 02/10/17 00:07 Last Admin: 02/09/17 00:19 Dose: 50 mls/hr Potassium Chloride (Potassium Cl 10meq/50ml Sterile Water) 50 mls @ 50 mls/hr IVPB Q1 [facility] Stop: 02/09/17 14:59 Last Admin: 02/09/17 10:33 Dose: 50 mls/hr Potassium Phosphate 30 mmole/ (Sodium Chloride) 260 mls @ 65 mls/hr IV ONCE ONE Stop: 02/09/17 12:29 Last Admin: 02/09/17 09:24 Dose: 65 mls/hr Metoclopramide HCl (Reglan) 10 mg IVP Q8 [facility] Last Admin: 02/09/17 08:21 Dose: 10 mg Ondansetron HCl (Zofran Inj) 4 mg IVP Q4H PRN PRN Reason: Nausea/Vomiting Last Admin: 02/08/17 01:00 Dose: 4 mg Pantoprazole Sodium (Protonix Inj) 40 mg IVP DAILY [facility] Last Admin: 02/09/17 08:20 Dose: 40 mg - Labs Labs: 02/09/17 05:30 02/09/17 05:30 PT 18.1 Seconds (9.8-13.1) H 02/06/17 04:30 INR 1.7 (0.9-1.2) H D 02/06/17 04:30 APTT 35.4 Seconds (25.6-37.1) 02/06/17 04:30 Assessment and Plan (1) Colon carcinoma Status: Acute (2) Large bowel obstruction Status: Resolved (3) Pleural effusion Status: Acute (4) Atelectasis Status: Acute (5) COPD (chronic obstructive pulmonary disease) Status: Chronic (6) Acute kidney injury Status: Resolved (7) Hypoalbuminemia Status: Acute
--- NOTE | 2017-02-09 12:37 | CP.PCM.PN ---
Subjective - Date & Time of Evaluation Date of Evaluation: 02/09/17 Time of Evaluation: 11:45 - Subjective Subjective: Pt more alert, less weak compared to yesterday NGT drainage approx 1 liter in the past 24 hrs- bilious drainage Colostomy drainage was also about 1 liter No fever minimal abd pain Dark urine from Villanueva Cath No cough, no CP Objective - Vital Signs/Intake and Output Vital Signs (last 24 hours): Temp Pulse Resp BP Pulse Ox 98.1 F 97 H 19 112/56 L 96 02/09/17 08:00 02/09/17 10:00 02/09/17 10:00 02/09/17 10:00 02/09/17 10:00 Intake and Output: 02/09/17 02/09/17 06:59 18:59 Intake Total 1110 565 Output Total 1300 Balance -190 565 - Medications Medications: Current Medications Acetaminophen (Tylenol 650 Mg Supp) 650 mg SC Q4 PRN PRN Reason: Fever >100.4 F Albuterol Sulfate (Albuterol 0.083% Inhal Barbara (2.5 Mg/3 Ml) Ud) 2.5 mg INH RQ4 PRN PRN Reason: Shortness of Breath Albuterol/Ipratropium (Duoneb 3 Mg/0.5 Mg (3 Ml) Ud) 3 ml INH RQID [facility] Last Admin: 02/09/17 11:30 Dose: 3 ml Enoxaparin Sodium (Lovenox) 60 mg SC Q12 [facility] PRN Reason: Protocol Last Admin: 02/09/17 08:14 Dose: 60 mg Hydromorphone HCl (Dilaudid) 0.5 mg IVP Q6 PRN PRN Reason: Pain, moderate (4-7) Last Admin: 02/09/17 03:13 Dose: 0.5 mg Metronidazole (Flagyl 500mg/100ml Ns) 100 mls @ 100 mls/hr IVPB Q8 [facility] Last Admin: 02/09/17 08:16 Dose: 100 mls/hr Piperacillin Sod/Tazobactam (Sod 2.25 gm/ Sodium Chloride) 100 mls @ 100 mls/ hr IVPB Q8 [facility] Last Admin: 02/09/17 09:29 Dose: 100 mls/hr Ceftazidime 2 gm/ Sodium (Chloride) 100 mls @ 100 mls/hr IVPB Q12 [facility] Last Admin: 02/09/17 10:33 Dose: 100 mls/hr Potassium Chloride/Dextrose/Sod Cl (Potassium Chl 40 Meq In D5-1/2ns) 1,000 mls @ 50 mls/hr IV .Q20H [facility] Stop: 02/10/17 00:07 Last Admin: 02/09/17 00:19 Dose: 50 mls/hr Potassium Chloride (Potassium Cl 10meq/50ml Sterile Water) 50 mls @ 50 mls/hr IVPB Q1 [facility] Stop: 02/09/17 14:59 Last Admin: 02/09/17 11:54 Dose: 50 mls/hr Metoclopramide HCl (Reglan) 10 mg IVP Q8 [facility] Last Admin: 02/09/17 08:21 Dose: 10 mg Ondansetron HCl (Zofran Inj) 4 mg IVP Q4H PRN PRN Reason: Nausea/Vomiting Last Admin: 02/08/17 01:00 Dose: 4 mg Pantoprazole Sodium (Protonix Inj) 40 mg IVP DAILY [facility] Last Admin: 02/09/17 08:20 Dose: 40 mg - Labs Labs: 02/09/17 05:30 02/09/17 05:30 PT 18.1 Seconds (9.8-13.1) H 02/06/17 04:30 INR 1.7 (0.9-1.2) H D 02/06/17 04:30 APTT 35.4 Seconds (25.6-37.1) 02/06/17 04:30 - Constitutional Appears: No Acute Distress - Head Exam Head Exam: NORMAL INSPECTION, NORMOCEPHALIC - Eye Exam Eye Exam: EOMI, Normal appearance Pupil Exam: normal accommodation - ENT Exam ENT Exam: Mucous Membranes Dry, Normal External Ear Exam - Neck Exam Neck Exam: Full ROM. absent: Meningismus - Respiratory Exam Respiratory Exam: Rales, Rhonchi Additional comments: on ventimask - GI/Abdominal Exam GI & Abdominal Exam: Soft, Tenderness, Normal Bowel Sounds Additional comments: vida intact , wound looks clean yellow liquid drainage from Colostomy + NGT - Extremities Exam Extremities Exam: Full ROM, Normal Capillary Refill, Pedal Edema. absent: Calf Tenderness Additional comments: hand edema right groin central line - Back Exam Back Exam: absent: CVA tenderness (L) - Neurological Exam Neurological Exam: Alert, Awake, CN II-XII Intact, Oriented x3 Neuro motor strength exam: Left Upper Extremity: 5, Right Upper Extremity: 5, Left Lower Extremity: 5, Right Lower Extremity: 5 - Psychiatric Exam Psychiatric exam: Normal Affect, Normal Mood - Skin Skin Exam: Dry, Normal Color, Warm Assessment and Plan (1) Rectal mass Status: Acute (2) SBO (small bowel obstruction) Status: Acute (3) COPD (chronic obstructive pulmonary disease) Status: Chronic (4) Aspiration pneumonia Status: Acute (5) DVT prophylaxis Status: Acute (6) Pleural effusion Status: Acute - Assessment and Plan (Free Text) Assessment: 71 y/o gent with Hx of COPD, came in bec of 2 weeks of constipation , abdominal discomfort and vomiting. CT of chest and Abd showed dilated large bowel loops up to the proximal rectum and suspicious for obstructing circumferential rectal mass versus focal stricture GI and surgery consulted. Patient admitted to med/surg kept NPO , started on IVF ,NGT placed and stool softeners and laxatives given with no improvement He underwent flex sigmoidoscopy that showed rectal stricture. Taken to OR 02/04 and underwent exploratory laparatomy with sigmoid resection and colostomy to [facility] Pt was not extubated post-op, he was transferred to ICU post op for monitoring. He developed hypovolemixc shock, Afib with RVR and mottling of lower extremities postop. Now extubated , off pressors. 1. Hypovolemic shock, resolved received 8 L fluid post op with minimal urinary output 20 ml/hr Pt was started on levophed drip- now off lactic acid trended down and BP improved. Mottling to lower extremities resolved showing improved tissue perfusion received albumin IV 2. Acute Hypoxemic respiratory failure, resolved Pt remained intubated post op - extubated 02/06 Pulmonary on consult with Dr. Danielson following 3. Afib with RVR episode received cardizem and digoxin now rate controlled on Lovenox 60mg q 12 4.Acute renal failure, improved oliguric post op with 20 ml/hr output now with good urine output continue IVF Close monitoring 5. Intestinal obstruction most likely secondary to Sigmoid CA Presented with No BM for 1-2 wks, + vomiting, + abdominal distention, no flatus CT of abd showed air fluid levels, distended large bowel loops up to the proximal rectum with suspicious obstructing rectal mass or stricture Surgery and GI consulted s/p flex sigmoidoscopy : long stricture. 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 Hypokalemia better K=3.3 sec to NPO status and loss from drainage of large amount of liquid into Colostomy replaced with KCl runs and Kphos, Magnesium IV also given 7. COPD (chronic obstructive pulmonary disease) chronic , stable Duoneb prn 8.Bilateral pneumonia / suspected Aspiration pneumonia Acute RLL focal airspace consolidation noted seen on CT of chest CXR showed increased bilateral infiltrates and pleural effusion on IV zosyn and Flagyl. Sputum c/s Stenophomonas maltophila - IV Levaquin added ID consulted- Dr hayes [id number] DVT prophylaxis Acute Lovenox
[2017-02-10] MEDS: metroNIDAZOLE 500mg/100ml NS 100 ML IVPB SCH ×3 (01:00→17:10)
[2017-02-10 06:11] LABS: HEMOGLOBIN 12.1 g/dL (12.0-18.0); MEAN CORPUSCULAR HEMOGLOBIN 31.3 pg (27.0-31.0); MEAN CORPUSCULAR HGB CONC 32.9 g/dL (33.0-37.0); RBC 3.87 Mil/uL (4.40-5.90); WHITE BLOOD COUNT 8.2 K/uL (4.8-10.8)
[2017-02-10 06:22] LABS: BLOOD UREA NITROGEN 15 mg/dl (9-20); CALCIUM 8.1 mg/dL (8.4-10.2); GFR AFRICAN-AMERICAN > 60; GFR NON-AFRICAN AMERICAN > 60
[2017-02-10] MEDS ORDERED: Potassium Chloride 20 mEq ER Tab PO ONE (07:27)
[2017-02-10] MEDS ORDERED: Oxycodone/Acetaminophen 5/325 mg Tab PO PRN (07:28)
--- NOTE | 2017-02-10 07:32 | CP.PCM.PN ---
<Errol Cruz - Last Filed: 02/10/17 07:29> Subjective - Date & Time of Evaluation Date of Evaluation: 02/10/17 Time of Evaluation: 07:30 - Subjective Subjective: Surgery for Dr. Gross Pt s&e. SAMANTHA Villanueva removed yesterday. Pt doing well. Pain controlled. Denies F/ C/N/V/D/CP/SOB. + void. Objective - Vital Signs/Intake and Output Vital Signs (last 24 hours): Temp Pulse Resp BP Pulse Ox 98 F 93 H 17 116/70 98 02/10/17 04:00 02/10/17 06:00 02/10/17 06:00 02/10/17 06:00 02/10/17 06:00 Intake and Output: 02/10/17 02/10/17 06:59 18:59 Intake Total 800 Output Total 420 Balance 380 - Medications Medications: Current Medications Acetaminophen (Tylenol 650 Mg Supp) 650 mg IN Q4 PRN PRN Reason: Fever >100.4 F Albuterol Sulfate (Albuterol 0.083% Inhal Barbara (2.5 Mg/3 Ml) Ud) 2.5 mg INH RQ4 PRN PRN Reason: Shortness of Breath Albuterol/Ipratropium (Duoneb 3 Mg/0.5 Mg (3 Ml) Ud) 3 ml INH RQID [facility] Last Admin: 02/09/17 19:26 Dose: 3 ml Enoxaparin Sodium (Lovenox) 60 mg SC Q12 [facility] PRN Reason: Protocol Last Admin: 02/09/17 20:37 Dose: 60 mg Hydromorphone HCl (Dilaudid) 0.5 mg IVP Q6 PRN PRN Reason: Pain, moderate (4-7) Last Admin: 02/09/17 21:54 Dose: 0.5 mg Metronidazole (Flagyl 500mg/100ml Ns) 100 mls @ 100 mls/hr IVPB Q8 [facility] Last Admin: 02/10/17 01:00 Dose: 100 mls/hr Piperacillin Sod/Tazobactam (Sod 2.25 gm/ Sodium Chloride) 100 mls @ 100 mls/ hr IVPB Q8 [facility] Last Admin: 02/10/17 01:00 Dose: 100 mls/hr Ceftazidime 2 gm/ Sodium (Chloride) 100 mls @ 100 mls/hr IVPB Q12 [facility] Last Admin: 02/09/17 20:35 Dose: 100 mls/hr Metoclopramide HCl (Reglan) 10 mg IVP Q8 [facility] Last Admin: 02/10/17 01:00 Dose: 10 mg Ondansetron HCl (Zofran Inj) 4 mg IVP Q4H PRN PRN Reason: Nausea/Vomiting Last Admin: 02/08/17 01:00 Dose: 4 mg Oxycodone/Acetaminophen (Percocet 5/325 Mg Tab) 2 tab PO Q4 PRN PRN Reason: Pain, moderate (4-7) Stop: 02/13/17 07:29 Pantoprazole Sodium (Protonix Inj) 40 mg IVP DAILY [facility] Last Admin: 02/09/17 08:20 Dose: 40 mg Potassium Chloride (K-Dur 20 Meq Er Tab) 20 meq PO ONCE ONE Stop: 02/10/17 07:28 - Labs Labs: 02/10/17 06:01 02/10/17 06:03 PT 18.1 Seconds (9.8-13.1) H 02/06/17 04:30 INR 1.7 (0.9-1.2) H D 02/06/17 04:30 APTT 35.4 Seconds (25.6-37.1) 02/06/17 04:30 - Constitutional Appears: No Acute Distress - Head Exam Head Exam: ATRAUMATIC, NORMAL INSPECTION, NORMOCEPHALIC - Eye Exam Eye Exam: EOMI, Normal appearance, PERRL Pupil Exam: NORMAL ACCOMODATION, PERRL - ENT Exam ENT Exam: Mucous Membranes Moist, Normal Exam - Neck Exam Neck Exam: Full ROM, Normal Inspection. absent: Lymphadenopathy - Respiratory Exam Respiratory Exam: Clear to Ausculation Bilateral, NORMAL BREATHING PATTERN - Cardiovascular Exam Cardiovascular Exam: REGULAR RHYTHM, +S1, +S2. absent: Murmur - GI/Abdominal Exam GI & Abdominal Exam: Distended, Soft, Tenderness, Normal Bowel Sounds. absent: Firm, Guarding, Rigid Additional comments: Ostomy putting out liquid. [place]. Patent. INcision C/D/I. TTP - Exam Exam: NORMAL INSPECTION - Extremities Exam Extremities Exam: Full ROM, Normal Capillary Refill, Normal Inspection. absent : Joint Swelling, Pedal Edema - Back Exam Back Exam: NORMAL INSPECTION - Neurological Exam Neurological Exam: Alert, Awake, CN II-XII Intact, Oriented x3 - Psychiatric Exam Psychiatric exam: Normal Affect, Normal Mood - Skin Skin Exam: Dry, Intact, Normal Color, Warm Assessment and Plan - Assessment and Plan (Free Text) Assessment: 71yo M with recto-sigmoid mass, s/p Marion's POD#6 - CLD, Advance diet as tolerated. - Cont medical management -Pain/nausea control - OOB to chair and incentive spirometer Will DW attending <Scot Castillo - Last Filed: 02/10/17 15:54> Subjective - Date & Time of Evaluation Time of Evaluation: 15:20 - Subjective Subjective: Patient was seen and examined at the bedside. Agree with resident's note above. Objective - Vital Signs/Intake and Output Vital Signs (last 24 hours): Temp Pulse Resp BP Pulse Ox 98.1 F 100 H 23 146/89 94 L 02/10/17 12:00 02/10/17 14:00 02/10/17 14:00 02/10/17 14:00 02/10/17 14:00 Intake and Output: 02/10/17 02/10/17 06:59 18:59 Intake Total 800 1040 Output Total 420 260 Balance 380 780 - Medications Medications: Current Medications Acetaminophen (Tylenol 650 Mg Supp) 650 mg IN Q4 PRN PRN Reason: Fever >100.4 F Albuterol Sulfate (Albuterol 0.083% Inhal Barbara (2.5 Mg/3 Ml) Ud) 2.5 mg INH RQ4 PRN PRN Reason: Shortness of Breath Albuterol/Ipratropium (Duoneb 3 Mg/0.5 Mg (3 Ml) Ud) 3 ml INH RQID [facility] Last Admin: 02/10/17 15:14 Dose: 3 ml Enoxaparin Sodium (Lovenox) 60 mg SC Q12 [facility] PRN Reason: Protocol Last Admin: 02/10/17 08:08 Dose: 60 mg Hydromorphone HCl (Dilaudid) 0.5 mg IVP Q6 PRN PRN Reason: Pain, moderate (4-7) Last Admin: 02/10/17 12:47 Dose: 0.5 mg Metronidazole (Flagyl 500mg/100ml Ns) 100 mls @ 100 mls/hr IVPB Q8 [facility] Last Admin: 02/10/17 09:07 Dose: 100 mls/hr Piperacillin Sod/Tazobactam (Sod 2.25 gm/ Sodium Chloride) 100 mls @ 100 mls/ hr IVPB Q8 [facility] Last Admin: 02/10/17 08:11 Dose: 100 mls/hr Ceftazidime 2 gm/ Sodium (Chloride) 100 mls @ 100 mls/hr IVPB Q12 [facility] Last Admin: 02/10/17 09:57 Dose: 100 mls/hr Metoclopramide HCl (Reglan) 10 mg IVP Q8 [facility] Last Admin: 02/10/17 08:01 Dose: 10 mg Ondansetron HCl (Zofran Inj) 4 mg IVP Q4H PRN PRN Reason: Nausea/Vomiting Last Admin: 02/08/17 01:00 Dose: 4 mg Oxycodone/Acetaminophen (Percocet 5/325 Mg Tab) 2 tab PO Q4 PRN PRN Reason: Pain, moderate (4-7) Stop: 02/13/17 07:29 Pantoprazole Sodium (Protonix Inj) 40 mg IVP DAILY [facility] Last Admin: 02/10/17 08:08 Dose: 40 mg Potassium Chloride (K-Dur 20 Meq Er Tab) 20 meq PO DAILY [facility] Last Admin: 02/10/17 09:12 Dose: 20 meq - Labs Labs: 02/10/17 06:01 02/10/17 06:03 PT 18.1 Seconds (9.8-13.1) H 02/06/17 04:30 INR 1.7 (0.9-1.2) H D 02/06/17 04:30 APTT 35.4 Seconds (25.6-37.1) 02/06/17 04:30 Assessment and Plan - Assessment and Plan (Free Text) Plan: - Clear liquid diet - IV fluids - pain control - Insentive spirometry - DVT ppx - Repeat labs in am - Will follow
--- NOTE | 2017-02-10 07:49 | CP.PCM.PN ---
Subjective - Date & Time of Evaluation Date of Evaluation: 02/10/17 Time of Evaluation: 08:30 - Subjective Subjective: Patient seen and evaluated bedside. Feeling better. Hemodynamically stable, afebrile. No acute issues overnight. NGT removed and tolerating liquid diet Colostomy to LLQ with good brownish stool out put Villanueva catheter removed and able to void freely with no retention Complains of some abdominal discomfort around the surgical incision that appears clean and healing well Able to ambulate with PT and sit on the chair bgut feels weak and tired to ambulate With some minimal chest congestion and cough with minimal sputum sexcretion Objective - Vital Signs/Intake and Output Vital Signs (last 24 hours): Temp Pulse Resp BP Pulse Ox 98 F 93 H 17 116/70 98 02/10/17 04:00 02/10/17 06:00 02/10/17 06:00 02/10/17 06:00 02/10/17 06:00 Intake and Output: 02/10/17 02/10/17 06:59 18:59 Intake Total 800 Output Total 420 Balance 380 - Medications Medications: Current Medications Acetaminophen (Tylenol 650 Mg Supp) 650 mg [place] Q4 PRN PRN Reason: Fever >100.4 F Albuterol Sulfate (Albuterol 0.083% Inhal Barbara (2.5 Mg/3 Ml) Ud) 2.5 mg INH RQ4 PRN PRN Reason: Shortness of Breath Albuterol/Ipratropium (Duoneb 3 Mg/0.5 Mg (3 Ml) Ud) 3 ml INH RQID [facility] Last Admin: 02/09/17 19:26 Dose: 3 ml Enoxaparin Sodium (Lovenox) 60 mg SC Q12 [facility] PRN Reason: Protocol Last Admin: 02/09/17 20:37 Dose: 60 mg Hydromorphone HCl (Dilaudid) 0.5 mg IVP Q6 PRN PRN Reason: Pain, moderate (4-7) Last Admin: 02/09/17 21:54 Dose: 0.5 mg Metronidazole (Flagyl 500mg/100ml Ns) 100 mls @ 100 mls/hr IVPB Q8 [facility] Last Admin: 02/10/17 01:00 Dose: 100 mls/hr Piperacillin Sod/Tazobactam (Sod 2.25 gm/ Sodium Chloride) 100 mls @ 100 mls/ hr IVPB Q8 [facility] Last Admin: 02/10/17 01:00 Dose: 100 mls/hr Ceftazidime 2 gm/ Sodium (Chloride) 100 mls @ 100 mls/hr IVPB Q12 [facility] Last Admin: 02/09/17 20:35 Dose: 100 mls/hr Metoclopramide HCl (Reglan) 10 mg IVP Q8 [facility] Last Admin: 02/10/17 01:00 Dose: 10 mg Ondansetron HCl (Zofran Inj) 4 mg IVP Q4H PRN PRN Reason: Nausea/Vomiting Last Admin: 02/08/17 01:00 Dose: 4 mg Oxycodone/Acetaminophen (Percocet 5/325 Mg Tab) 2 tab PO Q4 PRN PRN Reason: Pain, moderate (4-7) Stop: 02/13/17 07:29 Pantoprazole Sodium (Protonix Inj) 40 mg IVP DAILY [facility] Last Admin: 02/09/17 08:20 Dose: 40 mg - Labs Labs: 02/10/17 06:01 02/10/17 06:03 PT 18.1 Seconds (9.8-13.1) H 02/06/17 04:30 INR 1.7 (0.9-1.2) H D 02/06/17 04:30 APTT 35.4 Seconds (25.6-37.1) 02/06/17 04:30 - Constitutional Appears: Non-toxic, No Acute Distress, Cachectic, Other (pale ) - Head Exam Head Exam: ATRAUMATIC, NORMAL INSPECTION, NORMOCEPHALIC - Eye Exam Eye Exam: EOMI, Normal appearance, PERRL Pupil Exam: NORMAL ACCOMODATION - ENT Exam ENT Exam: Mucous Membranes Moist, Normal Exam - Neck Exam Neck Exam: Full ROM, Normal Inspection - Respiratory Exam Respiratory Exam: Decreased Breath Sounds (bibasilar , coarse ), Clear to Ausculation Bilateral. absent: Rhonchi, Wheezes - Cardiovascular Exam Cardiovascular Exam: Irregular Rhythm. absent: JVD - GI/Abdominal Exam GI & Abdominal Exam: Soft, Normal Bowel Sounds. absent: Distended, Guarding, Tenderness Additional comments: midline surgical incision healing well colostomy to LLQ with good output - Rectal Exam Rectal Exam: Deferred - Extremities Exam Extremities Exam: Normal Capillary Refill, Normal Inspection, Pedal Edema (1 + bilaterally). absent: Calf Tenderness - Back Exam Back Exam: NORMAL INSPECTION - Neurological Exam Neurological Exam: Alert, Awake, CN II-XII Intact, Oriented x3 - Psychiatric Exam Psychiatric exam: Normal Affect - Skin Skin Exam: Dry, Pallor, Warm Assessment and Plan - Assessment and Plan (Free Text) Assessment: 71 y/o gent with Hx of COPD, came in bec of 2 weeks of constipation , abdominal discomfort and vomiting. CT of chest and Abd showed dilated large bowel loops up to the proximal rectum and suspicious for obstructing circumferential rectal mass versus focal stricture GI and surgery consulted. Patient admitted to med/surg kept NPO , started on IVF ,NGT placed , stool softeners and laxatives given with no improvement He underwent flex sigmoidoscopy that showed rectal stricture. Taken to OR 02/04 and underwent exploratory laparatomy with sigmoid resection and colostomy to [facility] Pt was not extubated post-op, he was transferred to ICU post op for monitoring. He developed hypovolemixc shock, Afib with RVR and mottling of lower extremities postop. Now extubated , off pressors, doing well, tolerating liquid diet 1. Hypovolemic shock post op , resolved received large quantity of IVF, albumin IV and was started on levophed drip At present Bp controlled , off levophed drip Mottling to lower extremities resolved showing improved tissue perfusion 2. Acute Hypoxemic respiratory failure, resolved Pt remained intubated post op - extubated 02/06 Pulmonary on consult with Dr. Danielson following CXR showing bilateral pleural effusion Continue diuresis PRN 3. Afib with RVR episode- rate controlled received cardizem and digoxin now rate controlled on Lovenox 60mg q 12 4.Acute renal failure, improved oliguric post op with 20 ml/hr output now with good urine output and normal renal function continue IVF Close monitoring 5. Intestinal obstruction most likely secondary to Sigmoid CA Presented with No BM for 1-2 wks, + vomiting, + abdominal distention, no flatus CT of abd showed air fluid levels, distended large bowel loops up to the proximal rectum with suspicious obstructing rectal mass or stricture Surgery and GI consulted s/p flex sigmoidoscopy that showed long stricture. 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 Hypokalemia replace sec to NPO status and loss from drainage of large amount of liquid into Colostomy 7. COPD (chronic obstructive pulmonary disease) chronic , stable Duoneb prn 8.Bilateral pneumonia / suspected Aspiration pneumonia Acute RLL focal airspace consolidation seen on CT of chest CXR showed increased bilateral infiltrates and pleural effusion on IV zosyn ,Ceftazidime and Flagyl. Sputum c/s Stenophomonas maltophila ID consulted- Dr Mahmood 9 DVT prophylaxis Acute Lovenox
[2017-02-10] MEDS: Albuterol-Ipratrop 3 mg / 0.5 (3 ml) UD INH SCH ×4 (08:07→19:11)
[2017-02-10] MEDS: Enoxaparin 60 mg Syringe SC SCH ×2 (08:08→20:42)
--- NOTE | 2017-02-10 08:24 | CP.PCM.PN ---
Subjective - Date & Time of Evaluation Date of Evaluation: 02/10/17 Time of Evaluation: 08:22 - Subjective Subjective: Looks good this morning. NGT and fay catheter removed. Wass OOB to chair for approximately 3 hours yesterday. Will begin clear liquid diet today. No complaint of nausea, no vomiting. Has remained afebrile, vital signs are stable. Potassium 3.5, Cl 114, CBC stable, dev function stable. No CXR done this morning. Will skip today. Colostomy functioning, yellow liquid output. Abdomen mildly tense, good bowel sounds, surgical wound clean and dry. Dependant edema still ++, no cyanosis, jaundice, ecchymosis or rash. No dullness on percussion of the anterior chest wall. Dullness posteriorly over lower 1/2 bilaterally. Breath sounds well heard anteriorly in both lungs. Few sonorous rhonchi in the RLL, partially cleared with cough. Posteriorly BS are decreased in both lower lobes with egophony bilaterally. No audible wheezes heard. Few medium rales in LL's. Heart sounds slightly distant, irregular. Start clear liquids (tolerated ice chips yesterday). OOB to chair again today. CXR tomorrow. Continue antibiotics. Awaiting path report. More K phos supplements. May transfer out of ICU from respiratory standpoint. Objective - Vital Signs/Intake and Output Vital Signs (last 24 hours): Temp Pulse Resp BP Pulse Ox 98.2 F 93 H 20 123/67 98 02/10/17 07:50 02/10/17 07:50 02/10/17 07:50 02/10/17 07:50 02/10/17 07:50 Intake and Output: 02/09/17 02/10/17 23:59 11:59 Intake Total 1465 600 Output Total 460 300 Balance 1005 300 - Medications Medications: Current Medications Acetaminophen (Tylenol 650 Mg Supp) 650 mg [place] Q4 PRN PRN Reason: Fever >100.4 F Albuterol Sulfate (Albuterol 0.083% Inhal Barbara (2.5 Mg/3 Ml) Ud) 2.5 mg INH RQ4 PRN PRN Reason: Shortness of Breath Albuterol/Ipratropium (Duoneb 3 Mg/0.5 Mg (3 Ml) Ud) 3 ml INH RQID [facility] Last Admin: 02/10/17 08:07 Dose: 3 ml Enoxaparin Sodium (Lovenox) 60 mg SC Q12 [facility] PRN Reason: Protocol Last Admin: 02/10/17 08:08 Dose: 60 mg Hydromorphone HCl (Dilaudid) 0.5 mg IVP Q6 PRN PRN Reason: Pain, moderate (4-7) Last Admin: 02/09/17 21:54 Dose: 0.5 mg Metronidazole (Flagyl 500mg/100ml Ns) 100 mls @ 100 mls/hr IVPB Q8 [facility] Last Admin: 02/10/17 01:00 Dose: 100 mls/hr Piperacillin Sod/Tazobactam (Sod 2.25 gm/ Sodium Chloride) 100 mls @ 100 mls/ hr IVPB Q8 [facility] Last Admin: 02/10/17 08:11 Dose: 100 mls/hr Ceftazidime 2 gm/ Sodium ([facility]) 100 mls @ 100 mls/hr IVPB Q12 [facility] Last Admin: 02/09/17 20:35 Dose: 100 mls/hr Metoclopramide HCl (Reglan) 10 mg IVP Q8 [facility] Last Admin: 02/10/17 08:01 Dose: 10 mg Ondansetron HCl (Zofran Inj) 4 mg IVP Q4H PRN PRN Reason: Nausea/Vomiting Last Admin: 02/08/17 01:00 Dose: 4 mg Oxycodone/Acetaminophen (Percocet 5/325 Mg Tab) 2 tab PO Q4 PRN PRN Reason: Pain, moderate (4-7) Stop: 02/13/17 07:29 Pantoprazole Sodium (Protonix Inj) 40 mg IVP DAILY [facility] Last Admin: 02/10/17 08:08 Dose: 40 mg Potassium Chloride (Klor-Con 10) 20 meq PO DAILY [facility] - Labs Labs: 02/10/17 06:01 02/10/17 06:03 PT 18.1 Seconds (9.8-13.1) H 02/06/17 04:30 INR 1.7 (0.9-1.2) H D 02/06/17 04:30 APTT 35.4 Seconds (25.6-37.1) 02/06/17 04:30 Assessment and Plan (1) Colon carcinoma Status: Acute (2) Large bowel obstruction Status: Resolved (3) Pleural effusion Status: Acute (4) Atelectasis Status: Acute (5) COPD (chronic obstructive pulmonary disease) Status: Chronic (6) Acute kidney injury Status: Resolved (7) Hypoalbuminemia Status: Acute
[2017-02-10] MEDS ORDERED: Potassium Chloride 10 mEq ER Tab PO SCH (09:00)
[2017-02-10] MEDS ORDERED: Potassium Chloride 20 mEq ER Tab PO SCH (09:00)
--- NOTE | 2017-02-10 11:50 | PN ---
DATE: 02/10/2017 CRITICAL CARE PROGRESS NOTE LOCATION: The patient in ICU, bed 423. TIME SPENT: 35 minutes. SUBJECTIVE: The patient is seen and examined at the bedside. Case was discussed and management plans were formulated in multidisciplinary ICU rounds. 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 Overnight afebrile, normotensive, less tachycardic. This morning, started on clear liquid diet, tolerating it well. No fever, chills, cough, shortness of breath. Mild abdominal discomfort, otherwise stable. PHYSICAL EXAMINATION: VITAL SIGNS: Temperature 98.1, heart rate 93 and irregular, respiratory rate 20, blood pressure 123/67. Oxygen saturation 98% on oxygen 2 liters nasal cannula. Intake 2530, output 760, positive balance 1770. HEENT: Pupils reactive, conjunctivae pale, sclerae anicteric. CHEST: Bilateral breath sounds. Clear to auscultation anteriorly. Scattered rhonchi, more so on the right than left. HEART: Rhythm irregular. ABDOMEN: Bowel sounds present, diminished in intensity. Colostomy draining yellow liquid. NEUROLOGIC: Nonfocal. LABORATORY DATA: WBC 8.2, hemoglobin 12.1, hematocrit 36.8, platelet count 290. PT 18.1, INR 1.7, PTT 35.4. ABG, pH of 7.40, PCO2 of 36, PO2 of 93, oxygen supplement 2 liters. SMA-7: Sodium 147, potassium 3.5, chloride 114, CO2 of 28, blood urea nitrogen 15, creatinine 0.9, glucose 127, calcium 8.1, phosphorus 2.3. Urinalysis, glucose trace, RBC 3, WBC 2. Chest x-ray done on 02/09/2017, bilateral interstitial infiltrates and effusion. CURRENT MEDICATIONS: Reviewed, Tylenol 650 q. 4 hours p.r.n., DuoNeb 3 mL via nebulizer q. 6 hours, albuterol 2.5 mg q. 4 hours p.r.n., ceftazidime 2 g IV q. 12 hours, Flagyl 500 mg IV q. 8 hours, Zosyn 2.25 g IV q. 8 hours, potassium supplement, Protonix 40 mg IV daily, Percocet 5/325 mg q. 4 hours p.r.n. for pain, metoclopramide 10 mg IV q. 8 hours. MICROBIOLOGY: Sputum cultures for Stenotrophomonas maltophilia, sensitive to ciprofloxacin, ceftazidime .. IMPRESSION: 1. Neuro: Alert, oriented to name, place and time. 2. Cardiac: Paroxysmal supraventricular tachycardia with atrial fibrillation, rate controlled, on Lovenox 60 mg subcutaneous q. 12 hours. 3. Pulmonary: History of chronic obstructive pulmonary disease, current smoker. Continue DuoNeb 3 mL via nebulizer q. 6 hours and albuterol q. 4 hours p.r.n. Encourage incentive spirometry. Oxygen supplement 2 liters nasal cannula. The patient declines to use nicotine patch for nicotine withdrawal. 4. Gastrointestinal: Status post exploratory laparotomy and diverting colostomy, functioning well. 5. Renal: Electrolyte imbalance, hypokalemia, being supplemented. 6. Endocrinology: Keep blood sugar less than 180. Continue feeding as tolerated. history of mild diabetes. Maintain blood sugar less than 180. 7. Oncology: History of carcinoma of sigmoid colon, status post bowel obstruction, status post diverting colostomy. Oncology followup when patient is more stable for further treatment. 8. Continue gastrointestinal prophylaxis, deep venous thrombosis with sequential compression device and on Lovenox now. Guy Mcnair MD MTDD
--- NOTE | 2017-02-10 15:08 | CP.PCM.PN ---
Subjective - Date & Time of Evaluation Date of Evaluation: 02/09/17 Time of Evaluation: 18:00 - Subjective Subjective: feels better Objective - Vital Signs/Intake and Output Vital Signs (last 24 hours): Temp Pulse Resp BP Pulse Ox 98.1 F 100 H 23 146/89 94 L 02/10/17 12:00 02/10/17 14:00 02/10/17 14:00 02/10/17 14:00 02/10/17 14:00 Intake and Output: 02/10/17 02/10/17 06:59 18:59 Intake Total 800 1040 Output Total 420 260 Balance 380 780 - Medications Medications: Current Medications Acetaminophen (Tylenol 650 Mg Supp) 650 mg ID Q4 PRN PRN Reason: Fever >100.4 F Albuterol Sulfate (Albuterol 0.083% Inhal Barbara (2.5 Mg/3 Ml) Ud) 2.5 mg INH RQ4 PRN PRN Reason: Shortness of Breath Albuterol/Ipratropium (Duoneb 3 Mg/0.5 Mg (3 Ml) Ud) 3 ml INH RQID PEND[facility] SALE TO [facility] Last Admin: 02/10/17 11:06 Dose: 3 ml Enoxaparin Sodium (Lovenox) 60 mg SC Q12 [facility] PRN Reason: Protocol Last Admin: 02/10/17 08:08 Dose: 60 mg Hydromorphone HCl (Dilaudid) 0.5 mg IVP Q6 PRN PRN Reason: Pain, moderate (4-7) Last Admin: 02/10/17 12:47 Dose: 0.5 mg Metronidazole (Flagyl 500mg/100ml Ns) 100 mls @ 100 mls/hr IVPB Q8 [facility] Last Admin: 02/10/17 09:07 Dose: 100 mls/hr Piperacillin Sod/Tazobactam (Sod 2.25 gm/ Sodium Chloride) 100 mls @ 100 mls/ hr IVPB Q8 [facility] Last Admin: 02/10/17 08:11 Dose: 100 mls/hr Ceftazidime 2 gm/ Sodium (Chloride) 100 mls @ 100 mls/hr IVPB Q12 [facility] Last Admin: 02/10/17 09:57 Dose: 100 mls/hr Metoclopramide HCl (Reglan) 10 mg IVP Q8 [facility] Last Admin: 02/10/17 08:01 Dose: 10 mg Ondansetron HCl (Zofran Inj) 4 mg IVP Q4H PRN PRN Reason: Nausea/Vomiting Last Admin: 02/08/17 01:00 Dose: 4 mg Oxycodone/Acetaminophen (Percocet 5/325 Mg Tab) 2 tab PO Q4 PRN PRN Reason: Pain, moderate (4-7) Stop: 02/13/17 07:29 Pantoprazole Sodium (Protonix Inj) 40 mg IVP DAILY [facility] Last Admin: 02/10/17 08:08 Dose: 40 mg Potassium Chloride (K-Dur 20 Meq Er Tab) 20 meq PO DAILY [facility] Last Admin: 02/10/17 09:12 Dose: 20 meq - Labs Labs: 02/10/17 06:01 02/10/17 06:03 PT 18.1 Seconds (9.8-13.1) H 02/06/17 04:30 INR 1.7 (0.9-1.2) H D 02/06/17 04:30 APTT 35.4 Seconds (25.6-37.1) 02/06/17 04:30 - GI/Abdominal Exam GI & Abdominal Exam: Soft, Tenderness, Normal Bowel Sounds Assessment and Plan - Assessment and Plan (Free Text) Assessment: 71 yo male with colon mass doing well post op care
--- NOTE | 2017-02-10 15:09 | CP.PCM.PN ---
Subjective - Date & Time of Evaluation Date of Evaluation: 02/10/17 Time of Evaluation: 15:00 - Subjective Subjective: feels better Objective - Vital Signs/Intake and Output Vital Signs (last 24 hours): Temp Pulse Resp BP Pulse Ox 98.1 F 100 H 23 146/89 94 L 02/10/17 12:00 02/10/17 14:00 02/10/17 14:00 02/10/17 14:00 02/10/17 14:00 Intake and Output: 02/10/17 02/10/17 06:59 18:59 Intake Total 800 1040 Output Total 420 260 Balance 380 780 - Medications Medications: Current Medications Acetaminophen (Tylenol 650 Mg Supp) 650 mg UT Q4 PRN PRN Reason: Fever >100.4 F Albuterol Sulfate (Albuterol 0.083% Inhal Barbara (2.5 Mg/3 Ml) Ud) 2.5 mg INH RQ4 PRN PRN Reason: Shortness of Breath Albuterol/Ipratropium (Duoneb 3 Mg/0.5 Mg (3 Ml) Ud) 3 ml INH RQID ON LICENSE OF [facility] Last Admin: 02/10/17 11:06 Dose: 3 ml Enoxaparin Sodium (Lovenox) 60 mg SC Q12 [facility] PRN Reason: Protocol Last Admin: 02/10/17 08:08 Dose: 60 mg Hydromorphone HCl (Dilaudid) 0.5 mg IVP Q6 PRN PRN Reason: Pain, moderate (4-7) Last Admin: 02/10/17 12:47 Dose: 0.5 mg Metronidazole (Flagyl 500mg/100ml Ns) 100 mls @ 100 mls/hr IVPB Q8 ON LICENSE OF [facility] Last Admin: 02/10/17 09:07 Dose: 100 mls/hr Piperacillin Sod/Tazobactam (Sod 2.25 gm/ Sodium Chloride) 100 mls @ 100 mls/ hr IVPB Q8 ON LICENSE OF [facility] Last Admin: 02/10/17 08:11 Dose: 100 mls/hr Ceftazidime 2 gm/ Sodium (Chloride) 100 mls @ 100 mls/hr IVPB Q12 ON LICENSE OF [facility] Last Admin: 02/10/17 09:57 Dose: 100 mls/hr Metoclopramide HCl (Reglan) 10 mg IVP Q8 ON [facility] OF [facility] Last Admin: 02/10/17 08:01 Dose: 10 mg Ondansetron HCl (Zofran Inj) 4 mg IVP Q4H PRN PRN Reason: Nausea/Vomiting Last Admin: 02/08/17 01:00 Dose: 4 mg Oxycodone/Acetaminophen (Percocet 5/325 Mg Tab) 2 tab PO Q4 PRN PRN Reason: Pain, moderate (4-7) Stop: 02/13/17 07:29 Pantoprazole Sodium (Protonix Inj) 40 mg IVP DAILY [facility] Last Admin: 02/10/17 08:08 Dose: 40 mg Potassium Chloride (K-Dur 20 Meq Er Tab) 20 meq PO DAILY [facility] Last Admin: 02/10/17 09:12 Dose: 20 meq - Labs Labs: 02/10/17 06:01 02/10/17 06:03 PT 18.1 Seconds (9.8-13.1) H 02/06/17 04:30 INR 1.7 (0.9-1.2) H D 02/06/17 04:30 APTT 35.4 Seconds (25.6-37.1) 02/06/17 04:30 - GI/Abdominal Exam GI & Abdominal Exam: Soft, Normal Bowel Sounds Assessment and Plan - Assessment and Plan (Free Text) Assessment: 71 yo male with colon mass doing well post op care
[2017-02-10] MEDS: Potassium Chl 40 mEq in D5-1/2 1,000 ML IV SCH (20:55)
[2017-02-11] MEDS: metroNIDAZOLE 500mg/100ml NS 100 ML IVPB SCH ×3 (00:13→17:33)
[2017-02-11] MEDS ORDERED: Chlorhexidine Gluconate 1 APPL/PKT TP ONE (05:32)
--- NOTE | 2017-02-11 05:35 | CP.PCM.PCO ---
Physician Communication Note - Physician Communication Note Physician Communication Note: With each cough patient bringing up mouth full of Bile.
[2017-02-11 06:00] LABS: HEMOGLOBIN 12.3 g/dL (12.0-18.0); MEAN CELL VOLUME 94.8 fl (80.0-94.0); MEAN CORPUSCULAR HEMOGLOBIN 31.2 pg (27.0-31.0); MEAN CORPUSCULAR HGB CONC 32.9 g/dL (33.0-37.0); RBC 3.93 Mil/uL (4.40-5.90); RED CELL DISTRIBUTION WIDTH 15.2 % (11.5-14.5); WHITE BLOOD COUNT 9.5 K/uL (4.8-10.8)
[2017-02-11 06:15] LABS: BLOOD UREA NITROGEN 14 mg/dl (9-20); CALCIUM 7.9 mg/dL (8.4-10.2); GFR AFRICAN-AMERICAN > 60; GFR NON-AFRICAN AMERICAN > 60
--- NOTE | 2017-02-11 07:42 | CP.PCM.PN ---
<Errol Cruz - Last Filed: 02/11/17 07:40> Subjective - Date & Time of Evaluation Date of Evaluation: 02/11/17 Time of Evaluation: 07:40 - Subjective Subjective: Surgery for Dr. Gross Pt s&e. Pt vomited overnight. NGT placed. Denies F/C/D/CP/SOB. C/O abd pain. Objective - Vital Signs/Intake and Output Vital Signs (last 24 hours): Temp Pulse Resp BP Pulse Ox 97.7 F 93 H 14 131/86 100 02/11/17 07:39 02/11/17 07:39 02/11/17 07:39 02/11/17 07:39 02/11/17 07:39 Intake and Output: 02/11/17 02/11/17 06:59 18:59 Intake Total 925 Output Total 950 Balance -25 - Medications Medications: Current Medications Acetaminophen (Tylenol 650 Mg Supp) 650 mg SC Q4 PRN PRN Reason: Fever >100.4 F Albuterol Sulfate (Albuterol 0.083% Inhal Barbara (2.5 Mg/3 Ml) Ud) 2.5 mg INH RQ4 PRN PRN Reason: Shortness of Breath Albuterol/Ipratropium (Duoneb 3 Mg/0.5 Mg (3 Ml) Ud) 3 ml INH RQID [facility] Last Admin: 02/10/17 19:11 Dose: 3 ml Enoxaparin Sodium (Lovenox) 60 mg SC Q12 [facility] PRN Reason: Protocol Last Admin: 02/10/17 20:42 Dose: 60 mg Hydromorphone HCl (Dilaudid) 0.5 mg IVP Q6 PRN PRN Reason: Pain, moderate (4-7) Last Admin: 02/11/17 06:21 Dose: 0.5 mg Metronidazole (Flagyl 500mg/100ml Ns) 100 mls @ 100 mls/hr IVPB Q8 [facility] Last Admin: 02/11/17 00:13 Dose: 100 mls/hr Piperacillin Sod/Tazobactam (Sod 2.25 gm/ Sodium Chloride) 100 mls @ 100 mls/ hr IVPB Q8 [facility] Last Admin: 02/11/17 00:11 Dose: 100 mls/hr Ceftazidime 2 gm/ Sodium (Chloride) 100 mls @ 100 mls/hr IVPB Q12 [facility] Last Admin: 02/10/17 20:39 Dose: 100 mls/hr Potassium Chloride/Dextrose/Sod Cl (Potassium Chl 40 Meq In D5-1/2ns) 1,000 mls @ 49.02 mls/hr IV .[id number] [facility] Stop: 02/11/17 19:07 Last Admin: 02/10/17 20:55 Dose: 49.02 mls/hr Potassium Chloride (Potassium Chloride 10 Meq/100 Ml) 100 mls @ 100 mls/hr IVPB Q1 [facility] Stop: 02/11/17 09:59 Metoclopramide HCl (Reglan) 10 mg IVP Q8 [facility] Last Admin: 02/11/17 00:13 Dose: 10 mg Ondansetron HCl (Zofran Inj) 4 mg IVP Q4H PRN PRN Reason: Nausea/Vomiting Last Admin: 02/08/17 01:00 Dose: 4 mg Oxycodone/Acetaminophen (Percocet 5/325 Mg Tab) 2 tab PO Q4 PRN PRN Reason: Pain, moderate (4-7) Stop: 02/13/17 07:29 Pantoprazole Sodium (Protonix Inj) 40 mg IVP DAILY [facility] Last Admin: 02/10/17 08:08 Dose: 40 mg - Labs Labs: 02/11/17 05:20 02/11/17 05:20 PT 18.1 Seconds (9.8-13.1) H 02/06/17 04:30 INR 1.7 (0.9-1.2) H D 02/06/17 04:30 APTT 35.4 Seconds (25.6-37.1) 02/06/17 04:30 - Constitutional Appears: No Acute Distress - Head Exam Head Exam: ATRAUMATIC, NORMAL INSPECTION, NORMOCEPHALIC - Eye Exam Eye Exam: EOMI, Normal appearance, PERRL Pupil Exam: NORMAL ACCOMODATION, PERRL - ENT Exam ENT Exam: Mucous Membranes Moist, Normal Exam - Neck Exam Neck Exam: Full ROM, Normal Inspection. absent: Lymphadenopathy - Respiratory Exam Respiratory Exam: Clear to Ausculation Bilateral, NORMAL BREATHING PATTERN - Cardiovascular Exam Cardiovascular Exam: REGULAR RHYTHM, +S1, +S2. absent: Murmur - GI/Abdominal Exam GI & Abdominal Exam: Distended, Soft, Tenderness, Normal Bowel Sounds. absent: Firm, Guarding, Rigid Additional comments: Incision C/D/I. Some erythema around the vdia. Ostomy has gas and liquids. [place] , functioning. - Exam Exam: Scrotal Swelling - Extremities Exam Extremities Exam: Full ROM, Normal Capillary Refill, Normal Inspection. absent : Joint Swelling, Pedal Edema - Back Exam Back Exam: NORMAL INSPECTION - Neurological Exam Neurological Exam: Alert, Awake, CN II-XII Intact, Oriented x3 - Psychiatric Exam Psychiatric exam: Normal Affect, Normal Mood - Skin Skin Exam: Dry, Intact, Normal Color, Warm Assessment and Plan - Assessment and Plan (Free Text) Assessment: 71yo M with recto-sigmoid mass, s/p Marion's POD#7 NGT 400cc Stoma 350cc overnight - NGT /NPO until nausea/vomiting improve. - Cont medical management - Pain/nausea control - OOB to chair and incentive spirometer, PT Will DW attending <Scot Castillo - Last Filed: 02/11/17 10:23> Subjective - Date & Time of Evaluation Time of Evaluation: 10:10 - Subjective Subjective: Patient was seen and examined at the bedside. Agree with resident's note above Objective - Vital Signs/Intake and Output Vital Signs (last 24 hours): Temp Pulse Resp BP Pulse Ox 97.7 F 93 H 14 131/86 100 02/11/17 07:39 02/11/17 07:39 02/11/17 07:39 02/11/17 07:39 02/11/17 07:39 Intake and Output: 02/11/17 02/11/17 06:59 18:59 Intake Total 925 Output Total 950 0 Balance -25 0 - Medications Medications: Current Medications Acetaminophen (Tylenol 650 Mg Supp) 650 mg SC Q4 PRN PRN Reason: Fever >100.4 F Albuterol Sulfate (Albuterol 0.083% Inhal Barbara (2.5 Mg/3 Ml) Ud) 2.5 mg INH RQ4 PRN PRN Reason: Shortness of Breath Albuterol/Ipratropium (Duoneb 3 Mg/0.5 Mg (3 Ml) Ud) 3 ml INH RQID [facility] Last Admin: 02/11/17 07:52 Dose: 3 ml Enoxaparin Sodium (Lovenox) 60 mg SC Q12 [facility] PRN Reason: Protocol Last Admin: 02/11/17 08:40 Dose: 60 mg Hydromorphone HCl (Dilaudid) 0.5 mg IVP Q6 PRN PRN Reason: Pain, moderate (4-7) Last Admin: 02/11/17 06:21 Dose: 0.5 mg Metronidazole (Flagyl 500mg/100ml Ns) 100 mls @ 100 mls/hr IVPB Q8 [facility] Last Admin: 02/11/17 08:41 Dose: 100 mls/hr Piperacillin Sod/Tazobactam (Sod 2.25 gm/ Sodium Chloride) 100 mls @ 100 mls/ hr IVPB Q8 [facility] Last Admin: 02/11/17 00:11 Dose: 100 mls/hr Ceftazidime 2 gm/ Sodium (Chloride) 100 mls @ 100 mls/hr IVPB Q12 [facility] Last Admin: 02/11/17 09:59 Dose: 100 mls/hr Potassium Chloride/Dextrose/Sod Cl (Potassium Chl 40 Meq In D5-1/2ns) 1,000 mls @ 49.02 mls/hr IV .[id number] [facility] Stop: 02/11/17 19:07 Last Admin: 02/10/17 20:55 Dose: 49.02 mls/hr Metoclopramide HCl (Reglan) 10 mg IVP Q8 [facility] Last Admin: 02/11/17 08:35 Dose: 10 mg Ondansetron HCl (Zofran Inj) 4 mg IVP Q4H PRN PRN Reason: Nausea/Vomiting Last Admin: 02/08/17 01:00 Dose: 4 mg Oxycodone/Acetaminophen (Percocet 5/325 Mg Tab) 2 tab PO Q4 PRN PRN Reason: Pain, moderate (4-7) Stop: 02/13/17 07:29 Pantoprazole Sodium (Protonix Inj) 40 mg IVP DAILY [facility] Last Admin: 02/11/17 08:38 Dose: 40 mg - Labs Labs: 02/11/17 05:20 02/11/17 05:20 PT 18.1 Seconds (9.8-13.1) H 02/06/17 04:30 INR 1.7 (0.9-1.2) H D 02/06/17 04:30 APTT 35.4 Seconds (25.6-37.1) 02/06/17 04:30
[2017-02-11] MEDS: Albuterol-Ipratrop 3 mg / 0.5 (3 ml) UD INH SCH ×5 (07:52→20:24)
--- NOTE | 2017-02-11 08:19 | CP.PCM.PN ---
Subjective - Date & Time of Evaluation Date of Evaluation: 02/11/17 Time of Evaluation: 08:30 - Subjective Subjective: Patient seen and examined bedside. Sitting in chair, comfortable in NAD. With episode of vomiting last night and reinsertion of NGT with 400 ml bilious output .At present NGT in place to slow intermittent suction. Denies any abdominal pain , nausea , chest pain or SOB. Passing flatus and had bowel movement to colostomy bag Hemodynamically stable BP 131/86 HR 93 afebrile I/o 2785/1760 gastric output 400 ml WBC 9.56 Hgb 12 K 3.5 . Objective - Vital Signs/Intake and Output Vital Signs (last 24 hours): Temp Pulse Resp BP Pulse Ox 97.7 F 93 H 14 131/86 100 02/11/17 07:39 02/11/17 07:39 02/11/17 07:39 02/11/17 07:39 02/11/17 07:39 Intake and Output: 02/11/17 02/11/17 06:59 18:59 Intake Total 925 Output Total 950 0 Balance -25 0 - Medications Medications: Current Medications Acetaminophen (Tylenol 650 Mg Supp) 650 mg MT Q4 PRN PRN Reason: Fever >100.4 F Albuterol Sulfate (Albuterol 0.083% Inhal Barbara (2.5 Mg/3 Ml) Ud) 2.5 mg INH RQ4 PRN PRN Reason: Shortness of Breath Albuterol/Ipratropium (Duoneb 3 Mg/0.5 Mg (3 Ml) Ud) 3 ml INH RQID [facility] Last Admin: 02/11/17 07:52 Dose: 3 ml Enoxaparin Sodium (Lovenox) 60 mg SC Q12 [facility] PRN Reason: Protocol Last Admin: 02/10/17 20:42 Dose: 60 mg Hydromorphone HCl (Dilaudid) 0.5 mg IVP Q6 PRN PRN Reason: Pain, moderate (4-7) Last Admin: 02/11/17 06:21 Dose: 0.5 mg Metronidazole (Flagyl 500mg/100ml Ns) 100 mls @ 100 mls/hr IVPB Q8 [facility] Last Admin: 02/11/17 00:13 Dose: 100 mls/hr Piperacillin Sod/Tazobactam (Sod 2.25 gm/ Sodium Chloride) 100 mls @ 100 mls/ hr IVPB Q8 [facility] Last Admin: 02/11/17 00:11 Dose: 100 mls/hr Ceftazidime 2 gm/ Sodium (Chloride) 100 mls @ 100 mls/hr IVPB Q12 [facility] Last Admin: 02/10/17 20:39 Dose: 100 mls/hr Potassium Chloride/Dextrose/Sod Cl (Potassium Chl 40 Meq In D5-1/2ns) 1,000 mls @ 49.02 mls/hr IV .[id number] [facility] Stop: 02/11/17 19:07 Last Admin: 02/10/17 20:55 Dose: 49.02 mls/hr Potassium Chloride (Potassium Chloride 10 Meq/100 Ml) 100 mls @ 100 mls/hr IVPB Q1 [facility] Stop: 02/11/17 09:59 Metoclopramide HCl (Reglan) 10 mg IVP Q8 [facility] Last Admin: 02/11/17 00:13 Dose: 10 mg Ondansetron HCl (Zofran Inj) 4 mg IVP Q4H PRN PRN Reason: Nausea/Vomiting Last Admin: 02/08/17 01:00 Dose: 4 mg Oxycodone/Acetaminophen (Percocet 5/325 Mg Tab) 2 tab PO Q4 PRN PRN Reason: Pain, moderate (4-7) Stop: 02/13/17 07:29 Pantoprazole Sodium (Protonix Inj) 40 mg IVP DAILY [facility] Last Admin: 02/10/17 08:08 Dose: 40 mg - Labs Labs: 02/11/17 05:20 02/11/17 05:20 PT 18.1 Seconds (9.8-13.1) H 02/06/17 04:30 INR 1.7 (0.9-1.2) H D 02/06/17 04:30 APTT 35.4 Seconds (25.6-37.1) 02/06/17 04:30 - Constitutional Appears: Non-toxic, No Acute Distress - Head Exam Head Exam: ATRAUMATIC, NORMOCEPHALIC - Eye Exam Eye Exam: EOMI, Normal appearance, PERRL Pupil Exam: NORMAL ACCOMODATION - ENT Exam ENT Exam: Mucous Membranes Dry, Normal Exam - Neck Exam Neck Exam: Full ROM, Normal Inspection - Respiratory Exam Respiratory Exam: Clear to Ausculation Bilateral, NORMAL BREATHING PATTERN. absent: Rhonchi, Wheezes - Cardiovascular Exam Cardiovascular Exam: Irregular Rhythm, +S1, +S2. absent: JVD - GI/Abdominal Exam GI & Abdominal Exam: Soft. absent: Distended, Guarding, Tenderness, Rebound Additional comments: midline surgical incision healing well - Rectal Exam Rectal Exam: Deferred - Extremities Exam Extremities Exam: Full ROM, Normal Inspection, Pedal Edema (1 +). absent: Calf Tenderness - Back Exam Back Exam: NORMAL INSPECTION - Neurological Exam Neurological Exam: Alert, Awake, CN II-XII Intact, Oriented x3 - Psychiatric Exam Psychiatric exam: Normal Affect - Skin Skin Exam: Dry, Pallor, Warm Assessment and Plan - Assessment and Plan (Free Text) Assessment: 71 y/o gent with Hx of COPD, came in bec of 2 weeks of constipation , abdominal discomfort and vomiting. CT of chest and Abd showed dilated large bowel loops up to the proximal rectum and suspicious for obstructing circumferential rectal mass versus focal stricture GI and surgery consulted. Patient admitted to med/surg kept NPO , started on IVF ,NGT placed , stool softeners and laxatives given with no improvement He underwent flex sigmoidoscopy that showed rectal stricture. Taken to OR 02/04 and underwent exploratory laparatomy with sigmoid resection and colostomy to [facility] Pt was not extubated post-op, he was transferred to ICU post op for monitoring. He developed hypovolemixc shock, Afib with RVR and mottling of lower extremities postop. Now extubated , off pressors, doing well. Overnight with episode of vomiting requiring NGT placement with 400 ml bilious output 1. Hypovolemic shock post op , resolved received large quantity of IVF, albumin IV and was started on levophed drip At present BP controlled , off levophed drip Mottling to lower extremities resolved showing improved tissue perfusion 2. Acute Hypoxemic respiratory failure, resolved Pt remained intubated post op and extubated 02/06 Pulmonary on consult with Dr. Danielson following CXR showing bilateral pleural effusion Continue diuresis PRN , Duonebs, O2 via NC, incentive spirometry Promote ambulation 3. Afib with RVR episode- rate controlled received cardizem and digoxin now rate controlled on Lovenox 60mg q 12 4.Acute renal failure, improved oliguric post op with 20 ml/hr output now with good urine output and normal renal function continue IVF Close monitoring 5. Intestinal obstruction most likely secondary to Sigmoid CA Presented with No BM for 1-2 wks, + vomiting, + abdominal distention, no flatus CT of abd showed air fluid levels, distended large bowel loops up to the proximal rectum with suspicious obstructing rectal mass or stricture Surgery and GI consulted s/p flex sigmoidoscopy that showed long stricture. 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 LLQ colostomy in place Continue pain management , promote ambulation surgery following On Zosyn, maxipime and Flagyl empirically Continue IVF 6. Hypokalemia replace sec to NPO status and loss from drainage of large amount of liquid into Colostomy 7. COPD (chronic obstructive pulmonary disease) chronic , stable Duoneb prn 8.Bilateral pneumonia / suspected Aspiration pneumonia Acute RLL focal airspace consolidation seen on CT of chest CXR showed increased bilateral infiltrates and pleural effusion on IV zosyn ,Ceftazidime and Flagyl. Sputum c/s Stenophomonas maltophila ID consulted- Dr Mahmood 9 DVT prophylaxis Acute Lovenox
[2017-02-11] MEDS: Enoxaparin 60 mg Syringe SC SCH ×2 (08:40→20:18)
--- NOTE | 2017-02-11 09:26 | CP.PCM.PN ---
Subjective - Date & Time of Evaluation Date of Evaluation: 02/11/17 Time of Evaluation: 09:24 - Subjective Subjective: Overnight events reviewed. NGT reinserted with brisk drainage of bilious material. Path report noted; poorly diff adenoca with neuroendocrine features. Colostomy functioning well. Abdominal x-ray requested. Will discuss with surgery and GI. Will request Oncology consult. Objective - Vital Signs/Intake and Output Vital Signs (last 24 hours): Temp Pulse Resp BP Pulse Ox 97.7 F 93 H 14 131/86 100 02/11/17 07:39 02/11/17 07:39 02/11/17 07:39 02/11/17 07:39 02/11/17 07:39 Intake and Output: 02/10/17 02/11/17 23:59 11:59 Intake Total 1625 600 Output Total 700 950 Balance 925 -350 - Medications Medications: Current Medications Acetaminophen (Tylenol 650 Mg Supp) 650 mg [place] Q4 PRN PRN Reason: Fever >100.4 F Albuterol Sulfate (Albuterol 0.083% Inhal Barbara (2.5 Mg/3 Ml) Ud) 2.5 mg INH RQ4 PRN PRN Reason: Shortness of Breath Albuterol/Ipratropium (Duoneb 3 Mg/0.5 Mg (3 Ml) Ud) 3 ml INH RQID [facility] Last Admin: 02/11/17 07:52 Dose: 3 ml Enoxaparin Sodium (Lovenox) 60 mg SC Q12 [facility] PRN Reason: Protocol Last Admin: 02/11/17 08:40 Dose: 60 mg Hydromorphone HCl (Dilaudid) 0.5 mg IVP Q6 PRN PRN Reason: Pain, moderate (4-7) Last Admin: 02/11/17 06:21 Dose: 0.5 mg Metronidazole (Flagyl 500mg/100ml Ns) 100 mls @ 100 mls/hr IVPB Q8 [facility] Last Admin: 02/11/17 08:41 Dose: 100 mls/hr Piperacillin Sod/Tazobactam (Sod 2.25 gm/ Sodium Chloride) 100 mls @ 100 mls/ hr IVPB Q8 [facility] Last Admin: 02/11/17 00:11 Dose: 100 mls/hr Ceftazidime 2 gm/ Sodium (Chloride) 100 mls @ 100 mls/hr IVPB Q12 [facility] Last Admin: 02/10/17 20:39 Dose: 100 mls/hr Potassium Chloride/Dextrose/Sod Cl (Potassium Chl 40 Meq In D5-1/2ns) 1,000 mls @ 49.02 mls/hr IV .[id number] [facility] Stop: 02/11/17 19:07 Last Admin: 02/10/17 20:55 Dose: 49.02 mls/hr Potassium Chloride (Potassium Chloride 10 Meq/100 Ml) 100 mls @ 100 mls/hr IVPB Q1 [facility] Stop: 02/11/17 09:59 Metoclopramide HCl (Reglan) 10 mg IVP Q8 [facility] Last Admin: 02/11/17 08:35 Dose: 10 mg Ondansetron HCl (Zofran Inj) 4 mg IVP Q4H PRN PRN Reason: Nausea/Vomiting Last Admin: 02/08/17 01:00 Dose: 4 mg Oxycodone/Acetaminophen (Percocet 5/325 Mg Tab) 2 tab PO Q4 PRN PRN Reason: Pain, moderate (4-7) Stop: 02/13/17 07:29 Pantoprazole Sodium (Protonix Inj) 40 mg IVP DAILY [facility] Last Admin: 02/11/17 08:38 Dose: 40 mg - Labs Labs: 02/11/17 05:20 02/11/17 05:20 PT 18.1 Seconds (9.8-13.1) H 02/06/17 04:30 INR 1.7 (0.9-1.2) H D 02/06/17 04:30 APTT 35.4 Seconds (25.6-37.1) 02/06/17 04:30 Assessment and Plan (1) Colon carcinoma Status: Acute (2) Large bowel obstruction Status: Resolved (3) Pleural effusion Status: Acute (4) Atelectasis Status: Acute (5) COPD (chronic obstructive pulmonary disease) Status: Chronic (6) Acute kidney injury Status: Resolved (7) Hypoalbuminemia Status: Acute
[2017-02-11] MEDS: Potassium CL 10mEq/100ml 100 ML IVPB SCH ×2 (10:54→12:51)
--- NOTE | 2017-02-11 11:15 | RAD ---
HISTORY: disteneded abdomen COMPARISON: Prior abdomen KUB 02/02/2017. FINDINGS: BOWEL: Nasogastric tube is again identified terminating in the left upper quadrant. Gas seen distending a central small bowel loop with a smaller volume gas suggested in additional likely small-bowel loops in the right and left lower quadrants in a pattern that may reflect a developing ileus or even a small bowel obstruction. Skin vida are identified at the midline mid to inferior pelvis. No prominent free intrarenal gas. No prominent free intrarenal gas. BONES: Multilevel thoracolumbar spondylosis identified. OTHER FINDINGS: None. IMPRESSION: Central small bowel dilatation with limited peripheral bowel gas may indicate developing ileus or even small bowel obstruction at this time. No prominent free intrarenal gas. Clinical correlation and radiographic follow-up are advised. CT is available if clinically warranted.
[2017-02-12] MEDS: metroNIDAZOLE 500mg/100ml NS 100 ML IVPB SCH ×3 (00:50→17:08)
--- NOTE | 2017-02-12 04:11 | PN ---
DATE: 02/11/2017 CRITICAL CARE PROGRESS NOTE ROOM: The patient IS in the ICU, bed #423. TIME SPENT: 35 minutes. SUBJECTIVE: The patient is seen and examined at the bedside. The case was discussed and management transfer formulated in multidisciplinary ICU. A 71-year-old male, current smoker with chronic obstructive pulmonary disease, admitted with large bowel obstruction, noted to have stricture/rectosigmoid mass, suspected adenocarcinoma by preliminary report from pathology was of course with hypovolemic hypertension, improved with IV hydration and pressor support, now extubated on oxygen 2 L nasal cannula. Overnight, noted to have abdominal distention with vomiting, bilious material, status post NG tube insertion with less nausea and vomiting, and less distention of the abdomen. Now afebrile, normotensive. Telemetry, heart rhythm irregular, out of bed to chair this morning. Denies nausea, vomiting. Colostomy functioning with more than 300 mL output. PHYSICAL EXAMINATION: VITAL SIGNS: Temperature 97.7, heart rate 93 and irregular; blood pressure 131/86, mean arterial pressure 101, respiratory rate 14 to 20, saturating 100%, oxygen 2 L nasal cannula, intake 2785, output 1760. Positive balance 1020. NG tube output 400, urine output 610, 350 colostomy output. HEENT: Examination of the head, eyes, ears, nose, and throat: Pupils reactive. Conjunctivae pink, sclerae white. NECK: Supple. Trachea is central. CHEST: Bilateral breath sounds, prolonged expiration. Clear to auscultation. HEART: Rhythm irregular. No audible murmur. ABDOMEN: Mildly distended. Bowel sounds present, reduced in intensity. EXTREMITIES: Trace edema, peripheral pulses intact. No palpable cords. NEUROLOGIC: Nonfocal. CURRENT MEDICATIONS: Tylenol 650 suppository q. 4 hours p.r.n. for temp more than 100.4, DuoNeb 3 mL via nebulizer q. 6 hours, ceftazidime 2 g IV q. 12 hours, Flagyl 500 500 mg IV q. 8 hours, Lovenox 60 subcu q. 12 hours, Dilaudid 0.5 mg IV q. 6 hours p.r.n., Reglan 10 mg IV q. 8 hours, Zofran 4 mg IV q. 4 hours p.r.n., Percocet 5/325 mg two tablets q. 4 hours p.r.n., Protonix 40 IV daily, Zosyn 2.25 g IV q. 8 hours. LABORATORY DATA: WBC 9.5, hemoglobin 12.3, hematocrit 37.3, and platelet count of 307. PT 18.1, INR 1.7, PTT 35.4. SMA-7: Sodium 147, potassium 3.5, chloride 114, CO2 of 24. Blood urine nitrogen 14, creatinine 0.7. Random glucose 114, calcium 7.9. Urinalysis negative. 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 Sputum culture positive for Stenotrophomonas maltophilia. Abdominal x-ray flat film report pending. IMPRESSION: Neurologic: Alert and oriented to name, place, and time. Cardiac: Paroxysmal supraventricular tachycardia/atrial fibrillation, rate controlled on Lovenox 60 subcu q. 12 hours. Pulmonary: Current smoker, chronic obstructive pulmonary disease, on DuoNeb 3 mL via nebulizer q. 6 hours and B12 q.4 hours p.r.n. Encourage incentive spirometry, continue oxygen supplement 2 L nasal cannula. Gastrointestinal: Status post laparotomy, diverting colostomy, colostomy functioning well. Noted to have increased bilious output last night status post NG tube insertion. Abdomen is distended now, followup abdominal x-ray flat film to assess for ileus, continue with renal. Electrolyte imbalance, hypokalemia, being supplemented. Endocrine: Keep blood sugar less than 180, currently NPO, secondary to suspected ileus. 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 oncology evaluation, continue DVT/GI prophylaxis, currently on Lovenox for atrial fibrillation. Guy Mcnair MD MTDD
[2017-02-12] MEDS: Potassium Chl 40 mEq in D5-1/2 1,000 ML IV SCH ×2 (07:03→17:03)
[2017-02-12 07:35] LABS: BLOOD UREA NITROGEN 13 mg/dl (9-20); CALCIUM 7.9 mg/dL (8.4-10.2); GFR AFRICAN-AMERICAN > 60; GFR NON-AFRICAN AMERICAN > 60
[2017-02-12] MEDS: Albuterol-Ipratrop 3 mg / 0.5 (3 ml) UD INH SCH ×4 (07:36→19:59)
[2017-02-12 07:37] LABS: HEMOGLOBIN 13.5 g/dL (12.0-18.0); MEAN CELL VOLUME 93.6 fl (80.0-94.0); MEAN CORPUSCULAR HEMOGLOBIN 31.6 pg (27.0-31.0); MEAN CORPUSCULAR HGB CONC 33.7 g/dL (33.0-37.0); RBC 4.29 Mil/uL (4.40-5.90); RED CELL DISTRIBUTION WIDTH 15.1 % (11.5-14.5); WHITE BLOOD COUNT 9.9 K/uL (4.8-10.8)
--- NOTE | 2017-02-12 08:35 | CP.PCM.CON ---
History of Present Illness - History of Present Illness History of Present Illness: This is a 71 yrs old male who has a past h/o COPD was admitted with intestinal obstruction. He had a endoscopy which showed marked erosive gastritis. H pylori present. No malignancy. The colonosopy showed a rectal stricture and a large mass in the sigmoid region obstructing the colon. He underwent a hemicolectomy and was found to have a large 3.5 cm mass in the colon infiltrating through the entire wall of the colon, into the pericolic fat, the distal margin was clear, but the proximal margin was positive for tumor. 21 out of 24 nodes were positive for cancer. 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 The surgeon states that there was peritoneal seeding as well. No liver or lung metastasis at least on the CT scan. 1 week after surgery he still did not have any drainage in the colostomy, and was vomiting, Yesterday he started passing gas and had some stool in the colostomy bag but also had a fair amount of drainage through the NGT. Past h/o COPD and new onset A Fib. H/o smoking 1ppd for several years No h/o alcohol abuse. No family h/o malignancy or GI problems. Past Patient History - Past Medical History & Family History Past Medical History?: Yes - Past Social History Smoking Status: Heavy Smoker > 10 Cigarettes Daily Chewing Tobacco Use: No Cigar Use: No Alcohol: Social Drugs: Denies Home Situation {Lives}: With Family - CARDIAC Hx Cardiac Disorders: No - PULMONARY Hx Chronic Obstructive Pulmonary Disease (COPD): Yes - NEUROLOGICAL Hx Neurological Disorder: No - HEENT Hx HEENT Problems: No - RENAL Hx Chronic Kidney Disease: No - ENDOCRINE/METABOLIC Hx Endocrine Disorders: No - HEMATOLOGICAL/ONCOLOGICAL Hx Blood Disorders: No Hx Human Immunodeficiency Virus (HIV): No - INTEGUMENTARY Hx Dermatological Problems: No - MUSCULOSKELETAL/RHEUMATOLOGICAL Hx Musculoskeletal Disorders: No Hx Falls: No - GASTROINTESTINAL Hx Gastrointestinal Disorders: No - GENITOURINARY/GYNECOLOGICAL Hx Genitourinary Disorders: No - PSYCHIATRIC Hx Psychophysiologic Disorder: No Hx Substance Use: No - SURGICAL HISTORY Other/Comment: right inguinal hernia repair 20 yrs ago - ANESTHESIA Hx Anesthesia: Yes Hx Anesthesia Reactions: No Hx Malignant Hyperthermia: No Has any member of the family had a problem w/ anesthesia?: No Meds Allergies/Adverse Reactions: Allergies Allergy/AdvReac Type Severity Reaction Status Date / Time No Known Allergies Allergy Verified 01/27/17 13:16 - Medications Medications: Current Medications Acetaminophen (Tylenol 650 Mg Supp) 650 mg [place] Q4 PRN PRN Reason: Fever >100.4 F Albuterol Sulfate (Albuterol 0.083% Inhal Barbara (2.5 Mg/3 Ml) Ud) 2.5 mg INH RQ4 PRN PRN Reason: Shortness of Breath Albuterol/Ipratropium (Duoneb 3 Mg/0.5 Mg (3 Ml) Ud) 3 ml INH RQID [facility] Last Admin: 02/12/17 07:36 Dose: 3 ml Enoxaparin Sodium (Lovenox) 60 mg SC Q12 [facility] PRN Reason: Protocol Last Admin: 02/11/17 20:18 Dose: 60 mg Hydromorphone HCl (Dilaudid) 0.5 mg IVP Q6 PRN PRN Reason: Pain, moderate (4-7) Last Admin: 02/11/17 06:21 Dose: 0.5 mg Metronidazole (Flagyl 500mg/100ml Ns) 100 mls @ 100 mls/hr IVPB Q8 [facility] Last Admin: 02/12/17 00:50 Dose: 100 mls/hr Ceftazidime 2 gm/ Sodium (Chloride) 100 mls @ 100 mls/hr IVPB Q12 [facility] Last Admin: 02/11/17 20:13 Dose: 100 mls/hr Piperacillin Sod/Tazobactam (Sod 2.25 gm/ Sodium Chloride) 100 mls @ 100 mls/ hr IVPB Q8@0400,1200,2000 [facility] Last Admin: 02/12/17 04:18 Dose: 100 mls/hr Potassium Chloride/Dextrose/Sod Cl (Potassium Chl 40 Meq In D5-1/2ns) 1,000 mls @ 100 mls/hr IV .Q10H [facility] Stop: 02/13/17 05:53 Metoclopramide HCl (Reglan) 10 mg IVP Q8 [facility] Last Admin: 02/12/17 00:54 Dose: 10 mg Ondansetron HCl (Zofran Inj) 4 mg IVP Q4H PRN PRN Reason: Nausea/Vomiting Last Admin: 02/08/17 01:00 Dose: 4 mg Oxycodone/Acetaminophen (Percocet 5/325 Mg Tab) 2 tab PO Q4 PRN PRN Reason: Pain, moderate (4-7) Stop: 02/13/17 07:29 Pantoprazole Sodium (Protonix Inj) 40 mg IVP DAILY [facility] Last Admin: 02/11/17 08:38 Dose: 40 mg Physical Exam - Additional Findings Additional findings: Physical exam; Alert, well oriented in no acute distress neck; Supple no adenopathy Chest; Clear, no rales or rhonchi Heart; RSR, no murmur Abd; Soft, slightly distended, no mass, no h/s megalyColostomy has some stool in it Results - Vital Signs Recent Vital Signs: Last Vital Signs Temp 97.5 F L 02/12/17 00:00 Pulse 104 H 02/12/17 00:00 Resp 18 02/12/17 00:00 BP 118/69 02/12/17 00:00 Pulse Ox 95 02/12/17 00:00 - Labs Result Diagrams: 02/12/17 06:10 02/12/17 06:10 Labs: Laboratory Results - last 24 hr 02/12/17 02/12/17 06:10 06:10 WBC 9.9 RBC 4.29 L Hgb 13.5 Hct 40.2 MCV 93.6 MCH 31.6 H MCHC 33.7 RDW 15.1 H Plt Count 362 Sodium 148 Potassium 2.8 L Chloride 114 H Carbon Dioxide 25 Anion Gap 12 BUN 13 Creatinine 0.7 L Est GFR ( Amer) > 60 Est GFR (Non-Af Amer) > 60 Random Glucose 103 Calcium 7.9 L Assessment & Plan - Assessment and Plan (Free Text) Assessment: Impression; Colon cancer T3,N3 COPD Plan: Plan; Once pt has recovered from surgery,possibly in about 2-3 weeks , will start on chemotherapy. I would suggest placement of a life port and out patient.getting a PET scan as a - Date & Time Date: 02/12/17 Time: 09:19
[2017-02-12] MEDS ORDERED: Potassium Phosphate 30 MMOLE in Dextrose 5% In Water 250 ML IV ONE (08:46)
--- NOTE | 2017-02-12 10:01 | CP.PCM.PN ---
Subjective - Date & Time of Evaluation Date of Evaluation: 02/12/17 Time of Evaluation: 09:59 - Subjective Subjective: Surgery: Dr. Gross Pt seen and examined. Had N/V overnight. NGT was placed. 300cc/24hr bilious output. States that he feels better now and would like NGT out. Objective - Vital Signs/Intake and Output Vital Signs (last 24 hours): Temp Pulse Resp BP Pulse Ox 98.2 F 96 H 20 135/84 97 02/12/17 08:41 02/12/17 08:41 02/12/17 08:41 02/12/17 08:41 02/12/17 08:41 Intake and Output: 02/12/17 02/12/17 06:59 18:59 Output Total 400 Balance -400 - Medications Medications: Current Medications Acetaminophen (Tylenol 650 Mg Supp) 650 mg [place] Q4 PRN PRN Reason: Fever >100.4 F Albuterol Sulfate (Albuterol 0.083% Inhal Barbara (2.5 Mg/3 Ml) Ud) 2.5 mg INH RQ4 PRN PRN Reason: Shortness of Breath Albuterol/Ipratropium (Duoneb 3 Mg/0.5 Mg (3 Ml) Ud) 3 ml INH RQID [facility] Last Admin: 02/12/17 07:36 Dose: 3 ml Enoxaparin Sodium (Lovenox) 60 mg SC Q12 [facility] PRN Reason: Protocol Last Admin: 02/11/17 20:18 Dose: 60 mg Hydromorphone HCl (Dilaudid) 0.5 mg IVP Q6 PRN PRN Reason: Pain, moderate (4-7) Last Admin: 02/11/17 06:21 Dose: 0.5 mg Metronidazole (Flagyl 500mg/100ml Ns) 100 mls @ 100 mls/hr IVPB Q8 [facility] Last Admin: 02/12/17 00:50 Dose: 100 mls/hr Ceftazidime 2 gm/ Sodium (Chloride) 100 mls @ 100 mls/hr IVPB Q12 [facility] Last Admin: 02/11/17 20:13 Dose: 100 mls/hr Piperacillin Sod/Tazobactam (Sod 2.25 gm/ Sodium Chloride) 100 mls @ 100 mls/ hr IVPB Q8@0400,1200,2000 [facility] Last Admin: 02/12/17 04:18 Dose: 100 mls/hr Potassium Chloride/Dextrose/Sod Cl (Potassium Chl 40 Meq In D5-1/2ns) 1,000 mls @ 100 mls/hr IV .Q10H [facility] Stop: 02/13/17 05:53 Potassium Phosphate 30 mmole/ (Dextrose) 260 mls @ 84 mls/hr IV .Q3H6M [facility] Stop: 02/12/17 11:51 Potassium Chloride (Potassium Chloride 10 Meq/100 Ml) 100 mls @ 100 mls/hr IVPB Q1 [facility] Stop: 02/12/17 12:59 Metoclopramide HCl (Reglan) 10 mg IVP Q8 [facility] Last Admin: 02/12/17 00:54 Dose: 10 mg Ondansetron HCl (Zofran Inj) 4 mg IVP Q4H PRN PRN Reason: Nausea/Vomiting Last Admin: 02/08/17 01:00 Dose: 4 mg Oxycodone/Acetaminophen (Percocet 5/325 Mg Tab) 2 tab PO Q4 PRN PRN Reason: Pain, moderate (4-7) Stop: 02/13/17 07:29 Pantoprazole Sodium (Protonix Inj) 40 mg IVP DAILY [facility] Last Admin: 02/11/17 08:38 Dose: 40 mg - Labs Labs: 02/12/17 06:10 02/12/17 06:10 PT 18.1 Seconds (9.8-13.1) H 02/06/17 04:30 INR 1.7 (0.9-1.2) H D 02/06/17 04:30 APTT 35.4 Seconds (25.6-37.1) 02/06/17 04:30 - Constitutional Appears: Non-toxic, No Acute Distress - Head Exam Head Exam: ATRAUMATIC, NORMOCEPHALIC - Eye Exam Eye Exam: EOMI. absent: Scleral icterus - ENT Exam ENT Exam: Mucous Membranes Moist - Neck Exam Neck Exam: Full ROM - Respiratory Exam Respiratory Exam: NORMAL BREATHING PATTERN. absent: Accessory Muscle Use, Respiratory Distress - Cardiovascular Exam Cardiovascular Exam: REGULAR RHYTHM - GI/Abdominal Exam GI & Abdominal Exam: Soft. absent: Distended, Firm, Guarding, Rigid, Tenderness , Rebound Additional comments: Midline incision C/D/I Stoma pink and patent, gas in bag w. small amount of loose stool - Extremities Exam Extremities Exam: absent: Calf Tenderness, Pedal Edema - Neurological Exam Neurological Exam: Alert, Awake, Oriented x3 Assessment and Plan - Assessment and Plan (Free Text) Assessment: 71yo M with recto-sigmoid mass, s/p Marion's POD#7 -will clamp NGT and reassess this afternoon, possible removal -hypokalemia, replete PRN -encourage OOB, ambulation, and IS use -d/w attending George PGY3
[2017-02-12] MEDS: Enoxaparin 60 mg Syringe SC SCH ×2 (10:33→21:08)
--- NOTE | 2017-02-12 11:04 | CP.PCM.PN ---
Subjective - Date & Time of Evaluation Date of Evaluation: 02/12/17 Time of Evaluation: 10:56 - Subjective Subjective: Seen on morning rounds. Interim entries into EMR reviewed. Spoke with ramona earlier this morning. Has NGT clamped presently. Will be reassessed later. Has been having NGT drainage overnight 300ml's. He is anxious to begin PO intake and appears to be a little frustrated at his slow progress. Abdominal x-ray yesterday still suggests ileus, and mentions possibility of small bowel obstruction? Chest congestion is audible when he deep breathes and coughs. Sonorous rhonchi are present in the lower lobes on auscultation. Breath sounds in the lung bases posteriorly are decreased. No bronchial breathing or wheezing. Heart sounds well heard, irregular. Abdomen is not distended, soft, incision dry, bowel sounds are still hypoactive. Dependant edema is still present, not any worse. Hypokalemic. One week post op sigmoid tumor resection/colostoy. Pleural effusions. Underlying COPD. OOB today, maybe some ambulation with PT. NGT clamped and to be reassessed later. Medications remain the same. Objective - Vital Signs/Intake and Output Vital Signs (last 24 hours): Temp Pulse Resp BP Pulse Ox 98.2 F 96 H 20 135/84 97 02/12/17 08:41 02/12/17 08:41 02/12/17 08:41 02/12/17 08:41 02/12/17 08:41 Intake and Output: 02/11/17 02/12/17 23:59 11:59 Intake Total 650 Output Total 950 400 Balance -300 -400 - Medications Medications: Current Medications Acetaminophen (Tylenol 650 Mg Supp) 650 mg [place] Q4 PRN PRN Reason: Fever >100.4 F Albuterol Sulfate (Albuterol 0.083% Inhal Barbara (2.5 Mg/3 Ml) Ud) 2.5 mg INH RQ4 PRN PRN Reason: Shortness of Breath Albuterol/Ipratropium (Duoneb 3 Mg/0.5 Mg (3 Ml) Ud) 3 ml INH RQID [facility] Last Admin: 02/12/17 07:36 Dose: 3 ml Enoxaparin Sodium (Lovenox) 60 mg SC Q12 [facility] PRN Reason: Protocol Last Admin: 02/12/17 10:33 Dose: 60 mg Hydromorphone HCl (Dilaudid) 0.5 mg IVP Q6 PRN PRN Reason: Pain, moderate (4-7) Last Admin: 02/11/17 06:21 Dose: 0.5 mg Metronidazole (Flagyl 500mg/100ml Ns) 100 mls @ 100 mls/hr IVPB Q8 [facility] Last Admin: 02/12/17 10:32 Dose: 100 mls/hr Ceftazidime 2 gm/ Sodium (Chloride) 100 mls @ 100 mls/hr IVPB Q12 [facility] Last Admin: 02/11/17 20:13 Dose: 100 mls/hr Piperacillin Sod/Tazobactam (Sod 2.25 gm/ Sodium Chloride) 100 mls @ 100 mls/ hr IVPB Q8@0400,1200,2000 [facility] Last Admin: 02/12/17 04:18 Dose: 100 mls/hr Potassium Chloride/Dextrose/Sod Cl (Potassium Chl 40 Meq In D5-1/2ns) 1,000 mls @ 100 mls/hr IV .Q10H [facility] Stop: 02/13/17 05:53 Potassium Phosphate 30 mmole/ (Dextrose) 260 mls @ 84 mls/hr IV .Q3H6M ONE Stop: 02/12/17 11:51 Potassium Chloride (Potassium Chloride 10 Meq/100 Ml) 100 mls @ 100 mls/hr IVPB Q1 [facility] Stop: 02/12/17 12:59 Metoclopramide HCl (Reglan) 10 mg IVP Q8 [facility] Last Admin: 02/12/17 10:32 Dose: 10 mg Ondansetron HCl (Zofran Inj) 4 mg IVP Q4H PRN PRN Reason: Nausea/Vomiting Last Admin: 02/08/17 01:00 Dose: 4 mg Oxycodone/Acetaminophen (Percocet 5/325 Mg Tab) 2 tab PO Q4 PRN PRN Reason: Pain, moderate (4-7) Stop: 02/13/17 07:29 Pantoprazole Sodium (Protonix Inj) 40 mg IVP DAILY [facility] Last Admin: 02/12/17 10:32 Dose: 40 mg - Labs Labs: 02/12/17 06:10 02/12/17 06:10 PT 18.1 Seconds (9.8-13.1) H 02/06/17 04:30 INR 1.7 (0.9-1.2) H D 02/06/17 04:30 APTT 35.4 Seconds (25.6-37.1) 02/06/17 04:30 Assessment and Plan (1) Colon carcinoma Status: Acute (2) Large bowel obstruction Status: Resolved (3) Pleural effusion Status: Acute (4) Atelectasis Status: Acute (5) COPD (chronic obstructive pulmonary disease) Status: Chronic (6) Acute kidney injury Status: Resolved (7) Hypoalbuminemia Status: Acute
--- NOTE | 2017-02-12 13:01 | CP.PCM.PN ---
Subjective - Date & Time of Evaluation Date of Evaluation: 02/12/17 Time of Evaluation: 12:00 - Subjective Subjective: No fever NPO NGT was reinserted bec pt vomited - drained 300ml of bilious material overnight - NGT was clamped by Surgery this am and they came back to re-eval pt and d/c NGT minimal abd pain no CP no SOB Objective - Vital Signs/Intake and Output Vital Signs (last 24 hours): Temp Pulse Resp BP Pulse Ox 98.2 F 96 H 20 135/84 97 02/12/17 08:41 02/12/17 08:41 02/12/17 08:41 02/12/17 08:41 02/12/17 08:41 Intake and Output: 02/12/17 02/12/17 06:59 18:59 Output Total 400 Balance -400 - Medications Medications: Current Medications Acetaminophen (Tylenol 650 Mg Supp) 650 mg [place] Q4 PRN PRN Reason: Fever >100.4 F Albuterol Sulfate (Albuterol 0.083% Inhal Barbara (2.5 Mg/3 Ml) Ud) 2.5 mg INH RQ4 PRN PRN Reason: Shortness of Breath Albuterol/Ipratropium (Duoneb 3 Mg/0.5 Mg (3 Ml) Ud) 3 ml INH RQID [facility] Last Admin: 02/12/17 11:30 Dose: 3 ml Enoxaparin Sodium (Lovenox) 60 mg SC Q12 [facility] PRN Reason: Protocol Last Admin: 02/12/17 10:33 Dose: 60 mg Hydromorphone HCl (Dilaudid) 0.5 mg IVP Q6 PRN PRN Reason: Pain, moderate (4-7) Last Admin: 02/11/17 06:21 Dose: 0.5 mg Ceftazidime 2 gm/ Sodium (Chloride) 100 mls @ 100 mls/hr IVPB Q12 [facility] Last Admin: 02/11/17 20:13 Dose: 100 mls/hr Piperacillin Sod/Tazobactam (Sod 2.25 gm/ Sodium Chloride) 100 mls @ 100 mls/ hr IVPB Q8@0400,1200,2000 [facility] Last Admin: 02/12/17 04:18 Dose: 100 mls/hr Potassium Chloride/Dextrose/Sod Cl (Potassium Chl 40 Meq In D5-1/2ns) 1,000 mls @ 100 mls/hr IV .Q10H [facility] Stop: 02/13/17 05:53 Metronidazole (Flagyl 500mg/100ml Ns) 100 mls @ 100 mls/hr IVPB Q8 [facility] Stop: 02/13/17 10:00 Metoclopramide HCl (Reglan) 10 mg IVP Q8 [facility] Last Admin: 02/12/17 10:32 Dose: 10 mg Ondansetron HCl (Zofran Inj) 4 mg IVP Q4H PRN PRN Reason: Nausea/Vomiting Last Admin: 02/08/17 01:00 Dose: 4 mg Oxycodone/Acetaminophen (Percocet 5/325 Mg Tab) 2 tab PO Q4 PRN PRN Reason: Pain, moderate (4-7) Stop: 02/13/17 07:29 Pantoprazole Sodium (Protonix Inj) 40 mg IVP DAILY [facility] Last Admin: 02/12/17 10:32 Dose: 40 mg - Labs Labs: 02/12/17 06:10 02/12/17 06:10 PT 18.1 Seconds (9.8-13.1) H 02/06/17 04:30 INR 1.7 (0.9-1.2) H D 02/06/17 04:30 APTT 35.4 Seconds (25.6-37.1) 02/06/17 04:30 - Constitutional Appears: No Acute Distress - Head Exam Head Exam: NORMAL INSPECTION, NORMOCEPHALIC - Eye Exam Eye Exam: EOMI, Normal appearance Pupil Exam: normal accommodation - ENT Exam ENT Exam: Mucous Membranes Dry, Normal External Ear Exam - Neck Exam Neck Exam: Full ROM. absent: Meningismus - Respiratory Exam Respiratory Exam: Rales, Rhonchi - GI/Abdominal Exam GI & Abdominal Exam: Soft, Tenderness, Normal Bowel Sounds Additional comments: vida intact , wound looks clean brownish liquid drainage from Colostomy - Extremities Exam Extremities Exam: Full ROM, Normal Capillary Refill, Pedal Edema. absent: Calf Tenderness - Back Exam Back Exam: absent: CVA tenderness (L) - Neurological Exam Neurological Exam: Alert, Awake, CN II-XII Intact, Oriented x3 Neuro motor strength exam: Left Upper Extremity: 5, Right Upper Extremity: 5, Left Lower Extremity: 5, Right Lower Extremity: 5 - Psychiatric Exam Psychiatric exam: Normal Affect, Normal Mood - Skin Skin Exam: Dry, Normal Color, Warm Assessment and Plan (1) Rectal mass Status: Acute (2) SBO (small bowel obstruction) Status: Acute (3) COPD (chronic obstructive pulmonary disease) Status: Chronic (4) Aspiration pneumonia Status: Acute (5) DVT prophylaxis Status: Acute (6) Pleural effusion Status: Acute (7) Colon adenocarcinoma Status: Acute - Assessment and Plan (Free Text) Assessment: 71 y/o gent with Hx of COPD, came in bec of 2 weeks of constipation , abdominal discomfort and vomiting. CT of chest and Abd showed dilated large bowel loops up to the proximal rectum and suspicious for obstructing circumferential rectal mass versus focal stricture GI and surgery consulted. Patient admitted to med/surg kept NPO , started on IVF ,NGT placed , stool softeners and laxatives given with no improvement He underwent flex sigmoidoscopy that showed rectal stricture. Taken to OR 02/04 and underwent exploratory laparatomy with sigmoid resection and colostomy to [facility] Pt was not extubated post-op, he was transferred to ICU post op for monitoring. He developed hypovolemixc shock, Afib with RVR and mottling of lower extremities postop. Now extubated , off pressors, doing well. Overnight with episode of vomiting requiring NGT placement with 300 ml bilious output 1.. 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 EGD showed esophagitis- sl + for H pylori - would need treatment s/p exp laparatomy with sigmoid resection and colostomy to [facility] As per surgery patient has large sigmoid CA with intra abdominal seeding - Pathology - AdenoCarcinoma but sent out for immunotesting) Good output from colostomy noted , bowel sounds normal . Was started on liquid diet however developed episode of vomiting overnight requiring NGT insertion to slow intermittent suction with 300 ml bilious output - NGT clamped and subquently d/c today Surgical incision with vida in place clean and intact, healing well . [facility] colostomy in place Continue pain management , promote ambulation Surgery following On Zosyn, maxipime and Flagyl empirically Continue IVF Oncology consulted- Dr Susan Valenzuela -rec placement of Lifeport and PET scan as outpt 2. Hypovolemic shock post op , resolved received large quantity of IVF, albumin IV and was started on levophed drip At present BP controlled , off levophed drip Mottling to lower extremities resolved showing improved tissue perfusion 3. Acute Hypoxemic respiratory failure, resolved Pt remained intubated post op and extubated 02/06 Pulmonary on consult with Dr. Danielson following CXR showing bilateral pleural effusion Continue diuresis PRN , Duonebs, O2 via NC, incentive spirometry Promote ambulation 4. Afib with RVR episode- rate controlled received cardizem and digoxin now rate controlled on Lovenox 60mg q 12 5.Acute renal failure, improved oliguric post op with 20 ml/hr output now with good urine output and normal renal function continue IVF Close monitoring 6. Hypokalemia replace with KCL runs sec to NPO status and loss from drainage of large amount of liquid into Colostomy and from NGT 7. COPD (chronic obstructive pulmonary disease) chronic , stable Duoneb prn 8.Bilateral pneumonia / suspected Aspiration pneumonia Acute RLL focal airspace consolidation seen on CT of chest CXR showed increased bilateral infiltrates and pleural effusion on IV zosyn ,Ceftazidime and Flagyl. Sputum c/s Stenophomonas maltophila ID consulted- Dr Mahmood 9 DVT prophylaxis Acute Lovenox
[2017-02-12] MEDS: Potassium CL 10mEq/100ml 100 ML IVPB SCH ×4 (13:26→20:58)
[2017-02-12 19:19] LABS: BLOOD UREA NITROGEN 14 mg/dl (9-20); CALCIUM 7.8 mg/dL (8.4-10.2); GFR AFRICAN-AMERICAN > 60; GFR NON-AFRICAN AMERICAN > 60
--- NOTE | 2017-02-12 19:53 | OP ---
PROCEDURE DATE: 02/04/2017 PREOPERATIVE DIAGNOSIS: Sigmoid obstruction. POSTOPERATIVE DIAGNOSIS: Sigmoid obstruction. PROCEDURE: Sigmoid resection with end colostomy and decompressive enterostomy. SURGEON: Erwin Gross MD BRIM CUTTER: * * and Dr. Cruz. TYPE OF ANESTHESIA: General endotracheal. ESTIMATED BLOOD LOSS: 25 mL. OPERATIVE FINDINGS: Sigmoid tumor with total obstruction, cecum was a good 16 cm in diameter with some serosal tears. There was also severe distention of the small bowel and there was peritoneal seedings from the tumor. DESCRIPTION OF PROCEDURE: After obtaining informed consent, the patient was taken to the operating room. After time-out obtained, Villanueva catheter was inserted. The abdomen was prepped and draped in the usual manner. The abdomen was entered through a midline incision just below the umbilicus through the pubis itself. The abdomen was then entered using hemocautery. Upon entering the abdominal cavity, it was obvious that there was significant amount of distention. The cecum was visualized to be very distended with some serosal tears, but hemodynamically intact. The small bowel was at least 3 times the size as well. There was a large tumor, would say approximately 6-7 cm at the level of the sigmoid with a severe desmoplastic reaction all around. Also there was multiple seedings seen throughout the peritoneal cavity. So at this point, I elected to do sigmoid resection and to form the Marion's distal colonic colostomy. This was done by approximately 6 cm distal to the tumor using RAFAEL-75. The distal sigmoid was divided. Approximately 5-6 cm proximal to the tumor using a RAFAEL-75 two of them because of the lumen the colon was divided. Using the Harmonic scalpel the mesocolon was divided without any difficulty. The specimen was sent to pathology. At this point, an incision was made in the left lower quadrant to except the colostomy. The distal descending colon was brought out through this incision, but the colostomy was not matured yet. Being that there was significant distention, I elected to do an enterotomy and significant amount of fecaloid material was obtained from the jejunum. The jejunotomy was then closed using a RAFAEL-60. At this point making sure that hemostasis was excellent and after adequate irrigation with normal saline because of the severe distention, I elected to mature the colostomy before closing the abdomen to decrease also the amount of distention. This was done by placing multiple fine sutures of Vicryl from the fascia to the serosa of the distal descending colon and then the colostomy was matured using multiple fine sutures of Vicryl. There was significant amount of stool coming out. So at this point, we closed the abdomen using heavy PDS in a running fashion for the fascia and skin with vida. The patient tolerated the procedure very well and was transferred to recovery room in stable, but guarded condition. Erwin Gross MD
[2017-02-12] MEDS: Potassium CL 10 MEQ/50 ML 50 ML IVPB SCH (23:31)
[2017-02-13] MEDS: metroNIDAZOLE 500mg/100ml NS 100 ML IVPB SCH ×3 (00:20→20:14)
[2017-02-13] MEDS: Potassium CL 10 MEQ/50 ML 50 ML IVPB SCH ×3 (00:30→02:48)
[2017-02-13] MEDS: Potassium Chl 40 mEq in D5-1/2 1,000 ML IV SCH ×2 (04:03→04:04)
[2017-02-13 07:05] LABS: HEMOGLOBIN 12.8 g/dL (12.0-18.0); MEAN CELL VOLUME 95.3 fl (80.0-94.0); MEAN CORPUSCULAR HEMOGLOBIN 31.5 pg (27.0-31.0); RBC 4.08 Mil/uL (4.40-5.90); RED CELL DISTRIBUTION WIDTH 15.4 % (11.5-14.5); WHITE BLOOD COUNT 10.8 K/uL (4.8-10.8)
[2017-02-13 07:13] LABS: ALBUMIN 2.7 g/dL (3.5-5.0); ALT/SGPT 38 U/L (21-72); AST/SGOT 30 U/L (17-59); BLOOD UREA NITROGEN 14 mg/dl (9-20); GFR AFRICAN-AMERICAN > 60; GFR NON-AFRICAN AMERICAN > 60
[2017-02-13] MEDS: Albuterol-Ipratrop 3 mg / 0.5 (3 ml) UD INH SCH ×4 (07:32→19:28)
[2017-02-13] MEDS ORDERED: Potassium Phosphate 30 MMOLE in Sodium Chloride 0.9% 250 ML IV ONE (08:40)
--- NOTE | 2017-02-13 09:09 | RAD ---
HISTORY: pleural effusion COMPARISON: Prior single frontal portable chest 02/09/2017 FINDINGS: LUNGS: Hazy density in the bilateral mid superior lung zones is diminished in the left unchanged at the right reflecting somewhat improved left pleural effusion. Underlying atelectasis or infiltrates not excluded the right-sided with none at the left base. PLEURA: As above. No pneumothorax. CARDIOVASCULAR: Normal. OSSEOUS STRUCTURES: No significant abnormalities. VISUALIZED UPPER ABDOMEN: Normal. OTHER FINDINGS: None. IMPRESSION: Improved left pleural effusion with mild residual. No significant interval change right pleural effusion. Underlying atelectasis or infiltrates remain difficult to exclude at the right base with none clearly evident the left.
[2017-02-13] MEDS: Enoxaparin 60 mg Syringe SC SCH ×2 (09:23→21:20)
--- NOTE | 2017-02-13 09:33 | CP.PCM.PN ---
Subjective - Date & Time of Evaluation Date of Evaluation: 02/13/17 Time of Evaluation: 09:30 - Subjective Subjective: Pt looks and feels much better today. The NGT was removed last night , and he has not had any nausea or vomiting. His CEA and CA19-9 are oth within the normal limits Hopefully he will be able to tolerate po fluids and food today. Objective - Vital Signs/Intake and Output Vital Signs (last 24 hours): Temp Pulse Resp BP Pulse Ox 97.6 F 96 H 20 144/84 99 02/13/17 07:33 02/13/17 07:33 02/13/17 07:33 02/13/17 07:33 02/13/17 07:33 Intake and Output: 02/13/17 02/13/17 06:59 18:59 Intake Total 300 Balance 300 - Medications Medications: Current Medications Acetaminophen (Tylenol 650 Mg Supp) 650 mg [place] Q4 PRN PRN Reason: Fever >100.4 F Albuterol Sulfate (Albuterol 0.083% Inhal Barbara (2.5 Mg/3 Ml) Ud) 2.5 mg INH RQ4 PRN PRN Reason: Shortness of Breath Albuterol/Ipratropium (Duoneb 3 Mg/0.5 Mg (3 Ml) Ud) 3 ml INH RQID [facility] Last Admin: 02/13/17 07:32 Dose: 3 ml Enoxaparin Sodium (Lovenox) 60 mg SC Q12 [facility] PRN Reason: Protocol Last Admin: 02/13/17 09:23 Dose: 60 mg Hydromorphone HCl (Dilaudid) 0.5 mg IVP Q6 PRN PRN Reason: Pain, moderate (4-7) Last Admin: 02/11/17 06:21 Dose: 0.5 mg Ceftazidime 2 gm/ Sodium (Chloride) 100 mls @ 100 mls/hr IVPB Q12 [facility] Last Admin: 02/12/17 21:10 Dose: Not Given Piperacillin Sod/Tazobactam (Sod 2.25 gm/ Sodium Chloride) 100 mls @ 100 mls/ hr IVPB Q8@0400,1200,2000 [facility] Last Admin: 02/13/17 04:02 Dose: 100 mls/hr Metronidazole (Flagyl 500mg/100ml Ns) 100 mls @ 100 mls/hr IVPB Q8 [facility] Stop: 02/13/17 10:00 Last Admin: 02/13/17 09:23 Dose: 100 mls/hr Potassium Phosphate 30 mmole/ (Sodium Chloride) 260 mls @ 65 mls/hr IV ONCE ONE Stop: 02/13/17 12:39 Metoclopramide HCl (Reglan) 10 mg IVP Q8 [facility] Last Admin: 02/13/17 09:24 Dose: 10 mg Ondansetron HCl (Zofran Inj) 4 mg IVP Q4H PRN PRN Reason: Nausea/Vomiting Last Admin: 02/08/17 01:00 Dose: 4 mg Pantoprazole Sodium (Protonix Inj) 40 mg IVP DAILY [facility] Last Admin: 02/13/17 09:23 Dose: 40 mg - Labs Labs: 02/13/17 06:00 02/13/17 06:00 PT 18.1 Seconds (9.8-13.1) H 02/06/17 04:30 INR 1.7 (0.9-1.2) H D 02/06/17 04:30 APTT 35.4 Seconds (25.6-37.1) 02/06/17 04:30
--- NOTE | 2017-02-13 10:51 | CP.PCM.PN ---
Subjective - Date & Time of Evaluation Date of Evaluation: 02/13/17 Time of Evaluation: 10:49 - Subjective Subjective: NGT was discontinued yesterday afternoon. No complaint of nause, no vomiting. Colostomy functioning. CXR this morning shows bilateral pleural effusions slowly decreasing in volume. Objective - Vital Signs/Intake and Output Vital Signs (last 24 hours): Temp Pulse Resp BP Pulse Ox 97.6 F 96 H 20 144/84 99 02/13/17 07:33 02/13/17 07:33 02/13/17 07:33 02/13/17 07:33 02/13/17 07:33 Intake and Output: 02/12/17 02/13/17 23:59 11:59 Intake Total 300 Balance 300 - Medications Medications: Current Medications Acetaminophen (Tylenol 650 Mg Supp) 650 mg [place] Q4 PRN PRN Reason: Fever >100.4 F Albuterol Sulfate (Albuterol 0.083% Inhal Barbara (2.5 Mg/3 Ml) Ud) 2.5 mg INH RQ4 PRN PRN Reason: Shortness of Breath Albuterol/Ipratropium (Duoneb 3 Mg/0.5 Mg (3 Ml) Ud) 3 ml INH RQID [facility] Last Admin: 02/13/17 07:32 Dose: 3 ml Enoxaparin Sodium (Lovenox) 60 mg SC Q12 [facility] PRN Reason: Protocol Last Admin: 02/13/17 09:23 Dose: 60 mg Hydromorphone HCl (Dilaudid) 0.5 mg IVP Q6 PRN PRN Reason: Pain, moderate (4-7) Last Admin: 02/11/17 06:21 Dose: 0.5 mg Ceftazidime 2 gm/ Sodium (Chloride) 100 mls @ 100 mls/hr IVPB Q12 [facility] Last Admin: 02/13/17 10:29 Dose: 100 mls/hr Piperacillin Sod/Tazobactam (Sod 2.25 gm/ Sodium Chloride) 100 mls @ 100 mls/ hr IVPB Q8@0400,1200,2000 [facility] Last Admin: 02/13/17 04:02 Dose: 100 mls/hr Potassium Phosphate 30 mmole/ (Sodium Chloride) 260 mls @ 65 mls/hr IV ONCE ONE Stop: 02/13/17 12:39 Metoclopramide HCl (Reglan) 10 mg IVP Q8 [facility] Last Admin: 02/13/17 09:24 Dose: 10 mg Ondansetron HCl (Zofran Inj) 4 mg IVP Q4H PRN PRN Reason: Nausea/Vomiting Last Admin: 02/08/17 01:00 Dose: 4 mg Pantoprazole Sodium (Protonix Inj) 40 mg IVP DAILY [facility] Last Admin: 02/13/17 09:23 Dose: 40 mg - Labs Labs: 02/13/17 06:00 02/13/17 06:00 PT 18.1 Seconds (9.8-13.1) H 02/06/17 04:30 INR 1.7 (0.9-1.2) H D 02/06/17 04:30 APTT 35.4 Seconds (25.6-37.1) 02/06/17 04:30 Assessment and Plan (1) Colon carcinoma Status: Acute (2) Large bowel obstruction Status: Resolved (3) Pleural effusion Status: Acute (4) Atelectasis Status: Acute (5) COPD (chronic obstructive pulmonary disease) Status: Chronic (6) Acute kidney injury Status: Resolved (7) Hypoalbuminemia Status: Acute
[2017-02-13] MEDS: Potassium Ch 20mEq in D5-1/2NS 1,000 ML IV SCH ×2 (12:35→23:35)
--- NOTE | 2017-02-13 13:52 | CP.PCM.PN ---
Subjective - Date & Time of Evaluation Date of Evaluation: 02/13/17 Time of Evaluation: 13:49 - Subjective Subjective: Surgery: Dr. Castillo Pt seen and examined w. Dr Castillo. Pt had NGT d/c yesterday. Pt did well overnight. No abd pain, no N/V. Pt states that he would like to try liquids. Objective - Vital Signs/Intake and Output Vital Signs (last 24 hours): Temp Pulse Resp BP Pulse Ox 97.6 F 96 H 20 144/84 99 02/13/17 07:33 02/13/17 07:33 02/13/17 07:33 02/13/17 07:33 02/13/17 07:33 Intake and Output: 02/13/17 02/13/17 06:59 18:59 Intake Total 300 Balance 300 - Medications Medications: Current Medications Acetaminophen (Tylenol 650 Mg Supp) 650 mg [place] Q4 PRN PRN Reason: Fever >100.4 F Albuterol Sulfate (Albuterol 0.083% Inhal Barbara (2.5 Mg/3 Ml) Ud) 2.5 mg INH RQ4 PRN PRN Reason: Shortness of Breath Albuterol/Ipratropium (Duoneb 3 Mg/0.5 Mg (3 Ml) Ud) 3 ml INH RQID [facility] Last Admin: 02/13/17 11:30 Dose: 3 ml Enoxaparin Sodium (Lovenox) 60 mg SC Q12 [facility] PRN Reason: Protocol Last Admin: 02/13/17 09:23 Dose: 60 mg Hydromorphone HCl (Dilaudid) 0.5 mg IVP Q6 PRN PRN Reason: Pain, moderate (4-7) Last Admin: 02/11/17 06:21 Dose: 0.5 mg Ceftazidime 2 gm/ Sodium (Chloride) 100 mls @ 100 mls/hr IVPB Q12 [facility] Last Admin: 02/13/17 10:29 Dose: 100 mls/hr Piperacillin Sod/Tazobactam (Sod 2.25 gm/ Sodium Chloride) 100 mls @ 100 mls/ hr IVPB Q8@0400,1200,2000 [facility] Last Admin: 02/13/17 12:32 Dose: 100 mls/hr Potassium Chloride/Dextrose/Sod Cl (Potassium Chl 20 Meq In D5-1/2ns) 1,000 mls @ 100 mls/hr IV .Q10H [facility] Stop: 02/14/17 11:26 Last Admin: 02/13/17 12:35 Dose: Not Given Metoclopramide HCl (Reglan) 10 mg IVP Q8 [facility] Last Admin: 02/13/17 09:24 Dose: 10 mg Ondansetron HCl (Zofran Inj) 4 mg IVP Q4H PRN PRN Reason: Nausea/Vomiting Last Admin: 02/08/17 01:00 Dose: 4 mg Pantoprazole Sodium (Protonix Inj) 40 mg IVP DAILY [facility] Last Admin: 02/13/17 09:23 Dose: 40 mg - Labs Labs: 02/13/17 06:00 02/13/17 06:00 PT 18.1 Seconds (9.8-13.1) H 02/06/17 04:30 INR 1.7 (0.9-1.2) H D 02/06/17 04:30 APTT 35.4 Seconds (25.6-37.1) 02/06/17 04:30 - Constitutional Appears: Non-toxic, No Acute Distress - Head Exam Head Exam: ATRAUMATIC, NORMOCEPHALIC - Eye Exam Eye Exam: EOMI - ENT Exam ENT Exam: Mucous Membranes Moist - Neck Exam Neck Exam: Full ROM - Respiratory Exam Respiratory Exam: NORMAL BREATHING PATTERN. absent: Accessory Muscle Use, Respiratory Distress - GI/Abdominal Exam GI & Abdominal Exam: Distended (mild), Soft. absent: Firm, Guarding, Rigid, Tenderness, Rebound Additional comments: L stoma: pink/patent, loose stool in bag - Extremities Exam Extremities Exam: absent: Calf Tenderness, Pedal Edema - Neurological Exam Neurological Exam: Alert, Awake, Oriented x3 Assessment and Plan - Assessment and Plan (Free Text) Assessment: 71M with recto-sigmoid mass, s/p Marion's POD#8 -will start CLD, advance diet as tolerated -Hypokalemia, replete PRN -encourage OOB to chair, PT, and IS use -will continue to follow -discussed ashley Vazquez PGY3
--- NOTE | 2017-02-13 16:23 | CP.PCM.PN ---
Subjective - Date & Time of Evaluation Date of Evaluation: 02/13/17 Time of Evaluation: 14:30 - Subjective Subjective: Patient seen and examined bedside. Feeling better. Started on liquid diet today and tolerating so far but with lots of burping and distention on epigastric area Colostomy working Hemodynamically stable, afebrile No acute issues overnight Objective - Vital Signs/Intake and Output Vital Signs (last 24 hours): Temp Pulse Resp BP Pulse Ox 97.6 F 110 H 20 115/70 94 L 02/13/17 16:12 02/13/17 16:12 02/13/17 16:12 02/13/17 16:12 02/13/17 16:12 Intake and Output: 02/13/17 02/13/17 06:59 18:59 Intake Total 300 Balance 300 - Medications Medications: Current Medications Acetaminophen (Tylenol 650 Mg Supp) 650 mg IA Q4 PRN PRN Reason: Fever >100.4 F Albuterol Sulfate (Albuterol 0.083% Inhal Barbara (2.5 Mg/3 Ml) Ud) 2.5 mg INH RQ4 PRN PRN Reason: Shortness of Breath Albuterol/Ipratropium (Duoneb 3 Mg/0.5 Mg (3 Ml) Ud) 3 ml INH RQID [facility] Last Admin: 02/13/17 15:29 Dose: 3 ml Enoxaparin Sodium (Lovenox) 60 mg SC Q12 [facility] PRN Reason: Protocol Last Admin: 02/13/17 09:23 Dose: 60 mg Hydromorphone HCl (Dilaudid) 0.5 mg IVP Q6 PRN PRN Reason: Pain, moderate (4-7) Last Admin: 02/11/17 06:21 Dose: 0.5 mg Ceftazidime 2 gm/ Sodium (Chloride) 100 mls @ 100 mls/hr IVPB Q12 [facility] Last Admin: 02/13/17 10:29 Dose: 100 mls/hr Piperacillin Sod/Tazobactam (Sod 2.25 gm/ Sodium Chloride) 100 mls @ 100 mls/ hr IVPB Q8@0400,1200,2000 [facility] Last Admin: 02/13/17 12:32 Dose: 100 mls/hr Potassium Chloride/Dextrose/Sod Cl (Potassium Chl 20 Meq In D5-1/2ns) 1,000 mls @ 100 mls/hr IV .Q10H [facility] Stop: 02/14/17 11:26 Last Admin: 02/13/17 12:35 Dose: Not Given Metoclopramide HCl (Reglan) 10 mg IVP Q8 [facility] Last Admin: 02/13/17 09:24 Dose: 10 mg Ondansetron HCl (Zofran Inj) 4 mg IVP Q4H PRN PRN Reason: Nausea/Vomiting Last Admin: 02/08/17 01:00 Dose: 4 mg Pantoprazole Sodium (Protonix Inj) 40 mg IVP DAILY [facility] Last Admin: 02/13/17 09:23 Dose: 40 mg - Labs Labs: 02/13/17 06:00 02/13/17 06:00 PT 18.1 Seconds (9.8-13.1) H 02/06/17 04:30 INR 1.7 (0.9-1.2) H D 02/06/17 04:30 APTT 35.4 Seconds (25.6-37.1) 02/06/17 04:30 - Constitutional Appears: Non-toxic, No Acute Distress - Head Exam Head Exam: ATRAUMATIC, NORMAL INSPECTION, NORMOCEPHALIC - Eye Exam Eye Exam: EOMI, Normal appearance, PERRL Pupil Exam: NORMAL ACCOMODATION - ENT Exam ENT Exam: Mucous Membranes Moist, Normal Exam - Neck Exam Neck Exam: Normal Inspection - Respiratory Exam Respiratory Exam: Clear to Ausculation Bilateral, NORMAL BREATHING PATTERN. absent: Rales, Rhonchi, Wheezes - Cardiovascular Exam Cardiovascular Exam: Irregular Rhythm, +S1, +S2. absent: JVD - GI/Abdominal Exam GI & Abdominal Exam: Distended (epigastric area), Soft. absent: Guarding, Rebound Additional comments: midline surgical incision with vida in place healing well LLQ colostomy in place - Rectal Exam Rectal Exam: Deferred - Extremities Exam Extremities Exam: Full ROM, Normal Capillary Refill, Normal Inspection. absent : Calf Tenderness, Pedal Edema - Back Exam Back Exam: NORMAL INSPECTION - Neurological Exam Neurological Exam: Alert, Awake, CN II-XII Intact, Oriented x3 - Psychiatric Exam Psychiatric exam: Normal Affect - Skin Skin Exam: Dry, Pallor, Warm Assessment and Plan - Assessment and Plan (Free Text) Assessment: 71 y/o gent with Hx of COPD, came in bec of 2 weeks of constipation , abdominal discomfort and vomiting. CT of chest and Abd showed dilated large bowel loops up to the proximal rectum and suspicious for obstructing circumferential rectal mass versus focal stricture GI and surgery consulted. Patient admitted to med/surg kept NPO , started on IVF ,NGT placed , stool softeners and laxatives given with no improvement He underwent flex sigmoidoscopy that showed rectal stricture. Taken to OR 02/04 and underwent exploratory laparatomy with sigmoid resection and colostomy to [facility] Pt was not extubated post-op, he was transferred to ICU post op for monitoring. He developed hypovolemixc shock, Afib with RVR and mottling of lower extremities postop. Now extubated , off pressors, doing well, in med/surg Patient developed ileus post op. 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 LLQ colostomy in place working Continue pain management , promote ambulation Surgery following On Zosyn, maxipime and Flagyl empirically Continue IVF Oncology consulted- Dr Susan Valenzuela -rec placement of Lifeport and PET scan as outpt 2. Hypovolemic shock post op , resolved received large quantity of IVF, albumin IV and was started on levophed drip At present BP controlled , off levophed drip Mottling to lower extremities resolved showing improved tissue perfusion 3. Acute Hypoxemic respiratory failure, resolved Pt remained intubated post op and extubated 02/06 Pulmonary on consult with Dr. Danielson following CXR showing bilateral pleural effusion Continue diuresis PRN , Duonebs, O2 via NC, incentive spirometry Promote ambulation 4. Afib with RVR episode- rate controlled received cardizem and digoxin now rate controlled on Lovenox 60mg q 12 5.Acute renal failure, improved oliguric post op with 20 ml/hr output now with good urine output and normal renal function continue IVF Close monitoring 6. Hypokalemia replace with KCL runs sec to NPO status and loss from drainage of large amount of liquid into Colostomy 7. COPD (chronic obstructive pulmonary disease) chronic , stable Duoneb prn 8.Bilateral pneumonia / suspected Aspiration pneumonia Acute RLL focal airspace consolidation seen on CT of chest CXR showed increased bilateral infiltrates and pleural effusion on IV zosyn ,Ceftazidime and Flagyl. Sputum c/s Stenophomonas maltophila ID consulted- Dr Mahmood 9 DVT prophylaxis Acute Lovenox
[2017-02-14] MEDS: metroNIDAZOLE 500mg/100ml NS 100 ML IVPB SCH ×2 (00:37→09:03)
[2017-02-14 07:25] LABS: BLOOD UREA NITROGEN 12 mg/dl (9-20); CALCIUM 7.7 mg/dL (8.4-10.2); GFR AFRICAN-AMERICAN > 60; GFR NON-AFRICAN AMERICAN > 60
[2017-02-14] MEDS: Albuterol-Ipratrop 3 mg / 0.5 (3 ml) UD INH SCH ×4 (07:30→19:44)
[2017-02-14 07:37] LABS: HEMOGLOBIN 12.4 g/dL (12.0-18.0); MEAN CELL VOLUME 93.7 fl (80.0-94.0); MEAN CORPUSCULAR HEMOGLOBIN 31.9 pg (27.0-31.0); RBC 3.89 Mil/uL (4.40-5.90); RED CELL DISTRIBUTION WIDTH 15.2 % (11.5-14.5); WHITE BLOOD COUNT 10.6 K/uL (4.8-10.8)
--- NOTE | 2017-02-14 07:37 | CP.PCM.PN ---
<Errol Cruz - Last Filed: 02/14/17 07:35> Subjective - Date & Time of Evaluation Date of Evaluation: 02/14/17 Time of Evaluation: 07:35 - Subjective Subjective: Surgery for Dr. Gross Pt s&e. Pt continue to have N/V overnight. Denies F/C/CP/SOB. + void. Pain controlled. Objective - Vital Signs/Intake and Output Vital Signs (last 24 hours): Temp Pulse Resp BP Pulse Ox 98.5 F 99 H 20 137/74 98 02/14/17 01:13 02/14/17 01:13 02/14/17 01:13 02/14/17 01:13 02/14/17 01:13 Intake and Output: 02/14/17 02/14/17 06:59 18:59 Intake Total 1500 Output Total 600 Balance 900 - Medications Medications: Current Medications Acetaminophen (Tylenol 650 Mg Supp) 650 mg IA Q4 PRN PRN Reason: Fever >100.4 F Albuterol Sulfate (Albuterol 0.083% Inhal Barbara (2.5 Mg/3 Ml) Ud) 2.5 mg INH RQ4 PRN PRN Reason: Shortness of Breath Albuterol/Ipratropium (Duoneb 3 Mg/0.5 Mg (3 Ml) Ud) 3 ml INH RQID [facility] Last Admin: 02/14/17 07:30 Dose: 3 ml Enoxaparin Sodium (Lovenox) 60 mg SC Q12 [facility] PRN Reason: Protocol Last Admin: 02/13/17 21:20 Dose: 60 mg Hydromorphone HCl (Dilaudid) 0.5 mg IVP Q6 PRN PRN Reason: Pain, moderate (4-7) Last Admin: 02/11/17 06:21 Dose: 0.5 mg Ceftazidime 2 gm/ Sodium (Chloride) 100 mls @ 100 mls/hr IVPB Q12 [facility] Last Admin: 02/13/17 22:26 Dose: 100 mls/hr Piperacillin Sod/Tazobactam (Sod 2.25 gm/ Sodium Chloride) 100 mls @ 100 mls/ hr IVPB Q8@0400,1200,2000 [facility] Last Admin: 02/14/17 04:07 Dose: 100 mls/hr Potassium Chloride/Dextrose/Sod Cl (Potassium Chl 20 Meq In D5-1/2ns) 1,000 mls @ 100 mls/hr IV .Q10H [facility] Stop: 02/14/17 11:26 Last Admin: 02/13/17 23:35 Dose: 100 mls/hr Metronidazole (Flagyl 500mg/100ml Ns) 100 mls @ 100 mls/hr IVPB Q8 [facility] Last Admin: 02/14/17 00:37 Dose: 100 mls/hr Potassium Chloride/Dextrose/Sod Cl (Potassium Chl 20 Meq In D5-1/2ns) 1,000 mls @ 100 mls/hr IV .Q10H [facility] Stop: 02/15/17 07:34 Metoclopramide HCl (Reglan) 10 mg IVP Q8 [facility] Last Admin: 02/14/17 00:37 Dose: 10 mg Ondansetron HCl (Zofran Inj) 4 mg IVP Q4H PRN PRN Reason: Nausea/Vomiting Last Admin: 02/08/17 01:00 Dose: 4 mg Pantoprazole Sodium (Protonix Inj) 40 mg IVP DAILY [facility] Last Admin: 02/13/17 09:23 Dose: 40 mg - Labs Labs: 02/13/17 06:00 02/14/17 06:45 PT 18.1 Seconds (9.8-13.1) H 02/06/17 04:30 INR 1.7 (0.9-1.2) H D 02/06/17 04:30 APTT 35.4 Seconds (25.6-37.1) 02/06/17 04:30 - Constitutional Appears: Non-toxic - Head Exam Head Exam: ATRAUMATIC, NORMAL INSPECTION, NORMOCEPHALIC - Eye Exam Eye Exam: EOMI, Normal appearance, PERRL Pupil Exam: NORMAL ACCOMODATION, PERRL - ENT Exam ENT Exam: Mucous Membranes Moist, Normal Exam - Neck Exam Neck Exam: Full ROM, Normal Inspection. absent: Lymphadenopathy - Respiratory Exam Respiratory Exam: Clear to Ausculation Bilateral, NORMAL BREATHING PATTERN - Cardiovascular Exam Cardiovascular Exam: REGULAR RHYTHM, +S1, +S2. absent: Murmur - GI/Abdominal Exam GI & Abdominal Exam: Soft, Tenderness, Normal Bowel Sounds. absent: Distended, Firm, Guarding, Rigid Additional comments: Incision has vida. Stoma putting out gas and liquids. Good [place] functioning - Extremities Exam Extremities Exam: Full ROM, Normal Capillary Refill, Normal Inspection. absent : Joint Swelling, Pedal Edema - Back Exam Back Exam: NORMAL INSPECTION - Neurological Exam Neurological Exam: Alert, Awake, CN II-XII Intact, Oriented x3 - Psychiatric Exam Psychiatric exam: Normal Affect, Normal Mood - Skin Skin Exam: Dry, Intact, Normal Color, Warm Assessment and Plan - Assessment and Plan (Free Text) Assessment: 71M with recto-sigmoid mass, s/p Marion's POD#10 -CLD, advance diet as tolerated -Hypokalemia, replete PRN -Nausea control -Pain control -encourage OOB to chair, PT, and IS use -will continue to follow -Will DW attending <Scot Castillo - Last Filed: 02/14/17 11:00> Subjective - Date & Time of Evaluation Time of Evaluation: 10:25 - Subjective Subjective: Patient was seen and examined at the bedside. C/O numbness of the left upper extremity, medical team is aware and getting CT scan of the head. Objective - Vital Signs/Intake and Output Vital Signs (last 24 hours): Temp Pulse Resp BP Pulse Ox 97.6 F 100 H 20 126/82 95 02/14/17 08:57 02/14/17 08:57 02/14/17 08:57 02/14/17 08:57 02/14/17 08:57 Intake and Output: 02/14/17 02/14/17 06:59 18:59 Intake Total 1500 Output Total 600 Balance 900 - Medications Medications: Current Medications Acetaminophen (Tylenol 650 Mg Supp) 650 mg IA Q4 PRN PRN Reason: Fever >100.4 F Albuterol Sulfate (Albuterol 0.083% Inhal Barbara (2.5 Mg/3 Ml) Ud) 2.5 mg INH RQ4 PRN PRN Reason: Shortness of Breath Albuterol/Ipratropium (Duoneb 3 Mg/0.5 Mg (3 Ml) Ud) 3 ml INH RQID [facility] Last Admin: 02/14/17 07:30 Dose: 3 ml Enoxaparin Sodium (Lovenox) 60 mg SC Q12 [facility] PRN Reason: Protocol Last Admin: 02/14/17 09:10 Dose: 60 mg Hydromorphone HCl (Dilaudid) 0.5 mg IVP Q6 PRN PRN Reason: Pain, moderate (4-7) Last Admin: 02/11/17 06:21 Dose: 0.5 mg Ceftazidime 2 gm/ Sodium (Chloride) 100 mls @ 100 mls/hr IVPB Q12 [facility] Last Admin: 02/14/17 10:46 Dose: 100 mls/hr Piperacillin Sod/Tazobactam (Sod 2.25 gm/ Sodium Chloride) 100 mls @ 100 mls/ hr IVPB Q8@0400,1200,2000 [facility] Last Admin: 02/14/17 04:07 Dose: 100 mls/hr Potassium Chloride/Dextrose/Sod Cl (Potassium Chl 20 Meq In D5-1/2ns) 1,000 mls @ 100 mls/hr IV .Q10H [facility] Stop: 02/14/17 11:26 Last Admin: 02/13/17 23:35 Dose: 100 mls/hr Metronidazole (Flagyl 500mg/100ml Ns) 100 mls @ 100 mls/hr IVPB Q8 [facility] Last Admin: 02/14/17 09:03 Dose: 100 mls/hr Potassium Chloride/Dextrose/Sod Cl (Potassium Chl 20 Meq In D5-1/2ns) 1,000 mls @ 100 mls/hr IV .Q10H [facility] Stop: 02/15/17 07:34 Last Admin: 02/14/17 09:10 Dose: Not Given Potassium Phosphate 15 mmole/ (Dextrose) 255 mls @ 84 mls/hr IV .Q3H3M ONE Stop: 02/14/17 12:28 Metoclopramide HCl (Reglan) 10 mg IVP Q8 [facility] Last Admin: 02/14/17 09:09 Dose: 10 mg Ondansetron HCl (Zofran Inj) 4 mg IVP Q4H PRN PRN Reason: Nausea/Vomiting Last Admin: 02/08/17 01:00 Dose: 4 mg Pantoprazole Sodium (Protonix Inj) 40 mg IVP DAILY [facility] Last Admin: 02/14/17 09:09 Dose: 40 mg - Labs Labs: 02/14/17 06:45 02/14/17 06:45 PT 18.1 Seconds (9.8-13.1) H 02/06/17 04:30 INR 1.7 (0.9-1.2) H D 02/06/17 04:30 APTT 35.4 Seconds (25.6-37.1) 02/06/17 04:30 Assessment and Plan - Assessment and Plan (Free Text) Plan: - Keep on clear liquid diet - CT head - Pain control - Insentive spirometry - DVT ppx - Out of bed - Will follow
[2017-02-14] MEDS ORDERED: Potassium Chloride 20 mEq ER Tab PO ONE (07:56)
[2017-02-14] MEDS ORDERED: Potassium Chl 20 mEq in D5-NS 1,000 ML IV SCH (08:00)
[2017-02-14 08:35] VITALS: BMI 19.5
[2017-02-14] MEDS: Potassium Ch 20mEq in D5-1/2NS 1,000 ML IV SCH ×3 (09:10→19:13)
[2017-02-14] MEDS: Enoxaparin 60 mg Syringe SC SCH ×2 (09:10→20:51)
--- NOTE | 2017-02-14 09:14 | CP.PCM.PN ---
Subjective - Date & Time of Evaluation Date of Evaluation: 02/14/17 Time of Evaluation: 09:10 - Subjective Subjective: Pt took a small amount of fluids yesterday and was able to tolerate it without having any vomiting. Have advised him to eat very small quantities of food more frequently, and stay out of bed longer. Objective - Vital Signs/Intake and Output Vital Signs (last 24 hours): Temp Pulse Resp BP Pulse Ox 97.6 F 100 H 20 126/82 95 02/14/17 08:57 02/14/17 08:57 02/14/17 08:57 02/14/17 08:57 02/14/17 08:57 Intake and Output: 02/14/17 02/14/17 06:59 18:59 Intake Total 1500 Output Total 600 Balance 900 - Medications Medications: Current Medications Acetaminophen (Tylenol 650 Mg Supp) 650 mg [place] Q4 PRN PRN Reason: Fever >100.4 F Albuterol Sulfate (Albuterol 0.083% Inhal Barbara (2.5 Mg/3 Ml) Ud) 2.5 mg INH RQ4 PRN PRN Reason: Shortness of Breath Albuterol/Ipratropium (Duoneb 3 Mg/0.5 Mg (3 Ml) Ud) 3 ml INH RQID [facility] Last Admin: 02/14/17 07:30 Dose: 3 ml Enoxaparin Sodium (Lovenox) 60 mg SC Q12 [facility] PRN Reason: Protocol Last Admin: 02/13/17 21:20 Dose: 60 mg Hydromorphone HCl (Dilaudid) 0.5 mg IVP Q6 PRN PRN Reason: Pain, moderate (4-7) Last Admin: 02/11/17 06:21 Dose: 0.5 mg Ceftazidime 2 gm/ Sodium (Chloride) 100 mls @ 100 mls/hr IVPB Q12 [facility] Last Admin: 02/13/17 22:26 Dose: 100 mls/hr Piperacillin Sod/Tazobactam (Sod 2.25 gm/ Sodium Chloride) 100 mls @ 100 mls/ hr IVPB Q8@0400,1200,2000 [facility] Last Admin: 02/14/17 04:07 Dose: 100 mls/hr Potassium Chloride/Dextrose/Sod Cl (Potassium Chl 20 Meq In D5-1/2ns) 1,000 mls @ 100 mls/hr IV .Q10H [facility] Stop: 02/14/17 11:26 Last Admin: 02/13/17 23:35 Dose: 100 mls/hr Metronidazole (Flagyl 500mg/100ml Ns) 100 mls @ 100 mls/hr IVPB Q8 [facility] Last Admin: 02/14/17 09:03 Dose: 100 mls/hr Potassium Chloride/Dextrose/Sod Cl (Potassium Chl 20 Meq In D5-1/2ns) 1,000 mls @ 100 mls/hr IV .Q10H [facility] Stop: 02/15/17 07:34 Metoclopramide HCl (Reglan) 10 mg IVP Q8 [facility] Last Admin: 02/14/17 00:37 Dose: 10 mg Ondansetron HCl (Zofran Inj) 4 mg IVP Q4H PRN PRN Reason: Nausea/Vomiting Last Admin: 02/08/17 01:00 Dose: 4 mg Pantoprazole Sodium (Protonix Inj) 40 mg IVP DAILY [facility] Last Admin: 02/13/17 09:23 Dose: 40 mg - Labs Labs: 02/14/17 06:45 02/14/17 06:45 PT 18.1 Seconds (9.8-13.1) H 02/06/17 04:30 INR 1.7 (0.9-1.2) H D 02/06/17 04:30 APTT 35.4 Seconds (25.6-37.1) 02/06/17 04:30
[2017-02-14] MEDS ORDERED: Potassium Phosphate 15 MMOLE in Dextrose 5% In Water 250 ML IV ONE (09:26)
--- NOTE | 2017-02-14 09:33 | CP.PCM.PN ---
Subjective - Date & Time of Evaluation Date of Evaluation: 02/14/17 Time of Evaluation: 11:00 - Subjective Subjective: Patient seen and examined bedside. With transient LUE numbness today that lasted few seconds.Patient denied any slurred speech, no facial droop on focal weakness. Hemodynamically stable, afebrile. Back on liquid diet today but still with epigastric distention and burping. Had small episode of vomiting last night. Colostomy working Objective - Vital Signs/Intake and Output Vital Signs (last 24 hours): Temp Pulse Resp BP Pulse Ox 97.6 F 100 H 20 126/82 95 02/14/17 08:57 02/14/17 08:57 02/14/17 08:57 02/14/17 08:57 02/14/17 08:57 Intake and Output: 02/14/17 02/14/17 06:59 18:59 Intake Total 1500 Output Total 600 Balance 900 - Medications Medications: Current Medications Acetaminophen (Tylenol 650 Mg Supp) 650 mg ME Q4 PRN PRN Reason: Fever >100.4 F Albuterol Sulfate (Albuterol 0.083% Inhal Barbara (2.5 Mg/3 Ml) Ud) 2.5 mg INH RQ4 PRN PRN Reason: Shortness of Breath Albuterol/Ipratropium (Duoneb 3 Mg/0.5 Mg (3 Ml) Ud) 3 ml INH RQID [facility] Last Admin: 02/14/17 07:30 Dose: 3 ml Enoxaparin Sodium (Lovenox) 60 mg SC Q12 [facility] PRN Reason: Protocol Last Admin: 02/14/17 09:10 Dose: 60 mg Hydromorphone HCl (Dilaudid) 0.5 mg IVP Q6 PRN PRN Reason: Pain, moderate (4-7) Last Admin: 02/11/17 06:21 Dose: 0.5 mg Ceftazidime 2 gm/ Sodium (Chloride) 100 mls @ 100 mls/hr IVPB Q12 [facility] Last Admin: 02/13/17 22:26 Dose: 100 mls/hr Piperacillin Sod/Tazobactam (Sod 2.25 gm/ Sodium Chloride) 100 mls @ 100 mls/ hr IVPB Q8@0400,1200,2000 [facility] Last Admin: 02/14/17 04:07 Dose: 100 mls/hr Potassium Chloride/Dextrose/Sod Cl (Potassium Chl 20 Meq In D5-1/2ns) 1,000 mls @ 100 mls/hr IV .Q10H [facility] Stop: 02/14/17 11:26 Last Admin: 02/13/17 23:35 Dose: 100 mls/hr Metronidazole (Flagyl 500mg/100ml Ns) 100 mls @ 100 mls/hr IVPB Q8 [facility] Last Admin: 02/14/17 09:03 Dose: 100 mls/hr Potassium Chloride/Dextrose/Sod Cl (Potassium Chl 20 Meq In D5-1/2ns) 1,000 mls @ 100 mls/hr IV .Q10H [facility] Stop: 02/15/17 07:34 Last Admin: 02/14/17 09:10 Dose: Not Given Potassium Phosphate 15 mmole/ (Dextrose) 255 mls @ 84 mls/hr IV .Q3H3M [facility] Stop: 02/14/17 12:28 Metoclopramide HCl (Reglan) 10 mg IVP Q8 [facility] Last Admin: 02/14/17 09:09 Dose: 10 mg Ondansetron HCl (Zofran Inj) 4 mg IVP Q4H PRN PRN Reason: Nausea/Vomiting Last Admin: 02/08/17 01:00 Dose: 4 mg Pantoprazole Sodium (Protonix Inj) 40 mg IVP DAILY [facility] Last Admin: 02/14/17 09:09 Dose: 40 mg - Labs Labs: 02/14/17 06:45 02/14/17 06:45 PT 18.1 Seconds (9.8-13.1) H 02/06/17 04:30 INR 1.7 (0.9-1.2) H D 02/06/17 04:30 APTT 35.4 Seconds (25.6-37.1) 02/06/17 04:30 - Constitutional Appears: Non-toxic, No Acute Distress - Head Exam Head Exam: ATRAUMATIC, NORMAL INSPECTION, NORMOCEPHALIC - Eye Exam Eye Exam: EOMI, Normal appearance, PERRL Pupil Exam: NORMAL ACCOMODATION - ENT Exam ENT Exam: Mucous Membranes Moist, Normal Exam - Neck Exam Neck Exam: Full ROM, Normal Inspection - Respiratory Exam Respiratory Exam: Clear to Ausculation Bilateral, NORMAL BREATHING PATTERN. absent: Rales, Rhonchi, Wheezes - Cardiovascular Exam Cardiovascular Exam: Irregular Rhythm. absent: JVD - GI/Abdominal Exam GI & Abdominal Exam: Distended, Soft, Hypoactive Bowel Sounds. absent: Guarding , Rebound Additional comments: midline surgical incision with vida in place healing well colostomy to LLQ - Rectal Exam Rectal Exam: Deferred - Extremities Exam Extremities Exam: Full ROM, Normal Capillary Refill, Normal Inspection - Back Exam Back Exam: NORMAL INSPECTION - Neurological Exam Neurological Exam: Alert, Awake, CN II-XII Intact, Oriented x3 Additional comments: no gross neuro deficits no slurred speech no focal weakness no facial droop - Psychiatric Exam Psychiatric exam: Normal Affect - Skin Skin Exam: Dry, Pallor, Warm Assessment and Plan - Assessment and Plan (Free Text) Assessment: 71 y/o gent with Hx of COPD, came in bec of 2 weeks of constipation , abdominal discomfort and vomiting. CT of chest and Abd showed dilated large bowel loops up to the proximal rectum and suspicious for obstructing circumferential rectal mass versus focal stricture GI and surgery consulted. Patient admitted to med/surg kept NPO , started on IVF ,NGT placed , stool softeners and laxatives given with no improvement He underwent flex sigmoidoscopy that showed rectal stricture. Taken to OR 8 and underwent exploratory laparatomy with sigmoid resection and colostomy to LLQ Pt was not extubated post-op, he was transferred to ICU post op for monitoring. He developed hypovolemixc shock, Afib with RVR and mottling of lower extremities postop. Now extubated , off pressors, doing well, in med/surg Patient developed ileus post op. NGT removed,started on liquid diet.With episode of transient LUE numbness this AM. 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 LLQ colostomy in place working Continue pain management , promote ambulation Surgery following On Zosyn, maxipime and Flagyl empirically for > 10 days . Will d.c flagyl since is on back order. Discussed with Dr. Mahmood Continue IVF Oncology consulted- Dr Susan Valenzuela -rec placement of Lifeport and PET scan as outpt 2. LUE transient numbness unclaer etiology CT head showed no acute pathology patient has no neuro deficits Continue K replacement 3. Hypovolemic shock post op , resolved received large quantity of IVF, albumin IV and was started on levophed drip At present BP controlled , off levophed drip Mottling to lower extremities resolved showing improved tissue perfusion 4. Acute Hypoxemic respiratory failure, resolved Pt remained intubated post op and extubated 02/06 Pulmonary on consult with Dr. Danielson following CXR showing bilateral pleural effusion Continue diuresis PRN , Duonebs, O2 via NC, incentive spirometry Promote ambulation 5. Afib with RVR episode- rate controlled received cardizem and digoxin now rate controlled on Lovenox 60mg q 12 6.Acute renal failure, improved oliguric post op with 20 ml/hr output now with good urine output and normal renal function continue IVF Close monitoring 7. Hypokalemia replace with KCL runs sec to NPO status and loss from drainage of large amount of liquid into Colostomy 8. COPD (chronic obstructive pulmonary disease) chronic , stable Duoneb prn 9.Bilateral pneumonia / suspected Aspiration pneumonia Acute RLL focal airspace consolidation seen on CT of chest CXR showed increased bilateral infiltrates and pleural effusion on IV zosyn ,Ceftazidime and Flagyl. Will d/c Flagyl Sputum c/s Stenophomonas maltophila ID consulted- Dr Mahmood 10.DVT prophylaxis Acute Lovenox
--- NOTE | 2017-02-14 11:46 | CT ---
PROCEDURE: CT HEAD WITHOUT CONTRAST. HISTORY: LUE numbness COMPARISON: None available. TECHNIQUE: Axial computed tomography images were obtained through the head/brain without intravenous contrast. Radiation dose: Total exam DLP = 868.16 mGy-cm. This CT exam was performed using one or more of the following dose reduction techniques: Automated exposure control, adjustment of the mA and/or kV according to patient size, and/or use of iterative reconstruction technique. FINDINGS: HEMORRHAGE: No intracranial hemorrhage. BRAIN: Small foci of encephalomalacia in both basal ganglia are larger and more on the right suggestive of old lacunar infarctions. Mild atrophy and mild white matter changes suggestive but nonspecific for chronic microvascular ischemic disease. There are bifrontal extra axial space dilatation suggestive of small hygromas. VENTRICLES: Unremarkable. No hydrocephalus. CALVARIUM: Unremarkable. PARANASAL SINUSES: Unremarkable as visualized. No significant inflammatory changes. MASTOID AIR CELLS: Unremarkable as visualized. No inflammatory changes. OTHER FINDINGS: None. IMPRESSION: No evidence of acute intracranial hemorrhage intracranial collection mass effect or midline shift. Small foci of encephalomalacia at the basal ganglia bilaterally larger and more on the right suggestive of old lacunar infarctions. Mildly dilated extra-axial space in the frontal region bilaterally suggestive of small hygromas.
--- NOTE | 2017-02-14 13:17 | CARD ---
APPROVED REPORT EKG Measurement Heart [id number] <Conclusion> Atrial fibrillation Low voltage QRS Nonspecific ST and T wave abnormality Abnormal ECG
--- NOTE | 2017-02-14 13:48 | CP.PCM.PN ---
Subjective - Date & Time of Evaluation Date of Evaluation: 02/14/17 Time of Evaluation: 13:41 - Subjective Subjective: Overnight events reviewed. Interim entries in EMR noted. Had NGT removed yesterday. One small vomitus noted after oral KCL. Abdomen was becoming mildly distended and feedings stopped. NGT has NOT been placed back in. Awoke this AM with transient numbness in the LUE which has resolved. No weakness. No involvement of speech, face or other extremity. Planned CT brain pending. At this time his speech is fluent, memory intact. No facial wekness, no focal motor weakness. Dullness on percussion of the lung bases still present. Decreased breath sounds in the lung bases still noted. Remainder of chest exam is unremarkable. Heart sounds are distant and rhythm irregular. Abdomen is slightly tense, bowel sounds are hypo, but present. Incision clean and dry, healing nicely. Await further testing. PO intake as per surgery. Follow up CXR Friday. Objective - Vital Signs/Intake and Output Vital Signs (last 24 hours): Temp Pulse Resp BP Pulse Ox 97.6 F 100 H 20 126/82 95 02/14/17 08:57 02/14/17 08:57 02/14/17 08:57 02/14/17 08:57 02/14/17 08:57 - Medications Medications: Current Medications Acetaminophen (Tylenol 650 Mg Supp) 650 mg [place] Q4 PRN PRN Reason: Fever >100.4 F Albuterol Sulfate (Albuterol 0.083% Inhal Barbara (2.5 Mg/3 Ml) Ud) 2.5 mg INH RQ4 PRN PRN Reason: Shortness of Breath Albuterol/Ipratropium (Duoneb 3 Mg/0.5 Mg (3 Ml) Ud) 3 ml INH RQID [facility] Last Admin: 02/14/17 11:34 Dose: 3 ml Enoxaparin Sodium (Lovenox) 60 mg SC Q12 [facility] PRN Reason: Protocol Last Admin: 02/14/17 09:10 Dose: 60 mg Hydromorphone HCl (Dilaudid) 0.5 mg IVP Q6 PRN PRN Reason: Pain, moderate (4-7) Last Admin: 02/11/17 06:21 Dose: 0.5 mg Ceftazidime 2 gm/ Sodium (Chloride) 100 mls @ 100 mls/hr IVPB Q12 [facility] Last Admin: 02/14/17 10:46 Dose: 100 mls/hr Piperacillin Sod/Tazobactam (Sod 2.25 gm/ Sodium Chloride) 100 mls @ 100 mls/ hr IVPB Q8@0400,1200,2000 [facility] Last Admin: 02/14/17 12:47 Dose: 100 mls/hr Metronidazole (Flagyl 500mg/100ml Ns) 100 mls @ 100 mls/hr IVPB Q8 [facility] Last Admin: 02/14/17 09:03 Dose: 100 mls/hr Potassium Chloride/Dextrose/Sod Cl (Potassium Chl 20 Meq In D5-1/2ns) 1,000 mls @ 100 mls/hr IV .Q10H [facility] Stop: 02/15/17 07:34 Last Admin: 02/14/17 09:10 Dose: Not Given Metoclopramide HCl (Reglan) 10 mg IVP Q8 [facility] Last Admin: 02/14/17 09:09 Dose: 10 mg Ondansetron HCl (Zofran Inj) 4 mg IVP Q4H PRN PRN Reason: Nausea/Vomiting Last Admin: 02/08/17 01:00 Dose: 4 mg Pantoprazole Sodium (Protonix Inj) 40 mg IVP DAILY [facility] Last Admin: 02/14/17 09:09 Dose: 40 mg - Labs Labs: 02/14/17 06:45 02/14/17 06:45 PT 18.1 Seconds (9.8-13.1) H 02/06/17 04:30 INR 1.7 (0.9-1.2) H D 02/06/17 04:30 APTT 35.4 Seconds (25.6-37.1) 02/06/17 04:30 Assessment and Plan (1) Colon carcinoma Status: Acute (2) Large bowel obstruction Status: Resolved (3) Pleural effusion Status: Acute (4) Atelectasis Status: Acute (5) COPD (chronic obstructive pulmonary disease) Status: Chronic (6) Acute kidney injury Status: Resolved (7) Hypoalbuminemia Status: Acute
[2017-02-15] MEDS: Potassium Ch 20mEq in D5-1/2NS 1,000 ML IV SCH (03:29)
[2017-02-15] MEDS: Albuterol-Ipratrop 3 mg / 0.5 (3 ml) UD INH SCH ×4 (08:01→19:22)
[2017-02-15 08:34] LABS: HEMOGLOBIN 12.1 g/dL (12.0-18.0); MEAN CELL VOLUME 94.7 fl (80.0-94.0); MEAN CORPUSCULAR HEMOGLOBIN 31.2 pg (27.0-31.0); MEAN CORPUSCULAR HGB CONC 32.9 g/dL (33.0-37.0); RBC 3.86 Mil/uL (4.40-5.90); RED CELL DISTRIBUTION WIDTH 15.3 % (11.5-14.5); WHITE BLOOD COUNT 9.9 K/uL (4.8-10.8)
[2017-02-15 08:50] LABS: BLOOD UREA NITROGEN 8 mg/dl (9-20); CALCIUM 7.7 mg/dL (8.4-10.2); GFR AFRICAN-AMERICAN > 60; GFR NON-AFRICAN AMERICAN > 60
[2017-02-15] MEDS ORDERED: Potassium Chloride 20 mEq ER Tab PO SCH (09:30)
--- NOTE | 2017-02-15 09:38 | CP.PCM.PN ---
Subjective - Date & Time of Evaluation Date of Evaluation: 02/15/17 Time of Evaluation: 09:30 - Subjective Subjective: No fever Pt did not vomit overnight abd pain controlled + flatus- could feel gas coming out of Ostomy liquidy output from Ostomy ( yelowish brown with some specks of solid stool) + phlegm and sl cough no CP no VELARDE no dizziness hand numbness resolved Objective - Vital Signs/Intake and Output Vital Signs (last 24 hours): Temp Pulse Resp BP Pulse Ox 97.4 F L 92 H 20 128/83 98 02/15/17 08:15 02/15/17 08:15 02/15/17 08:15 02/15/17 08:15 02/15/17 08:15 Intake and Output: 02/15/17 02/15/17 06:59 18:59 Intake Total 1380 Output Total 500 Balance 880 - Medications Medications: Current Medications Acetaminophen (Tylenol 650 Mg Supp) 650 mg [place] Q4 PRN PRN Reason: Fever >100.4 F Albuterol Sulfate (Albuterol 0.083% Inhal Barbara (2.5 Mg/3 Ml) Ud) 2.5 mg INH RQ4 PRN PRN Reason: Shortness of Breath Albuterol/Ipratropium (Duoneb 3 Mg/0.5 Mg (3 Ml) Ud) 3 ml INH RQID [facility] Last Admin: 02/15/17 08:01 Dose: 3 ml Enoxaparin Sodium (Lovenox) 60 mg SC Q12 [facility] PRN Reason: Protocol Last Admin: 02/14/17 20:51 Dose: 60 mg Hydromorphone HCl (Dilaudid) 0.5 mg IVP Q6 PRN PRN Reason: Pain, moderate (4-7) Last Admin: 02/14/17 17:12 Dose: 0.5 mg Ceftazidime 2 gm/ Sodium (Chloride) 100 mls @ 100 mls/hr IVPB Q12 [facility] Last Admin: 02/14/17 20:51 Dose: 100 mls/hr Piperacillin Sod/Tazobactam (Sod 2.25 gm/ Sodium Chloride) 100 mls @ 100 mls/ hr IVPB Q8@0400,1200,2000 [facility] Last Admin: 02/15/17 03:30 Dose: 100 mls/hr Potassium Chloride 20 meq/ (Sodium Chloride) 1,010 mls @ 100 mls/hr IV .Q10H6M [facility] Stop: 02/16/17 09:21 Metoclopramide HCl (Reglan) 10 mg IVP Q8 [facility] Last Admin: 02/15/17 00:06 Dose: 10 mg Ondansetron HCl (Zofran Inj) 4 mg IVP Q4H PRN PRN Reason: Nausea/Vomiting Last Admin: 02/08/17 01:00 Dose: 4 mg Pantoprazole Sodium (Protonix Inj) 40 mg IVP DAILY [facility] Last Admin: 02/14/17 09:09 Dose: 40 mg Potassium Chloride (K-Dur 20 Meq Er Tab) 20 meq PO BID [facility] Potassium Chloride (Potassium Chloride Oral Soln) 40 meq PO ONCE ONE Stop: 02/15/17 09:36 Sodium Phosphate (Potassium/Sodium Phosphate) 500 mg PO STAT [facility] Stop: 02/15/17 09:38 - Labs Labs: 02/15/17 06:30 02/15/17 06:30 PT 18.1 Seconds (9.8-13.1) H 02/06/17 04:30 INR 1.7 (0.9-1.2) H D 02/06/17 04:30 APTT 35.4 Seconds (25.6-37.1) 02/06/17 04:30 - Constitutional Appears: No Acute Distress - Head Exam Head Exam: NORMAL INSPECTION, NORMOCEPHALIC - Eye Exam Eye Exam: EOMI, Normal appearance Pupil Exam: normal accommodation - ENT Exam ENT Exam: Mucous Membranes Dry, Normal External Ear Exam - Neck Exam Neck Exam: Full ROM. absent: Meningismus - Respiratory Exam Respiratory Exam: Rales, Rhonchi - GI/Abdominal Exam GI & Abdominal Exam: Soft, Tenderness, Normal Bowel Sounds Additional comments: vida intact , wound looks clean yellowish brown liquid drainage from Colostomy - Extremities Exam Extremities Exam: Full ROM, Normal Capillary Refill, Pedal Edema. absent: Calf Tenderness - Back Exam Back Exam: absent: CVA tenderness (L) - Neurological Exam Neurological Exam: Alert, Awake, CN II-XII Intact, Oriented x3 Neuro motor strength exam: Left Upper Extremity: 5, Right Upper Extremity: 5, Left Lower Extremity: 5, Right Lower Extremity: 5 - Psychiatric Exam Psychiatric exam: Normal Affect, Normal Mood - Skin Skin Exam: Dry, Normal Color, Warm Assessment and Plan (1) Rectal mass Status: Acute (2) SBO (small bowel obstruction) Status: Acute (3) COPD (chronic obstructive pulmonary disease) Status: Chronic (4) Aspiration pneumonia Status: Acute (5) DVT prophylaxis Status: Acute (6) Pleural effusion Status: Acute (7) Colon adenocarcinoma Status: Acute - Assessment and Plan (Free Text) Assessment: 71 y/o gent with Hx of COPD, came in bec of 2 weeks of constipation , abdominal discomfort and vomiting. CT of chest and Abd showed dilated large bowel loops up to the proximal rectum and suspicious for obstructing circumferential rectal mass versus focal stricture GI and surgery consulted. Patient admitted to med/surg kept NPO , started on IVF ,NGT placed , stool softeners and laxatives given with no improvement He underwent flex sigmoidoscopy that showed rectal stricture. Taken to OR 02/04 and underwent exploratory laparatomy with sigmoid resection and colostomy to [facility] Pt was not extubated post-op, he was transferred to ICU post op for monitoring. He developed hypovolemixc shock, Afib with RVR and mottling of lower extremities postop. Now extubated , off pressors, doing well, in med/surg Patient developed ileus post op. NGT removed,started on liquid diet.With episode of transient LUE numbness this AM. 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 Will d.c flagyl since is on back order. Discussed with Dr. Mahmood Continue IVF Oncology consulted- Dr Susan Valenzuela -rec placement of Lifeport and PET scan as outpt 2. LUE transient numbness likely due to metabolic derangement - hypo K CT head showed no acute pathology patient has no neuro deficits Continue K replacement 3. Hypovolemic shock post op , resolved received large quantity of IVF, albumin IV and was started on levophed drip At present BP controlled , off levophed drip Mottling to lower extremities resolved showing improved tissue perfusion 4. Acute Hypoxemic respiratory failure, resolved Pt remained intubated post op and extubated 02/06 Pulmonary on consult with Dr. Danielson following CXR showing bilateral pleural effusion Continue diuresis PRN , Duonebs, O2 via NC, incentive spirometry Promote ambulation 5. Afib with RVR episode- rate controlled received cardizem and digoxin now rate controlled on Lovenox 60mg q 12 6.Acute renal failure, improved oliguric post op with 20 ml/hr output now with good urine output and normal renal function continue IVF Close monitoring 7. Hypokalemia replace with KCL runs sec to NPO status and loss from drainage of large amount of liquid into Colostomy 8. COPD (chronic obstructive pulmonary disease) chronic , stable Duoneb prn 9.Bilateral pneumonia / suspected Aspiration pneumonia POA Acute RLL focal airspace consolidation seen on CT of chest CXR showed increased bilateral infiltrates and pleural effusion treated with abx Sputum c/s Stenophomonas maltophila ID consulted- Dr Mahmood 10.DVT prophylaxis Acute Lovenox
[2017-02-15] MEDS ORDERED: Potassium Chloride 20 mEq/15 ml LIQ UD PO ONE ×2 (10:00→15:31)
[2017-02-15] MEDS: Enoxaparin 60 mg Syringe SC SCH ×2 (10:03→21:24)
[2017-02-15] MEDS: Potassium Chl 20 mEq in NS 1,000 ML IV SCH ×3 (10:35→23:34)
--- NOTE | 2017-02-15 10:36 | CP.PCM.PN ---
<Errol Cruz - Last Filed: 02/15/17 10:34> Subjective - Date & Time of Evaluation Date of Evaluation: 02/15/17 Time of Evaluation: 10:34 - Subjective Subjective: Surgery for Dr. Castillo Pt s&e. Pt feels nauseous. Spitting out sputum. Ostomy functioning. OOB Objective - Vital Signs/Intake and Output Vital Signs (last 24 hours): Temp Pulse Resp BP Pulse Ox 97.4 F L 92 H 20 128/83 98 02/15/17 08:15 02/15/17 08:15 02/15/17 08:15 02/15/17 08:15 02/15/17 08:15 Intake and Output: 02/15/17 02/15/17 06:59 18:59 Intake Total 1380 Output Total 500 Balance 880 - Medications Medications: Current Medications Acetaminophen (Tylenol 650 Mg Supp) 650 mg [place] Q4 PRN PRN Reason: Fever >100.4 F Albuterol Sulfate (Albuterol 0.083% Inhal Barbara (2.5 Mg/3 Ml) Ud) 2.5 mg INH RQ4 PRN PRN Reason: Shortness of Breath Albuterol/Ipratropium (Duoneb 3 Mg/0.5 Mg (3 Ml) Ud) 3 ml INH RQID [facility] Last Admin: 02/15/17 08:01 Dose: 3 ml Enoxaparin Sodium (Lovenox) 60 mg SC Q12 [facility] PRN Reason: Protocol Last Admin: 02/15/17 10:03 Dose: 60 mg Hydromorphone HCl (Dilaudid) 0.5 mg IVP Q6 PRN PRN Reason: Pain, moderate (4-7) Last Admin: 02/14/17 17:12 Dose: 0.5 mg Ceftazidime 2 gm/ Sodium (Chloride) 100 mls @ 100 mls/hr IVPB Q12 [facility] Last Admin: 02/15/17 10:02 Dose: 100 mls/hr Piperacillin Sod/Tazobactam (Sod 2.25 gm/ Sodium Chloride) 100 mls @ 100 mls/ hr IVPB Q8@0400,1200,2000 [facility] Last Admin: 02/15/17 03:30 Dose: 100 mls/hr Potassium Chloride/Sodium Chloride (Potassium Chl 20 Meq In Ns) 1,000 mls @ 99.01 mls/hr IV .Q10H6M [facility] Metoclopramide HCl (Reglan) 10 mg IVP Q8 [facility] Last Admin: 02/15/17 10:05 Dose: 10 mg Ondansetron HCl (Zofran Inj) 4 mg IVP Q4H PRN PRN Reason: Nausea/Vomiting Last Admin: 02/08/17 01:00 Dose: 4 mg Pantoprazole Sodium (Protonix Inj) 40 mg IVP DAILY [facility] Last Admin: 02/15/17 10:04 Dose: 40 mg Potassium Chloride (K-Dur 20 Meq Er Tab) 20 meq PO BID [facility] - Labs Labs: 02/15/17 06:30 02/15/17 06:30 PT 18.1 Seconds (9.8-13.1) H 02/06/17 04:30 INR 1.7 (0.9-1.2) H D 02/06/17 04:30 APTT 35.4 Seconds (25.6-37.1) 02/06/17 04:30 - Constitutional Appears: No Acute Distress - Head Exam Head Exam: ATRAUMATIC, NORMAL INSPECTION, NORMOCEPHALIC - Eye Exam Eye Exam: EOMI, Normal appearance, PERRL Pupil Exam: NORMAL ACCOMODATION, PERRL - ENT Exam ENT Exam: Mucous Membranes Moist, Normal Exam - Neck Exam Neck Exam: Full ROM, Normal Inspection. absent: Lymphadenopathy - Respiratory Exam Respiratory Exam: Clear to Ausculation Bilateral, NORMAL BREATHING PATTERN - Cardiovascular Exam Cardiovascular Exam: REGULAR RHYTHM, +S1, +S2. absent: Murmur - GI/Abdominal Exam GI & Abdominal Exam: Soft, Normal Bowel Sounds. absent: Distended, Tenderness Additional comments: Incision stapled . Stoma functioning - Extremities Exam Extremities Exam: Full ROM, Normal Capillary Refill, Normal Inspection. absent : Joint Swelling, Pedal Edema - Back Exam Back Exam: NORMAL INSPECTION - Neurological Exam Neurological Exam: Alert, Awake, CN II-XII Intact, Normal Gait, Oriented x3 - Skin Skin Exam: Dry, Intact, Normal Color, Warm Assessment and Plan - Assessment and Plan (Free Text) Assessment: 71M with recto-sigmoid mass, s/p Marion's POD#11 -CLD, advance diet as tolerated -Hypokalemia, replete PRN -Nausea control -Pain control -encourage OOB to chair, PT, and IS use -will continue to follow DW attending <Scot Castillo - Last Filed: 02/15/17 16:30> Subjective - Date & Time of Evaluation Time of Evaluation: 16:00 - Subjective Subjective: Patient was seen and examined at the bedside. Agree with resident's note above. Objective - Vital Signs/Intake and Output Vital Signs (last 24 hours): Temp Pulse Resp BP Pulse Ox 98.2 F 98 H 17 119/76 100 02/15/17 16:11 02/15/17 16:11 02/15/17 16:11 02/15/17 16:11 02/15/17 16:11 Intake and Output: 02/15/17 02/15/17 06:59 18:59 Intake Total 1380 300 Output Total 500 30 Balance 880 270 - Medications Medications: Current Medications Acetaminophen (Tylenol 650 Mg Supp) 650 mg [place] Q4 PRN PRN Reason: Fever >100.4 F Albuterol Sulfate (Albuterol 0.083% Inhal Barbara (2.5 Mg/3 Ml) Ud) 2.5 mg INH RQ4 PRN PRN Reason: Shortness of Breath Albuterol/Ipratropium (Duoneb 3 Mg/0.5 Mg (3 Ml) Ud) 3 ml INH RQID [facility] Last Admin: 02/15/17 15:17 Dose: 3 ml Enoxaparin Sodium (Lovenox) 60 mg SC Q12 [facility] PRN Reason: Protocol Last Admin: 02/15/17 10:03 Dose: 60 mg Hydromorphone HCl (Dilaudid) 0.5 mg IVP Q6 PRN PRN Reason: Pain, moderate (4-7) Last Admin: 02/14/17 17:12 Dose: 0.5 mg Ceftazidime 2 gm/ Sodium (Chloride) 100 mls @ 100 mls/hr IVPB Q12 [facility] Last Admin: 02/15/17 10:02 Dose: 100 mls/hr Piperacillin Sod/Tazobactam (Sod 2.25 gm/ Sodium Chloride) 100 mls @ 100 mls/ hr IVPB Q8@0400,1200,2000 [facility] Last Admin: 02/15/17 12:29 Dose: 100 mls/hr Potassium Chloride/Sodium Chloride (Potassium Chl 20 Meq In Ns) 1,000 mls @ 99.01 mls/hr IV .Q10H6M [facility] Last Admin: 02/15/17 10:35 Dose: 99.01 mls/hr Metoclopramide HCl (Reglan) 10 mg IVP Q8 [facility] Last Admin: 02/15/17 10:05 Dose: 10 mg Ondansetron HCl (Zofran Inj) 4 mg IVP Q4H PRN PRN Reason: Nausea/Vomiting Last Admin: 02/08/17 01:00 Dose: 4 mg Pantoprazole Sodium (Protonix Inj) 40 mg IVP DAILY [facility] Last Admin: 02/15/17 10:04 Dose: 40 mg - Labs Labs: 02/15/17 06:30 02/15/17 06:30 PT 18.1 Seconds (9.8-13.1) H 02/06/17 04:30 INR 1.7 (0.9-1.2) H D 02/06/17 04:30 APTT 35.4 Seconds (25.6-37.1) 02/06/17 04:30 Assessment and Plan - Assessment and Plan (Free Text) Plan: - Clear liquid diet - Zofran prn - Repeat labs in am - Will follow
[2017-02-16] MEDS: Potassium Chl 20 mEq in NS 1,000 ML IV SCH (05:39)
[2017-02-16] MEDS: Albuterol-Ipratrop 3 mg / 0.5 (3 ml) UD INH SCH ×4 (07:47→19:07)
[2017-02-16 08:09] LABS: BASO # 0.1 K/uL (0.0-0.2); BASO % 0.6 % (0.0-2.0); EOS # 0.6 K/uL (0.0-0.7); HEMOGLOBIN 11.9 g/dL (12.0-18.0); LYMPH # 1.1 K/uL (1.0-4.3); LYMPH % 11.3 % (20.0-40.0); MEAN CELL VOLUME 93.9 fl (80.0-94.0); MEAN CORPUSCULAR HEMOGLOBIN 31.7 pg (27.0-31.0); MEAN CORPUSCULAR HGB CONC 33.8 g/dL (33.0-37.0); MEAN PLATELET VOLUME 8.1 fl (7.2-11.7); MONO # 0.8 K/uL (0.0-0.8); NEUT # 7.2 K/uL (1.8-7.0); NEUT % 74.1 % (50.0-75.0); NRBC % 0.1 % (0.0-0.0); RBC 3.76 Mil/uL (4.40-5.90); RED CELL DISTRIBUTION WIDTH 15.4 % (11.5-14.5); WHITE BLOOD COUNT 9.7 K/uL (4.8-10.8)
[2017-02-16 08:31] LABS: ALB/GLOB RATIO 0.9 (1.0-2.1); ALBUMIN 2.3 g/dL (3.5-5.0); ALT/SGPT 36 U/L (21-72); AST/SGOT 26 U/L (17-59); BLOOD UREA NITROGEN 5 mg/dl (9-20); CALCIUM 7.8 mg/dL (8.4-10.2); GFR AFRICAN-AMERICAN > 60; GFR NON-AFRICAN AMERICAN > 60
--- NOTE | 2017-02-16 08:49 | CP.PCM.PN ---
<Ryan Carrera - Last Filed: 02/16/17 12:35> Subjective - Date & Time of Evaluation Date of Evaluation: 02/16/17 Time of Evaluation: 07:05 - Subjective Subjective: General Surgery Progress Note for Dr. Castillo Patient seen and examined at bedside. Overnight, patient complaining of drainage from incision. Nurse applied dressing. Pain is controlled with meds. Colostomy functioning properly. Patient has been OOB and ambulating. Denies Fever/chills, cp, sob, n/v/d. Objective - Vital Signs/Intake and Output Vital Signs (last 24 hours): Temp Pulse Resp BP Pulse Ox 97.9 F 73 20 111/74 99 02/16/17 00:54 02/16/17 00:54 02/16/17 00:54 02/16/17 00:54 02/16/17 00:54 Intake and Output: 02/16/17 02/16/17 06:59 18:59 Intake Total 1500 Output Total 1800 Balance -300 - Medications Medications: Current Medications Acetaminophen (Tylenol 650 Mg Supp) 650 mg [place] Q4 PRN PRN Reason: Fever >100.4 F Albuterol Sulfate (Albuterol 0.083% Inhal Barbara (2.5 Mg/3 Ml) Ud) 2.5 mg INH RQ4 PRN PRN Reason: Shortness of Breath Albuterol/Ipratropium (Duoneb 3 Mg/0.5 Mg (3 Ml) Ud) 3 ml INH RQID [facility] Last Admin: 02/16/17 07:47 Dose: 3 ml Enoxaparin Sodium (Lovenox) 60 mg SC Q12 [facility] PRN Reason: Protocol Last Admin: 02/15/17 21:24 Dose: 60 mg Hydromorphone HCl (Dilaudid) 0.5 mg IVP Q6 PRN PRN Reason: Pain, moderate (4-7) Last Admin: 02/14/17 17:12 Dose: 0.5 mg Ceftazidime 2 gm/ Sodium (Chloride) 100 mls @ 100 mls/hr IVPB Q12 [facility] Last Admin: 02/15/17 21:30 Dose: 100 mls/hr Piperacillin Sod/Tazobactam (Sod 2.25 gm/ Sodium Chloride) 100 mls @ 100 mls/ hr IVPB Q8@0400,1200,2000 [facility] Last Admin: 02/16/17 03:39 Dose: 100 mls/hr Potassium Chloride/Sodium Chloride (Potassium Chl 20 Meq In Ns) 1,000 mls @ 99.01 mls/hr IV .Q10H6M [facility] Last Admin: 02/16/17 05:39 Dose: Not Given Metoclopramide HCl (Reglan) 10 mg IVP Q8 [facility] Last Admin: 02/16/17 00:18 Dose: 10 mg Ondansetron HCl (Zofran Inj) 4 mg IVP Q4H PRN PRN Reason: Nausea/Vomiting Last Admin: 02/08/17 01:00 Dose: 4 mg Pantoprazole Sodium (Protonix Inj) 40 mg IVP DAILY [facility] Last Admin: 02/15/17 10:04 Dose: 40 mg - Labs Labs: 02/15/17 06:30 02/15/17 06:30 PT 18.1 Seconds (9.8-13.1) H 02/06/17 04:30 INR 1.7 (0.9-1.2) H D 02/06/17 04:30 APTT 35.4 Seconds (25.6-37.1) 02/06/17 04:30 - Constitutional Appears: No Acute Distress - Head Exam Head Exam: ATRAUMATIC, NORMOCEPHALIC - Eye Exam Eye Exam: Normal appearance - ENT Exam ENT Exam: Mucous Membranes Moist - Neck Exam Neck Exam: Full ROM - Respiratory Exam Respiratory Exam: NORMAL BREATHING PATTERN - Cardiovascular Exam Cardiovascular Exam: REGULAR RHYTHM - GI/Abdominal Exam GI & Abdominal Exam: Soft, Tenderness (mild at incision). absent: Distended, Firm, Guarding, Rigid, Rebound Additional comments: incision with vida still present, serosanguinous drainage at lower pole of incision, dressing applied - Extremities Exam Extremities Exam: absent: Calf Tenderness - Back Exam Back Exam: absent: CVA tenderness (L), CVA tenderness (R) - Neurological Exam Neurological Exam: Alert, Awake, Oriented x3 - Psychiatric Exam Psychiatric exam: Normal Affect, Normal Mood - Skin Skin Exam: Dry, Warm Assessment and Plan - Assessment and Plan (Free Text) Plan: 71 M with recto-sigmoid mass, s/p Marion's POD#12 -FLD, this AM advance diet as tolerated -Pain control -encourage OOB to chair, PT, and IS use -will continue to follow -Will DW Dr. Anna Carrera PGY1 <Scot Castillo - Last Filed: 02/16/17 14:15> Subjective - Date & Time of Evaluation Time of Evaluation: 13:35 - Subjective Subjective: Patient was seen and examined at the bedside. Agree with resident's note above. Objective - Vital Signs/Intake and Output Vital Signs (last 24 hours): Temp Pulse Resp BP Pulse Ox 97.7 F 81 20 125/79 94 L 02/16/17 08:56 02/16/17 08:56 02/16/17 08:56 02/16/17 08:56 02/16/17 08:56 Intake and Output: 02/16/17 02/16/17 06:59 18:59 Intake Total 1500 Output Total 1800 Balance -300 - Medications Medications: Current Medications Acetaminophen (Tylenol 650 Mg Supp) 650 mg [place] Q4 PRN PRN Reason: Fever >100.4 F Albuterol Sulfate (Albuterol 0.083% Inhal Barbara (2.5 Mg/3 Ml) Ud) 2.5 mg INH RQ4 PRN PRN Reason: Shortness of Breath Albuterol/Ipratropium (Duoneb 3 Mg/0.5 Mg (3 Ml) Ud) 3 ml INH RQID [facility] Last Admin: 02/16/17 11:51 Dose: 3 ml Enoxaparin Sodium (Lovenox) 60 mg SC Q12 [facility] PRN Reason: Protocol Last Admin: 02/16/17 10:24 Dose: 60 mg Hydromorphone HCl (Dilaudid) 0.5 mg IVP Q6 PRN PRN Reason: Pain, moderate (4-7) Last Admin: 02/14/17 17:12 Dose: 0.5 mg Ceftazidime 2 gm/ Sodium (Chloride) 100 mls @ 100 mls/hr IVPB Q12 [facility] Last Admin: 02/16/17 10:23 Dose: 100 mls/hr Piperacillin Sod/Tazobactam (Sod 2.25 gm/ Sodium Chloride) 100 mls @ 100 mls/ hr IVPB Q8@0400,1200,2000 [facility] Last Admin: 02/16/17 11:45 Dose: 100 mls/hr Potassium Chloride/Sodium Chloride (Potassium Chl 20 Meq In Ns) 1,000 mls @ 99.01 mls/hr IV .Q10H6M [facility] Last Admin: 02/16/17 05:39 Dose: Not Given Metoclopramide HCl (Reglan) 10 mg IVP Q8 [facility] Last Admin: 02/16/17 10:29 Dose: 10 mg Ondansetron HCl (Zofran Inj) 4 mg IVP Q4H PRN PRN Reason: Nausea/Vomiting Last Admin: 02/08/17 01:00 Dose: 4 mg Pantoprazole Sodium (Protonix Inj) 40 mg IVP DAILY [facility] Last Admin: 02/16/17 10:28 Dose: 40 mg - Labs Labs: 02/16/17 06:00 02/16/17 05:30 PT 18.1 Seconds (9.8-13.1) H 02/06/17 04:30 INR 1.7 (0.9-1.2) H D 02/06/17 04:30 APTT 35.4 Seconds (25.6-37.1) 02/06/17 04:30
[2017-02-16] MEDS ORDERED: Potassium Chloride 20 mEq/15 ml LIQ UD PO ONE (09:09)
[2017-02-16] MEDS: Enoxaparin 60 mg Syringe SC SCH ×2 (10:24→20:11)
[2017-02-16] MEDS: Potassium CL 10mEq/100ml 100 ML IVPB SCH ×3 (11:50→13:37)
--- NOTE | 2017-02-16 13:20 | RAD ---
PROCEDURE: CHEST RADIOGRAPH, 1 VIEW. Portable study 09:45. HISTORY: pleural effusion COMPARISON: 02/13/2017. FINDINGS: LUNGS: Stable consolidative changes of both lung bases. PLEURA: Stable bilateral pleural effusions. CARDIOVASCULAR: No radiographic findings to suggest acute or significant cardiovascular disease. OSSEOUS STRUCTURES: No significant abnormalities. VISUALIZED UPPER ABDOMEN: Normal. OTHER FINDINGS: None. IMPRESSION: Stable, large pleural effusions and underlying consolidative changes likely compressive atelectasis. No new/acute findings or interval changes.
--- NOTE | 2017-02-16 16:47 | CP.PCM.PN ---
Subjective - Date & Time of Evaluation Date of Evaluation: 02/16/17 Time of Evaluation: 10:00 - Subjective Subjective: Patient seen and examined bedside. Feeling better. Hemodynamically stable, afebrile. No acute issues overnight.Tolerating liquid diet.Colostomy to LLQ with good output. With serous drainage from lower portion of surgical incision Objective - Vital Signs/Intake and Output Vital Signs (last 24 hours): Temp Pulse Resp BP Pulse Ox 98.4 F 95 H 18 119/80 98 02/16/17 15:48 02/16/17 15:48 02/16/17 15:48 02/16/17 15:48 02/16/17 15:48 Intake and Output: 02/16/17 02/16/17 06:59 18:59 Intake Total 1500 Output Total 1800 Balance -300 - Medications Medications: Current Medications Acetaminophen (Tylenol 650 Mg Supp) 650 mg AL Q4 PRN PRN Reason: Fever >100.4 F Albuterol Sulfate (Albuterol 0.083% Inhal Barbara (2.5 Mg/3 Ml) Ud) 2.5 mg INH RQ4 PRN PRN Reason: Shortness of Breath Albuterol/Ipratropium (Duoneb 3 Mg/0.5 Mg (3 Ml) Ud) 3 ml INH RQID [facility] Last Admin: 02/16/17 15:38 Dose: 3 ml Enoxaparin Sodium (Lovenox) 60 mg SC Q12 [facility] PRN Reason: Protocol Last Admin: 02/16/17 10:24 Dose: 60 mg Hydromorphone HCl (Dilaudid) 0.5 mg IVP Q6 PRN PRN Reason: Pain, moderate (4-7) Last Admin: 02/14/17 17:12 Dose: 0.5 mg Ceftazidime 2 gm/ Sodium (Chloride) 100 mls @ 100 mls/hr IVPB Q12 [facility] Last Admin: 02/16/17 10:23 Dose: 100 mls/hr Piperacillin Sod/Tazobactam (Sod 2.25 gm/ Sodium Chloride) 100 mls @ 100 mls/ hr IVPB Q8@0400,1200,2000 [facility] Last Admin: 02/16/17 11:45 Dose: 100 mls/hr Potassium Chloride/Sodium Chloride (Potassium Chl 20 Meq In Ns) 1,000 mls @ 99.01 mls/hr IV .Q10H6M [facility] Last Admin: 02/16/17 05:39 Dose: Not Given Metoclopramide HCl (Reglan) 10 mg IVP Q8 [facility] Last Admin: 02/16/17 16:14 Dose: 10 mg Ondansetron HCl (Zofran Inj) 4 mg IVP Q4H PRN PRN Reason: Nausea/Vomiting Last Admin: 02/08/17 01:00 Dose: 4 mg Pantoprazole Sodium (Protonix Inj) 40 mg IVP DAILY [facility] Last Admin: 02/16/17 10:28 Dose: 40 mg - Labs Labs: 02/16/17 06:00 02/16/17 05:30 PT 18.1 Seconds (9.8-13.1) H 02/06/17 04:30 INR 1.7 (0.9-1.2) H D 02/06/17 04:30 APTT 35.4 Seconds (25.6-37.1) 02/06/17 04:30 - Constitutional Appears: Non-toxic, No Acute Distress - Head Exam Head Exam: ATRAUMATIC, NORMAL INSPECTION, NORMOCEPHALIC - Eye Exam Eye Exam: EOMI, Normal appearance, PERRL Pupil Exam: NORMAL ACCOMODATION - ENT Exam ENT Exam: Mucous Membranes Moist, Normal Exam - Neck Exam Neck Exam: Full ROM, Normal Inspection - Respiratory Exam Respiratory Exam: Clear to Ausculation Bilateral, NORMAL BREATHING PATTERN. absent: Rhonchi, Wheezes - Cardiovascular Exam Cardiovascular Exam: Irregular Rhythm, +S1, +S2. absent: JVD - GI/Abdominal Exam GI & Abdominal Exam: Distended, Soft, Hypoactive Bowel Sounds Additional comments: midline surgical incision with vida in place , abdominal wall edema serous drainage from lower portion of incision colostomy to LLQ with brownish liquid output - Rectal Exam Rectal Exam: Deferred - Extremities Exam Extremities Exam: Full ROM, Normal Capillary Refill, Normal Inspection. absent : Pedal Edema - Back Exam Back Exam: NORMAL INSPECTION - Neurological Exam Neurological Exam: Alert, Awake, CN II-XII Intact, Oriented x3 - Psychiatric Exam Psychiatric exam: Normal Affect - Skin Skin Exam: Dry, Pallor, Warm Assessment and Plan - Assessment and Plan (Free Text) Assessment: 71 y/o gent with Hx of COPD, came in bec of 2 weeks of constipation , abdominal discomfort and vomiting. CT of chest and Abd showed dilated large bowel loops up to the proximal rectum and suspicious for obstructing circumferential rectal mass versus focal stricture GI and surgery consulted. Patient admitted to med/surg kept NPO , started on IVF ,NGT placed , stool softeners and laxatives given with no improvement He underwent flex sigmoidoscopy that showed rectal stricture. Taken to OR 02/04 and underwent exploratory laparatomy with sigmoid resection and colostomy to [facility] Pt was not extubated post-op, he was transferred to ICU post op for monitoring. He developed hypovolemixc shock, Afib with RVR and mottling of lower extremities postop. Now extubated , off pressors, doing well, in med/surg Patient developed ileus post op. NGT removed,started on liquid diet and tolerating so far. 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 Discontinued flagyl since is on back order. Discussed with Dr. Mahmood Continue IVF Oncology consulted- Dr Susan Valenzuela -rec placement of Lifeport and PET scan as outpt 2. LUE transient numbness likely due to metabolic derangement - hypo K CT head showed no acute pathology patient has no neuro deficits Continue K replacement 3. Hypovolemic shock post op , resolved received large quantity of IVF, albumin IV and was started on levophed drip At present BP controlled , off levophed drip Mottling to lower extremities resolved showing improved tissue perfusion 4. Acute Hypoxemic respiratory failure, resolved Pt remained intubated post op and extubated 02/06 Pulmonary on consult with Dr. Danielson following CXR showing bilateral pleural effusion Continue diuresis PRN , Duonebs, O2 via NC, incentive spirometry Promote ambulation 5. Afib with RVR episode- rate controlled received cardizem and digoxin now rate controlled on Lovenox 60mg q 12 6.Acute renal failure, improved oliguric post op with 20 ml/hr output now with good urine output and normal renal function continue IVF Close monitoring 7. Hypokalemia replace with KCL runs sec to GI loss 8. COPD (chronic obstructive pulmonary disease) chronic , stable Duoneb prn 9.Bilateral pneumonia / suspected Aspiration pneumonia POA Acute RLL focal airspace consolidation seen on CT of chest CXR showed increased bilateral infiltrates and pleural effusion treated with abx Sputum c/s Stenophomonas maltophila ID consulted- Dr Mahmood 10.DVT prophylaxis Acute Lovenox
[2017-02-16] MEDS: Potassium Ch 20mEq in D5-1/2NS 1,000 ML IV SCH (19:50)
[2017-02-16] MEDS ORDERED: DiphenhydrAMINE 50 mg/ml Inj IVP STA (23:02)
[2017-02-17] MEDS: Potassium Chl 20 mEq in NS 1,000 ML IV SCH ×2 (01:52→23:08)
[2017-02-17] MEDS: Potassium Ch 20mEq in D5-1/2NS 1,000 ML IV SCH ×2 (03:52→13:05)
[2017-02-17] MEDS: Albuterol-Ipratrop 3 mg / 0.5 (3 ml) UD INH SCH ×4 (07:22→19:17)
--- NOTE | 2017-02-17 07:52 | CP.PCM.PN ---
Subjective - Date & Time of Evaluation Date of Evaluation: 02/17/17 Time of Evaluation: 10:30 - Subjective Subjective: Patient seen and examined bedside feeling better. Tolerating liquid diet. Hemodynamically stable, afebrile. No acute issues overnight.Colostomy to [facility] working, with brown liquid output. With rare coughing spells Denies any SOB Objective - Vital Signs/Intake and Output Vital Signs (last 24 hours): Temp Pulse Resp BP Pulse Ox 97.7 F 98 H 20 129/79 97 02/17/17 07:29 02/17/17 07:29 02/17/17 07:29 02/17/17 07:29 02/17/17 07:29 Intake and Output: 02/17/17 02/17/17 06:59 18:59 Intake Total 1740 Output Total 1600 Balance 140 - Medications Medications: Current Medications Acetaminophen (Tylenol 650 Mg Supp) 650 mg AR Q4 PRN PRN Reason: Fever >100.4 F Albuterol Sulfate (Albuterol 0.083% Inhal Barbara (2.5 Mg/3 Ml) Ud) 2.5 mg INH RQ4 PRN PRN Reason: Shortness of Breath Albuterol/Ipratropium (Duoneb 3 Mg/0.5 Mg (3 Ml) Ud) 3 ml INH RQID [facility] Last Admin: 02/17/17 07:22 Dose: 3 ml Enoxaparin Sodium (Lovenox) 60 mg SC Q12 [facility] PRN Reason: Protocol Last Admin: 02/16/17 20:11 Dose: 60 mg Hydromorphone HCl (Dilaudid) 0.5 mg IVP Q6 PRN PRN Reason: Pain, moderate (4-7) Last Admin: 02/14/17 17:12 Dose: 0.5 mg Ceftazidime 2 gm/ Sodium (Chloride) 100 mls @ 100 mls/hr IVPB Q12 [facility] Last Admin: 02/16/17 21:50 Dose: 100 mls/hr Piperacillin Sod/Tazobactam (Sod 2.25 gm/ Sodium Chloride) 100 mls @ 100 mls/ hr IVPB Q8@0400,1200,2000 [facility] Last Admin: 02/17/17 04:41 Dose: 100 mls/hr Potassium Chloride/Sodium Chloride (Potassium Chl 20 Meq In Ns) 1,000 mls @ 99.01 mls/hr IV .Q10H6M [facility] Last Admin: 02/17/17 01:52 Dose: Not Given Potassium Chloride/Dextrose/Sod Cl (Potassium Chl 20 Meq In D5-1/2ns) 1,000 mls @ 100 mls/hr IV .Q10H [facility] Stop: 02/17/17 17:05 Last Admin: 02/17/17 03:52 Dose: Not Given Metoclopramide HCl (Reglan) 10 mg IVP Q8 [facility] Last Admin: 02/17/17 00:15 Dose: 10 mg Ondansetron HCl (Zofran Inj) 4 mg IVP Q4H PRN PRN Reason: Nausea/Vomiting Last Admin: 02/08/17 01:00 Dose: 4 mg Pantoprazole Sodium (Protonix Inj) 40 mg IVP DAILY [facility] Last Admin: 02/16/17 10:28 Dose: 40 mg - Labs Labs: 02/16/17 06:00 02/16/17 05:30 PT 18.1 Seconds (9.8-13.1) H 02/06/17 04:30 INR 1.7 (0.9-1.2) H D 02/06/17 04:30 APTT 35.4 Seconds (25.6-37.1) 02/06/17 04:30 - Constitutional Appears: Non-toxic, Chronically Ill - Head Exam Head Exam: ATRAUMATIC, NORMAL INSPECTION, NORMOCEPHALIC - Eye Exam Eye Exam: EOMI, Normal appearance, PERRL Pupil Exam: NORMAL ACCOMODATION - ENT Exam ENT Exam: Mucous Membranes Moist, Normal Exam - Neck Exam Neck Exam: Full ROM, Normal Inspection - Respiratory Exam Respiratory Exam: Decreased Breath Sounds (bibasilary), Clear to Ausculation Bilateral, NORMAL BREATHING PATTERN. absent: Rhonchi, Wheezes - Cardiovascular Exam Cardiovascular Exam: REGULAR RHYTHM, RRR, +S1, +S2. absent: JVD - GI/Abdominal Exam GI & Abdominal Exam: Soft, Normal Bowel Sounds. absent: Distended, Guarding, Rigid, Tenderness, Rebound Additional comments: midline surgical incision with vida in place , healing well, with serous drainage from lower portion of incision LLQ colostomy in place working well - Rectal Exam Rectal Exam: Deferred - Extremities Exam Extremities Exam: Full ROM, Normal Capillary Refill, Normal Inspection - Back Exam Back Exam: NORMAL INSPECTION - Neurological Exam Neurological Exam: Alert, Awake, CN II-XII Intact, Oriented x3 - Psychiatric Exam Psychiatric exam: Normal Affect - Skin Skin Exam: Dry, Pallor, Warm Assessment and Plan - Assessment and Plan (Free Text) Assessment: 71 y/o gent with Hx of COPD, came in bec of 2 weeks of constipation , abdominal discomfort and vomiting. CT of chest and Abd showed dilated large bowel loops up to the proximal rectum and suspicious for obstructing circumferential rectal mass versus focal stricture GI and surgery consulted. Patient admitted to med/surg kept NPO , started on IVF ,NGT placed , stool softeners and laxatives given with no improvement He underwent flex sigmoidoscopy that showed rectal stricture. Taken to OR 02/04 and underwent exploratory laparatomy with sigmoid resection and colostomy to [facility] Pt was not extubated post-op, he was transferred to ICU post op for monitoring. He developed hypovolemixc shock, Afib with RVR and mottling of lower extremities postop. Now extubated , off pressors, doing well, in med/surg Patient developed ileus post op. NGT removed,started on liquid diet and tolerating so far. 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 Will advance diet to low fiber today Surgical incision with vida in place clean ,intact, with serous output from the lower portion of incision Continue pain management , promote ambulation Surgery following On Zosyn, maxipime and Flagyl empirically for > 14 days . Discontinued all antibiotics today 02/17 and started on Bactrim Po for Stenotrophomonas maltophilia Continue IVF Oncology consulted- Dr Susan Valenzuela -rec placement of Lifeport and PET scan as outpt PT consult appreciated plan to D/c to TCU in AM 2. LUE transient numbness likely due to metabolic derangement - hypo K CT head showed no acute pathology patient has no neuro deficits Continue K replacement 3. Hypovolemic shock post op , resolved received large quantity of IVF, albumin IV and was started on levophed drip At present BP controlled , off levophed drip Mottling to lower extremities resolved showing improved tissue perfusion 4. Acute Hypoxemic respiratory failure, resolved Pt remained intubated post op and extubated 02/06 Pulmonary on consult with Dr. Danielson following CXR showing bilateral pleural effusion Continue diuresis PRN , Duonebs, O2 via NC, incentive spirometry Promote ambulation 5. Afib with RVR episode- rate controlled received cardizem and digoxin now rate controlled on Lovenox 60mg q 12 6.Acute renal failure, improved oliguric post op with 20 ml/hr output now with good urine output and normal renal function continue IVF Close monitoring 7. Hypokalemia replace with KCL runs sec to GI loss 8. COPD (chronic obstructive pulmonary disease) chronic , stable Duoneb prn 9.Bilateral pneumonia / suspected Aspiration pneumonia POA Acute RLL focal airspace consolidation seen on CT of chest CXR showed increased bilateral infiltrates and pleural effusion treated with abx Sputum c/s Stenophomonas maltophila ID consulted- Dr Mahmood started bactrim po 10.DVT prophylaxis Acute Lovenox
[2017-02-17] MEDS: Enoxaparin 60 mg Syringe SC SCH ×2 (08:32→21:55)
--- NOTE | 2017-02-17 09:48 | CP.PCM.PN ---
Subjective - Date & Time of Evaluation Date of Evaluation: 02/17/17 Time of Evaluation: 09:44 - Subjective Subjective: Over the weekend the pt was able to hold down the full liquid diet. He has fecal material in the colostomy bag. No more vomiting. He was able to get out of the bed and walk a little. There is also some leakage from the lower end of the surgical wound. Cea and Ca19-9 are within the normal limit Objective - Vital Signs/Intake and Output Vital Signs (last 24 hours): Temp Pulse Resp BP Pulse Ox 97.7 F 98 H 20 129/79 97 02/17/17 07:29 02/17/17 07:29 02/17/17 07:29 02/17/17 07:29 02/17/17 07:29 Intake and Output: 02/17/17 02/17/17 06:59 18:59 Intake Total 1740 Output Total 1600 Balance 140 - Medications Medications: Current Medications Acetaminophen (Tylenol 650 Mg Supp) 650 mg PA Q4 PRN PRN Reason: Fever >100.4 F Albuterol Sulfate (Albuterol 0.083% Inhal Barbara (2.5 Mg/3 Ml) Ud) 2.5 mg INH RQ4 PRN PRN Reason: Shortness of Breath Albuterol/Ipratropium (Duoneb 3 Mg/0.5 Mg (3 Ml) Ud) 3 ml INH RQID [facility] Last Admin: 02/17/17 07:22 Dose: 3 ml Enoxaparin Sodium (Lovenox) 60 mg SC Q12 [facility] PRN Reason: Protocol Last Admin: 02/17/17 08:32 Dose: 60 mg Hydromorphone HCl (Dilaudid) 0.5 mg IVP Q6 PRN PRN Reason: Pain, moderate (4-7) Last Admin: 02/14/17 17:12 Dose: 0.5 mg Ceftazidime 2 gm/ Sodium (Chloride) 100 mls @ 100 mls/hr IVPB Q12 [facility] Last Admin: 02/17/17 08:31 Dose: 100 mls/hr Piperacillin Sod/Tazobactam (Sod 2.25 gm/ Sodium Chloride) 100 mls @ 100 mls/ hr IVPB Q8@0400,1200,2000 [facility] Last Admin: 02/17/17 04:41 Dose: 100 mls/hr Potassium Chloride/Sodium Chloride (Potassium Chl 20 Meq In Ns) 1,000 mls @ 99.01 mls/hr IV .Q10H6M [facility] Last Admin: 02/17/17 01:52 Dose: Not Given Potassium Chloride/Dextrose/Sod Cl (Potassium Chl 20 Meq In D5-1/2ns) 1,000 mls @ 100 mls/hr IV .Q10H [facility] Stop: 02/17/17 17:05 Last Admin: 02/17/17 03:52 Dose: Not Given Metoclopramide HCl (Reglan) 10 mg IVP Q8 [facility] Last Admin: 02/17/17 08:33 Dose: 10 mg Ondansetron HCl (Zofran Inj) 4 mg IVP Q4H PRN PRN Reason: Nausea/Vomiting Last Admin: 02/08/17 01:00 Dose: 4 mg Pantoprazole Sodium (Protonix Inj) 40 mg IVP DAILY [facility] Last Admin: 02/17/17 08:33 Dose: 40 mg - Labs Labs: 02/16/17 06:00 02/16/17 05:30 PT 18.1 Seconds (9.8-13.1) H 02/06/17 04:30 INR 1.7 (0.9-1.2) H D 02/06/17 04:30 APTT 35.4 Seconds (25.6-37.1) 02/06/17 04:30
[2017-02-17 10:14] LABS: BASO % 0.6 % (0.0-2.0); EOS # 0.5 K/uL (0.0-0.7); EOS % 5.8 % (0.0-4.0); HEMOGLOBIN 12.5 g/dL (12.0-18.0); LYMPH # 1.1 K/uL (1.0-4.3); LYMPH % 13.8 % (20.0-40.0); MEAN CELL VOLUME 95.5 fl (80.0-94.0); MEAN CORPUSCULAR HEMOGLOBIN 31.4 pg (27.0-31.0); MEAN CORPUSCULAR HGB CONC 32.9 g/dL (33.0-37.0); MEAN PLATELET VOLUME 8.5 fl (7.2-11.7); MONO # 0.7 K/uL (0.0-0.8); MONO % 8.4 % (0.0-10.0); NEUT # 5.9 K/uL (1.8-7.0); NEUT % 71.4 % (50.0-75.0); NRBC % 0.2 % (0.0-0.0); RBC 3.98 Mil/uL (4.40-5.90); RED CELL DISTRIBUTION WIDTH 15.8 % (11.5-14.5); WHITE BLOOD COUNT 8.3 K/uL (4.8-10.8)
[2017-02-17 10:25] LABS: BLOOD UREA NITROGEN 3 mg/dl (9-20); CALCIUM 7.4 mg/dL (8.4-10.2); GFR AFRICAN-AMERICAN > 60; GFR NON-AFRICAN AMERICAN > 60
[2017-02-17] MEDS ORDERED: Potassium Chloride 20 mEq ER Tab PO ONE (10:31)
[2017-02-17] MEDS ORDERED: HYDROmorphone 0.5 mg/0.5 ml ISec IVP PRN (10:45)
--- NOTE | 2017-02-17 11:01 | CP.PCM.PN ---
Subjective - Date & Time of Evaluation Date of Evaluation: 02/17/17 Time of Evaluation: 10:56 - Subjective Subjective: Tolerating diet thus far w/o complications. Colostomy is functioning. Has remained afebrile and labs are okay. Continues to require potassium supplements. Yesterday's CXR still has moderate pleural effusions bilaterally. Dependant edema is still ++. No cyanosis. Dullness is present at the lung bases posteriorly. Cough is congested, but not productive. Breath sounds are diminished bilaterally w/o wheezes. Rhonchi are heard in the lung bases posteriorly. Heart sounds are distant, rate ~90BPM. Abdomen remains mildly tense, serous drainage from distal incision, +BS. Advance diet as tolerated. Ambulate as tolerated. Begin CPT with Acapella. Aerosol therapy with duoneb QID and mucomyst BID. Will discuss with ID about possibly stopping IV antibiotics. Maybe PO ciprofloxacin if he still needs coverage of S maltophilia. Objective - Vital Signs/Intake and Output Vital Signs (last 24 hours): Temp Pulse Resp BP Pulse Ox 97.7 F 98 H 20 129/79 97 02/17/17 07:29 02/17/17 07:29 02/17/17 07:29 02/17/17 07:29 02/17/17 07:29 Intake and Output: 02/16/17 02/17/17 23:59 11:59 Intake Total 1740 Output Total 1600 Balance 140 - Medications Medications: Current Medications Acetaminophen (Tylenol 650 Mg Supp) 650 mg AR Q4 PRN PRN Reason: Fever >100.4 F Albuterol Sulfate (Albuterol 0.083% Inhal Barbara (2.5 Mg/3 Ml) Ud) 2.5 mg INH RQ4 PRN PRN Reason: Shortness of Breath Albuterol/Ipratropium (Duoneb 3 Mg/0.5 Mg (3 Ml) Ud) 3 ml INH RQID [facility] Last Admin: 02/17/17 07:22 Dose: 3 ml Enoxaparin Sodium (Lovenox) 60 mg SC Q12 [facility] PRN Reason: Protocol Last Admin: 02/17/17 08:32 Dose: 60 mg Hydromorphone HCl (Dilaudid) 0.5 mg IVP Q6 PRN PRN Reason: Pain, moderate (4-7) Ceftazidime 2 gm/ Sodium (Chloride) 100 mls @ 100 mls/hr IVPB Q12 [facility] Last Admin: 02/17/17 08:31 Dose: 100 mls/hr Piperacillin Sod/Tazobactam (Sod 2.25 gm/ Sodium Chloride) 100 mls @ 100 mls/ hr IVPB Q8@0400,1200,2000 [facility] Last Admin: 02/17/17 04:41 Dose: 100 mls/hr Potassium Chloride/Sodium Chloride (Potassium Chl 20 Meq In Ns) 1,000 mls @ 99.01 mls/hr IV .Q10H6M [facility] Last Admin: 02/17/17 01:52 Dose: Not Given Potassium Chloride/Dextrose/Sod Cl (Potassium Chl 20 Meq In D5-1/2ns) 1,000 mls @ 100 mls/hr IV .Q10H [facility] Stop: 02/17/17 17:05 Last Admin: 02/17/17 03:52 Dose: Not Given Metoclopramide HCl (Reglan) 10 mg IVP Q8 [facility] Last Admin: 02/17/17 08:33 Dose: 10 mg Ondansetron HCl (Zofran Inj) 4 mg IVP Q4H PRN PRN Reason: Nausea/Vomiting Last Admin: 02/08/17 01:00 Dose: 4 mg Pantoprazole Sodium (Protonix Inj) 40 mg IVP DAILY [facility] Last Admin: 02/17/17 08:33 Dose: 40 mg - Labs Labs: 02/17/17 10:00 02/17/17 10:00 PT 18.1 Seconds (9.8-13.1) H 02/06/17 04:30 INR 1.7 (0.9-1.2) H D 02/06/17 04:30 APTT 35.4 Seconds (25.6-37.1) 02/06/17 04:30 Assessment and Plan (1) Colon carcinoma Status: Acute (2) Large bowel obstruction Status: Resolved (3) Pleural effusion Status: Acute (4) Atelectasis Status: Acute (5) COPD (chronic obstructive pulmonary disease) Status: Chronic (6) Acute kidney injury Status: Resolved (7) Hypoalbuminemia Status: Acute
--- NOTE | 2017-02-17 11:52 | CP.PCM.PN ---
Subjective - Date & Time of Evaluation Date of Evaluation: 02/17/17 Time of Evaluation: 11:50 - Subjective Subjective: Surgery: Dr. Gross Pt seen and examined. Resting comfortably in bed. Pt is tolerating diet. No further episodes of N/V. Pt is ambulating. Objective - Vital Signs/Intake and Output Vital Signs (last 24 hours): Temp Pulse Resp BP Pulse Ox 97.7 F 98 H 20 129/79 97 02/17/17 07:29 02/17/17 07:29 02/17/17 07:29 02/17/17 07:29 02/17/17 07:29 Intake and Output: 02/17/17 02/17/17 06:59 18:59 Intake Total 1740 Output Total 1600 Balance 140 - Medications Medications: Current Medications Acetaminophen (Tylenol 650 Mg Supp) 650 mg PA Q4 PRN PRN Reason: Fever >100.4 F Acetylcysteine (Mucomyst 10% 4ml) 2 ml IH RBID [facility] Albuterol Sulfate (Albuterol 0.083% Inhal Barbara (2.5 Mg/3 Ml) Ud) 2.5 mg INH RQ4 PRN PRN Reason: Shortness of Breath Albuterol/Ipratropium (Duoneb 3 Mg/0.5 Mg (3 Ml) Ud) 3 ml INH RQID [facility] Last Admin: 02/17/17 11:16 Dose: 3 ml Enoxaparin Sodium (Lovenox) 60 mg SC Q12 [facility] PRN Reason: Protocol Last Admin: 02/17/17 08:32 Dose: 60 mg Hydromorphone HCl (Dilaudid) 0.5 mg IVP Q6 PRN PRN Reason: Pain, moderate (4-7) Potassium Chloride/Sodium Chloride (Potassium Chl 20 Meq In Ns) 1,000 mls @ 99.01 mls/hr IV .Q10H6M [facility] Last Admin: 02/17/17 01:52 Dose: Not Given Potassium Chloride/Dextrose/Sod Cl (Potassium Chl 20 Meq In D5-1/2ns) 1,000 mls @ 100 mls/hr IV .Q10H [facility] Stop: 02/17/17 17:05 Last Admin: 02/17/17 03:52 Dose: Not Given Metoclopramide HCl (Reglan) 10 mg IVP Q8 [facility] Last Admin: 02/17/17 08:33 Dose: 10 mg Ondansetron HCl (Zofran Inj) 4 mg IVP Q4H PRN PRN Reason: Nausea/Vomiting Last Admin: 02/08/17 01:00 Dose: 4 mg Pantoprazole Sodium (Protonix Inj) 40 mg IVP DAILY [facility] Last Admin: 02/17/17 08:33 Dose: 40 mg Trimethoprim/Sulfamethoxazole (Bactrim Ds Tab) 1 tab PO Q12 [facility] - Labs Labs: 02/17/17 10:00 02/17/17 10:00 PT 18.1 Seconds (9.8-13.1) H 02/06/17 04:30 INR 1.7 (0.9-1.2) H D 02/06/17 04:30 APTT 35.4 Seconds (25.6-37.1) 02/06/17 04:30 - Constitutional Appears: Non-toxic, No Acute Distress - Head Exam Head Exam: ATRAUMATIC, NORMOCEPHALIC - Eye Exam Eye Exam: EOMI. absent: Scleral icterus - ENT Exam ENT Exam: Mucous Membranes Moist - Neck Exam Neck Exam: Full ROM - Respiratory Exam Respiratory Exam: NORMAL BREATHING PATTERN. absent: Accessory Muscle Use, Respiratory Distress - GI/Abdominal Exam GI & Abdominal Exam: Soft, Tenderness (krystal-incisional ). absent: Distended, Firm, Guarding, Rigid, Rebound Additional comments: stoma pink and patent w. loose stool - Extremities Exam Extremities Exam: Pedal Edema. absent: Calf Tenderness - Neurological Exam Neurological Exam: Alert, Awake, Oriented x3 Assessment and Plan - Assessment and Plan (Free Text) Assessment: 71 M with recto-sigmoid mass, s/p Marion's POD#13 -Diet advanced -pt is clear for D/C to TCU from surgical standpoint -encourage PT, OOB and IS use -d/w Dr. Renato Vazquez PGY3
[2017-02-17] MEDS ORDERED: Potassium Chloride 20 mEq/15 ml LIQ UD PO ONE (13:14)
[2017-02-17] MEDS: Acetylcysteine 10% 4 ML IH SCH (19:17)
[2017-02-17] MEDS: Tmp-Smz 800 mg-160 mg DS Tab PO SCH (21:56)
[2017-02-18 06:28] LABS: BLOOD UREA NITROGEN 3 mg/dl (9-20); CALCIUM 7.6 mg/dL (8.4-10.2); GFR AFRICAN-AMERICAN > 60; GFR NON-AFRICAN AMERICAN > 60
[2017-02-18] MEDS ORDERED: Potassium Chloride 20 mEq/15 ml LIQ UD PO ONE (07:22)
--- NOTE | 2017-02-18 07:23 | CP.PCM.DIS ---
Provider - Provider Date of Admission: 01/29/17 08:51 Attending physician: Delbert Neely MD Time Spent in preparation of Discharge (in minutes): 30 Hospital Course - Lab Results Lab Results: Micro Results 02/11/17 18:26 Nose MRSA Culture (Admit) - Final MRSA NOT DETECTED 02/07/17 11:00 Sputum Induced Gram Stain - Final 02/07/17 11:00 Sputum Induced Sputum Culture - Final Stenotrophomonas Maltophilia 02/05/17 08:21 Trachasp Gram Stain - Final 02/05/17 08:21 Trachasp Sputum Culture - Final Stenotrophomonas Maltophilia 02/04/17 18:41 Naris MRSA Culture (Admit) - Final MRSA NOT DETECTED Most Recent Lab Values WBC 8.3 K/uL (4.8-10.8) 02/17/17 10:00 RBC 3.98 Mil/uL (4.40-5.90) L 02/17/17 10:00 Hgb 12.5 g/dL (12.0-18.0) 02/17/17 10:00 Hct 38.0 % (35.0-51.0) 02/17/17 10:00 MCV 95.5 fl (80.0-94.0) H 02/17/17 10:00 MCH 31.4 pg (27.0-31.0) H 02/17/17 10:00 MCHC 32.9 g/dL (33.0-37.0) L 02/17/17 10:00 RDW 15.8 % (11.5-14.5) H 02/17/17 10:00 Plt Count 352 K/uL (130-400) 02/17/17 10:00 MPV 8.5 fl (7.2-11.7) 02/17/17 10:00 Neut % (Auto) 71.4 % (50.0-75.0) 02/17/17 10:00 Lymph % (Auto) 13.8 % (20.0-40.0) L 02/17/17 10:00 [place] % (Auto) 8.4 % (0.0-10.0) 02/17/17 10:00 Eos % (Auto) 5.8 % (0.0-4.0) H 02/17/17 10:00 Baso % (Auto) 0.6 % (0.0-2.0) 02/17/17 10:00 Neut # 5.9 K/uL (1.8-7.0) 02/17/17 10:00 Lymph # 1.1 K/uL (1.0-4.3) 02/17/17 10:00 [place] # 0.7 K/uL (0.0-0.8) 02/17/17 10:00 Eos # 0.5 K/uL (0.0-0.7) 02/17/17 10:00 Baso # 0.0 K/uL (0.0-0.2) 02/17/17 10:00 Neutrophils % (Manual) 84 % (42-75) H 02/08/17 05:30 Band Neutrophils % 2 % (0-2) 02/05/17 04:20 Lymphocytes % (Manual) 5 % (20-50) L 02/08/17 05:30 Monocytes % (Manual) 10 % (0-10) 02/08/17 05:30 Basophils % (Manual) 1 % (0-2) 02/08/17 05:30 Platelet Estimate Normal (NORMAL) 02/08/17 05:30 Plt Clumps, EDTA Present 02/08/17 05:30 Hypochromasia (manual) Slight 02/08/17 05:30 Anisocytosis (manual) Slight 02/08/17 05:30 Macrocytosis (manual) Slight 02/08/17 05:30 [place] Cells Moderate 02/08/17 05:30 PT 18.1 Seconds (9.8-13.1) H 02/06/17 04:30 INR 1.7 (0.9-1.2) H D 02/06/17 04:30 APTT 35.4 Seconds (25.6-37.1) 02/06/17 04:30 pCO2 36 mm/Hg (35-45) 02/06/17 08:45 pO2 93 mm/Hg (80-100) 02/06/17 08:45 HCO3 24.8 mmol/L (21-28) 02/06/17 08:45 ABG pH 7.43 (7.35-7.45) 02/06/17 08:45 ABG Total CO2 25.0 mmol/L (22-28) 02/06/17 08:45 ABG O2 Saturation 98.2 % (95-98) H 02/06/17 08:45 ABG O2 Content 18.9 ML/dL (15-23) 02/06/17 05:11 ABG Base Excess -0.1 mmol/L (-2.0-3.0) 02/06/17 08:45 ABG Hemoglobin 13.2 g/dL (11.7-17.4) 02/06/17 05:11 ABG Carboxyhemoglobin 0.5 % (0.5-1.5) 02/06/17 05:11 POC ABG HHb (Measured) 1.0 % (0.0-5.0) 02/06/17 05:11 ABG Methemoglobin 1.4 % (0.0-3.0) 02/06/17 05:11 ABG O2 Capacity 19.1 mL/dL (16-24) 02/06/17 05:11 Rhett Test Yes 02/06/17 08:45 ABG Potassium 3.0 mmol/L (3.6-5.2) L 02/06/17 08:45 VBG pH 7.37 (7.32-7.43) 02/06/17 05:11 VBG pCO2 44 mmHg (40-60) 02/06/17 05:11 VBG HCO3 24.2 mmol/L 02/06/17 05:11 VBG Total CO2 27.3 mmol/L (22-28) 02/05/17 11:53 VBG O2 Sat (Calc) 78.1 % (40-65) H 02/06/17 05:11 VBG Base Excess -0.2 mmol/L (0.0-2.0) L 02/06/17 05:11 VBG Potassium 3.7 mmol/L (3.6-5.2) 02/05/17 11:53 A-a O2 Difference 219.0 mm/Hg 02/06/17 08:45 Hgb O2 Saturation 97.1 % (95.0-98.0) 02/06/17 05:11 Sodium 139.0 mmol/L (132-148) 02/06/17 08:45 Chloride 107.0 mmol/L (98-107) 02/06/17 08:45 Glucose 119 mg/dL (75-110) H 02/06/17 08:45 Lactate 1.4 mmol/L (0.7-2.1) 02/06/17 08:45 Vent Mode Cpap 02/06/17 08:45 Mechanical Rate 12 02/06/17 05:11 FiO2 50.0 % 02/06/17 08:45 Tidal Volume 500 02/06/17 05:11 PEEP 5 02/06/17 05:11 Pressure Support 8 02/06/17 08:45 CPAP 5 02/06/17 08:45 Blood Gas Comments Vbg 02/05/17 11:53 Crit Value Called To Leatha romo 02/05/17 11:53 Crit Value Called By 15 02/05/17 11:53 Crit Value Read Back Y 02/05/17 11:53 Blood Gas Notified Time 1203 02/05/17 11:53 Sodium 138 mmol/l (132-148) 02/18/17 05:00 Potassium 3.2 MMOL/L (3.6-5.0) L 02/18/17 05:00 Chloride 104 mmol/L (98-107) 02/18/17 05:00 Carbon Dioxide 30 mmol/L (22-30) 02/18/17 05:00 Anion Gap 7 (10-20) L 02/18/17 05:00 BUN 3 mg/dl (9-20) L 02/18/17 05:00 Creatinine 0.6 mg/dL (0.8-1.5) L 02/18/17 05:00 Est GFR ( Amer) > 60 02/18/17 05:00 Est GFR (Non-Af Amer) > 60 02/18/17 05:00 Random Glucose 99 mg/dL (75-110) 02/18/17 05:00 Lactic Acid 1.9 MMOL/L (0.7-2.1) 02/06/17 05:30 Calcium 7.6 mg/dL (8.4-10.2) L 02/18/17 05:00 Phosphorus 2.2 mg/dl (2.5-4.5) L 02/14/17 06:45 Magnesium 2.0 MG/DL (1.6-2.3) 02/13/17 06:00 Total Bilirubin 0.5 mg/dl (0.2-1.3) 02/16/17 05:30 Direct Bilirubin 0.4 mg/ml (0.0-0.4) 01/29/17 09:00 AST 26 U/L (17-59) 02/16/17 05:30 ALT 36 U/L (21-72) 02/16/17 05:30 Alkaline Phosphatase 42 U/L (38-126) 02/16/17 05:30 Troponin I < 0.0120 ng/mL (0.00-0.120) 02/15/17 06:30 Total Protein 4.8 G/DL (6.3-8.2) L 02/16/17 05:30 Albumin 2.3 g/dL (3.5-5.0) L 02/16/17 05:30 Globulin 2.5 gm/dL (2.2-3.9) 02/16/17 05:30 Albumin/Globulin Ratio 0.9 (1.0-2.1) L 02/16/17 05:30 Amylase 44 U/L (30-110) 02/03/17 06:10 Lipase 47 U/L (23-300) 02/03/17 06:10 Carcinoembryonic Ag 1.8 ng/mL (0-3.0) 02/12/17 06:10 CA 19-9 Antigen 15.8 U/mL (0-37) 02/12/17 06:10 Arterial Blood Potassium 3.0 mmol/L (3.6-5.2) L 02/06/17 08:45 Venous Blood Potassium 3.7 mmol/L (3.6-5.2) 02/05/17 11:53 Urine Color Jil (YELLOW) 02/02/17 14:55 Urine Clarity Turbid (Clear) 02/02/17 14:55 Urine pH 5.0 (5.0-8.0) 02/02/17 14:55 Ur Specific [place] 1.050 (1.003-1.030) H 02/02/17 14:55 Urine Protein 30 mg/dL (NEGATIVE) 02/02/17 14:55 Urine Glucose (UA) 50 mg/dL (Normal) 02/02/17 14:55 Urine Ketones Negative mg/dL (NEGATIVE) 02/02/17 14:55 Urine Blood Negative (NEGATIVE) 02/02/17 14:55 Urine Nitrate Negative (NEGATIVE) 02/02/17 14:55 Urine Bilirubin Negative (NEGATIVE) 02/02/17 14:55 Urine Urobilinogen 0.2-1.0 mg/dL (0.2-1.0) 02/02/17 14:55 Ur Leukocyte Esterase Trace Miky/uL (Negative) 02/02/17 14:55 Urine RBC (Auto) 3 /hpf (0-3) 02/02/17 14:55 Urine Microscopic WBC 2 /hpf (0-5) 02/02/17 14:55 Ur Squamous Epith Cells 1 /hpf (0-5) 01/27/17 14:59 Urine Bacteria Rare (<OCC) 02/02/17 14:55 Urine Sperm (Auto) Occ /hpf (NONE) 02/02/17 14:55 Ur Random Sodium 57 meq/L 02/05/17 17:06 Ur Random Potassium 77.6 mmol/L 02/05/17 17:06 Blood Type O NEGATIVE 02/04/17 10:15 Blood Type Confirm O NEGATIVE 02/04/17 11:54 Antibody Screen Negative 02/04/17 10:15 BBK History Checked No verified bt 02/04/17 10:15 - Hospital Course Hospital Course: 71 y/o gent with Hx of COPD, came in bec of 2 weeks of constipation , abdominal discomfort and vomiting. CT of chest and Abd showed dilated large bowel loops up to the proximal rectum and suspicious for obstructing circumferential rectal mass versus focal stricture GI and surgery consulted. Patient admitted to med/surg kept NPO , started on IVF ,NGT placed , stool softeners and laxatives given with no improvement He underwent flex sigmoidoscopy that showed rectal stricture. Taken to OR 02/04 and underwent exploratory laparatomy with sigmoid resection and colostomy to [facility] Pt was not extubated post-op, he was transferred to ICU post op for monitoring. He developed hypovolemixc shock, Afib with RVR and mottling of lower extremities postop. Now extubated , off pressors, doing well, in med/surg Patient developed ileus post op. NGT removed,started on liquid diet and tolerating so far. 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 Will advance diet to low fiber today Surgical incision with vida in place clean ,intact, with serous output from the lower portion of incision Continue pain management , promote ambulation Surgery following On Zosyn, maxipime and Flagyl empirically for > 14 days . Discontinued all antibiotics 02/17 and started on Bactrim Po for Stenotrophomonas maltophilia Continue IVF Oncology consulted- Dr Susan Valenzuela -rec placement of Lifeport and PET scan as outpt PT consult appreciated 2. LUE transient numbness likely due to metabolic derangement - hypo K CT head showed no acute pathology patient has no neuro deficits Continue K replacement 3. Hypovolemic shock post op , resolved received large quantity of IVF, albumin IV and was started on levophed drip At present BP controlled , off levophed drip Mottling to lower extremities resolved showing improved tissue perfusion 4. Acute Hypoxemic respiratory failure, resolved Pt remained intubated post op and extubated 02/06 Pulmonary on consult with Dr. Danielson following CXR showing bilateral pleural effusion Continue diuresis PRN , Duonebs, O2 via NC, incentive spirometry Promote ambulation 5. Afib with RVR episode- rate controlled received cardizem and digoxin now rate controlled on Lovenox 60mg q 12 6.Acute renal failure, improved oliguric post op with 20 ml/hr output now with good urine output and normal renal function continue IVF Close monitoring 7. Hypokalemia replace with KCL runs sec to GI loss 8. COPD (chronic obstructive pulmonary disease) chronic , stable Duoneb prn 9.Bilateral pneumonia / suspected Aspiration pneumonia POA Acute RLL focal airspace consolidation seen on CT of chest CXR showed increased bilateral infiltrates and pleural effusion treated with abx Sputum c/s Stenophomonas maltophila ID consulted- Dr Mahmood started bactrim po 10.DVT prophylaxis Acute Lovenox Discharge Exam - Head Exam Head Exam: ATRAUMATIC, NORMAL INSPECTION, NORMOCEPHALIC - Eye Exam Eye Exam: EOMI, Normal appearance, PERRL Pupil Exam: NORMAL ACCOMODATION - ENT Exam ENT Exam: Mucous Membranes Moist, Normal Oropharynx - Respiratory Exam Respiratory Exam: Clear to PA & Lateral, NORMAL BREATHING PATTERN - Cardiovascular Exam Cardiovascular Exam: RRR, +S1, +S2 - GI/Abdominal Exam GI & Abdominal Exam: Normal Bowel Sounds, Soft. absent: Tenderness Additional comments: +colostomy - Extremities Exam Extremities exam: normal capillary refill, pedal pulses present - Back Exam Back exam: absent: CVA tenderness (L), CVA tenderness (R) - Neurological Exam Neurological exam: Alert, Oriented x3 - Psychiatric Exam Psychiatric exam: Normal Affect, Normal Mood - Skin Skin Exam: Dry, Normal Color Discharge Plan - Follow Up Plan Condition: FAIR Disposition: HOME/ ROUTINE Instructions: Colonoscopy (DC), Upper Endoscopy (DC), Bowel Obstruction (DC), Ileus (GEN)
--- NOTE | 2017-02-18 07:24 | CP.PCM.PN ---
Subjective - Date & Time of Evaluation Date of Evaluation: 02/18/17 Time of Evaluation: 07:22 - Subjective Subjective: Surgery: Dr. Gross Pt seen and examined. Resting comfortably in bed. Pain controlled. Diet was advanced yesterday and tolerated. No N/V. Appetite remains decreased. Objective - Vital Signs/Intake and Output Vital Signs (last 24 hours): Temp Pulse Resp BP Pulse Ox 97.4 F L 97 H 20 126/75 97 02/18/17 04:23 02/18/17 04:23 02/18/17 04:23 02/18/17 04:23 02/18/17 04:23 Intake and Output: 02/18/17 02/18/17 06:59 18:59 Intake Total 1200 Output Total 650 Balance 550 - Medications Medications: Current Medications Acetaminophen (Tylenol 650 Mg Supp) 650 mg SC Q4 PRN PRN Reason: Fever >100.4 F Acetylcysteine (Mucomyst 10% 4ml) 2 ml IH RBID [facility] Last Admin: 02/17/17 19:17 Dose: 2 ml Albuterol Sulfate (Albuterol 0.083% Inhal [place] (2.5 Mg/3 Ml) Ud) 2.5 mg INH RQ4 PRN PRN Reason: Shortness of Breath Albuterol/Ipratropium (Duoneb 3 Mg/0.5 Mg (3 Ml) Ud) 3 ml INH RQID [facility] Last Admin: 02/17/17 19:17 Dose: 3 ml Enoxaparin Sodium (Lovenox) 60 mg SC Q12 [facility] PRN Reason: Protocol Last Admin: 02/17/17 21:55 Dose: 60 mg Hydromorphone HCl (Dilaudid) 0.5 mg IVP Q6 PRN PRN Reason: Pain, moderate (4-7) Potassium Chloride/Sodium Chloride (Potassium Chl 20 Meq In Ns) 1,000 mls @ 99.01 mls/hr IV .Q10H6M [facility] Last Admin: 02/17/17 23:08 Dose: 99.01 mls/hr Metoclopramide HCl (Reglan) 10 mg IVP Q8 [facility] Last Admin: 02/18/17 01:39 Dose: 10 mg Ondansetron HCl (Zofran Inj) 4 mg IVP Q4H PRN PRN Reason: Nausea/Vomiting Last Admin: 02/08/17 01:00 Dose: 4 mg Pantoprazole Sodium (Protonix Inj) 40 mg IVP DAILY [facility] Last Admin: 02/17/17 08:33 Dose: 40 mg Trimethoprim/Sulfamethoxazole (Bactrim Ds Tab) 1 tab PO Q12 [facility] Last Admin: 02/17/17 21:56 Dose: 1 tab - Labs Labs: 02/17/17 10:00 02/18/17 05:00 PT 18.1 Seconds (9.8-13.1) H 02/06/17 04:30 INR 1.7 (0.9-1.2) H D 02/06/17 04:30 APTT 35.4 Seconds (25.6-37.1) 02/06/17 04:30 - Constitutional Appears: Non-toxic, No Acute Distress - Head Exam Head Exam: ATRAUMATIC, NORMOCEPHALIC - Eye Exam Eye Exam: EOMI. absent: Scleral icterus - ENT Exam ENT Exam: Mucous Membranes Moist, Normal External Ear Exam - Neck Exam Neck Exam: Full ROM - Respiratory Exam Respiratory Exam: NORMAL BREATHING PATTERN. absent: Accessory Muscle Use, Respiratory Distress - GI/Abdominal Exam GI & Abdominal Exam: Soft. absent: Distended, Firm, Guarding, Rigid, Tenderness Additional comments: midline incision w. vida C/D/I LLQ stoma: [place] and patent w. loose stool output - Neurological Exam Neurological Exam: Alert, Awake, Oriented x3 - Psychiatric Exam Psychiatric exam: Normal Affect, Normal Mood - Skin Skin Exam: Dry, Normal Color, Warm Assessment and Plan - Assessment and Plan (Free Text) Assessment: 71 M with recto-sigmoid mass, s/p Marion's POD#[id number] -pt is clear for D/C to TCU from surgical standpoint -encourage PT, OOB and IS use -will d/w Dr. Renato Vazquez PGY3
[2017-02-18] MEDS: Acetylcysteine 10% 4 ML IH SCH ×2 (07:48→19:57)
[2017-02-18] MEDS: Albuterol-Ipratrop 3 mg / 0.5 (3 ml) UD INH SCH ×4 (07:48→19:57)
[2017-02-18] MEDS: Enoxaparin 60 mg Syringe SC SCH (09:08)
[2017-02-18] MEDS: Tmp-Smz 800 mg-160 mg DS Tab PO SCH ×2 (09:08→21:44)
--- NOTE | 2017-02-18 09:23 | CP.PCM.PN ---
Subjective - Date & Time of Evaluation Date of Evaluation: 02/18/17 Time of Evaluation: 09:14 - Subjective Subjective: Pt claims that he does not have an appetite, but is not vomiting any more.He is on solid foods. I have asked him to eat small quantities more often. He is being transferred to TCU for recovery and rehab. Have requested a life port from the surgeon whnever it is possible prior to the Chemo. Objective - Vital Signs/Intake and Output Vital Signs (last 24 hours): Temp Pulse Resp BP Pulse Ox 97.6 F 94 H 20 127/85 97 02/18/17 07:22 02/18/17 07:22 02/18/17 07:22 02/18/17 07:22 02/18/17 07:22 Intake and Output: 02/18/17 02/18/17 06:59 18:59 Intake Total 1200 Output Total 650 Balance 550 - Medications Medications: Current Medications Acetaminophen (Tylenol 650 Mg Supp) 650 mg MD Q4 PRN PRN Reason: Fever >100.4 F Acetylcysteine (Mucomyst 10% 4ml) 2 ml IH RBID [facility] Last Admin: 02/18/17 07:48 Dose: 2 ml Albuterol Sulfate (Albuterol 0.083% Inhal [place] (2.5 Mg/3 Ml) Ud) 2.5 mg INH RQ4 PRN PRN Reason: Shortness of Breath Albuterol/Ipratropium (Duoneb 3 Mg/0.5 Mg (3 Ml) Ud) 3 ml INH RQID [facility] Last Admin: 02/18/17 07:48 Dose: 3 ml Enoxaparin Sodium (Lovenox) 60 mg SC Q12 [facility] PRN Reason: Protocol Last Admin: 02/18/17 09:08 Dose: 60 mg Hydromorphone HCl (Dilaudid) 0.5 mg IVP Q6 PRN PRN Reason: Pain, moderate (4-7) Potassium Chloride/Sodium Chloride (Potassium Chl 20 Meq In Ns) 1,000 mls @ 99.01 mls/hr IV .Q10H6M [facility] Last Admin: 02/17/17 23:08 Dose: 99.01 mls/hr Metoclopramide HCl (Reglan) 10 mg IVP Q8 [facility] Last Admin: 02/18/17 01:39 Dose: 10 mg Ondansetron HCl (Zofran Inj) 4 mg IVP Q4H PRN PRN Reason: Nausea/Vomiting Last Admin: 02/08/17 01:00 Dose: 4 mg Pantoprazole Sodium (Protonix Inj) 40 mg IVP DAILY [facility] Last Admin: 02/18/17 09:12 Dose: 40 mg Trimethoprim/Sulfamethoxazole (Bactrim Ds Tab) 1 tab PO Q12 [facility] Last Admin: 02/18/17 09:08 Dose: 1 tab - Labs Labs: 02/17/17 10:00 02/18/17 05:00 PT 18.1 Seconds (9.8-13.1) H 02/06/17 04:30 INR 1.7 (0.9-1.2) H D 02/06/17 04:30 APTT 35.4 Seconds (25.6-37.1) 02/06/17 04:30
--- NOTE | 2017-02-18 10:23 | CP.PCM.PN ---
Subjective - Date & Time of Evaluation Date of Evaluation: 02/18/17 Time of Evaluation: 10:20 - Subjective Subjective: Overnight events noted. Thus far has been able to tolerate diet w/o vomiting. Colostomy is functioning. Vital signs have been stable, he remains afebrile. Still has potassium supplement requirements. Congested cough, using IS and CPT/PEP. Dullness still noted posterior thorax (R>L). Breath sounds in lower lobes decreased. Bronchial BS noted on right with egophony. No audible wheezing, scattered sonorous rhonchi bilaterally. Heart rate controlled, still irregular. Abdomen mildly tense, good bowel sounds, serous drainage from distal incision. Generalized edema still present but slowly decreasing. Lovenox on hold. Contacted IR for potential thoracentesis tomorrow. Repeat PT/INR, serum LDH. Continue CPT with Acapella. Continue with physical therapy. Would not d/c to [facility] until after chest tap. Life port recommended by Oncology. Objective - Vital Signs/Intake and Output Vital Signs (last 24 hours): Temp Pulse Resp BP Pulse Ox 97.6 F 94 H 20 127/85 97 02/18/17 07:22 02/18/17 07:22 02/18/17 07:22 02/18/17 07:22 02/18/17 07:22 Intake and Output: 02/17/17 02/18/17 23:59 11:59 Intake Total 1200 Output Total 650 Balance 550 - Medications Medications: Current Medications Acetaminophen (Tylenol 650 Mg Supp) 650 mg [place] Q4 PRN PRN Reason: Fever >100.4 F Acetylcysteine (Mucomyst 10% 4ml) 2 ml IH RBID [facility] Last Admin: 02/18/17 07:48 Dose: 2 ml Albuterol Sulfate (Albuterol 0.083% Inhal [place] (2.5 Mg/3 Ml) Ud) 2.5 mg INH RQ4 PRN PRN Reason: Shortness of Breath Albuterol/Ipratropium (Duoneb 3 Mg/0.5 Mg (3 Ml) Ud) 3 ml INH RQID [facility] Last Admin: 02/18/17 07:48 Dose: 3 ml Enoxaparin Sodium (Lovenox) 60 mg SC Q12 [facility] PRN Reason: Protocol Last Admin: 02/18/17 09:08 Dose: 60 mg Hydromorphone HCl (Dilaudid) 0.5 mg IVP Q6 PRN PRN Reason: Pain, moderate (4-7) Potassium Chloride/Sodium Chloride (Potassium Chl 20 Meq In Ns) 1,000 mls @ 99.01 mls/hr IV .Q10H6M [facility] Last Admin: 02/17/17 23:08 Dose: 99.01 mls/hr Metoclopramide HCl (Reglan) 10 mg IVP Q8 [facility] Last Admin: 02/18/17 09:14 Dose: 10 mg Ondansetron HCl (Zofran Inj) 4 mg IVP Q4H PRN PRN Reason: Nausea/Vomiting Last Admin: 02/08/17 01:00 Dose: 4 mg Pantoprazole Sodium (Protonix Inj) 40 mg IVP DAILY [facility] Last Admin: 02/18/17 09:12 Dose: 40 mg Trimethoprim/Sulfamethoxazole (Bactrim Ds Tab) 1 tab PO Q12 [facility] Last Admin: 02/18/17 09:08 Dose: 1 tab - Labs Labs: 02/17/17 10:00 02/18/17 05:00 PT 18.1 Seconds (9.8-13.1) H 02/06/17 04:30 INR 1.7 (0.9-1.2) H D 02/06/17 04:30 APTT 35.4 Seconds (25.6-37.1) 02/06/17 04:30 Assessment and Plan (1) Colon carcinoma Status: Acute (2) Large bowel obstruction Status: Resolved (3) Pleural effusion Status: Acute (4) Atelectasis Status: Acute (5) COPD (chronic obstructive pulmonary disease) Status: Chronic (6) Acute kidney injury Status: Resolved (7) Hypoalbuminemia Status: Acute
[2017-02-18] MEDS: Potassium Chl 20 mEq in NS 1,000 ML IV SCH ×2 (13:47→18:46)
[2017-02-19] MEDS: Potassium Chl 20 mEq in NS 1,000 ML IV SCH ×3 (01:43→15:46)
[2017-02-19 06:48] LABS: INR 1.2 (0.9-1.2); PROTHROMBIN TIME 12.8 Seconds (9.8-13.1)
--- NOTE | 2017-02-19 07:23 | CP.PCM.PN ---
Subjective - Date & Time of Evaluation Date of Evaluation: 02/19/17 Time of Evaluation: 07:20 - Subjective Subjective: General Surgery - Dr. Aj Pt S&E. JAIRO. Pt has mild discomfort in the lower portion of abdominal incision. He continues to have poor appetite but is tolerating small amounts of his diet. He denies any N/V, F/C, SOB/Cp. He has been OOB ambulating with PT and working with IS. Objective - Vital Signs/Intake and Output Vital Signs (last 24 hours): Temp Pulse Resp BP Pulse Ox 97.6 F 99 H 18 123/75 95 02/19/17 01:00 02/19/17 01:00 02/19/17 01:00 02/19/17 01:00 02/19/17 01:00 Intake and Output: 02/19/17 02/19/17 06:59 18:59 Intake Total 700 Output Total 600 Balance 100 - Medications Medications: Current Medications Acetaminophen (Tylenol 650 Mg Supp) 650 mg [place] Q4 PRN PRN Reason: Fever >100.4 F Acetylcysteine (Mucomyst 10% 4ml) 2 ml IH RBID [facility] Last Admin: 02/18/17 19:57 Dose: 2 ml Albuterol Sulfate (Albuterol 0.083% Inhal [place] (2.5 Mg/3 Ml) Ud) 2.5 mg INH RQ4 PRN PRN Reason: Shortness of Breath Last Admin: 02/18/17 11:11 Dose: 2.5 mg Albuterol/Ipratropium (Duoneb 3 Mg/0.5 Mg (3 Ml) Ud) 3 ml INH RQID [facility] Last Admin: 02/18/17 19:57 Dose: 3 ml Enoxaparin Sodium (Lovenox) 60 mg SC Q12 [facility] PRN Reason: Protocol Last Admin: 02/18/17 09:08 Dose: 60 mg Hydromorphone HCl (Dilaudid) 0.5 mg IVP Q6 PRN PRN Reason: Pain, moderate (4-7) Potassium Chloride/Sodium Chloride (Potassium Chl 20 Meq In Ns) 1,000 mls @ 99.01 mls/hr IV .Q10H6M [facility] Last Admin: 02/19/17 06:47 Dose: Not Given Metoclopramide HCl (Reglan) 10 mg IVP Q8 [facility] Last Admin: 02/19/17 01:43 Dose: 10 mg Ondansetron HCl (Zofran Inj) 4 mg IVP Q4H PRN PRN Reason: Nausea/Vomiting Last Admin: 02/08/17 01:00 Dose: 4 mg Pantoprazole Sodium (Protonix Inj) 40 mg IVP DAILY [facility] Last Admin: 02/18/17 09:12 Dose: 40 mg Trimethoprim/Sulfamethoxazole (Bactrim Ds Tab) 1 tab PO Q12 [facility] Last Admin: 02/18/17 21:44 Dose: 1 tab - Labs Labs: 02/17/17 10:00 02/18/17 05:00 PT 12.8 Seconds (9.8-13.1) 02/19/17 05:30 INR 1.2 (0.9-1.2) 02/19/17 05:30 APTT 35.4 Seconds (25.6-37.1) 02/06/17 04:30 - Constitutional Appears: No Acute Distress - Head Exam Head Exam: ATRAUMATIC, NORMAL INSPECTION, NORMOCEPHALIC - Eye Exam Eye Exam: Normal appearance - Respiratory Exam Respiratory Exam: NORMAL BREATHING PATTERN. absent: Respiratory Distress - GI/Abdominal Exam GI & Abdominal Exam: Soft, Tenderness (mild ttp around lower portion of midline incision w mild erythema and seropurulent drainage). absent: Distended, Guarding, Rigid, Rebound Additional comments: colostomy functioning with soft brown stool output - Neurological Exam Neurological Exam: Alert, Oriented x3 - Psychiatric Exam Psychiatric exam: Normal Affect, Normal Mood - Skin Skin Exam: Dry, Intact Assessment and Plan - Assessment and Plan (Free Text) Assessment: 71 M with recto-sigmoid mass, s/p Marion's POD#15 -Cont care as per medical and pulmonology teams -Clear for DC to TCU from surgical standpoint -Continue to encourage PO intake as able and supplements -Encourage OOB w/ walker and Incentive spirometry DW Dr Jean Marie Cancino PGY3
[2017-02-19] MEDS: Acetylcysteine 10% 4 ML IH SCH (07:42)
[2017-02-19] MEDS: Albuterol-Ipratrop 3 mg / 0.5 (3 ml) UD INH SCH ×3 (07:42→15:05)
[2017-02-19] MEDS: Tmp-Smz 800 mg-160 mg DS Tab PO SCH (08:44)
--- NOTE | 2017-02-19 10:00 | CP.PCM.PN ---
Subjective - Date & Time of Evaluation Date of Evaluation: 02/19/17 Time of Evaluation: 09:53 - Subjective Subjective: Seen on AM rounds. Interim events reviewed. Has remained afebrile, stable VS. Appetite is still poor, but PO intake is slowly improving. Congested cough with small amount of expectorate. Repeat PT/INR normal. Has functioning colostomy with brownish liquid stool. Dependant edema is slowly decreasing. No cyanosis or erythema of extremities. Still has dullness at the lung bases, R>L. Breath sounds are diminished in the bases. No audible wheezes. Heart sounds distant, irregular. Abdomen more soft, + BS. For thoracentesis today Would be ready for discharge to [facility]. Continue present medical regimen. PT/CPT ongoing, needs continual reinforcement. Objective - Vital Signs/Intake and Output Vital Signs (last 24 hours): Temp Pulse Resp BP Pulse Ox 97.7 F 99 H 18 118/78 97 02/19/17 07:37 02/19/17 07:37 02/19/17 07:37 02/19/17 07:37 02/19/17 07:37 Intake and Output: 02/18/17 02/19/17 23:59 11:59 Intake Total 700 Output Total 600 Balance 100 - Medications Medications: Current Medications Acetaminophen (Tylenol 650 Mg Supp) 650 mg RI Q4 PRN PRN Reason: Fever >100.4 F Acetylcysteine (Mucomyst 10% 4ml) 2 ml IH RBID [facility] Last Admin: 02/19/17 07:42 Dose: 2 ml Albuterol Sulfate (Albuterol 0.083% Inhal Barbara (2.5 Mg/3 Ml) Ud) 2.5 mg INH RQ4 PRN PRN Reason: Shortness of Breath Last Admin: 02/18/17 11:11 Dose: 2.5 mg Albuterol/Ipratropium (Duoneb 3 Mg/0.5 Mg (3 Ml) Ud) 3 ml INH RQID [facility] Last Admin: 02/19/17 07:42 Dose: 3 ml Enoxaparin Sodium (Lovenox) 60 mg SC Q12 TORRES PRN Reason: Protocol Last Admin: 02/18/17 09:08 Dose: 60 mg Hydromorphone HCl (Dilaudid) 0.5 mg IVP Q6 PRN PRN Reason: Pain, moderate (4-7) Potassium Chloride/Sodium Chloride (Potassium Chl 20 Meq In Ns) 1,000 mls @ 99.01 mls/hr IV .Q10H6M [facility] Last Admin: 02/19/17 06:47 Dose: Not Given Metoclopramide HCl (Reglan) 10 mg IVP Q8 [facility] Last Admin: 02/19/17 08:44 Dose: 10 mg Ondansetron HCl (Zofran Inj) 4 mg IVP Q4H PRN PRN Reason: Nausea/Vomiting Last Admin: 02/08/17 01:00 Dose: 4 mg Pantoprazole Sodium (Protonix Inj) 40 mg IVP DAILY [facility] Last Admin: 02/19/17 08:44 Dose: 40 mg Trimethoprim/Sulfamethoxazole (Bactrim Ds Tab) 1 tab PO Q12 [facility] Last Admin: 02/19/17 08:44 Dose: 1 tab - Labs Labs: 02/17/17 10:00 02/18/17 05:00 PT 12.8 Seconds (9.8-13.1) 02/19/17 05:30 INR 1.2 (0.9-1.2) 02/19/17 05:30 APTT 35.4 Seconds (25.6-37.1) 02/06/17 04:30 Assessment and Plan (1) Colon carcinoma Status: Acute (2) Large bowel obstruction Status: Resolved (3) Pleural effusion Status: Acute (4) Atelectasis Status: Acute (5) COPD (chronic obstructive pulmonary disease) Status: Chronic (6) Acute kidney injury Status: Resolved (7) Hypoalbuminemia Status: Acute
[2017-02-19] MEDS ORDERED: Lidocaine 1% Inj (20ml) ONE (11:13)
[2017-02-19 11:27] LABS: BODY FLUID TYPE PLEURAL
--- NOTE | 2017-02-19 11:28 | PCM.SURG1 ---
Surgeon's Initial Post Op Note - Surgeon's Notes Surgeon: Jose A Madrid Assistant Front Office Manager: NONE Type of Anesthesia: Local Pre-Operative Diagnosis: Pleural effusion Operative Findings: US showed moderate right effusion and left effusion, R > L Post-Operative Diagnosis: Pleural effusion Operation Performed: US guided right thoracentesis. Specimen/Specimens Removed: 1 liter of straw colored fluid Estimated Blood Loss: EBL {In ML}: 0 Blood Products Given: N/A Drains Used: No Drains Post-Op Condition: Fair Date of Surgery/Procedure: 02/19/17 Time of Surgery/Procedure: 11:25
[2017-02-19 11:42] LABS: GLUCOSE,BODY FLUID 97 mg/dL (NONE ESTABLISHED); TOTAL PROTEIN,BODY FLUID < 2.0 g/dL (NONE ESTABLISHED)
[2017-02-19 12:24] LABS: BF GROSS APPEARANCE CLEAR (CLEAR)
[2017-02-19 12:29] LABS: BODY FLUID MONO/MACROPHAGE 86 % (0-0); BODY FLUID TOTAL COUNT 100 (0-0)
[2017-02-19 16:29] VITALS: BP 114/72; PULSE 121; RESP 20; TEMP 97.5; O2SAT 91
--- NOTE | 2017-02-19 17:22 | RAD ---
PROCEDURE: CHEST RADIOGRAPH, 1 VIEW HISTORY: Status post right thoracentesis. COMPARISON: 02/16/2017. FINDINGS: LUNGS: Improved aeration of the right lung following right thoracentesis. Stable consolidative changes left lower lobe likely compressive atelectasis. PLEURA: No residual right pleural effusion nor is there evidence of pneumothorax. Stable left pleural effusion and secondary compressive atelectasis. CARDIOVASCULAR: Normal. OSSEOUS STRUCTURES: No significant abnormalities. VISUALIZED UPPER ABDOMEN: Normal. OTHER FINDINGS: None. IMPRESSION: 1. Status post right thoracentesis. Negative study for pneumothorax. Re-expansion of the right lung. 2. Stable left pleural effusion and left lower lobe consolidative change.
[2017-02-20] MEDS ORDERED: Pantoprazole 40 mg EC Tab PO SCH (09:00)
--- NOTE | 2017-02-21 01:05 | CP.PCM.PN ---
Subjective - Date & Time of Evaluation Date of Evaluation: 02/15/17 Time of Evaluation: 16:00 - Subjective Subjective: no complaints Objective - Vital Signs/Intake and Output Vital Signs (last 24 hours): Temp Pulse Resp BP Pulse Ox 97.5 F L 121 H 20 114/72 91 L 02/19/17 16:19 02/19/17 16:19 02/19/17 16:19 02/19/17 16:19 02/19/17 16:19 - Labs Labs: 02/17/17 10:00 02/18/17 05:00 PT 12.8 Seconds (9.8-13.1) 02/19/17 05:30 INR 1.2 (0.9-1.2) 02/19/17 05:30 APTT 35.4 Seconds (25.6-37.1) 02/06/17 04:30 - GI/Abdominal Exam GI & Abdominal Exam: Soft, Normal Bowel Sounds Assessment and Plan - Assessment and Plan (Free Text) Assessment: 71 yo male with colon resection path noted dc planning colonoscopy within 6 months
== END 2017-02-19 17:00 | disposition home or self-care (01) | DRG 329 ==
LOC: H.ER 13:12 → H.ERHOLD 19:23 → H.MEDSURG1 20:41 → OBSVTOIN 01-29 08:51 → H.ICU/CCU 02-04 15:05 → H.MEDSURG1 02-11 18:23
PROVIDERS: ADMIT Internal Medicine; ATTEND Internal Medicine
PROC: 0DBN8ZX Excision of Sigmoid Colon, Via Natural or Artificial Opening Endoscopic, Diagnostic (ICD-10-PCS; 2017-02-03)
PROC: 0DB58ZX Excision of Esophagus, Via Natural or Artificial Opening Endoscopic, Diagnostic (ICD-10-PCS; 2017-02-03)
PROC: 0DB68ZX Excision of Stomach, Via Natural or Artificial Opening Endoscopic, Diagnostic (ICD-10-PCS; 2017-02-03)
PROC: 5A1945Z Respiratory Ventilation, 24-96 Consecutive Hours (ICD-10-PCS; 2017-02-03 12:45)
PROC: 0DHA0UZ Insertion of Feeding Device into Jejunum, Open Approach (ICD-10-PCS; 2017-02-04)
PROC: 02HV33Z Insertion of Infusion Device into Superior Vena Cava, Percutaneous Approach (ICD-10-PCS; 2017-02-04)
PROC: 0DTN0ZZ Resection of Sigmoid Colon, Open Approach (ICD-10-PCS; principal; 2017-02-04 10:00)
PROC: 04HK33Z Insertion of Infusion Device into Right Femoral Artery, Percutaneous Approach (ICD-10-PCS; 2017-02-05)
PROC: 0D9670Z Drainage of Stomach with Drainage Device, Via Natural or Artificial Opening (ICD-10-PCS; 2017-02-07)
DX: C18.7 Malignant neoplasm of sigmoid colon (principal); T81.19XA Other postprocedural shock, initial encounter; J96.01 Acute respiratory failure with hypoxia; J69.0 Pneumonitis due to inhalation of food and vomit; N17.9 Acute kidney failure, unspecified; K56.60 Unspecified intestinal obstruction; J90 Pleural effusion, not elsewhere classified; I48.91 Unspecified atrial fibrillation; K56.7 Ileus, unspecified; I47.1 Supraventricular tachycardia; C20 Malignant neoplasm of rectum; J44.9 Chronic obstructive pulmonary disease, unspecified; F17.210 Nicotine dependence, cigarettes, uncomplicated; E87.6 Hypokalemia; K52.9 Noninfective gastroenteritis and colitis, unspecified; R20.0 Anesthesia of skin; K64.8 Other hemorrhoids; Z78.1 Physical restraint status; B96.81 Helicobacter pylori [H. pylori] as the cause of diseases classified elsewhere

== ENCOUNTER 2017-02-19 15:36 | Inpatient (IN) | payer MEDICARE ==
[2017-02-19 17:39] VITALS: BMI 24.1
[2017-02-19] MEDS ORDERED: HYDROmorphone 0.5 mg/0.5 ml ISec IVP PRN (19:20)
[2017-02-19] MEDS ORDERED: Sodium Chloride 3% for Inhalation 4 ML VIAL.NEB IH PRN (19:20)
[2017-02-19] MEDS: Tmp-Smz 800 mg-160 mg DS Tab PO SCH (21:30)
[2017-02-19] MEDS: Albuterol 0.083% Inhal Sol (2.5 mg/3 mL) UD INH PRN (22:08)
[2017-02-19] MEDS: Acetylcysteine 10% 4 ML IH SCH (22:08)
[2017-02-19] MEDS: Enoxaparin 80 mg Syringe SC SCH (22:46)
[2017-02-20 07:31] LABS: HEMATOCRIT 37.6 % (35.0-51.0); MEAN CELL VOLUME 94.9 fl (80.0-94.0); MEAN CORPUSCULAR HEMOGLOBIN 31.7 pg (27.0-31.0); MEAN CORPUSCULAR HGB CONC 33.4 g/dL (33.0-37.0); RED CELL DISTRIBUTION WIDTH 15.4 % (11.5-14.5); WHITE BLOOD COUNT 10.2 K/uL (4.8-10.8)
[2017-02-20] MEDS: Albuterol 0.083% Inhal Sol (2.5 mg/3 mL) UD INH PRN (07:31)
[2017-02-20] MEDS: Acetylcysteine 10% 4 ML IH SCH ×2 (07:31→19:05)
[2017-02-20 07:37] LABS: BLOOD UREA NITROGEN 9 mg/dl (9-20); CARBON DIOXIDE 26 mmol/L (22-30); CHLORIDE 104 mmol/L (98-107); GFR AFRICAN-AMERICAN > 60; GLUCOSE,RANDOM 100 mg/dL (75-110); POTASSIUM 3.9 MMOL/L (3.6-5.0); SODIUM 138 mmol/l (132-148)
[2017-02-20] MEDS: Tmp-Smz 800 mg-160 mg DS Tab PO SCH ×2 (09:16→22:37)
[2017-02-20] MEDS: Enoxaparin 80 mg Syringe SC SCH ×2 (09:17→22:38)
--- NOTE | 2017-02-20 09:23 | CP.PCM.PN ---
Subjective - Date & Time of Evaluation Date of Evaluation: 02/20/17 Time of Evaluation: 09:18 - Subjective Subjective: Pt had a thoracentesis yesterday and a liter of fluid was removed, Hi appetite is gradually improving. He still has a slight oozing from the lower end of his wound and chemotherapy will verdugo. to wait until this stops and patient is a little stronger will check with the surgeon if they will put in the life port before discharge or after discharge, prior to chemotherapy Objective - Vital Signs/Intake and Output Vital Signs (last 24 hours): Temp Pulse Resp BP Pulse Ox 97.7 F 90 18 131/72 98 02/20/17 08:07 02/20/17 08:07 02/20/17 08:07 02/20/17 08:07 02/20/17 08:07 - Medications Medications: Current Medications Acetaminophen (Tylenol 650 Mg Supp) 650 mg [place] Q4 PRN PRN Reason: Fever >100.4 F Acetylcysteine (Mucomyst 10% 4ml) 2 ml IH RBID [facility] Last Admin: 02/20/17 07:31 Dose: 2 ml Albuterol Sulfate (Albuterol 0.083% Inhal Barbara (2.5 Mg/3 Ml) Ud) 2.5 mg INH RQ4 PRN PRN Reason: Shortness of Breath Last Admin: 02/20/17 07:31 Dose: 2.5 mg Enoxaparin Sodium (Lovenox) 80 mg SC Q12 TORRES PRN Reason: Protocol Last Admin: 02/19/17 22:46 Dose: 80 mg Hydromorphone HCl (Dilaudid) 0.5 mg IVP Q6 PRN PRN Reason: Pain, moderate (4-7) Metoclopramide HCl (Reglan) 10 mg IVP Q8 [facility] Last Admin: 02/20/17 01:15 Dose: 10 mg Ondansetron HCl (Zofran Inj) 4 mg IVP Q4H PRN PRN Reason: Nausea/Vomiting Pantoprazole Sodium (Protonix Inj) 40 mg IVP DAILY [facility] Trimethoprim/Sulfamethoxazole (Bactrim Ds Tab) 1 tab PO Q12 [facility] Last Admin: 02/19/17 21:30 Dose: 1 tab - Labs Labs: 02/20/17 06:30 02/20/17 06:30
--- NOTE | 2017-02-20 09:26 | CP.PCM.PN ---
Subjective - Date & Time of Evaluation Date of Evaluation: 02/20/17 Time of Evaluation: 09:26 - Subjective Subjective: General Surgery Progress Note for Dr. Gross Patient seen and examined at bedside. No acute event overnight. Patient transferred to TCU. He states pain has improved. He is tolerating PO intake and eating a bit more than yesterday. He is eager to get out of bed and do physical therapy. Denies any fever/chills, SOB, Cp, palpitations, n/v/d. Objective - Vital Signs/Intake and Output Vital Signs (last 24 hours): Temp Pulse Resp BP Pulse Ox 97.7 F 90 18 131/72 98 02/20/17 08:07 02/20/17 08:07 02/20/17 08:07 02/20/17 08:07 02/20/17 08:07 - Medications Medications: Current Medications Acetaminophen (Tylenol 650 Mg Supp) 650 mg [place] Q4 PRN PRN Reason: Fever >100.4 F Acetylcysteine (Mucomyst 10% 4ml) 2 ml IH RBID [facility] Last Admin: 02/20/17 07:31 Dose: 2 ml Albuterol Sulfate (Albuterol 0.083% Inhal Barbara (2.5 Mg/3 Ml) Ud) 2.5 mg INH RQ4 PRN PRN Reason: Shortness of Breath Last Admin: 02/20/17 07:31 Dose: 2.5 mg Enoxaparin Sodium (Lovenox) 80 mg SC Q12 TORRES PRN Reason: Protocol Last Admin: 02/20/17 09:17 Dose: 80 mg Hydromorphone HCl (Dilaudid) 0.5 mg IVP Q6 PRN PRN Reason: Pain, moderate (4-7) Metoclopramide HCl (Reglan) 10 mg IVP Q8 [facility] Last Admin: 02/20/17 09:18 Dose: 10 mg Ondansetron HCl (Zofran Inj) 4 mg IVP Q4H PRN PRN Reason: Nausea/Vomiting Pantoprazole Sodium (Protonix Inj) 40 mg IVP DAILY [facility] Last Admin: 02/20/17 09:18 Dose: 40 mg Trimethoprim/Sulfamethoxazole (Bactrim Ds Tab) 1 tab PO Q12 [facility] Last Admin: 02/20/17 09:16 Dose: 1 tab - Labs Labs: 02/20/17 06:30 02/20/17 06:30 - Constitutional Appears: No Acute Distress - Head Exam Head Exam: ATRAUMATIC, NORMOCEPHALIC - Eye Exam Eye Exam: Normal appearance - ENT Exam ENT Exam: Mucous Membranes Moist - Neck Exam Neck Exam: Full ROM - Respiratory Exam Respiratory Exam: NORMAL BREATHING PATTERN - Cardiovascular Exam Cardiovascular Exam: REGULAR RHYTHM - GI/Abdominal Exam GI & Abdominal Exam: Soft, Tenderness. absent: Distended, Firm, Guarding, Rigid , Rebound Additional comments: mild tenderness at lower pole of midline incision with dressing covering - minimal erythema and no drainage noted colostomy pink, patent, and functioning with soft brown stool output - Neurological Exam Neurological Exam: Alert, Awake, Oriented x3 - Psychiatric Exam Psychiatric exam: Normal Affect, Normal Mood - Skin Skin Exam: Dry, Warm Assessment and Plan - Assessment and Plan (Free Text) Plan: 71 M with recto-sigmoid mass, s/p Marion's procedure POD #16 -TCU for rehab -Physical therapy -Continue to encourage PO intake as tolerated -OOB w/ walker and Incentive spirometry -Will PUSHPA Gross/Dr. Jean Marie Carrera PGY1
--- NOTE | 2017-02-20 11:02 | CP.PCM.CON ---
History of Present Illness - History of Present Illness History of Present Illness: 71 year old male had sigmoid resection with colostomy because of carcinoma about two weeks ago. Had developed atrial fibrillation with RVR and rate controlled with lanoxin and cardizem. Slow recovery of bowel function, but able to eventually tolerate PO intake successfully. Has significant third spacing of fluid after large volume IVF's post operatively. Has developed bilateral pleural effusion with thoracentesis done on the right side yesterday where 1L fluid was removed. He does have some complaint of right chest discomfort today with a CXR done post-tap thatshowed good expansion of the right lung w/o any infiltrate or pneumothorax. There is no prior history of coronary artery disease , PR, congestive cardiac failure, peptic ulcer disease, prior renal disease or liver disease or bleeding disorder. There is no history of hypertension, diabetes or seizure disorder. Other past surgical history includes a right inguinal hernia repair. Review of Systems - Review of Systems All systems: reviewed and no additional remarkable complaints except - Cardiovascular Cardiovascular: Irregular Heart Rhythm - Respiratory Respiratory: Cough, Dyspnea on Exertion - Gastrointestinal Gastrointestinal: As Per HPI Past Patient History - Past Medical History & Family History Past Medical History?: Yes Past Family History: Reviewed and not pertinent - Past Social History Smoking Status: Heavy Smoker > 10 Cigarettes Daily Chewing Tobacco Use: No Cigar Use: No Alcohol: Social Drugs: Denies Home Situation {Lives}: With Family - CARDIAC Hx Atrial Fibrillation: Yes Hx Peripheral Edema: Yes - PULMONARY Hx Chronic Obstructive Pulmonary Disease (COPD): Yes Other/Comment: Pleural effusion. - NEUROLOGICAL Hx Neurological Disorder: No - HEENT Hx HEENT Problems: No - RENAL Hx Chronic Kidney Disease: No - ENDOCRINE/METABOLIC Hx Endocrine Disorders: No - HEMATOLOGICAL/ONCOLOGICAL Hx Cancer: Yes (colon) - INTEGUMENTARY Hx Dermatological Problems: No - MUSCULOSKELETAL/RHEUMATOLOGICAL Hx Musculoskeletal Disorders: No Hx Falls: No - GASTROINTESTINAL Hx Colostomy: Yes - GENITOURINARY/GYNECOLOGICAL Hx Genitourinary Disorders: No - PSYCHIATRIC Hx Psychophysiologic Disorder: No Hx Substance Use: No - SURGICAL HISTORY Other/Comment: right inguinal hernia repair 20 yrs ago - ANESTHESIA Hx Anesthesia: Yes Hx Anesthesia Reactions: No Hx Malignant Hyperthermia: No Meds Allergies/Adverse Reactions: Allergies Allergy/AdvReac Type Severity Reaction Status Date / Time No Known Allergies Allergy Verified 01/27/17 13:16 - Medications Medications: Current Medications Acetaminophen (Tylenol 650 Mg Supp) 650 mg [place] Q4 PRN PRN Reason: Fever >100.4 F Acetylcysteine (Mucomyst 10% 4ml) 2 ml IH RBID [facility] Last Admin: 02/20/17 07:31 Dose: 2 ml Albuterol Sulfate (Albuterol 0.083% Inhal Barbara (2.5 Mg/3 Ml) Ud) 2.5 mg INH RQ4 PRN PRN Reason: Shortness of Breath Last Admin: 02/20/17 07:31 Dose: 2.5 mg Enoxaparin Sodium (Lovenox) 80 mg SC Q12 TORRES PRN Reason: Protocol Last Admin: 02/20/17 09:17 Dose: 80 mg Hydromorphone HCl (Dilaudid) 0.5 mg IVP Q6 PRN PRN Reason: Pain, moderate (4-7) Metoclopramide HCl (Reglan) 10 mg IVP Q8 [facility] Last Admin: 02/20/17 09:18 Dose: 10 mg Ondansetron HCl (Zofran Inj) 4 mg IVP Q4H PRN PRN Reason: Nausea/Vomiting Pantoprazole Sodium (Protonix Inj) 40 mg IVP DAILY [facility] Last Admin: 02/20/17 09:18 Dose: 40 mg Trimethoprim/Sulfamethoxazole (Bactrim Ds Tab) 1 tab PO Q12 [facility] Last Admin: 02/20/17 09:16 Dose: 1 tab Physical Exam - Additional Findings Additional findings: Awake, alert, cooperative with exam. ++ dependant edema, no cyanosis. Neck is supple and trachea midline. No JVD or carotid bruit, no thyromegaly. Small dressing over thoracentesis site removed, wound clean and dry. Dullness on chest percussion at the left base posteriorly. Breath sounds well heard bilaterally except for left base. Sonorous rhonchi in the right base, no wheeze or rub. No bronchial breath sounds or egophony. Heart rate >100BPM appears regular, no murmur. Abdomen with functioning colostomy LLQ. + bowel sounds. Distal surgical wound draining serous fluid. Results - Vital Signs Recent Vital Signs: Last Vital Signs Temp 97.7 F 02/20/17 08:07 Pulse 90 02/20/17 08:07 Resp 18 02/20/17 08:07 BP 131/72 02/20/17 08:07 Pulse Ox 98 08/17/17 08:07 - Labs Result Diagrams: 02/20/17 06:30 02/20/17 06:30 Labs: Laboratory Results - last 24 hr 02/20/17 02/20/17 06:30 06:30 WBC 10.2 RBC 3.96 L Hgb 12.6 Hct 37.6 MCV 94.9 H MCH 31.7 H MCHC 33.4 RDW 15.4 H Plt Count 367 Sodium 138 Potassium 3.9 Chloride 104 Carbon Dioxide 26 Anion Gap 12 BUN 9 Creatinine 0.7 L Est GFR ( Amer) > 60 Est GFR (Non-Af Amer) > 60 Random Glucose 100 Calcium 8.0 L Assessment & Plan (1) Atrial fibrillation Status: Acute Priority: High Comment: Cardiology consultation for rate control. On anticoagulation. (2) Colon carcinoma Status: Chronic Priority: High Comment: Status post sigmoid resection with functioning colostomy. Peritoneal ' seeding' reported at the time of surgery. Has Oncology following; will need ' Life Port' insertion. (3) Pleural effusion Status: Acute Priority: High Comment: Status post thoracentesis on the right. Will request another CXR today to evaluate for persistent chest discomfort and left sided effusion. - Assessment and Plan (Free Text) Plan: Cardiology consultation for ventricular rate control. Anticoagulation. - Date & Time Date: 02/20/17 Time: 11:11
--- NOTE | 2017-02-20 11:06 | CP.PCM.HP ---
History of Present Illness - History of Present Illness History of Present Illness: 71 y/o gent with Hx of COPD, came in bec of 2 weeks of constipation , abdominal discomfort and vomiting. CT of chest and Abd showed dilated large bowel loops up to the proximal rectum and suspicious for obstructing circumferential rectal mass versus focal stricture GI and surgery consulted. Patient admitted to med/surg kept NPO , started on IVF ,NGT placed , stool softeners and laxatives given with no improvement He underwent flex sigmoidoscopy that showed rectal stricture. Taken to OR 02/04 and underwent exploratory laparatomy with sigmoid resection and colostomy to [facility] Pt was not extubated post-op, he was transferred to ICU post op for monitoring. He developed hypovolemixc shock, Afib with RVR and mottling of lower extremities postop. Now extubated , off pressors, doing well, in med/surg Patient developed ileus post op. NGT removed,started on liquid diet and tolerating so far. Patient for discharge to TCU for further rehab and management ROS: per HPI, all other systems reviewed and neg PCP: Erum MHx: COPD SHx: Hernia surgery (R) Allergies: NKDA Medications: per med rec (only an inhaler) Family Hx: No family history of cancer or GI problems Social Hx: Lives with family, 1 ppd generally of tobacco, no significant EtOH Surrogate: , Sandra; info in chart Temp Pulse Resp BP Pulse Ox 97.7 F 90 18 131/72 98 02/20/17 08:07 02/20/17 08:07 02/20/17 08:07 02/20/17 08:07 02/20/17 08:07 Exam: GEN: WDWN, alert, cooperative HEENT: NCAT, PERRL, EOMI NECK: supple, no JVD, no lymphadenopathy CARDIAC: +S1S2 RRR LUNG: CTAB No WRR ABD: SOFT NT ND BSX4 NO MASSES NO HSM +COLOSTOMY EXT: +pedal pulses, equal strength NEURO: AAOx3 SKIN warm, dry PSYCH normal mood, normal affect 02/20/17 06:30 02/20/17 06:30 71 y/o gent with Hx of COPD, came in bec of 2 weeks of constipation , abdominal discomfort and vomiting. CT of chest and Abd showed dilated large bowel loops up to the proximal rectum and suspicious for obstructing circumferential rectal mass versus focal stricture GI and surgery consulted. Patient admitted to med/surg kept NPO , started on IVF ,NGT placed , stool softeners and laxatives given with no improvement He underwent flex sigmoidoscopy that showed rectal stricture. Taken to OR 02/04 and underwent exploratory laparatomy with sigmoid resection and colostomy to [facility] Pt was not extubated post-op, he was transferred to ICU post op for monitoring. He developed hypovolemixc shock, Afib with RVR and mottling of lower extremities postop. Now extubated , off pressors, doing well, in med/surg Patient developed ileus post op. NGT removed,started on liquid diet and tolerating so far. Pt also developed R > L pleural effusion, is s/p thoracentesis. 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 Will advance diet to low fiber today Surgical incision with vida in place clean ,intact, with serous output from the lower portion of incision Continue pain management , promote ambulation Surgery following On Zosyn, maxipime and Flagyl empirically for > 14 days . Discontinued all antibiotics 02/17 and started on Bactrim Po for Stenotrophomonas maltophilia Continue IVF Oncology consulted- Dr Susan Valenzuela -rec placement of Lifeport and PET scan as outpt PT OT SPEECH therapy 2. LUE transient numbness likely due to metabolic derangement - hypo K CT head showed no acute pathology patient has no neuro deficits Continue K replacement 3. Hypovolemic shock post op , resolved received large quantity of IVF, albumin IV and was started on levophed drip At present BP controlled , off levophed drip Mottling to lower extremities resolved showing improved tissue perfusion 4. Acute Hypoxemic respiratory failure, resolved Pt remained intubated post op and extubated 02/06 Pulmonary on consult with Dr. Danielson following CXR showing bilateral pleural effusion Continue diuresis PRN , Duonebs, O2 via NC, incentive spirometry Promote ambulation 5. Afib with RVR episode- rate controlled received cardizem and digoxin now rate controlled on Lovenox 60mg q 12 6.Acute renal failure, improved oliguric post op with 20 ml/hr output now with good urine output and normal renal function continue IVF Close monitoring 7. Hypokalemia replace with KCL runs sec to GI loss 8. COPD (chronic obstructive pulmonary disease) chronic , stable Duoneb prn 9.Bilateral pneumonia / suspected Aspiration pneumonia POA Acute RLL focal airspace consolidation seen on CT of chest CXR showed increased bilateral infiltrates and pleural effusion treated with abx Sputum c/s Stenophomonas maltophila ID consulted- Dr Mahmood started bactrim po 10.DVT prophylaxis Acute Lovenox Present on Admission - Present on Admission Any Indicators Present on Admission: No Past Patient History - Past Medical History & Family History Past Medical History?: Yes - Past Social History Smoking Status: Heavy Smoker > 10 Cigarettes Daily - CARDIAC Hx Cardiac Disorders: No - PULMONARY Hx Chronic Obstructive Pulmonary Disease (COPD): Yes - NEUROLOGICAL Hx Neurological Disorder: No - HEENT Hx HEENT Problems: No - RENAL Hx Chronic Kidney Disease: No - ENDOCRINE/METABOLIC Hx Endocrine Disorders: No - HEMATOLOGICAL/ONCOLOGICAL Hx Blood Disorders: No - INTEGUMENTARY Hx Dermatological Problems: No - MUSCULOSKELETAL/RHEUMATOLOGICAL Hx Musculoskeletal Disorders: No Hx Falls: No - GASTROINTESTINAL Hx Gastrointestinal Disorders: Yes Hx Colostomy: Yes - GENITOURINARY/GYNECOLOGICAL Hx Genitourinary Disorders: No - PSYCHIATRIC Hx Psychophysiologic Disorder: No Hx Substance Use: No - SURGICAL HISTORY Other/Comment: right inguinal hernia repair 20 yrs ago - ANESTHESIA Hx Anesthesia: Yes Hx Anesthesia Reactions: No Hx Malignant Hyperthermia: No Meds Allergies/Adverse Reactions: Allergies Allergy/AdvReac Type Severity Reaction Status Date / Time No Known Allergies Allergy Verified 01/27/17 13:16 Results - Vital Signs Recent Vital Signs: Last Vital Signs Temp 97.7 F 02/20/17 08:07 Pulse 90 02/20/17 08:07 Resp 18 02/20/17 08:07 BP 131/72 02/20/17 08:07 Pulse Ox 98 02/20/17 08:07 - Labs Result Diagrams: 02/20/17 06:30 02/20/17 06:30 Labs: Laboratory Results - last 24 hr 02/20/17 02/20/17 06:30 06:30 WBC 10.2 RBC 3.96 L Hgb 12.6 Hct 37.6 MCV 94.9 H MCH 31.7 H MCHC 33.4 RDW 15.4 H Plt Count 367 Sodium 138 Potassium 3.9 Chloride 104 Carbon Dioxide 26 Anion Gap 12 BUN 9 Creatinine 0.7 L Est GFR ( Amer) > 60 Est GFR (Non-Af Amer) > 60 Random Glucose 100 Calcium 8.0 L
[2017-02-20] MEDS: Metoclopramide 10 mg/10 ml Cup PO SCH ×3 (12:22→22:39)
[2017-02-20] MEDS ORDERED: Oxycodone/Acetaminophen 5/325 mg Tab PO PRN ×2 (15:25)
[2017-02-20] MEDS: Digoxin 125 mcg (0.125 mg) Tab PO SCH (16:15)
[2017-02-20 16:53] VITALS: RESP 20
--- NOTE | 2017-02-20 17:17 | RAD ---
HISTORY: pleural effusion COMPARISON: February 19, 2017. FINDINGS: LUNGS: Worsening consolidative change, atelectasis right lower lobe. Stable consolidative changes left lower lobe. PLEURA: Stable left pleural effusion. More conspicuous right pleural effusion. CARDIOVASCULAR: Normal. OSSEOUS STRUCTURES: No significant abnormalities. VISUALIZED UPPER ABDOMEN: Normal. OTHER FINDINGS: None. IMPRESSION: Progressive infiltrates/ pleural effusion right megan thorax.
[2017-02-20] MEDS ORDERED: Levalbuterol 0.63 MG/3 ML Inhal Soln UD IH ONE (17:24)
[2017-02-21] MEDS: Acetylcysteine 10% 4 ML IH SCH ×2 (07:30→19:21)
[2017-02-21] MEDS: Albuterol 0.083% Inhal Sol (2.5 mg/3 mL) UD INH PRN (07:31)
[2017-02-21] MEDS: Metoclopramide 10 mg/10 ml Cup PO SCH ×4 (07:35→21:06)
--- NOTE | 2017-02-21 08:00 | CP.PCM.PN ---
Subjective - Date & Time of Evaluation Date of Evaluation: 02/21/17 Time of Evaluation: 07:58 - Subjective Subjective: Pt appears well, in no respiratory distress. His appetite is improving, and he has been out of bed as well. he feels weak, but HGB has been stable.There is a slight oozing from the wound. cannot start chemo until that is healed Objective - Vital Signs/Intake and Output Vital Signs (last 24 hours): Temp Pulse Resp BP Pulse Ox 97.9 F 95 H 20 108/61 95 02/20/17 22:00 02/20/17 22:37 02/20/17 22:00 02/20/17 22:37 02/20/17 22:00 - Medications Medications: Current Medications Acetaminophen (Tylenol 650 Mg Supp) 650 mg [place] Q4 PRN PRN Reason: Fever >100.4 F Acetylcysteine (Mucomyst 10% 4ml) 2 ml IH RBID [facility] Last Admin: 02/21/17 07:30 Dose: 2 ml Albuterol Sulfate (Albuterol 0.083% Inhal Barbara (2.5 Mg/3 Ml) Ud) 2.5 mg INH RQ4 PRN PRN Reason: Shortness of Breath Last Admin: 02/21/17 07:31 Dose: 2.5 mg Digoxin (Lanoxin) 0.125 mg PO DAILY [facility] Last Admin: 02/20/17 16:15 Dose: 0.125 mg Enoxaparin Sodium (Lovenox) 80 mg SC Q12 [facility] PRN Reason: Protocol Last Admin: 02/20/17 22:38 Dose: 80 mg Metoclopramide HCl (Reglan) 10 mg PO ACHS [facility] Last Admin: 02/20/17 22:39 Dose: 10 mg Metoprolol Tartrate (Lopressor) 25 mg PO Q12 [facility] Last Admin: 02/20/17 22:37 Dose: 25 mg Ondansetron HCl (Zofran Inj) 4 mg IVP Q4H PRN PRN Reason: Nausea/Vomiting Oxycodone/Acetaminophen (Percocet 5/325 Mg Tab) 1 tab PO Q6 PRN PRN Reason: Pain, moderate (4-7) Stop: 02/23/17 15:26 Last Admin: 02/20/17 16:05 Dose: 1 tab Oxycodone/Acetaminophen (Percocet 5/325 Mg Tab) 2 tab PO Q6 PRN PRN Reason: Pain, severe (8-10) Stop: 02/23/17 15:26 Pantoprazole Sodium (Protonix Ec Tab) 40 mg PO DAILY [facility] Trimethoprim/Sulfamethoxazole (Bactrim Ds Tab) 1 tab PO Q12 [facility] Last Admin: 02/20/17 22:37 Dose: 1 tab - Labs Labs: 02/20/17 06:30 02/20/17 06:30
--- NOTE | 2017-02-21 08:37 | CP.PCM.PN ---
Subjective - Date & Time of Evaluation Date of Evaluation: 02/21/17 Time of Evaluation: 08:35 - Subjective Subjective: Surgery Pt s&e. NAEON. Pain controlled. + amb w help. + void. Ostomy functioning. Tolerating diet. Objective - Vital Signs/Intake and Output Vital Signs (last 24 hours): Temp Pulse Resp BP Pulse Ox 97.8 F 85 20 109/64 100 02/21/17 08:02 02/21/17 08:02 02/21/17 08:02 02/21/17 08:02 02/21/17 08:02 - Medications Medications: Current Medications Acetaminophen (Tylenol 650 Mg Supp) 650 mg [place] Q4 PRN PRN Reason: Fever >100.4 F Acetylcysteine (Mucomyst 10% 4ml) 2 ml IH RBID [facility] Last Admin: 02/21/17 07:30 Dose: 2 ml Albuterol Sulfate (Albuterol 0.083% Inhal Barbara (2.5 Mg/3 Ml) Ud) 2.5 mg INH RQ4 PRN PRN Reason: Shortness of Breath Last Admin: 02/21/17 07:31 Dose: 2.5 mg Digoxin (Lanoxin) 0.125 mg PO DAILY [facility] Last Admin: 02/20/17 16:15 Dose: 0.125 mg Enoxaparin Sodium (Lovenox) 80 mg SC Q12 [facility] PRN Reason: Protocol Last Admin: 02/20/17 22:38 Dose: 80 mg Metoclopramide HCl (Reglan) 10 mg PO [facility] Last Admin: 02/20/17 22:39 Dose: 10 mg Metoprolol Tartrate (Lopressor) 25 mg PO Q12 [facility] Last Admin: 02/20/17 22:37 Dose: 25 mg Ondansetron HCl (Zofran Inj) 4 mg IVP Q4H PRN PRN Reason: Nausea/Vomiting Oxycodone/Acetaminophen (Percocet 5/325 Mg Tab) 1 tab PO Q6 PRN PRN Reason: Pain, moderate (4-7) Stop: 02/23/17 15:26 Last Admin: 02/20/17 16:05 Dose: 1 tab Oxycodone/Acetaminophen (Percocet 5/325 Mg Tab) 2 tab PO Q6 PRN PRN Reason: Pain, severe (8-10) Stop: 02/23/17 15:26 Pantoprazole Sodium (Protonix Ec Tab) 40 mg PO DAILY [facility] Trimethoprim/Sulfamethoxazole (Bactrim Ds Tab) 1 tab PO Q12 [facility] Last Admin: 02/20/17 22:37 Dose: 1 tab - Labs Labs: 02/20/17 06:30 02/20/17 06:30 - Constitutional Appears: No Acute Distress - Head Exam Head Exam: ATRAUMATIC, NORMAL INSPECTION, NORMOCEPHALIC - Eye Exam Eye Exam: EOMI, Normal appearance, PERRL Pupil Exam: NORMAL ACCOMODATION, PERRL - ENT Exam ENT Exam: Mucous Membranes Moist, Normal Exam - Neck Exam Neck Exam: Full ROM, Normal Inspection. absent: Lymphadenopathy - Respiratory Exam Respiratory Exam: Clear to Ausculation Bilateral, NORMAL BREATHING PATTERN - Cardiovascular Exam Cardiovascular Exam: REGULAR RHYTHM, +S1, +S2. absent: Murmur - GI/Abdominal Exam GI & Abdominal Exam: Soft, Tenderness. absent: Distended, Firm, Guarding, Rigid , Hernia Additional comments: Stoma functioning. Incision has vida. Mild erythema. TTP - Extremities Exam Extremities Exam: Full ROM, Normal Capillary Refill, Normal Inspection. absent : Joint Swelling, Pedal Edema - Back Exam Back Exam: NORMAL INSPECTION - Neurological Exam Neurological Exam: Alert, Awake, CN II-XII Intact, Oriented x3 - Psychiatric Exam Psychiatric exam: Normal Affect, Normal Mood - Skin Skin Exam: Dry, Erythema, Intact, Warm Assessment and Plan - Assessment and Plan (Free Text) Assessment: 71 M s/p Marion's procedure POD #17 -TCU for rehab -Physical therapy -Continue to encourage PO intake as tolerated -OOB w/ walker and Incentive spirometry -Will DW attending
[2017-02-21] MEDS: Tmp-Smz 800 mg-160 mg DS Tab PO SCH ×2 (10:16→21:05)
[2017-02-21] MEDS: Digoxin 125 mcg (0.125 mg) Tab PO SCH (10:19)
[2017-02-21] MEDS: Enoxaparin 80 mg Syringe SC SCH (10:19)
[2017-02-21] MEDS: Pantoprazole 40 mg EC Tab PO SCH (10:23)
[2017-02-21] MEDS: Digoxin 250 mcg (0.25 mg) Tab PO SCH (11:00)
--- NOTE | 2017-02-21 11:16 | CP.PCM.CON ---
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 He developed atrial fibrillation postoperatively and has persisted in atrial fibrillation ever since. The patient 's prior history did not include hypertension or diabetes or any cardiac illness. He had undergone a coronary angiography more than 7 years back and reports that no coronary stenosis was detected. There is no prior history of effort related chest pain or myocardial infarction or symptoms of congestive cardiac failure. Physical examination shows an elderly thin built man is alert awake [place] and afebrile. The patient was found sitting in a chair breathing comfortably had 16- 18 breaths per minute with a heart rate off 60 bpm irregularly irregular.his blood pressure was 124/74 mmHg. His jugular venous pressure was not elevated and there was no edema over his lower extremity. His pedal pulses were feeble. There were no carotid bruits. His extremities were warm and his nailbeds were pink. There was no central or peripheral cyanosis. There was no clubbing. [place] was not palpable. First and second heart sounds were normal. There was a very brief apical systolic murmur. There were no rales. Expedition was slightly prolonged. Air entry was slightly reduced in the right infrascapular area. Abdomen was soft. Liver and spleen are not palpable. Electrocardiogram on 27 of January showed sinus rhythm with an otherwise normal electrocardiographic pattern. Subsequent electrocardiograms show atrial fibrillation with moderate heart rate. No Q waves were detected. Echocardiogram of February 03 shows evidence of atrial fibrillation with a left ventricle with normal regional wall motion and preserved left ventricular systolic function. Left atrial size was normal. His pulmonary artery systolic pressure was mildly elevated at 37 mmHg. His lab data showed normal BUN/creatinine and electrolytes. IMPRESSION: atrial fibrillation with severe COPD. Colonic malignancy with metastatic disease. Patient's heart rate is well controlled with a small dose of beta blockade along with digoxin. Yesterday during physical therapy the patient had significant tachycardia. The dose of metoprolol is restricted because of severe COPD. I have increased his dose of digoxin 0.25 mg daily. His BUN/creatinine is normal. I started him on oral anticoagulation for prevention of systemic emboli. His Lovenox was discontinued. Past Patient History - Past Medical History & Family History Past Medical History?: Yes Past Family History: Reviewed and not pertinent - Past Social History Smoking Status: Heavy Smoker > 10 Cigarettes Daily Chewing Tobacco Use: No Cigar Use: No Alcohol: Social Drugs: Denies Home Situation {Lives}: With Family - CARDIAC Hx Atrial Fibrillation: Yes Hx Peripheral Edema: Yes - PULMONARY Hx Chronic Obstructive Pulmonary Disease (COPD): Yes - NEUROLOGICAL Hx Neurological Disorder: No - HEENT Hx HEENT Problems: No - RENAL Hx Chronic Kidney Disease: No - ENDOCRINE/METABOLIC Hx Endocrine Disorders: No - HEMATOLOGICAL/ONCOLOGICAL Hx Cancer: Yes (colon) - INTEGUMENTARY Hx Dermatological Problems: No - MUSCULOSKELETAL/RHEUMATOLOGICAL Hx Musculoskeletal Disorders: No Hx Falls: No - GASTROINTESTINAL Hx Colostomy: Yes - GENITOURINARY/GYNECOLOGICAL Hx Genitourinary Disorders: No - PSYCHIATRIC Hx Psychophysiologic Disorder: No Hx Substance Use: No - SURGICAL HISTORY Other/Comment: right inguinal hernia repair 20 yrs ago - ANESTHESIA Hx Anesthesia: Yes Hx Anesthesia Reactions: No Hx Malignant Hyperthermia: No Meds Allergies/Adverse Reactions: Allergies Allergy/AdvReac Type Severity Reaction Status Date / Time No Known Allergies Allergy Verified 01/27/17 13:16 - Medications Medications: Current Medications Acetaminophen (Tylenol 650 Mg Supp) 650 mg [place] Q4 PRN PRN Reason: Fever >100.4 F Acetylcysteine (Mucomyst 10% 4ml) 2 ml IH RBID [facility] Last Admin: 02/21/17 07:30 Dose: 2 ml Albuterol Sulfate (Albuterol 0.083% Inhal Barbara (2.5 Mg/3 Ml) Ud) 2.5 mg INH RQ4 PRN PRN Reason: Shortness of Breath Last Admin: 02/21/17 07:31 Dose: 2.5 mg Digoxin (Lanoxin) 0.25 mg PO DAILY [facility] Metoclopramide HCl (Reglan) 10 mg PO ACHS [facility] Last Admin: 02/21/17 07:35 Dose: 10 mg Metoprolol Tartrate (Lopressor) 25 mg PO Q12 [facility] Last Admin: 02/21/17 10:18 Dose: Not Given Ondansetron HCl (Zofran Inj) 4 mg IVP Q4H PRN PRN Reason: Nausea/Vomiting Oxycodone/Acetaminophen (Percocet 5/325 Mg Tab) 1 tab PO Q6 PRN PRN Reason: Pain, moderate (4-7) Stop: 02/23/17 15:26 Last Admin: 02/20/17 16:05 Dose: 1 tab Oxycodone/Acetaminophen (Percocet 5/325 Mg Tab) 2 tab PO Q6 PRN PRN Reason: Pain, severe (8-10) Stop: 02/23/17 15:26 Pantoprazole Sodium (Protonix Ec Tab) 40 mg PO DAILY [facility] Last Admin: 02/21/17 10:23 Dose: 40 mg Rivaroxaban (Xarelto) 20 mg PO QD5 [facility] PRN Reason: Protocol Trimethoprim/Sulfamethoxazole (Bactrim Ds Tab) 1 tab PO Q12 [facility] Last Admin: 02/21/17 10:16 Dose: 1 tab Results - Vital Signs Recent Vital Signs: Last Vital Signs Temp 97.8 F 02/21/17 08:02 Pulse 89 02/21/17 10:18 Resp 20 02/21/17 08:02 BP 98/62 L 02/21/17 10:18 Pulse Ox 100 02/21/17 08:02 - Labs Result Diagrams: 02/20/17 06:30 02/20/17 06:30
--- NOTE | 2017-02-21 13:01 | CP.PCM.PN ---
Subjective - Date & Time of Evaluation Date of Evaluation: 02/21/17 Time of Evaluation: 12:59 - Subjective Subjective: Looks better today. Appetite is better, more PO intake. Mood is improved from the day prior. Colostomy functioning. Vital signs are stable, HR controlled with lopressor and lanoxin (90). BP remains at low normal range. SpO2 is good (95-100). Dependant edema is steadily decreasing. No cyanosis. Neck is supple and trachea midline. Dullness on chest percussion in the bases posteriorly. Pleural rub is noted on the right. Breath sounds are present bilaterally. No audible wheezes or bronchial breathing. Heart sounds are distant, rhythm irregular, but rate better controlled. Abdomen is less tense, colostomy functioning, bowel sounds are good. Follow up CXR shows some re-accumulation of fluid on the right and slight decrease on the left. Chemistry from original tap on the right was exudate by LDH despite transudate by protein. Fluid cytology is still pending. All things considered, doing fairly well. Will need 'life port'. Continue physical therapy. Follow up Labs and CXR on Friday. Objective - Vital Signs/Intake and Output Vital Signs (last 24 hours): Temp Pulse Resp BP Pulse Ox 97.8 F 89 20 98/62 L 100 02/21/17 08:02 02/21/17 10:18 02/21/17 08:02 02/21/17 10:18 02/21/17 08:02 - Medications Medications: Current Medications Acetaminophen (Tylenol 650 Mg Supp) 650 mg [place] Q4 PRN PRN Reason: Fever >100.4 F Acetylcysteine (Mucomyst 10% 4ml) 2 ml IH RBID [facility] Last Admin: 02/21/17 07:30 Dose: 2 ml Albuterol Sulfate (Albuterol 0.083% Inhal Barbara (2.5 Mg/3 Ml) Ud) 2.5 mg INH RQ4 PRN PRN Reason: Shortness of Breath Last Admin: 02/21/17 07:31 Dose: 2.5 mg Digoxin (Lanoxin) 0.25 mg PO DAILY [facility] Last Admin: 02/21/17 11:00 Dose: Not Given Metoclopramide HCl (Reglan) 10 mg PO ACHS [facility] Last Admin: 02/21/17 12:19 Dose: 10 mg Metoprolol Tartrate (Lopressor) 25 mg PO Q12 [facility] Last Admin: 02/21/17 10:18 Dose: Not Given Ondansetron HCl (Zofran Inj) 4 mg IVP Q4H PRN PRN Reason: Nausea/Vomiting Oxycodone/Acetaminophen (Percocet 5/325 Mg Tab) 1 tab PO Q6 PRN PRN Reason: Pain, moderate (4-7) Stop: 02/23/17 15:26 Last Admin: 02/20/17 16:05 Dose: 1 tab Oxycodone/Acetaminophen (Percocet 5/325 Mg Tab) 2 tab PO Q6 PRN PRN Reason: Pain, severe (8-10) Stop: 02/23/17 15:26 Pantoprazole Sodium (Protonix Ec Tab) 40 mg PO DAILY [facility] Last Admin: 02/21/17 10:23 Dose: 40 mg Rivaroxaban (Xarelto) 20 mg PO QD5 [facility] PRN Reason: Protocol Trimethoprim/Sulfamethoxazole (Bactrim Ds Tab) 1 tab PO Q12 [facility] Last Admin: 02/21/17 10:16 Dose: 1 tab - Labs Labs: 02/20/17 06:30 02/20/17 06:30 Assessment and Plan (1) Atrial fibrillation Status: Acute (2) Colon carcinoma Status: Chronic (3) Pleural effusion Status: Acute
[2017-02-21] MEDS ORDERED: Digoxin 125 mcg (0.125 mg) Tab PO ONE (13:07)
[2017-02-21] MEDS: Levalbuterol 0.63 MG/3 ML Inhal Soln UD INH SCH ×2 (14:45→19:21)
[2017-02-22] MEDS: Levalbuterol 0.63 MG/3 ML Inhal Soln UD INH SCH ×3 (08:00→19:22)
[2017-02-22] MEDS: Acetylcysteine 10% 4 ML IH SCH ×2 (08:00→19:22)
[2017-02-22] MEDS: Tmp-Smz 800 mg-160 mg DS Tab PO SCH ×2 (08:30→21:25)
[2017-02-22] MEDS: Metoclopramide 10 mg/10 ml Cup PO SCH ×4 (08:30→21:25)
[2017-02-22] MEDS: Digoxin 250 mcg (0.25 mg) Tab PO SCH (08:31)
[2017-02-22] MEDS: Pantoprazole 40 mg EC Tab PO SCH (08:32)
--- NOTE | 2017-02-22 09:59 | CP.PCM.PN ---
Subjective - Date & Time of Evaluation Date of Evaluation: 02/22/17 Time of Evaluation: 09:57 - Subjective Subjective: Pt's appetite is improving and he feels a little. However he is still shot of breath, and a x ray has been ordered to see if there is re accumulation of the pleural effusion or if there is an infiltrate. He is afebrile and on Bactrim. Spoke to Dr Gross re lifeport placement when the pt is better. Objective - Vital Signs/Intake and Output Vital Signs (last 24 hours): Temp Pulse Resp BP Pulse Ox 97.7 F 96 H 20 132/80 100 02/22/17 08:53 02/22/17 08:53 02/22/17 08:53 02/22/17 08:53 02/22/17 08:53 - Medications Medications: Current Medications Acetaminophen (Tylenol 650 Mg Supp) 650 mg [place] Q4 PRN PRN Reason: Fever >100.4 F Acetylcysteine (Mucomyst 10% 4ml) 2 ml IH RBID [facility] Last Admin: 02/22/17 08:00 Dose: 2 ml Digoxin (Lanoxin) 0.25 mg PO DAILY [facility] Last Admin: 02/22/17 08:31 Dose: 0.25 mg Levalbuterol HCl (Xopenex) 0.63 mg INH RTID [facility] Last Admin: 02/22/17 08:00 Dose: 0.63 mg Metoclopramide HCl (Reglan) 10 mg PO ACHS [facility] Last Admin: 02/22/17 08:30 Dose: 10 mg Metoprolol Tartrate (Lopressor) 25 mg PO Q12 [facility] Last Admin: 02/22/17 08:32 Dose: 25 mg Ondansetron HCl (Zofran Inj) 4 mg IVP Q4H PRN PRN Reason: Nausea/Vomiting Oxycodone/Acetaminophen (Percocet 5/325 Mg Tab) 1 tab PO Q6 PRN PRN Reason: Pain, moderate (4-7) Stop: 02/23/17 15:26 Last Admin: 02/20/17 16:05 Dose: 1 tab Oxycodone/Acetaminophen (Percocet 5/325 Mg Tab) 2 tab PO Q6 PRN PRN Reason: Pain, severe (8-10) Stop: 02/23/17 15:26 Pantoprazole Sodium (Protonix Ec Tab) 40 mg PO DAILY [facility] Last Admin: 02/22/17 08:32 Dose: 40 mg Rivaroxaban (Xarelto) 20 mg PO QD5 [facility] PRN Reason: Protocol Last Admin: 02/21/17 17:06 Dose: 20 mg Trimethoprim/Sulfamethoxazole (Bactrim Ds Tab) 1 tab PO Q12 [facility] Last Admin: 02/22/17 08:30 Dose: 1 tab Zolpidem Tartrate (Ambien) 5 mg PO HS PRN PRN Reason: Sleep Last Admin: 02/21/17 22:54 Dose: 5 mg - Labs Labs: 02/20/17 06:30 02/20/17 06:30
--- NOTE | 2017-02-22 20:42 | CP.PCM.PN ---
Subjective - Date & Time of Evaluation Date of Evaluation: 02/22/17 Time of Evaluation: 20:40 - Subjective Subjective: surgery Pt s&e. NAEON. Denies F/C/N/V/CP/SOB. + amb. + void. Stoma has output. Low appetite. Objective - Vital Signs/Intake and Output Vital Signs (last 24 hours): Temp Pulse Resp BP Pulse Ox 97.9 F 84 20 112/54 L 95 02/22/17 16:51 02/22/17 16:51 02/22/17 16:51 02/22/17 16:51 02/22/17 16:51 - Medications Medications: Current Medications Acetaminophen (Tylenol 650 Mg Supp) 650 mg [place] Q4 PRN PRN Reason: Fever >100.4 F Acetylcysteine (Mucomyst 10% 4ml) 2 ml IH RBID [facility] Last Admin: 02/22/17 19:22 Dose: 2 ml Digoxin (Lanoxin) 0.25 mg PO DAILY [facility] Last Admin: 02/22/17 08:31 Dose: 0.25 mg Levalbuterol HCl (Xopenex) 0.63 mg INH RTID [facility] Last Admin: 02/22/17 19:22 Dose: 0.63 mg Metoclopramide HCl (Reglan) 10 mg PO ACHS [facility] Last Admin: 02/22/17 16:28 Dose: 10 mg Metoprolol Tartrate (Lopressor) 25 mg PO Q12 [facility] Last Admin: 02/22/17 08:32 Dose: 25 mg Ondansetron HCl (Zofran Inj) 4 mg IVP Q4H PRN PRN Reason: Nausea/Vomiting Oxycodone/Acetaminophen (Percocet 5/325 Mg Tab) 1 tab PO Q6 PRN PRN Reason: Pain, moderate (4-7) Stop: 02/23/17 15:26 Last Admin: 02/20/17 16:05 Dose: 1 tab Oxycodone/Acetaminophen (Percocet 5/325 Mg Tab) 2 tab PO Q6 PRN PRN Reason: Pain, severe (8-10) Stop: 02/23/17 15:26 Pantoprazole Sodium (Protonix Ec Tab) 40 mg PO DAILY [facility] Last Admin: 02/22/17 08:32 Dose: 40 mg Rivaroxaban (Xarelto) 20 mg PO QD5 [facility] PRN Reason: Protocol Last Admin: 02/22/17 16:29 Dose: 20 mg Trimethoprim/Sulfamethoxazole (Bactrim Ds Tab) 1 tab PO Q12 [facility] Last Admin: 02/22/17 08:30 Dose: 1 tab Zolpidem Tartrate (Ambien) 5 mg PO HS PRN PRN Reason: Sleep Last Admin: 02/21/17 22:54 Dose: 5 mg - Labs Labs: 02/20/17 06:30 02/20/17 06:30 - Constitutional Appears: No Acute Distress - Head Exam Head Exam: ATRAUMATIC, NORMAL INSPECTION, NORMOCEPHALIC - Eye Exam Eye Exam: EOMI, Normal appearance, PERRL Pupil Exam: NORMAL ACCOMODATION, PERRL - ENT Exam ENT Exam: Mucous Membranes Moist, Normal Exam - Neck Exam Neck Exam: Full ROM, Normal Inspection. absent: Lymphadenopathy - Respiratory Exam Respiratory Exam: Clear to Ausculation Bilateral, NORMAL BREATHING PATTERN - Cardiovascular Exam Cardiovascular Exam: REGULAR RHYTHM, +S1, +S2. absent: Murmur - GI/Abdominal Exam GI & Abdominal Exam: Soft, Tenderness, Normal Bowel Sounds. absent: Distended, Firm Additional comments: Incision has vida. eryhtema improving - Exam Exam: NORMAL INSPECTION - Extremities Exam Extremities Exam: Full ROM, Normal Capillary Refill, Normal Inspection. absent : Joint Swelling, Pedal Edema - Back Exam Back Exam: NORMAL INSPECTION - Neurological Exam Neurological Exam: Alert, Awake, CN II-XII Intact, Normal Gait, Oriented x3 - Psychiatric Exam Psychiatric exam: Normal Affect, Normal Mood - Skin Skin Exam: Erythema, Warm Assessment and Plan - Assessment and Plan (Free Text) Assessment: 71 M s/p Marion's procedure POD #18 -Life port when better -TCU for rehab -Physical therapy -Continue to encourage PO intake as tolerated -OOB w/ walker and Incentive spirometry DW attending
[2017-02-23] MEDS: Metoclopramide 10 mg/10 ml Cup PO SCH ×4 (06:31→22:51)
[2017-02-23] MEDS: Acetylcysteine 10% 4 ML IH SCH ×2 (08:31→19:37)
[2017-02-23] MEDS: Levalbuterol 0.63 MG/3 ML Inhal Soln UD INH SCH ×3 (08:31→19:37)
[2017-02-23 09:34] LABS: ALB/GLOB RATIO 0.9 (1.0-2.1); ALKALINE PHOSPHATASE 62 U/L (38-126); ALT/SGPT 36 U/L (21-72); AST/SGOT 28 U/L (17-59); BILIRUBIN,TOTAL 0.3 mg/dl (0.2-1.3); BLOOD UREA NITROGEN 10 mg/dl (9-20); CALCIUM 8.3 mg/dL (8.4-10.2); CARBON DIOXIDE 31 mmol/L (22-30); CHLORIDE 101 mmol/L (98-107); GFR AFRICAN-AMERICAN > 60; GLUCOSE,RANDOM 106 mg/dL (75-110); POTASSIUM 3.6 MMOL/L (3.6-5.0); SODIUM 139 mmol/l (132-148); TOTAL PROTEIN 5.5 G/DL (6.3-8.2)
[2017-02-23] MEDS: Pantoprazole 40 mg EC Tab PO SCH (09:39)
[2017-02-23] MEDS: Tmp-Smz 800 mg-160 mg DS Tab PO SCH ×2 (09:39→22:50)
[2017-02-23] MEDS: Digoxin 250 mcg (0.25 mg) Tab PO SCH (09:40)
--- NOTE | 2017-02-23 11:35 | CP.PCM.PN ---
Subjective - Date & Time of Evaluation Date of Evaluation: 02/23/17 Time of Evaluation: 10:00 - Subjective Subjective: Doing well at PT HR well controlled ( combination of Metoprolol and Digoxin) During PT highest HR is 90's BP 126/70 mm Hg No signs of CHF On Xarelto for oral anticoagulation Objective - Vital Signs/Intake and Output Vital Signs (last 24 hours): Temp Pulse Resp BP Pulse Ox 97.2 F L 97 H 20 121/60 98 02/23/17 08:23 02/23/17 09:39 02/23/17 08:23 02/23/17 09:39 02/23/17 08:23 - Medications Medications: Current Medications Acetaminophen (Tylenol 650 Mg Supp) 650 mg [place] Q4 PRN PRN Reason: Fever >100.4 F Acetylcysteine (Mucomyst 10% 4ml) 2 ml IH RBID [facility] Last Admin: 02/23/17 08:31 Dose: 2 ml Digoxin (Lanoxin) 0.25 mg PO DAILY [facility] Last Admin: 02/23/17 09:40 Dose: 0.25 mg Levalbuterol HCl (Xopenex) 0.63 mg INH RTID [facility] Last Admin: 02/23/17 08:31 Dose: 0.63 mg Metoclopramide HCl (Reglan) 10 mg PO ACHS [facility] Last Admin: 02/23/17 06:31 Dose: 10 mg Metoprolol Tartrate (Lopressor) 25 mg PO Q12 [facility] Last Admin: 02/23/17 09:39 Dose: 25 mg Ondansetron HCl (Zofran Inj) 4 mg IVP Q4H PRN PRN Reason: Nausea/Vomiting Oxycodone/Acetaminophen (Percocet 5/325 Mg Tab) 1 tab PO Q6 PRN PRN Reason: Pain, moderate (4-7) Stop: 02/23/17 15:26 Last Admin: 02/20/17 16:05 Dose: 1 tab Oxycodone/Acetaminophen (Percocet 5/325 Mg Tab) 2 tab PO Q6 PRN PRN Reason: Pain, severe (8-10) Stop: 02/23/17 15:26 Pantoprazole Sodium (Protonix Ec Tab) 40 mg PO DAILY [facility] Last Admin: 02/23/17 09:39 Dose: 40 mg Rivaroxaban (Xarelto) 20 mg PO QD5 [facility] PRN Reason: Protocol Last Admin: 02/22/17 16:29 Dose: 20 mg Trimethoprim/Sulfamethoxazole (Bactrim Ds Tab) 1 tab PO Q12 [facility] Last Admin: 02/23/17 09:39 Dose: 1 tab Zolpidem Tartrate (Ambien) 5 mg PO HS PRN PRN Reason: Sleep Last Admin: 02/21/17 22:54 Dose: 5 mg - Labs Labs: 02/20/17 06:30 02/23/17 08:30
[2017-02-23 12:15] LABS: MEAN CELL VOLUME 94.1 fl (80.0-94.0); MEAN CORPUSCULAR HEMOGLOBIN 30.9 pg (27.0-31.0); MEAN CORPUSCULAR HGB CONC 32.9 g/dL (33.0-37.0); RED CELL DISTRIBUTION WIDTH 15.3 % (11.5-14.5); WHITE BLOOD COUNT 5.2 K/uL (4.8-10.8)
--- NOTE | 2017-02-23 16:31 | RAD ---
HISTORY: pleural effusion COMPARISON: Comparison made with chest radiograph 02/20/2017 [facility] TECHNIQUE: Chest PA and lateral FINDINGS: LUNGS: Mild bibasilar atelectasis and or infiltrates and small bilateral effusions small to medium size right and small left effusions. PLEURA: No significant pleural effusion identified. No pneumothorax apparent. Questionable right apical pleural thickening and/or calcifications CARDIOVASCULAR: Heart size is within range of normal. Aorta is ectatic and uncoiled. OSSEOUS STRUCTURES: Mild multilevel degenerative spondylosis of the thoracic spine VISUALIZED UPPER ABDOMEN: Normal. OTHER FINDINGS: None. IMPRESSION: Mild bibasilar atelectasis and or infiltrates and small bilateral effusions small to medium size right and small left effusions.
[2017-02-24] MEDS: Levalbuterol 0.63 MG/3 ML Inhal Soln UD INH SCH ×4 (07:30→23:29)
[2017-02-24] MEDS: Acetylcysteine 10% 4 ML IH SCH (07:30)
--- NOTE | 2017-02-24 08:01 | CP.PCM.PN ---
Subjective - Date & Time of Evaluation Date of Evaluation: 02/24/17 Time of Evaluation: 07:50 - Subjective Subjective: Sitting OOB to have breakfast Has productive cough Afebrile HR 78 BPM, irreg BP 122/70 mm Hg No signs of CHF Colostomy functions well Stable from cardiac point of view Objective - Vital Signs/Intake and Output Vital Signs (last 24 hours): Temp Pulse Resp BP Pulse Ox 97.9 F 84 20 131/69 94 L 02/23/17 21:35 02/23/17 22:51 02/23/17 21:35 02/23/17 22:51 02/23/17 21:35 - Medications Medications: Current Medications Acetaminophen (Tylenol 650 Mg Supp) 650 mg [place] Q4 PRN PRN Reason: Fever >100.4 F Acetylcysteine (Mucomyst 10% 4ml) 2 ml IH RBID [facility] Last Admin: 02/24/17 07:30 Dose: 2 ml Digoxin (Lanoxin) 0.25 mg PO DAILY [facility] Last Admin: 02/23/17 09:40 Dose: 0.25 mg Levalbuterol HCl (Xopenex) 0.63 mg INH RTID [facility] Last Admin: 02/24/17 07:30 Dose: 0.63 mg Metoclopramide HCl (Reglan) 10 mg PO ACHS [facility] Last Admin: 02/23/17 22:51 Dose: 10 mg Metoprolol Tartrate (Lopressor) 25 mg PO Q12 [facility] Last Admin: 02/23/17 22:51 Dose: 25 mg Ondansetron HCl (Zofran Inj) 4 mg IVP Q4H PRN PRN Reason: Nausea/Vomiting Pantoprazole Sodium (Protonix Ec Tab) 40 mg PO DAILY [facility] Last Admin: 02/23/17 09:39 Dose: 40 mg Rivaroxaban (Xarelto) 20 mg PO QD5 [facility] PRN Reason: Protocol Last Admin: 02/23/17 17:05 Dose: 20 mg Trimethoprim/Sulfamethoxazole (Bactrim Ds Tab) 1 tab PO Q12 [facility] Last Admin: 02/23/17 22:50 Dose: 1 tab Zolpidem Tartrate (Ambien) 5 mg PO HS PRN PRN Reason: Sleep Last Admin: 02/21/17 22:54 Dose: 5 mg - Labs Labs: 02/23/17 08:30 02/23/17 08:30
[2017-02-24] MEDS: Tmp-Smz 800 mg-160 mg DS Tab PO SCH ×2 (09:05→21:02)
[2017-02-24] MEDS: Pantoprazole 40 mg EC Tab PO SCH (09:06)
[2017-02-24] MEDS: Metoclopramide 10 mg/10 ml Cup PO SCH ×4 (09:06→21:01)
[2017-02-24] MEDS: Digoxin 250 mcg (0.25 mg) Tab PO SCH (09:07)
--- NOTE | 2017-02-24 10:32 | CP.PCM.PN ---
Subjective - Date & Time of Evaluation Date of Evaluation: 02/24/17 Time of Evaluation: 10:31 - Subjective Subjective: Interim entries in EMR eviewed. CXR shows improving/decreasing pleural effusions bilaterally. Continues to receive aerosol therapies and using Acapella CPT device. Progressing slowly with appetite and oral intake. Colostomy is functioning normally. Vital signs have been stable, he remains afebrile. Copious clear mucoid sputum in basin at bedside. Abdomen is soft, wound is healing, bowel sounds are present. Generalized edema has continued to decrease nicely. No cyanosis. Neck is supple and trachea midline. Dullness is still noted at the lung bases posteriorly, bilaterally. Breath sounds are diminished bilaterally, especially so in the bases posteriorly. No audible wheezing or bronchial breathing. Heart remains irregular. Doing well on current regimen. Needs further physical therapy for strength and CPT to clear secretions. Will stop the acetylcysteine and continue levalbuterol. Will discuss with ID length of time for continued antibiotic. Objective - Vital Signs/Intake and Output Vital Signs (last 24 hours): Temp Pulse Resp BP Pulse Ox 97.9 F 85 20 130/74 99 02/24/17 09:35 02/24/17 09:35 02/24/17 09:35 02/24/17 09:35 02/24/17 09:35 - Medications Medications: Current Medications Acetaminophen (Tylenol 650 Mg Supp) 650 mg [place] Q4 PRN PRN Reason: Fever >100.4 F Acetylcysteine (Mucomyst 10% 4ml) 2 ml IH RBID [facility] Last Admin: 02/24/17 07:30 Dose: 2 ml Digoxin (Lanoxin) 0.25 mg PO DAILY [facility] Last Admin: 02/24/17 09:07 Dose: 0.25 mg Levalbuterol HCl (Xopenex) 0.63 mg INH RTID [facility] Last Admin: 02/24/17 07:30 Dose: 0.63 mg Metoclopramide HCl (Reglan) 10 mg PO ACHS [facility] Last Admin: 02/24/17 09:06 Dose: 10 mg Metoprolol Tartrate (Lopressor) 25 mg PO Q12 [facility] Last Admin: 02/24/17 09:05 Dose: 25 mg Ondansetron HCl (Zofran Inj) 4 mg IVP Q4H PRN PRN Reason: Nausea/Vomiting Pantoprazole Sodium (Protonix Ec Tab) 40 mg PO DAILY [facility] Last Admin: 02/24/17 09:06 Dose: 40 mg Rivaroxaban (Xarelto) 20 mg PO QD5 [facility] PRN Reason: Protocol Last Admin: 02/23/17 17:05 Dose: 20 mg Trimethoprim/Sulfamethoxazole (Bactrim Ds Tab) 1 tab PO Q12 [facility] Last Admin: 02/24/17 09:05 Dose: 1 tab Zolpidem Tartrate (Ambien) 5 mg PO HS PRN PRN Reason: Sleep Last Admin: 02/21/17 22:54 Dose: 5 mg - Labs Labs: 02/23/17 08:30 02/23/17 08:30 Assessment and Plan (1) Atrial fibrillation Status: Acute (2) Colon carcinoma Status: Chronic (3) Pleural effusion Status: Acute
[2017-02-25] MEDS: Metoclopramide 10 mg/10 ml Cup PO SCH ×4 (06:30→21:11)
[2017-02-25] MEDS: Levalbuterol 0.63 MG/3 ML Inhal Soln UD INH SCH ×3 (07:33→23:45)
[2017-02-25] MEDS: Pantoprazole 40 mg EC Tab PO SCH (09:39)
[2017-02-25] MEDS: Digoxin 250 mcg (0.25 mg) Tab PO SCH (09:39)
[2017-02-25] MEDS: Tmp-Smz 800 mg-160 mg DS Tab PO SCH ×2 (09:39→21:11)
--- NOTE | 2017-02-25 10:04 | CP.PCM.PN ---
Subjective - Date & Time of Evaluation Date of Evaluation: 02/25/17 Time of Evaluation: 09:58 - Subjective Subjective: Continues to show slow, steady improvement. Vital signs remain stable, he is afebrile. Appetite is still not good, but better. Colostomy is functioning, PO intake gradually improves. He is doing well with physical therapy and is presently getting CPT. He is coughing up a moderate amount of clear mucoid secretions. Dependant edema is slowly decreasing. Neck is supple and trachea midline. Breath sounds are presentr bilaterally, still diminished, more so lower lobes. No audible wheezes or bronchial breath sounds. Heart sounds fairly well heard, irregular rhythm. Abdomen is soft, incision line clean and dry. Continue present regimen. Will D/C antibiotic after 4 days more. Approved for continued KRISTIN. Followup CXR in another day or two. Objective - Vital Signs/Intake and Output Vital Signs (last 24 hours): Temp Pulse Resp BP Pulse Ox 97.7 F 83 20 117/83 94 L 02/25/17 08:05 02/25/17 09:38 02/25/17 08:05 02/25/17 09:38 02/25/17 08:05 - Medications Medications: Current Medications Acetaminophen (Tylenol 650 Mg Supp) 650 mg [place] Q4 PRN PRN Reason: Fever >100.4 F Digoxin (Lanoxin) 0.25 mg PO DAILY [facility] Last Admin: 02/25/17 09:39 Dose: 0.25 mg Levalbuterol HCl (Xopenex) 0.63 mg INH RQ8 [facility] Last Admin: 02/25/17 07:33 Dose: 0.63 mg Metoclopramide HCl (Reglan) 10 mg PO ACHS [facility] Last Admin: 02/25/17 06:30 Dose: 10 mg Metoprolol Tartrate (Lopressor) 25 mg PO Q12 [facility] Last Admin: 02/25/17 09:38 Dose: 25 mg Ondansetron HCl (Zofran Inj) 4 mg IVP Q4H PRN PRN Reason: Nausea/Vomiting Pantoprazole Sodium (Protonix Ec Tab) 40 mg PO DAILY [facility] Last Admin: 02/25/17 09:39 Dose: 40 mg Rivaroxaban (Xarelto) 20 mg PO QD5 [facility] PRN Reason: Protocol Last Admin: 02/24/17 18:00 Dose: 20 mg Trimethoprim/Sulfamethoxazole (Bactrim Ds Tab) 1 tab PO Q12 [facility] Last Admin: 02/25/17 09:39 Dose: 1 tab Zolpidem Tartrate (Ambien) 5 mg PO HS PRN PRN Reason: Sleep Last Admin: 02/21/17 22:54 Dose: 5 mg - Labs Labs: 02/23/17 08:30 02/23/17 08:30 Assessment and Plan (1) Atrial fibrillation Status: Acute (2) Colon carcinoma Status: Chronic (3) Pleural effusion Status: Acute
--- NOTE | 2017-02-25 14:16 | CP.PCM.PN ---
Subjective - Date & Time of Evaluation Date of Evaluation: 02/25/17 Time of Evaluation: 14:18 - Subjective Subjective: feeling improved no complaints tolerating PT well Objective - Vital Signs/Intake and Output Vital Signs (last 24 hours): Temp Pulse Resp BP Pulse Ox 97.7 F 80 20 117/83 95 02/25/17 08:05 02/25/17 10:05 02/25/17 08:05 02/25/17 09:38 02/25/17 10:05 Exam: GEN: WDWN, alert, cooperative HEENT: NCAT, PERRL, EOMI NECK: supple, no JVD, no lymphadenopathy CARDIAC: +S1S2 RRR LUNG: CTAB No WRR ABD: SOFT NT ND BSX4 NO MASSES NO HSM EXT: +pedal pulses, equal strength NEURO: AAOx3 SKIN warm, dry PSYCH normal mood, normal affect - Medications Medications: Current Medications Acetaminophen (Tylenol 650 Mg Supp) 650 mg [place] Q4 PRN PRN Reason: Fever >100.4 F Digoxin (Lanoxin) 0.25 mg PO DAILY [facility] Last Admin: 02/25/17 09:39 Dose: 0.25 mg Levalbuterol HCl (Xopenex) 0.63 mg INH RQ8 [facility] Last Admin: 02/25/17 07:33 Dose: 0.63 mg Metoclopramide HCl (Reglan) 10 mg PO ACHS [facility] Last Admin: 02/25/17 12:12 Dose: 10 mg Metoprolol Tartrate (Lopressor) 25 mg PO Q12 [facility] Last Admin: 02/25/17 09:38 Dose: 25 mg Ondansetron HCl (Zofran Inj) 4 mg IVP Q4H PRN PRN Reason: Nausea/Vomiting Pantoprazole Sodium (Protonix Ec Tab) 40 mg PO DAILY [facility] Last Admin: 02/25/17 09:39 Dose: 40 mg Rivaroxaban (Xarelto) 20 mg PO QD5 [facility] PRN Reason: Protocol Last Admin: 02/24/17 18:00 Dose: 20 mg Trimethoprim/Sulfamethoxazole (Bactrim Ds Tab) 1 tab PO Q12 [facility] Last Admin: 02/25/17 09:39 Dose: 1 tab Zolpidem Tartrate (Ambien) 5 mg PO HS PRN PRN Reason: Sleep Last Admin: 02/21/17 22:54 Dose: 5 mg - Labs Labs: 02/23/17 08:30 02/23/17 08:30 Assessment and Plan - Assessment and Plan (Free Text) Plan: 71 y/o gent with Hx of COPD, came in bec of 2 weeks of constipation , abdominal discomfort and vomiting. CT of chest and Abd showed dilated large bowel loops up to the proximal rectum and suspicious for obstructing circumferential rectal mass versus focal stricture GI and surgery consulted. Patient admitted to med/surg kept NPO , started on IVF ,NGT placed , stool softeners and laxatives given with no improvement He underwent flex sigmoidoscopy that showed rectal stricture. Taken to OR 02/04 and underwent exploratory laparatomy with sigmoid resection and colostomy to [facility] Pt was not extubated post-op, he was transferred to ICU post op for monitoring. He developed hypovolemixc shock, Afib with RVR and mottling of lower extremities postop. Now extubated , off pressors, doing well, in med/surg Patient developed ileus post op. NGT removed,started on liquid diet and tolerating so far. Pt also developed R > L pleural effusion, is s/p thoracentesis. 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 Will advance diet to low fiber today Surgical incision with vida in place clean ,intact, with serous output from the lower portion of incision Continue pain management , promote ambulation Surgery following On Zosyn, maxipime and Flagyl empirically for > 14 days . Discontinued all antibiotics 02/17 and started on Bactrim Po for Stenotrophomonas maltophilia Continue IVF Oncology consulted- Dr Susan Valenzuela -rec placement of Lifeport and PET scan as outpt PT OT SPEECH therapy 2. LUE transient numbness likely due to metabolic derangement - hypo K CT head showed no acute pathology patient has no neuro deficits Continue K replacement 3. Hypovolemic shock post op , resolved received large quantity of IVF, albumin IV and was started on levophed drip At present BP controlled , off levophed drip Mottling to lower extremities resolved showing improved tissue perfusion 4. Acute Hypoxemic respiratory failure, resolved Pt remained intubated post op and extubated 02/06 Pulmonary on consult with Dr. Danielson following CXR showing bilateral pleural effusion Continue diuresis PRN , Duonebs, O2 via NC, incentive spirometry Promote ambulation 5. Afib with RVR episode- rate controlled received cardizem and digoxin now rate controlled on Lovenox 60mg q 12 6.Acute renal failure, improved oliguric post op with 20 ml/hr output now with good urine output and normal renal function continue IVF Close monitoring 7. Hypokalemia replace with KCL runs sec to GI loss 8. COPD (chronic obstructive pulmonary disease) chronic , stable Duoneb prn 9.Bilateral pneumonia / suspected Aspiration pneumonia POA Acute RLL focal airspace consolidation seen on CT of chest CXR showed increased bilateral infiltrates and pleural effusion treated with abx Sputum c/s Stenophomonas maltophila ID consulted- Dr Mahmood started bactrim po 4 MORE DAYS 10.DVT prophylaxis Acute Lovenox
[2017-02-26] MEDS: Metoclopramide 10 mg/10 ml Cup PO SCH ×4 (06:41→21:22)
[2017-02-26] MEDS: Levalbuterol 0.63 MG/3 ML Inhal Soln UD INH SCH ×3 (07:29→23:49)
[2017-02-26] MEDS: Digoxin 250 mcg (0.25 mg) Tab PO SCH (09:21)
[2017-02-26] MEDS: Pantoprazole 40 mg EC Tab PO SCH (09:21)
[2017-02-26] MEDS: Tmp-Smz 800 mg-160 mg DS Tab PO SCH ×2 (09:21→21:21)
--- NOTE | 2017-02-26 10:41 | CP.PCM.PN ---
Subjective - Date & Time of Evaluation Date of Evaluation: 02/26/17 Time of Evaluation: 10:37 - Subjective Subjective: Discussed at length with the patient and his family members. He is doing well presently with pjysical therapy. His appetite remains poor, but his intake is increasing. The colostomy is functioning and the surgical wound is healing nicely w/o further drainage. He remains on PO Trimethoprim/sulfa for another three days, and then it will be discontinued. A followup CXR will be requested for tomorrow morning. He will most likely follow up with oncology at another institution and his records are being copied. A disc of CT scans was requested and pathology slides of the surgical specimen are being prepared. Objective - Vital Signs/Intake and Output Vital Signs (last 24 hours): Temp Pulse Resp BP Pulse Ox 97.5 F L 78 20 149/67 95 02/26/17 07:50 02/26/17 09:21 02/26/17 07:50 02/26/17 09:21 02/26/17 07:50 - Medications Medications: Current Medications Acetaminophen (Tylenol 650 Mg Supp) 650 mg [place] Q4 PRN PRN Reason: Fever >100.4 F Digoxin (Lanoxin) 0.25 mg PO DAILY [facility] Last Admin: 02/26/17 09:21 Dose: 0.25 mg Levalbuterol HCl (Xopenex) 0.63 mg INH RQ8 [facility] Last Admin: 02/26/17 07:29 Dose: 0.63 mg Metoclopramide HCl (Reglan) 10 mg PO ACHS [facility] Last Admin: 02/26/17 06:41 Dose: 10 mg Metoprolol Tartrate (Lopressor) 25 mg PO Q12 [facility] Last Admin: 02/26/17 09:21 Dose: 25 mg Ondansetron HCl (Zofran Inj) 4 mg IVP Q4H PRN PRN Reason: Nausea/Vomiting Pantoprazole Sodium (Protonix Ec Tab) 40 mg PO DAILY [facility] Last Admin: 02/26/17 09:21 Dose: 40 mg Rivaroxaban (Xarelto) 20 mg PO QD5 [facility] PRN Reason: Protocol Last Admin: 02/25/17 16:42 Dose: 20 mg Trimethoprim/Sulfamethoxazole (Bactrim Ds Tab) 1 tab PO Q12 [facility] Last Admin: 02/26/17 09:21 Dose: 1 tab Zolpidem Tartrate (Ambien) 5 mg PO HS PRN PRN Reason: Sleep Last Admin: 02/21/17 22:54 Dose: 5 mg - Labs Labs: 02/23/17 08:30 02/23/17 08:30 Assessment and Plan (1) Atrial fibrillation Status: Acute (2) Colon carcinoma Status: Chronic (3) Pleural effusion Status: Acute
--- NOTE | 2017-02-26 16:10 | RAD ---
HISTORY: pleural effusion COMPARISON: 02/23/2017 TECHNIQUE: Chest PA and lateral FINDINGS: LUNGS: No pulmonary infiltrate. PLEURA: Small bilateral pleural effusion, right greater than left. No pneumothorax. CARDIOVASCULAR: Normal. OSSEOUS STRUCTURES: No significant abnormalities. VISUALIZED UPPER ABDOMEN: Normal. OTHER FINDINGS: None. IMPRESSION: Bilateral small pleural effusion. No significant change from 02/23/2017.
[2017-02-27] MEDS: Levalbuterol 0.63 MG/3 ML Inhal Soln UD INH SCH ×2 (07:36→15:42)
[2017-02-27] MEDS: Metoclopramide 10 mg/10 ml Cup PO SCH ×4 (08:54→21:01)
[2017-02-27] MEDS: Digoxin 250 mcg (0.25 mg) Tab PO SCH (08:55)
[2017-02-27] MEDS: Pantoprazole 40 mg EC Tab PO SCH (08:55)
[2017-02-27] MEDS: Tmp-Smz 800 mg-160 mg DS Tab PO SCH ×2 (08:55→21:01)
[2017-02-27] MEDS ORDERED: Levalbuterol 1.25 MG/3 ML Inhal Soln UD INH ONE (10:15)
[2017-02-27] MEDS ORDERED: Levalbuterol 0.63 MG/3 ML Inhal Soln UD IH ONE (10:21)
--- NOTE | 2017-02-27 10:47 | CP.PCM.PN ---
Subjective - Date & Time of Evaluation Date of Evaluation: 02/27/17 Time of Evaluation: 10:44 - Subjective Subjective: Seen on morning rounds in subacute rehabilitation. He is awake, alert and in a good mood. He continues to increase his oral intake slowly. Colostomy is functioning and he did report having a bowel movement per rectum yesterday. His vital signs remained stable and he continues to be afebrile. His dependent edema is steadily improving and there is no cyanosis. No calf tenderness. The pharynx is pink and the mucous membranes are moist. The neck is supple and trachea is midline. No neck vein distention or carotid bruit. Minimal dullness to percussion posteriorly at the lung bases, more so right than left. Breath sounds diminished in the lung bases but otherwise unremarkable. The heart rhythm is irregular and the rate is controlled. Heart sounds are slightly distant. Abdominal surgical wound is healing well and there is a small amount of serous drainage noted on the dressing. Chest x-ray done yesterday afternoon showed residual small pleural effusion on the right and blunting of the left costophrenic angle. Continue current regimen and plan for discharge to home early next week. Documents have been gathered including pathology reports and copies of CT scans. Pathology slides will be available tomorrow morning. Objective - Vital Signs/Intake and Output Vital Signs (last 24 hours): Temp Pulse Resp BP Pulse Ox 97.0 F L 78 20 137/75 98 02/27/17 08:18 02/27/17 08:55 02/27/17 08:18 02/27/17 08:55 02/27/17 08:18 - Medications Medications: Current Medications Acetaminophen (Tylenol 650 Mg Supp) 650 mg [place] Q4 PRN PRN Reason: Fever >100.4 F Digoxin (Lanoxin) 0.25 mg PO DAILY [facility] Last Admin: 02/27/17 08:55 Dose: 0.25 mg Levalbuterol HCl (Xopenex) 0.63 mg INH RQ8 [facility] Last Admin: 02/27/17 07:36 Dose: 0.63 mg Metoclopramide HCl (Reglan) 10 mg PO ACHS [facility] Last Admin: 02/27/17 08:54 Dose: 10 mg Metoprolol Tartrate (Lopressor) 25 mg PO Q12 [facility] Last Admin: 02/27/17 08:55 Dose: 25 mg Ondansetron HCl (Zofran Inj) 4 mg IVP Q4H PRN PRN Reason: Nausea/Vomiting Pantoprazole Sodium (Protonix Ec Tab) 40 mg PO DAILY [facility] Last Admin: 02/27/17 08:55 Dose: 40 mg Rivaroxaban (Xarelto) 20 mg PO QD5 [facility] PRN Reason: Protocol Last Admin: 02/26/17 17:08 Dose: 20 mg Trimethoprim/Sulfamethoxazole (Bactrim Ds Tab) 1 tab PO Q12 [facility] Last Admin: 02/27/17 08:55 Dose: 1 tab Zolpidem Tartrate (Ambien) 5 mg PO HS PRN PRN Reason: Sleep Last Admin: 02/21/17 22:54 Dose: 5 mg - Labs Labs: 02/23/17 08:30 02/23/17 08:30 Assessment and Plan (1) Atrial fibrillation Status: Acute (2) Colon carcinoma Status: Chronic (3) Pleural effusion Status: Acute
--- NOTE | 2017-02-27 19:23 | CP.PCM.PN ---
Subjective - Date & Time of Evaluation Date of Evaluation: 02/27/17 Time of Evaluation: 14:00 - Subjective Subjective: Pt seen and examined. Had been coughing earlier this morning but was relieved by Xopenex via nebulizer Objective - Vital Signs/Intake and Output Vital Signs (last 24 hours): Temp Pulse Resp BP Pulse Ox 96.8 F L 75 20 122/61 94 L 02/27/17 17:24 02/27/17 17:24 02/27/17 17:24 02/27/17 17:24 02/27/17 17:24 - Medications Medications: Current Medications Acetaminophen (Tylenol 650 Mg Supp) 650 mg [place] Q4 PRN PRN Reason: Fever >100.4 F Digoxin (Lanoxin) 0.25 mg PO DAILY [facility] Last Admin: 02/27/17 08:55 Dose: 0.25 mg Levalbuterol HCl (Xopenex) 0.63 mg INH RQ8 [facility] Last Admin: 02/27/17 15:42 Dose: 0.63 mg Metoclopramide HCl (Reglan) 10 mg PO ACHS [facility] Last Admin: 02/27/17 17:25 Dose: 10 mg Metoprolol Tartrate (Lopressor) 25 mg PO Q12 [facility] Last Admin: 02/27/17 08:55 Dose: 25 mg Ondansetron HCl (Zofran Inj) 4 mg IVP Q4H PRN PRN Reason: Nausea/Vomiting Pantoprazole Sodium (Protonix Ec Tab) 40 mg PO DAILY [facility] Last Admin: 02/27/17 08:55 Dose: 40 mg Rivaroxaban (Xarelto) 20 mg PO QD5 [facility] PRN Reason: Protocol Last Admin: 02/27/17 17:25 Dose: 20 mg Trimethoprim/Sulfamethoxazole (Bactrim Ds Tab) 1 tab PO Q12 [facility] Last Admin: 02/27/17 08:55 Dose: 1 tab Zolpidem Tartrate (Ambien) 5 mg PO HS PRN PRN Reason: Sleep Last Admin: 02/21/17 22:54 Dose: 5 mg - Labs Labs: 02/23/17 08:30 02/23/17 08:30 - Constitutional Appears: No Acute Distress - Head Exam Head Exam: absent: ATRAUMATIC - Eye Exam Eye Exam: absent: Scleral icterus - ENT Exam ENT Exam: Mucous Membranes Moist - Neck Exam Neck Exam: absent: Meningismus - Respiratory Exam Respiratory Exam: Decreased Breath Sounds (on right field). absent: Wheezes, Respiratory Distress - Cardiovascular Exam Cardiovascular Exam: REGULAR RHYTHM, +S1, +S2 - GI/Abdominal Exam GI & Abdominal Exam: Soft. absent: Tenderness - Rectal Exam Rectal Exam: Deferred - Neurological Exam Neurological Exam: Alert, Oriented x3 - Psychiatric Exam Psychiatric exam: Normal Affect - Skin Skin Exam: Dry, Intact Assessment and Plan - Assessment and Plan (Free Text) Assessment: 71 yo male with history of COPD underwent sigmoid resection and colostomy for colonic malignancy because of intestinal obstruction complicated with AFib with RVR and hypovolemic shock. Pt also developed bilateral pleural effusions and had thoracentesis on the right side. Pt now in TCU for continuation of management and rehab. 1. Sigmoid Adenocarcinoma S/P Sigmoid resection and colostomy tolerating altered GI diet received Zosyn, Maxipime and Flagyl empirically and completed for 14 days on Bactrim DS for Stenotrophomonas maltophilia Dr Gant on oncology consult 2. Afib rate controlled on Digoxin and Metoprolol on Xarelto 3. COPD (chronic obstructive pulmonary disease) asymptomatic Duoneb prn 4. Bilateral Pleural Effusion S/P thoracentesis on right 5. DVT prophylaxis on Xarelto
[2017-02-28] MEDS: Levalbuterol 0.63 MG/3 ML Inhal Soln UD INH SCH ×4 (00:43→23:38)
[2017-02-28] MEDS: Metoclopramide 10 mg/10 ml Cup PO SCH ×4 (07:06→23:09)
--- NOTE | 2017-02-28 08:47 | CP.PCM.PN ---
Subjective - Date & Time of Evaluation Date of Evaluation: 02/28/17 Time of Evaluation: 08:41 - Subjective Subjective: Doing well. Ambulating with PT. Colostomy functioning well. Appetite fair. PO intake okay. Vital signs are stable, remains afebrile. Some residual dependant edema is still present. No cyanosis Suture line clean and dry, vida still present. Bowel sounds normaoactive. Heart rate irregular, rate controlled. Breath sounds diminished. All pertinent material has been collected and left in his paper record. All material left in manila envelope and patient instructed to take this with him on discharge. Tentative discharge Friday? Objective - Vital Signs/Intake and Output Vital Signs (last 24 hours): Temp Pulse Resp BP Pulse Ox 97.3 F L 69 20 110/61 95 02/27/17 21:02 02/27/17 21:02 02/27/17 21:02 02/27/17 21:02 02/27/17 21:02 - Medications Medications: Current Medications Acetaminophen (Tylenol 650 Mg Supp) 650 mg [place] Q4 PRN PRN Reason: Fever >100.4 F Digoxin (Lanoxin) 0.25 mg PO DAILY [facility] Last Admin: 02/27/17 08:55 Dose: 0.25 mg Levalbuterol HCl (Xopenex) 0.63 mg INH RQ8 [facility] Last Admin: 02/28/17 00:43 Dose: 0.63 mg Metoclopramide HCl (Reglan) 10 mg PO ACHS [facility] Last Admin: 02/28/17 07:06 Dose: 10 mg Metoprolol Tartrate (Lopressor) 25 mg PO Q12 [facility] Last Admin: 02/27/17 21:01 Dose: 25 mg Ondansetron HCl (Zofran Inj) 4 mg IVP Q4H PRN PRN Reason: Nausea/Vomiting Pantoprazole Sodium (Protonix Ec Tab) 40 mg PO DAILY [facility] Last Admin: 02/27/17 08:55 Dose: 40 mg Rivaroxaban (Xarelto) 20 mg PO QD5 [facility] PRN Reason: Protocol Last Admin: 02/27/17 17:25 Dose: 20 mg Trimethoprim/Sulfamethoxazole (Bactrim Ds Tab) 1 tab PO Q12 [facility] Last Admin: 02/27/17 21:01 Dose: 1 tab Zolpidem Tartrate (Ambien) 5 mg PO HS PRN PRN Reason: Sleep Last Admin: 02/21/17 22:54 Dose: 5 mg - Labs Labs: 02/23/17 08:30 02/23/17 08:30 Assessment and Plan (1) Atrial fibrillation Status: Acute (2) Colon carcinoma Status: Chronic (3) Pleural effusion Status: Acute
[2017-02-28] MEDS: Digoxin 250 mcg (0.25 mg) Tab PO SCH (09:10)
[2017-02-28] MEDS: Tmp-Smz 800 mg-160 mg DS Tab PO SCH ×2 (09:10→23:08)
[2017-02-28] MEDS: Pantoprazole 40 mg EC Tab PO SCH (09:11)
[2017-03-01] MEDS: Levalbuterol 0.63 MG/3 ML Inhal Soln UD INH SCH ×3 (07:04→23:15)
[2017-03-01] MEDS: Metoclopramide 10 mg/10 ml Cup PO SCH ×4 (08:57→22:08)
[2017-03-01] MEDS: Pantoprazole 40 mg EC Tab PO SCH (08:59)
[2017-03-01] MEDS: Tmp-Smz 800 mg-160 mg DS Tab PO SCH ×2 (08:59→22:07)
[2017-03-01] MEDS: Digoxin 250 mcg (0.25 mg) Tab PO SCH (09:31)
[2017-03-02] MEDS: Levalbuterol 0.63 MG/3 ML Inhal Soln UD INH SCH ×3 (07:43→23:53)
[2017-03-02] MEDS: Pantoprazole 40 mg EC Tab PO SCH (09:26)
[2017-03-02] MEDS: Metoclopramide 10 mg/10 ml Cup PO SCH ×4 (09:26→21:44)
[2017-03-02] MEDS: Digoxin 250 mcg (0.25 mg) Tab PO SCH (09:26)
[2017-03-02] MEDS: Tmp-Smz 800 mg-160 mg DS Tab PO SCH (09:27)
--- NOTE | 2017-03-02 12:14 | RAD ---
HISTORY: COMPARISON: 02/26/2017 TECHNIQUE: Chest PA and lateral FINDINGS: LINES AND TUBES: None. LUNG AND PLEURA: There are persistent small pleural effusions, larger on the right. There is persistent minimal fluid in the minor fissure. HEART AND MEDIASTINUM: The heart is not enlarged. The hilar and mediastinal contours are within normal limits. SKELETAL STRUCTURES: The bony structures are within normal limits for the patient's age. VISUALIZED UPPER ABDOMEN: Normal. OTHER FINDINGS: None. IMPRESSION: No significant interval change in small pleural effusions, larger on the right.
[2017-03-03] MEDS: Levalbuterol 0.63 MG/3 ML Inhal Soln UD INH SCH ×2 (07:35→15:03)
[2017-03-03] MEDS: Metoclopramide 10 mg/10 ml Cup PO SCH ×4 (08:30→22:32)
[2017-03-03] MEDS: Pantoprazole 40 mg EC Tab PO SCH (08:30)
[2017-03-03] MEDS: Digoxin 250 mcg (0.25 mg) Tab PO SCH (08:30)
[2017-03-03 08:31] VITALS: PULSE 61
[2017-03-03 09:35] LABS: BASO # 0.1 K/uL (0.0-0.2); BASO % 1.5 % (0.0-2.0); EOS # 1.3 K/uL (0.0-0.7); EOS % 14.7 % (0.0-4.0); HEMATOCRIT 35.1 % (35.0-51.0); LYMPH # 1.4 K/uL (1.0-4.3); LYMPH % 15.8 % (20.0-40.0); MEAN CELL VOLUME 93.5 fl (80.0-94.0); MEAN CORPUSCULAR HEMOGLOBIN 30.9 pg (27.0-31.0); MEAN PLATELET VOLUME 7.2 fl (7.2-11.7); MONO # 0.9 K/uL (0.0-0.8); MONO % 9.5 % (0.0-10.0); NEUT # 5.3 K/uL (1.8-7.0); NEUT % 58.5 % (50.0-75.0); RED CELL DISTRIBUTION WIDTH 15.1 % (11.5-14.5); WHITE BLOOD COUNT 9.1 K/uL (4.8-10.8)
[2017-03-03 09:49] LABS: BLOOD UREA NITROGEN 6 mg/dl (9-20); CALCIUM 8.6 mg/dL (8.4-10.2); CARBON DIOXIDE 24 mmol/L (22-30); CHLORIDE 104 mmol/L (98-107); GFR AFRICAN-AMERICAN > 60; GLUCOSE,RANDOM 127 mg/dL (75-110); POTASSIUM 2.8 MMOL/L (3.6-5.0)
[2017-03-03 10:01] LABS: SODIUM 138 mmol/l (132-148)
--- NOTE | 2017-03-03 10:48 | CP.PCM.PN ---
Subjective - Date & Time of Evaluation Date of Evaluation: 03/03/17 Time of Evaluation: 10:44 - Subjective Subjective: Doing well with current regimen. Appetite is slowly improving. Colostomy is functioning well. Ambulating and improving strength. Still has ankle edema bilaterally, but overall much improved 3rd spaced fluid. Dullness to percussion is still evident in the righrt base. Breath sounds are still diminished in the right base as well. No bronchial breathing or wheezing. No rub or rales. Approaching discharge. Will have oncology followup as an outpatient. All records prepared. Objective - Vital Signs/Intake and Output Vital Signs (last 24 hours): Temp Pulse Resp BP Pulse Ox 96.1 F L 61 20 127/79 94 L 03/03/17 08:16 03/03/17 08:30 03/03/17 08:16 03/03/17 08:30 03/03/17 08:16 - Medications Medications: Current Medications Acetaminophen (Tylenol 650 Mg Supp) 650 mg [place] Q4 PRN PRN Reason: Fever >100.4 F Digoxin (Lanoxin) 0.25 mg PO DAILY [facility] Last Admin: 03/03/17 08:30 Dose: 0.25 mg Levalbuterol HCl (Xopenex) 0.63 mg INH RQ8 [facility] Last Admin: 03/03/17 07:35 Dose: 0.63 mg Metoclopramide HCl (Reglan) 10 mg PO ACHS [facility] Last Admin: 03/03/17 08:30 Dose: 10 mg Metoprolol Tartrate (Lopressor) 25 mg PO Q12 [facility] Last Admin: 03/03/17 08:30 Dose: 25 mg Ondansetron HCl (Zofran Inj) 4 mg IVP Q4H PRN PRN Reason: Nausea/Vomiting Pantoprazole Sodium (Protonix Ec Tab) 40 mg PO DAILY [facility] Last Admin: 03/03/17 08:30 Dose: 40 mg Rivaroxaban (Xarelto) 20 mg PO QD5 [facility] PRN Reason: Protocol Last Admin: 03/02/17 17:09 Dose: 20 mg Zolpidem Tartrate (Ambien) 5 mg PO HS PRN PRN Reason: Sleep Last Admin: 02/21/17 22:54 Dose: 5 mg - Labs Labs: 03/03/17 09:28 03/03/17 09:28 Assessment and Plan (1) Atrial fibrillation Status: Acute (2) Colon carcinoma Status: Chronic (3) Pleural effusion Status: Acute
[2017-03-03] MEDS ORDERED: Potassium Chloride 20 mEq ER Tab PO ONE (13:30)
[2017-03-03] MEDS ORDERED: Levalbuterol 0.63 MG/3 ML Inhal Soln UD INH STA ×2 (22:13)
[2017-03-04] MEDS: Levalbuterol 0.63 MG/3 ML Inhal Soln UD INH SCH ×2 (00:54→07:33)
[2017-03-04 08:24] VITALS: BP 146/72; PULSE 61; TEMP 97.2; O2SAT 95
[2017-03-04] MEDS: Digoxin 250 mcg (0.25 mg) Tab PO SCH (08:49)
[2017-03-04] MEDS: Pantoprazole 40 mg EC Tab PO SCH (08:49)
[2017-03-04] MEDS: Metoclopramide 10 mg/10 ml Cup PO SCH ×2 (08:50→12:28)
[2017-03-04] MEDS ORDERED: Levalbuterol 0.63 MG/3 ML Inhal Soln UD INH PRN (09:23)
[2017-03-04] MEDS ORDERED: Albuterol HFA 90 mcg/actuation (8 g) INH PRN (09:24)
[2017-03-04] MEDS ORDERED: Tiotropium 18 mcg Cap For Inhalation INH SCH (09:30)
[2017-03-04] MEDS ORDERED: Potassium Chloride 20 mEq ER Tab PO ONE ×2 (09:32→10:15)
--- NOTE | 2017-03-04 09:37 | CP.PCM.PN ---
Subjective - Date & Time of Evaluation Date of Evaluation: 03/04/17 Time of Evaluation: 09:34 - Subjective Subjective: Tentative for discharge today. Had potassium supplement yesterday for level of 2.8. Will repeat KCL supplement again today and follow with lab check. Levalbuterol discontinued. Tiotropium re-started. After the above are checked he should be able to leave today. Follow up as an outpatient with me. Can have lifeport as an outpatient. Oncology follow up to be determined. Objective - Vital Signs/Intake and Output Vital Signs (last 24 hours): Temp Pulse Resp BP Pulse Ox 97.2 F L 61 20 146/72 95 03/04/17 08:24 03/04/17 08:49 03/04/17 08:24 03/04/17 08:49 03/04/17 08:24 - Medications Medications: Current Medications Acetaminophen (Tylenol 650 Mg Supp) 650 mg [place] Q4 PRN PRN Reason: Fever >100.4 F Albuterol (Ventolin Hfa 90 Mcg/Actuation (8 G)) 2 puff INH RQ4 PRN PRN Reason: Shortness of Breath Digoxin (Lanoxin) 0.25 mg PO DAILY [facility] Last Admin: 03/04/17 08:49 Dose: 0.25 mg Levalbuterol HCl (Xopenex) 0.63 mg INH RQ8 PRN PRN Reason: Shortness of Breath Metoclopramide HCl (Reglan) 10 mg PO ACHS [facility] Last Admin: 03/04/17 08:50 Dose: 10 mg Metoprolol Tartrate (Lopressor) 25 mg PO Q12 [facility] Last Admin: 03/04/17 08:49 Dose: 25 mg Ondansetron HCl (Zofran Inj) 4 mg IVP Q4H PRN PRN Reason: Nausea/Vomiting Pantoprazole Sodium (Protonix Ec Tab) 40 mg PO DAILY [facility] Last Admin: 03/04/17 08:49 Dose: 40 mg Rivaroxaban (Xarelto) 20 mg PO QD5 [facility] PRN Reason: Protocol Last Admin: 03/03/17 17:25 Dose: 20 mg Tiotropium [place] (Spiriva) 18 mcg INH DAILY [facility] Zolpidem Tartrate (Ambien) 5 mg PO HS PRN PRN Reason: Sleep Last Admin: 02/21/17 22:54 Dose: 5 mg - Labs Labs: 03/03/17 09:28 03/03/17 09:28 Assessment and Plan (1) Atrial fibrillation Status: Acute (2) Colon carcinoma Status: Chronic (3) Pleural effusion Status: Acute
--- NOTE | 2017-03-04 10:17 | CP.PCM.DIS ---
Provider - Provider Date of Admission: 02/19/17 17:40 Attending physician: April Cruz DO Time Spent in preparation of Discharge (in minutes): 30 Hospital Course - Lab Results Lab Results: Most Recent Lab Values WBC 9.1 K/uL (4.8-10.8) D 03/03/17 09:28 RBC 3.75 Mil/uL (4.40-5.90) L 03/03/17 09:28 Hgb 11.6 g/dL (12.0-18.0) L 03/03/17 09:28 Hct 35.1 % (35.0-51.0) 03/03/17 09:28 MCV 93.5 fl (80.0-94.0) 03/03/17 09: MCH 30.9 pg (27.0-31.0) 03/03/17 09: MCHC 33.0 g/dL (33.0-37.0) 03/03/17 09:28 RDW 15.1 % (11.5-14.5) H 03/03/17 09:28 Plt Count 382 K/uL (130-400) 03/03/17 09:28 MPV 7.2 fl (7.2-11.7) 03/03/17 09:28 Neut % (Auto) 58.5 % (50.0-75.0) 03/03/17 09:28 Lymph % (Auto) 15.8 % (20.0-40.0) L 03/03/17 09:28 [place] % (Auto) 9.5 % (0.0-10.0) 03/03/17 09:28 Eos % (Auto) 14.7 % (0.0-4.0) H 03/03/17 09:28 Baso % (Auto) 1.5 % (0.0-2.0) 03/03/17 09:28 Neut # 5.3 K/uL (1.8-7.0) 03/03/17 09:28 Lymph # 1.4 K/uL (1.0-4.3) 03/03/17 09:28 [place] # 0.9 K/uL (0.0-0.8) H 03/03/17 09:28 Eos # 1.3 K/uL (0.0-0.7) H 03/03/17 09:28 Baso # 0.1 K/uL (0.0-0.2) 03/03/17 09:28 Sodium 138 mmol/l (132-148) 03/03/17 09:28 Potassium 2.8 MMOL/L (3.6-5.0) L 03/03/17 09:28 Chloride 104 mmol/L (98-107) 03/03/17 09:28 Carbon Dioxide 24 mmol/L (22-30) 03/03/17 09:28 Anion Gap 13 (10-20) 03/03/17 09:28 BUN 6 mg/dl (9-20) L 03/03/17 09:28 Creatinine 0.8 mg/dL (0.8-1.5) 03/03/17 09:28 Est GFR ( Amer) > 60 03/03/17 09:28 Est GFR (Non-Af Amer) > 60 03/03/17 09:28 Random Glucose 127 mg/dL (75-110) H 03/03/17 09:28 Calcium 8.6 mg/dL (8.4-10.2) 03/03/17 09:28 Total Bilirubin 0.3 mg/dl (0.2-1.3) 02/23/17 08:30 AST 28 U/L (17-59) 02/23/17 08:30 ALT 36 U/L (21-72) 02/23/17 08:30 Alkaline Phosphatase 62 U/L (38-126) 02/23/17 08:30 Total Protein 5.5 G/DL (6.3-8.2) L 02/23/17 08:30 Albumin 2.6 g/dL (3.5-5.0) L 02/23/17 08:30 Globulin 2.9 gm/dL (2.2-3.9) 02/23/17 08:30 Albumin/Globulin Ratio 0.9 (1.0-2.1) L 02/23/17 08:30 - Hospital Course Hospital Course: 71 yo male with history of COPD underwent sigmoid resection and colostomy for colonic malignancy because of intestinal obstruction complicated with AFib with RVR and hypovolemic shock. Pt also developed bilateral pleural effusions and had thoracentesis on the right side. Pt now in TCU for continuation of management and rehab. Patient tolerated physical therapy well, no complaints. Stable to be discharged home. Follow up with PCP, DR. MARTI, HEMEONC DR. Susan FUNK, CARDIOLOGY DR. Bennett FUNK, SURGERY DR. 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 Afib rate controlled on Digoxin and Metoprolol on Xarelto 3. COPD (chronic obstructive pulmonary disease) asymptomatic Duoneb prn 4. Bilateral Pleural Effusion S/P thoracentesis on right 5. DVT prophylaxis on Xarelto Discharge Exam - Head Exam Head Exam: ATRAUMATIC, NORMOCEPHALIC - Eye Exam Eye Exam: EOMI, Normal appearance, PERRL Pupil Exam: NORMAL ACCOMODATION - ENT Exam ENT Exam: Mucous Membranes Moist, Normal Oropharynx - Respiratory Exam Respiratory Exam: Clear to PA & Lateral, NORMAL BREATHING PATTERN. absent: Rales, Rhonchi - Cardiovascular Exam Cardiovascular Exam: RRR, +S1, +S2. absent: Gallop, Rubs - GI/Abdominal Exam GI & Abdominal Exam: Normal Bowel Sounds, Soft. absent: Mass, Organomegaly, Tenderness - Extremities Exam Extremities exam: normal capillary refill, pedal pulses present - Back Exam Back exam: absent: CVA tenderness (L), CVA tenderness (R) - Neurological Exam Neurological exam: Alert, Oriented x3 - Psychiatric Exam Psychiatric exam: Normal Affect, Normal Mood - Skin Skin Exam: Dry, Warm Discharge Plan - Discharge Medications Prescriptions: Albuterol HFA [Ventolin HFA 90 mcg/actuation (8 g)] 2 puff INH RQ4 PRN #1 inhaler PRN Reason: Shortness Of Breath Digoxin [Lanoxin] 0.25 mg PO DAILY #30 tab Metoclopramide [Reglan] 10 mg PO ACHS #30 tab Metoprolol Tartrate [Lopressor] 25 mg PO Q12 #60 tab Rivaroxaban [Xarelto] 20 mg PO QD5 #30 tab Tiotropium [Spiriva] 18 mcg INH DAILY #30 cap - Follow Up Plan Condition: GOOD Disposition: HOME/ ROUTINE Additional Instructions: FOLLOW UP WITH PCP IN ONE WEEK DR. MARTI FOLLOW UP WITH HEMATOLOGY ONCOLOGY ONE WEEK DR. Dorian FUNK FOLLOW UP WITH CARDIOLOGY IN ONE WEEK DR. Bennett FUNK FOLLOW UP WITH SURGERY INSTRUCTED, DR. JASON NASSAR RETURN TO ER IF CONDITION WORSENS
== END 2017-03-04 14:45 | disposition home or self-care (01) | DRG 949 ==
LOC: H.TCU 17:40
PROVIDERS: ADMIT Student in an Organized Health Care Education/Training Program; ATTEND Student in an Organized Health Care Education/Training Program
PROC: 3E0F7GC Introduction of Other Therapeutic Substance into Respiratory Tract, Via Natural or Artificial Opening (ICD-10-PCS; principal; 2017-02-19)
PROC: F07M6FZ Therapeutic Exercise Treatment of Musculoskeletal System - Whole Body using Assistive, Adaptive, Supportive or Protective Equipment (ICD-10-PCS; 2017-02-19)
PROC: F08Z4FZ Home Management Treatment using Assistive, Adaptive, Supportive or Protective Equipment (ICD-10-PCS; 2017-02-19)
DX: Z48.815 Encounter for surgical aftercare following surgery on the digestive system (principal); C18.7 Malignant neoplasm of sigmoid colon; J90 Pleural effusion, not elsewhere classified; K56.7 Ileus, unspecified; J44.9 Chronic obstructive pulmonary disease, unspecified; I48.91 Unspecified atrial fibrillation; T81.19XD Other postprocedural shock, subsequent encounter; Z79.01 Long term (current) use of anticoagulants; Z87.891 Personal history of nicotine dependence; Z90.49 Acquired absence of other specified parts of digestive tract; Z98.0 Intestinal bypass and anastomosis status; Z93.3 Colostomy status; R00.0 Tachycardia, unspecified